=== PATIENT | female | born 1945 | race Caucasian/White ===

== ENCOUNTER → 2018-12-05 11:57 | Outpatient (CLI) | payer OTHER, SELFPAY ==
--- NOTE | 2018-12-05 | DI.MG.S_ITS ---
BILATERAL DIGITAL SCREENING MAMMOGRAM 3D/2D WITH CAD: 12/05/2018 CLINICAL: Routine screening. Family history of breast cancer. Comparison is made to exams dated: 10/14/2017 mammogram, 09/28/2016 mammogram, and 09/26/2015 mammogram - [facility]. The tissue of both breasts is heterogeneously dense. This may lower the sensitivity of mammography. Current study was also evaluated with a Computer Aided Detection (CAD) system. There are benign calcifications in both breasts. No significant masses, calcifications, or other findings are seen in either breast. There has been no significant interval change. IMPRESSION: There is no mammographic evidence of malignancy. A 1 year screening mammogram is recommended. This exam was interpreted at Station ID: [id number]. NOTE: For mammograms, a report in lay terms will be sent to the patient. Approximately 15% of breast malignancies will not be visualized mammographically. In the management of a palpable breast mass, a negative mammogram must not discourage biopsy of a clinically suspicious lesion. Electronically Signed By: Axel weiss/david:12/05/2018 13:22:40 letter sent: Normal Exam ACR BI-RADS Category 2: Benign Finding(s) 3342F
== END ==
PROVIDERS: Family Provider Family Medicine; PCP Family Medicine; Visit Provider Family Medicine
DX: Z12.31 Encounter for screening mammogram for malignant neoplasm of breast (principal); Z80.3 Family history of malignant neoplasm of breast
CPT/HCPCS: 77063; 77067

== ENCOUNTER → 2019-12-20 10:55 | Outpatient (CLI) | payer OTHER, SELFPAY ==
--- NOTE | 2019-12-20 | DI.MG.S_ITS ---
BILATERAL DIGITAL SCREENING MAMMOGRAM 3D/2D WITH CAD: 12/20/2019 CLINICAL: Routine screening. Family history of breast cancer. Comparison is made to exams dated: 12/05/2018 mammogram, 10/14/2017 mammogram, and 09/28/2016 mammogram - [facility]. The tissue of both breasts is heterogeneously dense. This may lower the sensitivity of mammography. Current study was also evaluated with a Computer Aided Detection (CAD) system. There are benign calcifications in both breasts. No significant masses, calcifications, or other findings are seen in either breast. There has been no significant interval change. IMPRESSION: There is no mammographic evidence of malignancy. A 1 year screening mammogram is recommended. This exam was interpreted at Station ID: [id number]. NOTE: For mammograms, a report in lay terms will be sent to the patient. Approximately 15% of breast malignancies will not be visualized mammographically. In the management of a palpable breast mass, a negative mammogram must not discourage biopsy of a clinically suspicious lesion. Electronically Signed By: Kareem carr/david:12/20/2019 11:33:45 letter sent: Normal Exam ACR BI-RADS Category 2: Benign Finding(s) 3342F
== END ==
PROVIDERS: Family Provider Family Medicine; PCP Family Medicine; Referring Provider Family Medicine; Visit Provider Family Medicine
DX: Z12.31 Encounter for screening mammogram for malignant neoplasm of breast (principal); Z80.3 Family history of malignant neoplasm of breast
CPT/HCPCS: 77063; 77067

== ENCOUNTER 2020-08-07 19:29 | Observation (INO) | payer OTHER, SELFPAY ==
[2020-08-07] VITALS (12 sets, daily range): BP systolic 160–186; BP diastolic 70–82; PULSE 52–77; RESP 16–24; TEMP 36.9; O2SAT 95–97; BMI 26.5
--- NOTE | 2020-08-07 20:33 | ED_ITS ---
HPI - Back Pain/Injury General Chief Complaint: Back Pain/Injury Stated Complaint: pain left shoulder blade and down left arm Time Seen by Provider: 08/07/20 20:03 Source: patient and family Limitations: no limitations History of Present Illness HPI Narrative: Patient here with son. Complaints then onset of left shoulder pain radiating to left hand at 2:00 p.m. today, 6 hours ago. Has improved. Patient denies any injury to the area. At times it does feel reproducible on point tenderness/palpation at the lateral scapula. No numbness tingling weakness. No syncope no nausea no dyspnea. No syncope. No recent long travel. No recent immobilization. No surgeries. Denies any history of pulmonary embolism or DVT. Patient has increased home activity with home repairs but denies any specific injury or repetitive motion. Patient does have rash area on the left shoulder but no fever malaise. It itches. She states that she thought may be insect bites because she has been outdoors working. Denies any history of shingles. Patient is on 2 blood pressure medications as well as cholesterol medications. No prior stress test in her life. Does not smoke. Blood pressure noted. Six years ago she states she was seen by her primary care Dr. Vinicius Valero, for arrhythmia. It sounds like SVT as patient had to go to the emergency department here. Was cardioverted with a medication that ?reset your heart ?, possible Adenocard? She was sent home from the emergency department. Had Holter monitor but no definitive diagnosis. Is on diltiazem since then. Patient never saw electrician third and none current. Denies any cough cold congestion fever chills or sore throat. Complaint: back pain Related Data Home Medications Medication Instructions Recorded Confirmed lisinopril 5 mg PO DAILY #0 11/24/12 08/07/20 alprazolam 0.25 mg tablet 0.25 mg PO ONCE PRN tab 01/27/19 08/07/20 diltiazem HCl 180 mg 180 mg PO DAILY 01/27/19 08/07/20 capsule,extended release 24 hr diltiazem HCl 30 mg tablet 30 mg PO ONCE PRN tab 01/27/19 08/07/20 levothyroxine 100 mcg capsule 100 mcg PO DAILY 01/27/19 08/07/20 pantoprazole 40 mg granules 40 mg PO BEDTIME 01/27/19 08/07/20 delayed-release for susp in packet atorvastatin 10 mg PO BEDTIME 08/07/20 08/07/20 cholecalciferol (vitamin D3) 25 mcg PO DAILY 08/07/20 08/07/20 [Vitamin D3] Allergies Allergy/AdvReac Type Severity Reaction Status Date / Time No Known Drug Allergies Allergy Verified 08/07/20 19:45 Review of Systems Review of Systems Narrative: GENERAL: Denies chills, fatigue, malaise, fever, sweats. HEENT: Denies sinus pain, ear pain, sore throat, difficulty swallowing, dizziness. RESPIRATORY: Denies dyspnea, cough, wheezing, hemoptysis, sputum. CARDIOVASCULAR: Denies chest pain, palpitations, orthopnea, edema, GASTROINTESTINAL: Denies nausea, vomiting, abdominal pain, diarrhea, constipation, melena. : Denies dysuria, frequency, incontinence, hematuria, urinary retention. MUSCULOSKELETAL: denies weakness, joint pain, or bony pain SKIN: Complains rash, skin lesions NEUROLOGIC: Denies weakness, headache, numbness, change in speech, confusion, seizures, incoordination. PSYCHIATRIC: No concerning psychosocial issues. ROS Unobtainable: All systems reviewed & are unremarkable except as noted in HPI and below Patient History Social History household members: none Smoking Status: Never smoker alcohol intake: former Smoking Status: Never smoker Substance Use Type: does not use Exam Narrative Exam Narrative: GENERAL: patient appears stated age. Well-nourished, well- developed patient, in no distress, not toxic, patient in gown HEAD: Atraumatic. Normocephalic. EYES: Pupils equal round and reactive. Extraocular motions intact. No scleral icterus. No injection or drainage. ENT: Nose without bleeding, purulent drainage. Throat without erythema, tonsillar hypertrophy or exudate. Airway patent. NECK: Trachea midline. Non tender CARDIOVASCULAR: Regular rate and rhythm without murmurs, gallops, or rubs. RESPIRATORY: Clear to auscultation. Breath sounds equal bilaterally. No wheezes, rales, or rhonchi. GASTROINTESTINAL: Abdomen soft, non-tender, nondistended. EXTREMITIES: No edema or joint tenderness. BACK: Mild reproducible tenderness/point tenderness at the lateral scapula. NEURO: AOx4. SKIN: Multiple small papules about 3 mm each not vesicular, at the trapezius and extends anteriorly to the clavicle. None extending to the arms. There is another papule crossing midline at the cervical level approximately C5. Rash is dry PSYCH: Not anxious, is cooperative Initial Vital Signs Initial Vital Signs: Vital Signs Temperature 98.5 F 08/07/20 19:45 Pulse Rate 77 08/07/20 19:45 Respiratory Rate 16 08/07/20 19:45 Blood Pressure 182/81 H 08/07/20 19:45 Pulse Oximetry 97 08/07/20 19:45 Course Course Course Narrative: Atypical chest pain likely. Not all the symptoms tied into 1 diagnosis. Never had stress test before. Patient and son agree for admission Decision to Admit Date: 08/07/20 Decision to Admit time: 21:45 Orders Ordered: ED Orders 08/07/20 19:46 EKG-12 Lead Stat 08/07/20 20:32 XR chest 1V Stat 08/07/20 20:40 Complete Blood Count AUTO DIFF Stat Comprehensive Metabolic Panel Stat Troponin & CK Cardiac Panel Stat Acetaminophen (Tylenol) 650 mg PO Q6HR PRN PRN Reason: Fever/Mild Pain (1-3) Morphine Sulfate (Morphine) 1 mg IV Q2HR PRN PRN Reason: Pain, Moderate (4-6) Morphine Sulfate (Morphine) 2 mg IV Q2HR PRN PRN Reason: Pain, Severe (7-10) Last Admin: 08/08/20 03:17 Dose: 2 mg Documented by: KEY Ondansetron HCl (Zofran) 4 mg IV Q4HR PRN PRN Reason: Nausea And Vomiting Sodium Chloride (Normal Saline 0.9% Flush) 10 ml IV PRN PRN PRN Reason: Flush Last Admin: 08/08/20 03:17 Dose: 10 ml Documented by: KEY Sodium Chloride (Normal Saline 0.9% Flush) 10 ml IV BID KEI Discontinued Medications Aspirin (Aspirin Chew) 324 mg PO NOW ONE Stop: 08/07/20 20:33 Last Admin: 08/07/20 20:37 Dose: 324 mg Documented by: DIEUDONNE Nitroglycerin (Nitro-Bid) 0.5 inch TOP NOW ONE Stop: 08/07/20 20:33 Last Admin: 08/07/20 20:37 Dose: 0.5 inch Documented by: MMCFARL Reevaluation(s) Reevaluation #1: Blood pressure 174/72. Patient states nitropaste seems to be helping and is discomfort improving in the left shoulder Time: 22:12 Consultations Consultation #1: Spoke with primary care numerical control nesting operator, Dr. Pettit, she will admit patient. She will place orders from home Time: 21:45 Vital Signs Vital signs: Vital Signs - 8 hr 08/07/20 19:45 08/07/20 19:49 08/07/20 20:00 Temperature 98.5 F Pulse Rate 77 66 62 Respiratory Rate 16 23 20 Blood Pressure 182/81 H Pulse Oximetry 97 97 97 08/07/20 20:01 08/07/20 20:30 08/07/20 21:00 Temperature Pulse Rate 60 68 56 L Respiratory Rate 18 24 16 Blood Pressure 160/70 H 186/81 H 185/79 H Pulse Oximetry 97 96 08/07/20 21:30 08/07/20 21:31 Temperature Pulse Rate 55 L 52 L Respiratory Rate 22 18 Blood Pressure 181/79 H Pulse Oximetry 95 95 MDM - Back Pain/Injury Differential Diagnosis Differential diagnosis: Likely other (Shingles versus muscular strain versus atypical chest pain) Lab Data Attestation: I reviewed the patient's lab results. Result diagrams: 08/07/20 20:40 08/07/20 20:40 Labs: Lab Results 08/07/20 08/07/20 Range/Units 20:40 20:40 WBC 6.9 (4.5-11.0) X10^3/uL RBC 4.50 (4.0-5.2) X10^6/uL Hgb 13.6 (12.0-16.0) g/dL Hct 39.3 (36-46) % MCV 87.4 (80-100) fL MCH 30.3 (26-34) PG MCHC 34.7 (30-36) % RDW 12.6 (11.6-14.8) % Plt Count 270 (150-400) X10^3/uL Neut % (Auto) 58.9 (50-75) % Lymph % (Auto) 26.4 (25-40) % [place] % (Auto) 9.4 (3-14) % Eos % (Auto) 4.4 H (2-4) % Baso % (Auto) 0.9 (0-2) % Neut # (Auto) 4000 (8441-1842) /uL Lymph # (Auto) 1800 (7328-2104) /uL [place] # (Auto) 600 (0-900) /uL Eos # (Auto) 300 (0-450) /uL Baso # (Auto) 100 (0-100) /uL Sodium 136 L (137-145) mmol/L Potassium 4.2 (3.4-5.1) mmol/L Chloride 103 (98-107) mmol/L Carbon Dioxide 26 (22-32) mmol/L BUN 23 H (7-17) mg/dL Creatinine 0.91 (0.52-1.04) mg/dL Estimated GFR 59.9 L (>60) mL/min BUN/Creatinine Ratio 25.3 H (6-22) Glucose 110 (80-110) mg/dL Calcium 9.0 (8.4-10.2) mg/dL Total Bilirubin 0.5 (0.2-1.3) mg/dL AST 26 (14-36) IU/L ALT 17 (<35) IU/L Alkaline Phosphatase 82 (38-126) U/L Total Creatine Kinase 67 (30-135) U/L CK-MB (CK-2) TNP CK-MB (CK-2) Rel Index TNP Troponin I < 0.012 (0.01-0.034) ng/mL Total Protein 7.3 (6.3-8.2) g/dL Albumin 4.0 (3.5-5.0) g/dL Globulin 3.3 (1.7-4.1) g/dL Albumin/Globulin Ratio 1.2 (1.0-2.8) Imaging Data Chest x-ray: Radiologist's Impression: [address] [address] XRay Report Signed Patient: Janet Hernández LMR#: [id number] : 3Acct:[id number] Age/Sex: 75 / FDate of Service: 08/07/20 Loc: ED Accession Number: [id number] Procedure: XR chest 1V Ordering Provider: Bryan Solo MD PROCEDURE: XR CHEST 1V INDICATIONS: Chest pain TECHNIQUE: One view of the chest was acquired. COMPARISON: [facility], , CHEST 1 VIEW, 11/24/2012, 10:00. FINDINGS: Surgical changes and devices: None. Lungs and pleura: Lungs are clear. No pleural effusions or pneumothorax. Mediastinum: There is a moderate-sized hiatal hernia. Heart size is normal. Bones and chest wall: No suspicious bony lesions. Overlying soft tissues appear unremarkable. IMPRESSION: 1. No acute cardiopulmonary disease. 2. Moderate size hiatal hernia. Dictated by: Kareem Ross M.D. on 08/07/2020 at 21:37 Approved by: Kareem Ross M.D. on 08/07/2020 at 21:38 ECG Data Attestation: I personally reviewed and interpreted this ECG as follows: Interpretation: Normal sinus rhythm, normal EKG, ventricular rate 70, no ST elevation or depression MDM Narrative Medical decision making narrative: At this time differential diagnosis includes atypical chest pain/unstable angina as patient has sudden onset of left upper extremity discomfort that is partially reproducible. Shingles is in the differential but extension down to the arm does not go with shingles as well as point tenderness. Could be musculoskeletal as patient has been exerting and doing a lot of home repairs and improvements. But does not recall any specific injury. Patient is right handed. However rash does not go with muscular strain. Patient denies any recent exertional chest pain but has been very tired and fatigued. Spoke with patient and son and they agree with admission overnight for stress test in the morning. Rash has not changed in the last 3 days, not a burning sensation to the skin Discharge Plan Departure Patient Disposition: Admitted as Observation Clinical Impression: Atypical chest pain Discharge Date/Time: 08/08/20 00:10 Referrals: Vinicius Valero MD [Primary Care Provider] - Admit Date/Time: 08/07/20 21:44 Admit Provider: Erin Pettit
[2020-08-07] MEDS: ASPIRIN 81 MG CHEW TAB 324 MG PO (20:37)
[2020-08-07] MEDS: NITROGLYCERIN OINT 1 INCH/GM OINT...G. 0.5 INCH TOP (20:37)
[2020-08-07 20:55] LABS: Add Manual Diff / Slide Review NO; Basophils Absolute Auto 100 /uL (0-100); Basophils Percent Auto 0.9 % (0-2); Eosinophils Absolute Auto 300 /uL (0-450); Eosinophils Percent Auto 4.4 % (2-4); Hematocrit 39.3 % (36-46); Hemoglobin 13.6 g/dL (12.0-16.0); Lymphocytes Absolute Auto 1800 /uL (1100-4500); Lymphocytes Percent Auto 26.4 % (25-40); Mean Corpuscular HGB Conc 34.7 % (30-36); Mean Corpuscular Hemoglobin 30.3 PG (26-34); Mean Corpuscular Volume 87.4 fL (80-100); Monocytes Absolute Auto 600 /uL (0-900); Monocytes Percent Auto 9.4 % (3-14); Neutrophils Absolute Auto 4000 /uL (1500-7000); Neutrophils Percent Auto 58.9 % (50-75); Platelet Count 270 X10^3/uL (150-400); Red Cell Distribution Width 12.6 % (11.6-14.8); White Blood Cell Count 6.9 X10^3/uL (4.5-11.0)
[2020-08-07 21:09] LABS: Alanine Aminotransferase 17 IU/L (<35); Albumin Globulin Ratio 1.2 (1.0-2.8); Alkaline Phosphatase 82 U/L (38-126); Aspartate Aminotransferase 26 IU/L (14-36); BUN Creatinine Ratio 25.3 (6-22); Bilirubin Total 0.5 mg/dL (0.2-1.3); Blood Urea Nitrogen 23 mg/dL (7-17); Carbon Dioxide 26 mmol/L (22-32); Chloride 103 mmol/L (98-107); Creatine Kinase 67 U/L (30-135); Estimated Glomerular Filt Rate 59.9 mL/min (>60); Globulin 3.3 g/dL (1.7-4.1); Glucose 110 mg/dL (80-110); HEMOLYSIS < 15 (0-50); Potassium 4.2 mmol/L (3.4-5.1); Sodium 136 mmol/L (137-145); Total Protein 7.3 g/dL (6.3-8.2)
[2020-08-07 21:21] LABS: Troponin I < 0.012 ng/mL (0.01-0.034)
[2020-08-07 22:14] LABS: COVID19 -Nasal RAPID Negative (Negative)
[2020-08-08] VITALS (10 sets, daily range): BP systolic 132–186; BP diastolic 65–80; PULSE 49–65; RESP 14–18; TEMP 36.9–37.4; O2SAT 88–97; BMI 25.8
--- NOTE | 2020-08-08 02:50 | PC.ADMIT ---
Addendum entered by Bushra Guzmán R.N. 08/08/20 05:05: Patient found to have O2 sat of 88% so placed on oxygen at 1L/min per NC Addendum entered by Bushra Guzmán R.N. 08/08/20 03:13: Complains of increasing pain in left arm and rates severity as 8/10. BP 186/76. MACHINE ATTENDANT reports only that HR has dropped down as low as 50. See new order for Morphine. Original Note: Patient admitted to room 216 at 0020 per stretcher from ER. Reports she began having left scapular pain radiating into left arm around 2pm yesterday. Pain on admission was 3/10 in left scapula and 5/10 in left arm but states some improvement and able to tolerate. Is alert and oriented. Breath sounds CTA with RA sat of 97%. HRR; telemetry reading was SR w/1st degree AVB and PAC's. Denied nausea. BT present and abdomen soft. Reports prolapse that causes her to have urinary hesitancy but denies dysuria, frequency or urgency. Is able to move self in bed and up independently in the room; steady on feet. Did instruct to sit on edge of bed prior to getting up and call for assistance if any increased pain, dizziness or lightheadedness. Has petichiael appearing rash on cheeks and chin; denies itching, pain or burning. Fall risk score is low. Oriented to call light and bed controls. [email or web address] [facility] Admission Note: The patient,Janet Hernández,75 y/o, was given written information regarding hospital policies, unit procedures and contact persons. Patient's smoking status: Never smoker. Vital Signs - 8 hr 08/07/20 19:45 08/07/20 19:49 08/07/20 20:00 Temperature 98.5 F Pulse Rate 77 66 62 Respiratory Rate 16 23 20 Blood Pressure 182/81 H Pulse Oximetry 97 97 97 08/07/20 20:01 08/07/20 20:30 08/07/20 21:00 Temperature Pulse Rate 60 68 56 L Respiratory Rate 18 24 16 Blood Pressure 160/70 H 186/81 H 185/79 H Pulse Oximetry 97 96 08/07/20 21:30 08/07/20 21:31 08/07/20 22:00 Temperature Pulse Rate 55 L 52 L Respiratory Rate 22 18 Blood Pressure 181/79 H Pulse Oximetry 95 95 97 08/07/20 22:03 08/07/20 22:30 08/07/20 23:00 Temperature Pulse Rate 63 65 61 Respiratory Rate 20 20 Blood Pressure 174/82 H 179/77 H 177/75 H Pulse Oximetry 96 96 96 08/08/20 00:20 Temperature 98.5 F Pulse Rate 63 Respiratory Rate 15 Blood Pressure 159/80 H Pulse Oximetry 97
[2020-08-08] MEDS: SODIUM CHLORIDE 0.9% FLUSH 10 ML IV ×2 (03:17→08:48)
[2020-08-08] MEDS: MORPHINE 2 MG/ML INJ IV (03:17)
[2020-08-08] MEDS: ONDANSETRON 4 MG/2 ML INJ IV (04:26)
--- NOTE | 2020-08-08 04:37 | PC.NURSE ---
ICU called reported patients heart rate dipped down to 42. Patient in bed with head elevated c/o of abd. pain and nausea. Vitals 141/76, HR 57, R 16 and O2 sats 96% on room air. Denies any Chest pain, MCGARRY or dizziness. Medicated with Zofran for the nausea. Patient states I think the morphine I was given has made me sick, Im not taking that anymore. No redness or rash noted. Patient currently resting quietly in bed. Denies nausea at this time.
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
[2020-08-08] MEDS: lisinopriL 5 MG TABLET PO (08:46)
[2020-08-08] MEDS: LEVOTHYROXINE 100 MCG TABLET PO (08:47)
[2020-08-08] MEDS: ASPIRIN EC 81 MG TABLET PO (08:47)
[2020-08-08] MEDS: IBUPROFEN 600 MG TABLET PO ×2 (08:47→14:34)
[2020-08-08] MEDS: CHOLECALCIFEROL (VITAMIN D3) 1,000 UNIT TABLET 100 UNIT PO (08:48)
[2020-08-08] MEDS: dilTIAZem CD 180 MG CAP PO (08:59)
--- NOTE | 2020-08-08 09:32 | PC.NURSE ---
Addendum entered by Sis Daniel R.N. 08/08/20 09:33: at approx 0930 Original Note: Day shift: Pt off unit for stress test at approx.
--- NOTE | 2020-08-08 10:09 | PC.NURSE ---
Day shift: Pt back on AC unit from stress test at approx 1000. She is NPO again
--- NOTE | 2020-08-08 10:17 | PC.NURSE ---
Day shift: After Lisinipril and Diltiazem BP 146/79 and HR 62. Denies any chest pain. Left shoulder and left arm feel better after the Ibuprofen.
--- NOTE | 2020-08-08 10:27 | PT.IIE ---
Physical Therapy Inpatient Evaluation/Re-Eval M1 PT/OT-IP Prior Functional Status Start: 08/08/20 12:28 Freq: NEEDED Status: Active Protocol: Document 08/08/20 10:27 AB (Rec: 08/08/20 13:05 AB [id number]) Medical Review Prior Functional Status Medical History Reviewed Yes Communication able to make needs known Mobility and Gait pt stated that she is independent with all mobilities and ambulation without AD Social History Household Members none Living Arrangements House Number of Floors (Floors) One Floor Number of Stairs To Enter/Railing? 2 steps without rails to enter Home Environment High Toilet,Walk in Shower Home Equipment Hand Held Shower,Grab Bars In Shower Employment Status Retired M2 PT-IP Current Condition Start: 08/08/20 12:28 Freq: NEEDED Status: Active Protocol: Document 08/08/20 10:27 AB (Rec: 08/08/20 13:05 AB [id number]) Physical Therapy Current Condition Current Condition Evaluation Date 08/08/20 Treatment Diagnosis atypical chest pain; difficulty in walking Onset Date 08/07/20 M3 PT-IP Subjective Start: 08/08/20 12:28 Freq: NEEDED Status: Active Protocol: Document 08/08/20 10:27 AB (Rec: 08/08/20 13:05 AB [id number]) Subjective Physical Therapy Visit Type Type Initial Evaluation Visit Start Time 10:27 Visit Stop Time 11:00 Total Visit Minutes 33 Number of GRAIN ELEVATOR MOTOR 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 Visits 0 Physical Therapy Visit Comments Patient Comments pt is agreeable to do PT Therapy Pain Assessment Pain When Pain Assessed At Rest Pain Present Pain Present Pain Reported Location Left Arm Scale Used pain scale not stated M4 PT-IP Mobility and Gait Start: 08/08/20 12:28 Freq: NEEDED Status: Active Protocol: Document 08/08/20 10:27 AB (Rec: 08/08/20 13:05 AB [id number]) PT-Bed Mobility Assessment Supine to Sit Supine to Sit Independent Sit to Supine Sit to Supine Independent PT-Transfer Assessment Sit to and From Stand Sit to and from Stand Independent Equipment Transfer Assistive Device None Transfer Ability Level of Assist Standby Assistance Comments Mobility Comments completed bed mobility independent. ambulated in room without AD SBA with unsteady gait but without LOB. increase lateral trunk lurch to the R during ambulation and with difficulty ambulating a straigth path but did not have any LOB. completed balance assessement and pt is a low fall risk. pt ambulated back to her bed. completed sit to supine independent. Gait Assessment Gait Gait Assistance Required: Standby Assistance Distance (Feet) 50 Able to Maintain Weight Bearing Status Yes During Gait Assistive Devices Orthotic/Prosthetic Devices or Brace: No Gait Deviations General Gait Pattern Antalgic,Lateral Trunk Lean Stair Climbing Assessment Evaluation Level of Assist On Stairs Standby Assistance Devices Stair Climbing Assistive Devices None Technique/Endurance Stair Climbing Direction Ascend and Descend Stair Climbing Technique Step to Step Number of Steps Climbed 1 Query Text: Stair Climbing Set # Repetitions (reps) 2 Comments Stair Climbing Comments completed up/down step stool without AD SBA PT-Balance Assessment Sitting Balance and Reactions Static Sitting Balance Ability Normal Dynamic Sitting Balance Ability Normal Standing Balance and Reactions Static Standing Balance Ability Good Dynamic Standing Balance Ability Good Functional Assessments Functional Tests 5 Times Sit to Stand completed in 14 sec: low fall risk Tinetti Balance and Gait Assessment Other Functional Tests Performed tinetti balance assessment: balance score: 16/16 gait score: 11/12 total score of which relates to low fall risk M5 PT-IP Objective Assessments Start: 08/08/20 12:28 Freq: NEEDED Status: Active Protocol: Document 08/08/20 10:27 AB (Rec: 08/08/20 13:05 [id number]) Orientation Orientation/Cognition Level of Alertness Alert Orientation Name,Age,Birthday,Month,Date, Year,Day of Week,Place, Situation Language Function Ability No Deficits Noted Safety Awareness Understands Safety Issues Memory Description No Deficits Noted Gross Range of Motion Lower Extremity ROM Assessment Within Functional Limits Strength Lower Extremity Strength Assessment Within Functional Limits Coordination Assessment Gross Coordination Gross Coordination WNL Sensation Assessment Sensation Gross Sensation WNL Muscle Tone Muscle Tone WNL Yes M6 PT-IP Treatment Start: 08/08/20 12:28 Freq: NEEDED Status: Active Protocol: Document 08/08/20 10:27 AB (Rec: 08/08/20 13:05 [id number]) Physical Therapy Treatment Education Education Provided Safety M7 PT-IP Assessment and Plan Start: 08/08/20 12:28 Freq: NEEDED Status: Active Protocol: Document 08/08/20 10:27 AB (Rec: 08/08/20 13:05 AB [id number]) PT Summary Assessment and Plan Potential Rehabilitation Potential Good Summary Impairments Gait Assessment Summary PT eval completed and pt is SBA with ambulation without AD for safety but without LOB. Balance assessment completed and pt is low fall risk. pt is able to complete up/down step stool without AD/support SBA. Pt is at PLOF and no further PT intervention indicated at this time. pt aware and stated that she will go home after her stress test . Frequency of Treatment Frequency Of Treatment Discharge Recommendations To Nursing Amount of Assist Needed Standby Assistance Discharge Recommendations PT Discharge Recommendations Home Transportation Needs at Discharge Private Vehicle
[2020-08-08 11:42] LABS: Add Manual Diff / Slide Review NO; Basophils Absolute Auto 0 /uL (0-100); Basophils Percent Auto 0.6 % (0-2); Eosinophils Absolute Auto 100 /uL (0-450); Eosinophils Percent Auto 1.6 % (2-4); Hematocrit 40.6 % (36-46); Hemoglobin 13.8 g/dL (12.0-16.0); Lymphocytes Absolute Auto 1300 /uL (1100-4500); Lymphocytes Percent Auto 19.4 % (25-40); Mean Corpuscular Hemoglobin 29.7 PG (26-34); Mean Corpuscular Volume 87.3 fL (80-100); Monocytes Absolute Auto 500 /uL (0-900); Neutrophils Absolute Auto 4600 /uL (1500-7000); Neutrophils Percent Auto 71.4 % (50-75); Platelet Count 245 X10^3/uL (150-400); Red Blood Cell Count 4.65 X10^6/uL (4.0-5.2); Red Cell Distribution Width 12.8 % (11.6-14.8); White Blood Cell Count 6.5 X10^3/uL (4.5-11.0)
--- NOTE | 2020-08-08 12:02 | PC.NURSE ---
Day shift: Pt off unit for 2nd part of stress test at approx 1200.
[2020-08-08 12:05] LABS: BUN Creatinine Ratio 20.7 (6-22); Blood Urea Nitrogen 18 mg/dL (7-17); Calcium 9.2 mg/dL (8.4-10.2); Carbon Dioxide 26 mmol/L (22-32); Chloride 105 mmol/L (98-107); Estimated Glomerular Filt Rate > 60.0 mL/min (>60); Glucose 102 mg/dL (80-110); HEMOLYSIS < 15 (0-50); Magnesium 1.8 mg/dL (1.6-2.3); Phosphorous 3.8 mg/dL (2.8-4.1); Potassium 4.2 mmol/L (3.4-5.1); Sodium 139 mmol/L (137-145)
[2020-08-08 12:09] LABS: NT-proBNP (BNP-Adult 18+) 514 pg/mL (<450)
[2020-08-08 13:56] LABS: Troponin I < 0.012 ng/mL (0.01-0.034)
--- NOTE | 2020-08-08 15:21 | CM.IDA ---
Initial DCP Assessment Note Patient is a 75 yo female, resident of [place]. Patient presents after experiencing pain radiating down her left arm, admitted by Dr Pettit for chest pain r/o PCP: Dr Anjum Castillo: Brett PALACIOS reviewed chart and met w/patient this afternoon. Patient is awaiting to speak w/the doctor and hopeful she will be able to DC home this evening. Patient has flat affect w/this SENIOR UX DESIGNER, does admit her in March and my son has been taking good care of me Son Florian lives in [place] and able to assist patient as needed. No SENIOR UX DESIGNER needs identified today. Following closely. DC likely home w/family when medically stable, w/close outpt f/u EDWARD Akhtar
[2020-08-08 17:07] LABS: Troponin I < 0.012 ng/mL (0.01-0.034)
--- NOTE | 2020-08-08 17:38 | P.DS_ITS ---
History of Present Illness History of Present Illness Date Patient Seen: 08/08/20 Time Patient Seen: 17:38 Chief complaint: pain left shoulder blade and down left arm Narrative: 75 year female admitted for observation from the ED secondary to atypical chest pain/unstable angina. Had new onset left shoulder pain radiating to left hand that started yesterday at 2:00 p.m.; she called [facility] line and was advised to go to the ED secondary to risk for an atypical presentation of acute coronary syndrome. During the time she was in the ED, the pain improved after nitroglycerin. ED doctor did find that the pain was reproducible upon examination in the lateral scapula. Patient denies any tingling. No syncope, nausea or edema. No recent travel, edema surgery. No history of DVT or PE. Patient's recently and so she has had increased work around the house with home repairs but denies any inciting event or injury. Patient also has a rash that has been ongoing for few days but unchanged the last 3 days. It is dry, papular, and pruritic. No intense pain or tingling. Does not have a history of shingles. Chronically, she has paroxysmal SVT and hypertension, controlled with diltiazem and lisinopril. She did require cardioversion 6 years ago. Nonsmoker and nondrinker. History of well-controlled hypothyroidism with no abnormal TSH values in the last 5 years. Vital signs upon admission to the ED included a temperature of 98.5? pulse 77, respirations 16, blood pressure 182/81, O2 saturation 97% on room air. Repeat blood pressure 160/70. Workup including CBC, CMP, troponins, EKG, and chest x- ray remarkable for a moderate hiatal hernia on chest x-ray. Notably, her troponins were negative and her EKG was normal sinus rhythm with a ventricular rate of [address] changes. Discharge Providers Provider Date of admission: 08/07/20 21:44 Discharge Date: 08/08/20 Primary care physician: Vniicius Valero MD Consults: 08/08/20 00:40 Consult to Dietitian, Adult Routine Comment: Reason For Exam: MNA score = 11 08/08/20 08:18 Consult to Discharge Planning Routine Comment: Consult to Physical Therapy Evaluate & Treat Comment: Physician Instructions: Evaluate and Treat Discharge provider: Erin Pettit MD Summary Hospital Course Discharge Diagnosis: 1. Left arm pain, acute. Rule out CO. 2. Hypertension, acute on chronic 3. Paroxysmal supraventricular tachycardia, chronic 4. Rash, as this crosses midline, shingles unlikely. 5. Chronic kidney disease stage 3 6. Graves disease with post-treatment hypothyroidism Hospital Course: Unremarkable. Dr. Monsivais called with a verbal report of patient's stress test which was low risk. She did have some poor exercise tole ana and he recommended continued workup for pulmonary etiology if clinically indicated. Echo was not able to be completed secondary to scheduling conflict. Dr. Monsivais felt comfortable for her to complete this as an outpatient secondary to her low risk stress test. Serial troponins were negative. On day of discharge, she is afebrile, with stable vital signs throughout. Notably, blood pressure has normalized now that pain is under control, 12/25. Suspect that her arm pain was musculoskeletal in origin due to her house projects. Plan will be for outpatient follow-up in approximately 1 week with echo for completion. Time spent on Discharge and Coordination of post-hospital care: 35 minutes Status at Discharge Cognitive/behavioral status at discharge: at baseline, oriented Functional status at discharge: independent ambulation Overall status at discharge: patient is progressing back to baseline Exam Vital Signs (past 8 hours): - 08/08/20 10:32 08/08/20 11:59 08/08/20 15:50 Temperature 98.4 F 98.6 F Pulse Rate 62 59 L 65 Respiratory Rate 15 14 18 Blood Pressure 146/79 H 132/79 139/65 Pulse Oximetry 97 94 96 Oxygen Delivery Method Room Air Oxygen Flow Rate 0 Narrative Exam Narrative: GENERAL: Alert and oriented, appearing stated age and in no acute distress. HEENT: Head normocephalic/atraumatic. Pupils equal, round, and reactive to light and accomodation. Extraocular muscles intact. Tympanic membranes clear. Nasal mucosa moist, septum midline. Oral mucosa moist, no lesions. Neck soft and supple, no lymphadenopathy. LUNGS: Clear to ausculation bilaterally, no wheezes, rhonchi or rales. CV: Normal S1 and S2 with regular rate and rhythm, no audible murmurs, rubs or gallops. ABDOMEN: Soft, non-tender, non-distended, no organomegaly. Positive bowel sounds. EXTREMITIES: No tenderness over left shoulder or arm. Range of motion full. Strength 5/5. NEURO: Cranial nerves II through XII grossly intact, no focal deficits. PSYCH: Alert and oriented x 3. SKIN: Dry, 3 mm papular rash from left trapezius to clavicle crossing the midline at C5. Objective Labs Result Diagrams: 08/08/20 11:25 08/08/20 11:25 Labs: Laboratory Results - last 24 hr 08/07/20 08/07/20 08/07/20 20:40 20:40 21:57 WBC 6.9 RBC 4.50 Hgb 13.6 Hct 39.3 MCV 87.4 MCH 30.3 MCHC 34.7 RDW 12.6 Plt Count 270 Neut % (Auto) 58.9 Lymph % (Auto) 26.4 Woodward % (Auto) 9.4 Eos % (Auto) 4.4 H Baso % (Auto) 0.9 Neut # (Auto) 4000 Lymph # (Auto) 1800 Woodward # (Auto) 600 Eos # (Auto) 300 Baso # (Auto) 100 Sodium 136 L Potassium 4.2 Chloride 103 Carbon Dioxide 26 BUN 23 H Creatinine 0.91 Estimated GFR 59.9 L BUN/Creatinine Ratio 25.3 H Glucose 110 Calcium 9.0 Phosphorus Magnesium Total Bilirubin 0.5 AST 26 ALT 17 Alkaline Phosphatase 82 Total Creatine Kinase 67 CK-MB (CK-2) TNP CK-MB (CK-2) Rel Index TNP Troponin I < 0.012 NT-Pro-B Natriuret Pep Total Protein 7.3 Albumin 4.0 Globulin 3.3 Albumin/Globulin Ratio 1.2 COVID-19 PCR Negative 08/08/20 08/08/20 08/08/20 11:25 11:25 11:25 WBC 6.5 RBC 4.65 Hgb 13.8 Hct 40.6 MCV 87.3 MCH 29.7 MCHC 34.0 RDW 12.8 Plt Count 245 Neut % (Auto) 71.4 Lymph % (Auto) 19.4 L Woodward % (Auto) 7.0 Eos % (Auto) 1.6 L Baso % (Auto) 0.6 Neut # (Auto) 4600 Lymph # (Auto) 1300 Woodward # (Auto) 500 Eos # (Auto) 100 Baso # (Auto) 0 Sodium 139 Potassium 4.2 Chloride 105 Carbon Dioxide 26 BUN 18 H Creatinine 0.87 Estimated GFR > 60.0 BUN/Creatinine Ratio 20.7 Glucose 102 Calcium 9.2 Phosphorus 3.8 Magnesium 1.8 Total Bilirubin AST ALT Alkaline Phosphatase Total Creatine Kinase CK-MB (CK-2) CK-MB (CK-2) Rel Index Troponin I < 0.012 NT-Pro-B Natriuret Pep 514 H Total Protein Albumin Globulin Albumin/Globulin Ratio COVID-19 PCR 08/08/20 08/08/20 11:25 16:35 WBC RBC Hgb Hct MCV MCH MCHC RDW Plt Count Neut % (Auto) Lymph % (Auto) Woodward % (Auto) Eos % (Auto) Baso % (Auto) Neut # (Auto) Lymph # (Auto) Woodward # (Auto) Eos # (Auto) Baso # (Auto) Sodium Potassium Chloride Carbon Dioxide BUN Creatinine Estimated GFR BUN/Creatinine Ratio Glucose Calcium Phosphorus Magnesium Total Bilirubin AST ALT Alkaline Phosphatase Total Creatine Kinase CK-MB (CK-2) CK-MB (CK-2) Rel Index Troponin I Cancelled < 0.012 NT-Pro-B Natriuret Pep Total Protein Albumin Globulin Albumin/Globulin Ratio COVID-19 PCR Discharge Plan Discharge Plan Patient Disposition: Home Discharge orders & Medications Prescriptions: Continued lisinopril 5 MG tablet 5 mg PO DAILY Qty: 0 RF: 0 diltiazem HCl [Cardizem CD] 180 mg capsule,extended release 24hr 180 mg PO DAILY RF: 0 diltiazem HCl [Cardizem] 30 mg tablet 30 mg PO ONCE PRN (Reason: Arrythmia) RF: 0 levothyroxine 100 mcg capsule 100 mcg PO DAILY RF: 0 pantoprazole [address] for susp in packet 40 mg PO BEDTIME RF: 0 alprazolam [Xanax] 0.25 mg tablet 0.25 mg PO ONCE PRN (Reason: Anxiety) RF: 0 atorvastatin 10 mg Tablet 10 mg PO BEDTIME RF: 0 cholecalciferol (vitamin D3) [Vitamin D3] 25 mcg (1,000 unit) Capsule 25 mcg PO DAILY RF: 0 Follow up/Referrals: Vinicius Valero MD [Primary Care Provider] - Diet/Activity/Treatments Diet: Diet as Tolerated Activity: As tolerated. Other treatments: Echo as outpatient. Skin/Wound/Dressing Care Report to your healthcare provider any signs of infection, such as:: chills, fever and increased pain Discharge Data Primary Care Provider: Vinicius Valero Attending Provider: Erin Pettit Admit Date/Time: 08/07/20 21:44
--- NOTE | 2020-08-08 18:47 | PC.NURSE ---
Pt discharged remotely by . Pt verbalized understanding of all discharge instructions and follow-up. Escorted off unit via w/c by INSIGHTS STRATEGIST. Pt left in stable condition with all personal belongings.
--- NOTE | 2020-08-09 06:37 | DI.NM.S_ITS ---
DATE OF SERVICE: 08/08/2020 PROCEDURE: Exercise perfusion study. INDICATION: Chest pain with underlying hypertension, hyperlipidemia, history of smoking. RADIOPHARMACEUTICAL: 24.0 millicurie technetium-99m Myoview IV was injected at stress and 9.0 millicurie of technetium-99m Myoview IV was injected at rest. CARDIAC STRESS: The patient underwent exercise perfusion study under the supervision of an attending staff. She walked on Scott protocol for 3 minutes 48 seconds, achieved 102 percent of target heart rate, normal blood pressure response, 4.6 METs of workload and functional aerobic impairment positive 23 percent. Prior to exercise, she had left arm pain ,which got improved during recovery. However, had significant shortness of breath during exercise. Baseline rhythm was sinus. During exercise, no ischemic changes. One PVC couplet at peak exercise. No sustained ventricular tachycardia. Intermittent PACs without any obvious AFib. RAW DATA: Breast shadow was seen. GATED STUDY: Resting LV ejection fraction 72 percent and stress LV ejection fraction 87 percent. Resting end-diastolic volume 64 mL. TID ratio 0.69, which is within normal limits. Lung/heart ratio 0.17, which is within normal limits. MYOCARDIAL PERFUSION: Stress supine and resting supine images reveal a small size, mildly decreased perfusion of distal anterior wall and inferoapex, which got resolved during prone images, suggestive of tissue attenuation artifact. Prone images revealed normal myocardial perfusion. CONCLUSION: I will call this study a normal myocardial perfusion study with evidence of breast and diaphragmatic tissue attenuation artifact, which got resolved during prone images. Decreased exercise tolerance. Normal hemodynamic response. Significant shortness of breath during exercise. Baseline left arm pain, which got improved during exercise. As far as perfusion scan is concerned, this is a low-risk myocardial perfusion scan. Consider pulmonary workup to rule out pulmonary etiology of shortness of breath and other causes of left arm pain. Janet Hernández - MONTSERRAT/hansa/brett doc#: [id number]/job#: [id number] dd: 08/08/2020 17:22:00 dt: 08/08/2020 20:22:00 DICTATING MD/COPIES TO: Bruno Monsivais MD COPIES MNE: ROSA;
== END 2020-08-08 18:00 | disposition home or self-care (01) ==
LOC: ED 20:03 → AC 21:45
PROVIDERS: Admitting Provider Student in an Organized Health Care Education/Training Program; Emergency Provider Emergency Medicine; Family Provider Family Medicine; PCP Family Medicine; Referring Provider Emergency Medicine; Visit Provider Student in an Organized Health Care Education/Training Program
DX: M25.512 Pain in left shoulder (principal); I47.1 Supraventricular tachycardia; I12.9 Hypertensive chronic kidney disease with stage 1 through stage 4 chronic kidney disease, or unspecified chronic kidney disease; N18.3 Chronic kidney disease, stage 3 (moderate); E05.00 Thyrotoxicosis with diffuse goiter without thyrotoxic crisis or storm; R21 Rash and other nonspecific skin eruption; Z11.59 Encounter for screening for other viral diseases
CPT/HCPCS: 36415; 71045; 78452; 80048; 80053; 82550; 83735; 83880; 84100; 84484; 85025; 87635; 93005; 93010; 93017; 96374; 96375; 97161; 99284; G0378; A9502; J2270; J2405

== ENCOUNTER 2020-08-12 11:03 | Emergency (ER) | payer OTHER, SELFPAY ==
[2020-08-08 00:29] VITALS: BMI 25.8
[2020-08-12 11:10] VITALS: BP 170/91; PULSE 86; RESP 16; TEMP 36.8; O2SAT 94
[2020-08-12 12:12] VITALS: BP 168/77; PULSE 76; RESP 12; O2SAT 95
--- NOTE | 2020-08-12 22:15 | ED_ITS ---
HPI - Skin/Abscess/Foreign Bdy <LEATHA Deluca - Last Filed: 08/12/20 22:47> General Chief complaint: Skin/Abscess/Foreign Body Stated complaint: thinks she has shingles Time Seen by Provider: 08/12/20 11:36 Source: patient Mode of arrival: Wheelchair Limitations: no limitations History of Present Illness HPI narrative: This is a 75-year-old female, nonsmoker, has history of hypert ension, arrhythmia, was admitted on 08/07/20 overnight for atypical chest pain and small papules on the back returned to ED with her son with severe left-sided back pain with increase in rash extending to her left arm after she was discharged to home. Patient reports the pain is so severe she was not able to go to sleep and feeling very tired. She had taken Advil and Xanax last night for pain without much help. Patient denies fever, chills, nausea or vomiting. Patient denies increase in stress in life. Patient reports no history of shingles in the past but had chickenpox. Related Data Home Medications Medication Instructions Recorded Confirmed lisinopril 5 mg PO DAILY #0 11/24/12 08/07/20 alprazolam 0.25 mg tablet 0.25 mg PO ONCE PRN tab 01/27/19 08/07/20 diltiazem HCl 180 mg 180 mg PO DAILY 01/27/19 08/07/20 capsule,extended release 24 hr diltiazem HCl 30 mg tablet 30 mg PO ONCE PRN tab 01/27/19 08/07/20 levothyroxine 100 mcg capsule 100 mcg PO DAILY 01/27/19 08/07/20 pantoprazole 40 mg granules 40 mg PO BEDTIME 01/27/19 08/07/20 delayed-release for susp in packet atorvastatin 10 mg PO BEDTIME 08/07/20 08/07/20 cholecalciferol (vitamin D3) 25 mcg PO DAILY 08/07/20 08/07/20 [Vitamin D3] Previous Rx's Medication Instructions Recorded gabapentin 300 mg PO BEDTIME PRN #14 cap 08/12/20 hydrocodone-acetaminophen [[place]] 1 tab PO BID PRN #7 tab 08/12/20 ondansetron 4 mg PO BID-TID PRN #10 tab 08/12/20 valacyclovir 1,000 mg PO Q8H 7 Days #21 tab 08/12/20 Allergies Allergy/AdvReac Type Severity Reaction Status Date / Time morphine AdvReac Intermediate nausea Verified 08/12/20 22:21 Review of Systems <LEATHA Deluca - Last Filed: 08/12/20 22:47> Review of Systems Narrative: General: Denies fever, chills, (+) fatigue, (+) malaise, sweats. HEENT: Denies sinus pain, ear pain, sore throat, difficulty swallowing, dizziness. Respiratory: Denies dyspnea, cough, wheezing, hemoptysis, sputum. Cardiovascular: Denies chest pain, palpitations, orthopnea, edema. Gastrointestinal: Denies nausea, vomiting, abdominal pain, diarrhea, constipation, melena. : Denies dysuria, frequency, incontinence, hematuria, urinary retention. Musculoskeletal: Denies weakness, joint pain or bony pain. Skin: Raised painful red rash on left side back extending to arm. Denies drainage. Neurologic: Denies weakness, headache, numbness, change in speech, confusion, seizures, incoordination. Psychiatric: No concerning psychosocial issues. 12-point review of systems is negative except for those stated above. Patient History <LEATHA Deluca - Last Filed: 08/12/20 22:47> Medical History Arrhythmia (Acute) Hyperlipidemia (Acute) Hypertension (Acute) Social History household members: none Smoking Status: Never smoker alcohol intake: former Smoking Status: Never smoker Substance Use Type: does not use Exam <LEATHA Deluca - Last Filed: 08/12/20 22:47> Narrative Exam Narrative: General appearance: well developed, well nourished, in no acute distress. Head: normocephalic, atraumatic, no scalp lesions, non-tender. ENT: Hearing grossly intact. Nose without bleeding, purulent discharge, septal hematoma or deviation. Mucous membrane moist, no mucosal lesion. Throat without erythema, tonsillar hypertrophy or exudate. Uvula in midline, airway patent. Neck/Thyroid: neck supple, full range of motion, no visible masses or meningeal signs. No JVD, non-tender without lymphadenopathy. Skin: Large, raised, red nodules/patches on left back, dermatome range in T5-6 extending to left deltoid. No obvious vesicles or drainage. No warmth to touc h. Intermittent pain. Heart: no clubbing, no cyanosis, no edema. S1 and S2 normal. RRR w/o murmurs, clicks, or bruits. Lungs: Breathing even and unlabored. No stridor. No accessory muscles used. Able to speak in full sentences. Chest: normal shape and expansion. Abdomen: non-obese, non-distended. Neurologic: alert and oriented. Cognitive exam, MICA SIZER and PNS grossly intact on informal exam. Psych: good eye contact, normal affect. Initial Vital Signs Initial Vital Signs: Vital Signs Temperature 98.2 F 08/12/20 11:10 Pulse Rate 86 08/12/20 11:10 Respiratory Rate 16 08/12/20 11:10 Blood Pressure 170/91 H 08/12/20 11:10 Pulse Oximetry 94 08/12/20 11:10 <Nuvia Dai DO - Last Filed: 08/17/20 07:28> Initial Vital Signs Initial Vital Signs: Vital Signs Temperature 98.2 F 08/12/20 11:10 Pulse Rate 86 08/12/20 11:10 Respiratory Rate 16 08/12/20 11:10 Blood Pressure 170/91 H 08/12/20 11:10 Pulse Oximetry 94 08/12/20 11:10 Scores <LEATHA Deluca - Last Filed: 08/12/20 22:47> GCS Loami coma scale eye opening: Spontaneous Jim coma scale verbal response: Orientated Loami coma scale motor response: Obey commands Jim coma scale total score: 15 [facility] - Skin/Abscess/Foreign Bdy <LEATHA Deluca - Last Filed: 08/12/20 22:47> Differential Diagnosis Differential diagnosis: Likely herpes zoster and cellulitis Medical Records Attestation: I reviewed the patient's medical records. [facility] Narrative Medical decision making narrative: This is a 75-year-old female who was in ED 5 days ago with chest pain and a few rash developed left-sided back and neck who was admitted to hospital overnight for cardiac workup and was discharged to home who return to ED today with large areas of elevated, erythematous, painful rash in left back in T5-6 dermatome extending to left upper arm. Physical exam is not consistent with cellulitis. Physical exam and HPI are consistent with shingles. She was discharged to home with famciclovir, Gabapentine for nerve pain, and [place] for severe pain and zofran as needed for nausea. Discussed narcotic and gabapentin medication precautions. Return precautions were discussed with patient and son and they both verbalized understanding in agreement with the treatment plan. Discharge Plan Departure Patient Disposition: Home Clinical Impression: Shingles Qualifiers: Herpes zoster complications: without complications Qualified Code(s): B02.9 - Zoster without complications Discharge Date/Time: 08/12/20 12:14 Instructions: DI for Shingles Activity Restrictions/Additional Instructions: You have been diagnosed with [shingles]. What to do: *Take your medications as directed. Please start taking antiviral valacyclovir 3 times a day for next 7 days. You can continue to use Advil as needed for pain with food to decrease stomach irritation. Please take gabapentin at night before go to sleep for nerve pain. If Tylenol is not sufficient to treat pain during days. You can take [place] which is narcotic pain medication for severe pain. It can cause drowsiness and constipation so please do not drive, drink alcohol, or operate heavy equipments. Please increase fluid hydration and high fiber in her diet. You can also pharmacy picking technician [id number] stool softener to prevent constipation. If you feel nauseated with [place] you can take Zofran as needed. Please do not mix Xanax with gabapentin or [place]. These medication have been transmitted to [facility]. *Follow up with your primary care provider in 2-3 days, call for an appointment. Let them know you were seen in the ED and that we asked you to be seen in follow up. *Return to ED if you have any new, worsening, or concerning symptoms, such as worsening pain, breathing difficulty, unable to tolerate fluids, fever, increasing redness/warmth on areas with rash, or any acute concerns. Prescriptions: New valacyclovir 1 gram tablet 1,000 mg PO Q8H 7 Days Qty: 21 RF: 0 gabapentin 300 mg capsule 300 mg PO BEDTIME PRN (Reason: pain) Qty: 14 RF: 0 hydrocodone-acetaminophen [[place]] 5-325 mg tablet 1 tab PO BID PRN (Reason: pain) Qty: 7 RF: 0 ondansetron 4 mg tablet,disintegrating 4 mg PO BID-TID PRN (Reason: nausea and vomiting) Qty: 10 RF: 0 No Action lisinopril 5 MG tablet 5 mg PO DAILY Qty: 0 RF: 0 diltiazem HCl [Cardizem CD] 180 mg capsule,extended release 24hr 180 mg PO DAILY RF: 0 diltiazem HCl [Cardizem] 30 mg tablet 30 mg PO ONCE PRN (Reason: Arrythmia) RF: 0 levothyroxine 100 mcg capsule 100 mcg PO DAILY RF: 0 pantoprazole [address] for susp in packet 40 mg PO BEDTIME RF: 0 alprazolam [Xanax] 0.25 mg tablet 0.25 mg PO ONCE PRN (Reason: Anxiety) RF: 0 atorvastatin 10 mg Tablet 10 mg PO BEDTIME RF: 0 cholecalciferol (vitamin D3) [Vitamin D3] 25 mcg (1,000 unit) Capsule 25 mcg PO DAILY RF: 0 Referrals: Vinicius Valero MD [Primary Care Provider] - <Nuvia Dai DO - Last Filed: 08/17/20 07:28> Cosign ED Attending Cosignature Attestation: I was immediately available in the department for consultation. Documentation has been reviewed. I agree with assessment and plan.
== END 2020-08-12 12:14 | disposition home or self-care (01) ==
PROVIDERS: Emergency Provider Nurse Practitioner Family; Family Provider Family Medicine; PCP Family Medicine
DX: B02.9 Zoster without complications (principal)
CPT/HCPCS: 99281

== ENCOUNTER 2020-09-05 16:33 | Emergency (ER) | payer OTHER, SELFPAY ==
[2020-08-08 00:29] VITALS: BMI 25.8
[2020-09-05 16:45] VITALS: BP 144/68; PULSE 59; RESP 24; TEMP 36.7; O2SAT 99; BMI 25.6
--- NOTE | 2020-09-05 17:20 | DI.RAD.S_ITS ---
PROCEDURE: XR CHEST 1V INDICATIONS: shortness of breath TECHNIQUE: One view of the chest was acquired. COMPARISON: [facility], , XR CHEST 1V, 08/07/2020, 20:36. FINDINGS: Surgical changes and devices: None. Lungs and pleura: Lungs are clear. No pleural effusions or pneumothorax. Mediastinum: Mediastinal contours appear normal. Heart size is normal. Bones and chest wall: No suspicious bony lesions. Overlying soft tissues appear unremarkable. IMPRESSION: No acute cardiopulmonary pathology. Dictated by: Ghanshyam Stanford M.D. on 09/05/2020 at 17:16 Approved by: Ghanshyam Stanford M.D. on 09/05/2020 at 17:17
--- NOTE | 2020-09-05 18:00 | ED_ITS ---
HPI - SOB/Dyspnea General Chief Complaint: Shortness of Breath/Dyspnea Stated Complaint: short of breath Time Seen by Provider: 09/05/20 17:25 Source: patient and family Mode of arrival: Wheelchair Limitations: no limitations History of Present Illness HPI Narrative: 75F nonsmoker with history of pain from shingles on her back, hyperlipidemia and HTN presents with her son and the chief complaint of generalized weakness, fatigue, and poor appetite. Her symptoms have been gradually worsening over the past few days. She states that she has become fatigued and short of breath with minimal exertion. She states she has been trying to eat and drink and take care of herself but it does not seem to be going. She has been taking opioids to control pain associated with her shingles and states that this seems to be giving her nausea, constipation and a poor appetite. He denies chest pain. She denies any fever chills. She denies vomiting or diarrhea. She denies dysuria, frequency or urgency. She states annabella t the painful rash associated with shingles is greatly improved over when it was initially diagnosed MD Complaint: shortness of breath Onset (ago): day(s) Context: recent illness Severity: mild Consistency/Duration: constant Relieving factors: rest Exacerbating factors: exertion Associated symptoms: nausea/vomiting Treatment prior to arrival: none Related Data Home Medications Medication Instructions Recorded Confirmed lisinopril 5 mg PO DAILY #0 11/24/12 08/07/20 alprazolam 0.25 mg tablet 0.25 mg PO ONCE PRN tab 01/27/19 08/07/20 diltiazem HCl 180 mg 180 mg PO DAILY 01/27/19 08/07/20 capsule,extended release 24 hr diltiazem HCl 30 mg tablet 30 mg PO ONCE PRN tab 01/27/19 08/07/20 levothyroxine 100 mcg capsule 100 mcg PO DAILY 01/27/19 08/07/20 pantoprazole 40 mg granules 40 mg PO BEDTIME 01/27/19 08/07/20 delayed-release for susp in packet atorvastatin 10 mg PO BEDTIME 08/07/20 08/07/20 cholecalciferol (vitamin D3) 25 mcg PO DAILY 08/07/20 08/07/20 [Vitamin D3] Previous Rx's Medication Instructions Recorded gabapentin 300 mg PO BEDTIME PRN #14 cap 08/12/20 hydrocodone-acetaminophen [[place]] 1 tab PO BID PRN #7 tab 08/12/20 ondansetron 4 mg PO BID-TID PRN #10 tab 08/12/20 valacyclovir 1 gram tablet 1,000 mg PO Q8H 7 Days #21 tab 08/21/20 Allergies Allergy/AdvReac Type Severity Reaction Status Date / Time morphine AdvReac Intermediate nausea Verified 09/05/20 17:03 Review of Systems Constitutional Constitutional: Denies chills, Denies fatigue, Denies fever(s), Denies frequent falls, Denies lethargy and Reports weakness Eyes Eyes: Denies change in vision, Denies eye discharge, Denies irritation and Denies loss of vision ENT Ears, Nose, Mouth, and Throat: Denies change in voice, Denies dizziness, Denies neck pain, Denies sore throat and Denies throat swelling Cardiovascular Cardiovascular: Denies chest pain, Denies irregular heart rhythm, Denies lightheadedness, Denies palpitations, Reports dyspnea, Denies dyspnea on exertion and Denies orthopnea Respiratory Respiratory: Denies cough, Reports dyspnea, Denies dyspnea on exertion and Denies wheezing Gastrointestinal Gastrointestinal: Denies abdominal pain, Denies change in bowel habits, Denies diarrhea, Reports nausea and Denies vomiting Musculoskeletal Musculoskeletal: Denies neck pain and Denies numbness Integumentary/Breasts Skin/Breast: Denies pruritus, Denies erythema, Denies rash and Denies wounds Neurologic Neurologic: Denies behavioral changes, Denies confusion, Denies dizziness, Denies frequent falls, Denies loss of vision, Denies numbness and Reports weakness Psychiatric Psychiatric: Denies anxiety, Denies behavioral changes, Denies confusion, Denies depression, Denies homicidal ideation and Denies suicidal ideation Endocrine Endocrine: Denies fatigue, Denies flushing and Denies palpitations Hematologic/Lymphatic Hematologic/Lymphatic: Denies easy bruising Allergic/Immunologic Allergic/Immunologic: Denies urticaria, Denies throat swelling and Denies wheezing Patient History Medical History Arrhythmia (Acute) Hyperlipidemia (Acute) Hypertension (Acute) Social History household members: none Smoking Status: Never smoker alcohol intake: former Smoking Status: Never smoker alcohol intake frequency: other Substance Use Type: does not use Exam Narrative Exam Narrative: GENERAL: [75] year old patient appears stated age. Well- nourished, well-developed patient, in mild distress., depressed, flat affect HEAD: Atraumatic. Normocephalic. EYES: Pupils equal round and reactive. Extraocular motions intact. No scleral icterus. No injection or drainage. ENT: Nose without bleeding, purulent drainage. Throat without erythema, tonsillar hypertrophy or exudate. Airway patent. NECK: Trachea midline. Non tender CARDIOVASCULAR: Regular rate and rhythm without murmurs, gallops, or rubs. RESPIRATORY: Clear to auscultation. Breath sounds equal bilaterally. No wheezes, rales, or rhonchi. GASTROINTESTINAL: Abdomen soft, non-tender, nondistended. EXTREMITIES: No edema or joint tenderness. BACK: Nontender without deformity or crepitance. No flank tenderness. NEURO: AOx3. SKIN: No rash or erythema of visible areas Initial Vital Signs Initial Vital Signs: Vital Signs Temperature 98.1 F 09/05/20 16:45 Pulse Rate 59 L 09/05/20 16:45 Respiratory Rate 24 09/05/20 16:45 Blood Pressure 144/68 H 09/05/20 16:45 Pulse Oximetry 99 09/05/20 16:45 Course Course Course Narrative: Physical exam, labs and imaging are all very reassuring. After lengthy discussion with the patient and her son it would seem that she has been on a gradual downward slide since her in March. She is not suicidal or homicidal but certainly seems like depression is contributing to her presentation today. Her son would agree. She states that our reassurance today helps her feel better and more hopeful. She's been given return precautions and has had questions answered to her apparent satisfaction. Orders Ordered: ED Orders 09/05/20 17:17 EKG-12 Lead Stat 09/05/20 17:18 Consult to Respiratory Therapy Evaluate & Treat 09/05/20 17:20 XR chest 1V Stat 09/05/20 17:40 Complete Blood Count AUTO DIFF Stat Comprehensive Metabolic Panel Stat Lactate (Lactic Acid) Stat Magnesium Stat Procalcitonin Stat Troponin & CK Cardiac Panel Stat 09/05/20 17:45 COVID19 -ED/INPAT/OR/L&D Stat 09/05/20 19:07 D Dimer Stat Discontinued Medications Albuterol/Ipratropium (Duoneb) 3 ml INH NOW ONE Stop: 09/05/20 17:19 Last Admin: 09/05/20 17:59 Dose: Not Given Documented by: OTILIO Sodium Chloride (Normal Saline 0.9%) 1,000 mls @ 1,000 mls/hr IV BOLUS ONE Stop: 09/05/20 20:20 Last Infusion: 09/05/20 20:59 Dose: 0 mls/hr Documented by: Admin: 09/05/20 19:26 Dose: 1,000 mls/hr Documented by: PAUL Methylprednisolone (Solu-Medrol 125 Mg Vial) 125 mg IV NOW ONE Stop: 09/05/20 17:19 Last Admin: 09/05/20 17:59 Dose: Not Given Documented by: OTILIO Vital Signs Vital signs: Vital Signs - 8 hr 09/05/20 16:45 09/05/20 18:19 09/05/20 18:30 Temperature 98.1 F Pulse Rate 59 L 58 L 57 L Respiratory Rate 24 Blood Pressure 144/68 H 139/63 Pulse Oximetry 99 98 97 09/05/20 19:00 09/05/20 21:08 Temperature Pulse Rate 60 62 Respiratory Rate Blood Pressure 157/69 H 159/73 H Pulse Oximetry 98 98 MDM - SOB/Dyspnea Lab Data Result diagrams: 09/05/20 17:40 09/05/20 17:40 Labs: Lab Results 09/05/20 09/05/20 09/05/20 Range/Units 17:40 17:40 17:40 WBC 10.5 (4.5-11.0) X10^3/uL RBC 4.69 (4.0-5.2) X10^6/uL Hgb 14.4 (12.0-16.0) g/dL Hct 42.2 (36-46) % MCV 89.9 (80-100) fL MCH 30.6 (26-34) PG MCHC 34.0 (30-36) % RDW 13.8 (11.6-14.8) % Plt Count 295 (150-400) X10^3/uL Neut % (Auto) 70.3 (50-75) % Lymph % (Auto) 19.0 L (25-40) % [place] % (Auto) 7.8 (3-14) % Eos % (Auto) 1.8 L (2-4) % Baso % (Auto) 1.1 (0-2) % Neut # (Auto) 7400 H (7849-0099) /uL Lymph # (Auto) 2000 (1520-2312) /uL [place] # (Auto) 800 (0-900) /uL Eos # (Auto) 200 (0-450) /uL Baso # (Auto) 100 (0-100) /uL D-Dimer (<230) ng/mL Sodium 133 L (137-145) mmol/L Potassium 4.2 (3.4-5.1) mmol/L Chloride 102 (98-107) mmol/L Carbon Dioxide 21 L (22-32) mmol/L BUN 23 H (7-17) mg/dL Creatinine 0.84 (0.52-1.04) mg/dL Estimated GFR > 60.0 (>60) mL/min BUN/Creatinine Ratio 27.4 H (6-22) Glucose 105 (80-110) mg/dL Lactate (0.7-2.1) mmol/L Calcium 10.0 (8.4-10.2) mg/dL Magnesium 1.8 (1.6-2.3) mg/dL Total Bilirubin 0.5 (0.2-1.3) mg/dL AST 28 (14-36) IU/L ALT 23 (<35) IU/L Alkaline Phosphatase 85 (38-126) U/L Total Creatine Kinase 38 (30-135) U/L CK-MB (CK-2) TNP CK-MB (CK-2) Rel Index TNP Troponin I < 0.012 (0.01-0.034) ng/mL Total Protein 7.7 (6.3-8.2) g/dL Albumin 4.6 (3.5-5.0) g/dL Globulin 3.1 (1.7-4.1) g/dL Albumin/Globulin Ratio 1.5 (1.0-2.8) Procalcitonin < 0.05 (<0.5) ng/mL COVID-19 PCR (Negative) 09/05/20 09/05/20 09/05/20 Range/Units 17:40 17:40 17:45 WBC (4.5-11.0) X10^3/uL RBC (4.0-5.2) X10^6/uL Hgb (12.0-16.0) g/dL Hct (36-46) % MCV (80-100) fL MCH (26-34) PG MCHC (30-36) % RDW (11.6-14.8) % Plt Count (150-400) X10^3/uL Neut % (Auto) (50-75) % Lymph % (Auto) (25-40) % [place] % (Auto) (3-14) % Eos % (Auto) (2-4) % Baso % (Auto) (0-2) % Neut # (Auto) (7851-2715) /uL Lymph # (Auto) (8445-7717) /uL [place] # (Auto) (0-900) /uL Eos # (Auto) (0-450) /uL Baso # (Auto) (0-100) /uL D-Dimer (<230) ng/mL Sodium Cancelled (137-145) mmol/L Potassium Cancelled (3.4-5.1) mmol/L Chloride Cancelled (98-107) mmol/L Carbon Dioxide Cancelled (22-32) mmol/L BUN Cancelled (7-17) mg/dL Creatinine Cancelled (0.52-1.04) mg/dL Estimated GFR Cancelled (>60) mL/min BUN/Creatinine Ratio Cancelled (6-22) Glucose Cancelled (80-110) mg/dL Lactate 2.3 H (0.7-2.1) mmol/L Calcium Cancelled (8.4-10.2) mg/dL Magnesium (1.6-2.3) mg/dL Total Bilirubin Cancelled (0.2-1.3) mg/dL AST Cancelled (14-36) IU/L ALT Cancelled (<35) IU/L Alkaline Phosphatase Cancelled (38-126) U/L Total Creatine Kinase (30-135) U/L CK-MB (CK-2) CK-MB (CK-2) Rel Index Troponin I (0.01-0.034) ng/mL Total Protein Cancelled (6.3-8.2) g/dL Albumin Cancelled (3.5-5.0) g/dL Globulin Cancelled (1.7-4.1) g/dL Albumin/Globulin Ratio Cancelled (1.0-2.8) Procalcitonin (<0.5) ng/mL COVID-19 PCR Negative (Negative) 09/05/20 09/05/20 Range/Units 19:07 19:45 WBC (4.5-11.0) X10^3/uL RBC (4.0-5.2) X10^6/uL Hgb (12.0-16.0) g/dL Hct (36-46) % MCV (80-100) fL MCH (26-34) PG MCHC (30-36) % RDW (11.6-14.8) % Plt Count (150-400) X10^3/uL Neut % (Auto) (50-75) % Lymph % (Auto) (25-40) % [place] % (Auto) (3-14) % Eos % (Auto) (2-4) % Baso % (Auto) (0-2) % Neut # (Auto) (7800-9210) /uL Lymph # (Auto) (7782-2187) /uL [place] # (Auto) (0-900) /uL Eos # (Auto) (0-450) /uL Baso # (Auto) (0-100) /uL D-Dimer 237 H (<230) ng/mL Sodium (137-145) mmol/L Potassium (3.4-5.1) mmol/L Chloride (98-107) mmol/L Carbon Dioxide (22-32) mmol/L BUN (7-17) mg/dL Creatinine (0.52-1.04) mg/dL Estimated GFR (>60) mL/min BUN/Creatinine Ratio (6-22) Glucose (80-110) mg/dL Lactate 1.4 (0.7-2.1) mmol/L Calcium (8.4-10.2) mg/dL Magnesium (1.6-2.3) mg/dL Total Bilirubin (0.2-1.3) mg/dL AST (14-36) IU/L ALT (<35) IU/L Alkaline Phosphatase (38-126) U/L Total Creatine Kinase (30-135) U/L CK-MB (CK-2) CK-MB (CK-2) Rel Index Troponin I (0.01-0.034) ng/mL Total Protein (6.3-8.2) g/dL Albumin (3.5-5.0) g/dL Globulin (1.7-4.1) g/dL Albumin/Globulin Ratio (1.0-2.8) Procalcitonin (<0.5) ng/mL COVID-19 PCR (Negative) Urine Dip Bedside Urine Glucose Negative Bedside Urine Bilirubin - Negative Bedside Urine Ketone - Negative Urine Specific [place] 1.010 Bedside Urine Occult Blood - Negative Bedside Urine pH 7.5 Bedside Urine Protein - Negative Bedside Urine Urobilinogen - Negative Bedside Urine Nitrite - Negative Bedside Urine Leukocytes - Negative Esterase Imaging Data Chest x-ray: Radiologist's Impression: Janet Hernández 75 F 1945 [place] [address] XRay Report Signed Patient: Janet Hernández LMR#: [id number] : [id number]:[id number] Age/Sex: 75 / FDate of Service: 09/05/20 Loc: ED Accession Number: [id number] Procedure: XR chest 1V Ordering Provider: Shira Aguayo D.O. PROCEDURE: XR CHEST 1V INDICATIONS: shortness of breath TECHNIQUE: One view of the chest was acquired. COMPARISON: [facility], , XR CHEST 1V, 08/07/2020, 20:36. FINDINGS: Surgical changes and devices: None. Lungs and pleura: Lungs are clear. No pleural effusions or pneumothorax. Mediastinum: Mediastinal contours appear normal. Heart size is normal. Bones and chest wall: No suspicious bony lesions. Overlying soft tissues appear unremarkable. IMPRESSION: No acute cardiopulmonary pathology. Dictated by: Ghanshyam Stanford M.D. on 09/05/2020 at 17:16 Approved by: Ghanshyam Stanford M.D. on 09/05/2020 at 17:17 Discharge Plan Departure Patient Disposition: Home Clinical Impression: Acute dehydration, Breath, shortness Discharge Date/Time: 09/05/20 21:10 Instructions: DI for Dehydration -- Adult Activity Restrictions/Additional Instructions: *You have been diagnosed with [shortness of breath and dehydration with very reassuring physical exam and lab findings] *What to do: * continue to take medications as directed *Follow up with your primary care provider in 2-3 days, call for an appointment. Let them know you were seen in the Emergency Department and that we ask that you be seen in follow up *Return to ER if you should have any new, worsening or concerning symptoms Prescriptions: No Action lisinopril 5 MG tablet 5 mg PO DAILY Qty: 0 RF: 0 valacyclovir 1 gram tablet 1,000 mg PO Q8H 7 Days Qty: 21 RF: 2 diltiazem HCl [Cardizem CD] 180 mg capsule,extended release 24hr 180 mg PO DAILY RF: 0 diltiazem HCl [Cardizem] 30 mg tablet 30 mg PO ONCE PRN (Reason: Arrythmia) RF: 0 levothyroxine 100 mcg capsule 100 mcg PO DAILY RF: 0 pantoprazole [address] for susp in packet 40 mg PO BEDTIME RF: 0 alprazolam [Xanax] 0.25 mg tablet 0.25 mg PO ONCE PRN (Reason: Anxiety) RF: 0 atorvastatin 10 mg Tablet 10 mg PO BEDTIME RF: 0 cholecalciferol (vitamin D3) [Vitamin D3] 25 mcg (1,000 unit) Capsule 25 mcg PO DAILY RF: 0 gabapentin 300 mg capsule 300 mg PO BEDTIME PRN (Reason: pain) Qty: 14 RF: 0 hydrocodone-acetaminophen [[place]] 5-325 mg tablet 1 tab PO BID PRN (Reason: pain) Qty: 7 RF: 0 ondansetron 4 mg tablet,disintegrating 4 mg PO BID-TID PRN (Reason: nausea and vomiting) Qty: 10 RF: 0 Referrals: Vinicius Valero MD [Primary Care Provider] -
[2020-09-05 18:03] LABS: Add Manual Diff / Slide Review NO; Basophils Absolute Auto 100 /uL (0-100); Basophils Percent Auto 1.1 % (0-2); Eosinophils Absolute Auto 200 /uL (0-450); Eosinophils Percent Auto 1.8 % (2-4); Hematocrit 42.2 % (36-46); Hemoglobin 14.4 g/dL (12.0-16.0); Lymphocytes Absolute Auto 2000 /uL (1100-4500); Mean Corpuscular Hemoglobin 30.6 PG (26-34); Mean Corpuscular Volume 89.9 fL (80-100); Monocytes Absolute Auto 800 /uL (0-900); Monocytes Percent Auto 7.8 % (3-14); Neutrophils Absolute Auto 7400 /uL (1500-7000); Neutrophils Percent Auto 70.3 % (50-75); Platelet Count 295 X10^3/uL (150-400); Red Blood Cell Count 4.69 X10^6/uL (4.0-5.2); Red Cell Distribution Width 13.8 % (11.6-14.8); White Blood Cell Count 10.5 X10^3/uL (4.5-11.0)
[2020-09-05 18:12] LABS: Lactate (Lactic Acid) 2.3 mmol/L (0.7-2.1)
[2020-09-05 18:13] LABS: Alanine Aminotransferase 23 IU/L (<35); Albumin 4.6 g/dL (3.5-5.0); Albumin Globulin Ratio 1.5 (1.0-2.8); Alkaline Phosphatase 85 U/L (38-126); Aspartate Aminotransferase 28 IU/L (14-36); BUN Creatinine Ratio 27.4 (6-22); Bilirubin Total 0.5 mg/dL (0.2-1.3); Blood Urea Nitrogen 23 mg/dL (7-17); Carbon Dioxide 21 mmol/L (22-32); Chloride 102 mmol/L (98-107); Creatine Kinase 38 U/L (30-135); Estimated Glomerular Filt Rate > 60.0 mL/min (>60); Globulin 3.1 g/dL (1.7-4.1); Glucose 105 mg/dL (80-110); HEMOLYSIS < 15 (0-50); Magnesium 1.8 mg/dL (1.6-2.3); Potassium 4.2 mmol/L (3.4-5.1); Sodium 133 mmol/L (137-145); Total Protein 7.7 g/dL (6.3-8.2)
[2020-09-05 18:19] VITALS: PULSE 58; O2SAT 98
[2020-09-05 18:24] LABS: Troponin I < 0.012 ng/mL (0.01-0.034)
[2020-09-05 18:26] LABS: Procalcitonin < 0.05 ng/mL (<0.5)
[2020-09-05 18:30] VITALS: BP 139/63; PULSE 57; O2SAT 97
[2020-09-05 18:30] LABS: COVID19 -Nasal RAPID Negative (Negative)
[2020-09-05 19:00] VITALS: BP 157/69; PULSE 60; O2SAT 98
[2020-09-05 19:14] LABS: D Dimer 237 ng/mL (<230)
[2020-09-05] MEDS: SODIUM CHLORIDE 0.9% 1,000 ML 1000 ML IV (19:26)
[2020-09-05 19:53] LABS: Reflexed Lactate in 2 Hours Y
[2020-09-05 20:06] LABS: Lactate 2HR (Lactic Acid Rflx) 1.4 mmol/L (0.7-2.1)
[2020-09-05 21:08] VITALS: BP 159/73; PULSE 62; O2SAT 98
== END 2020-09-05 21:10 | disposition home or self-care (01) ==
PROVIDERS: Emergency Medicine; Emergency Provider Emergency Medicine; Family Provider Family Medicine; PCP Family Medicine
DX: E86.0 Dehydration (principal); R06.02 Shortness of breath; R11.2 Nausea with vomiting, unspecified; R53.1 Weakness; R53.83 Other fatigue; R07.9 Chest pain, unspecified
CPT/HCPCS: 36415; 71045; 80053; 81003; 82550; 83605; 83735; 84145; 84484; 85025; 85379; 87635; 93005; 93010; 96360; 96361; 99284

== ENCOUNTER → 2020-11-22 12:05 | Outpatient (ROUT) | payer OTHER, SELFPAY ==
[2020-08-08 00:29] VITALS: BMI 25.8
[2020-11-22 12:14] LABS: D Dimer 224 ng/mL (<230)
== END ==
PROVIDERS: Visit Provider Student in an Organized Health Care Education/Training Program
DX: R78.9 Finding of unspecified substance, not normally found in blood (principal)
CPT/HCPCS: 85379

== ENCOUNTER → 2020-12-27 11:54 | Outpatient (CLI) | payer OTHER, SELFPAY ==
[2020-08-08 00:29] VITALS: BMI 25.8
--- NOTE | 2020-12-27 11:55 | DI.MG.S_ITS ---
BILATERAL DIGITAL SCREENING MAMMOGRAM 3D/2D WITH CAD: 12/27/2020 CLINICAL: Routine screening. Family history of breast cancer. Comparison is made to exams dated: 12/20/2019 mammogram, 12/05/2018 mammogram, 10/14/2017 mammogram, 09/28/2016 mammogram, 09/26/2015 mammogram, and 09/20/2014 mammogram - [facility]. The tissue of both breasts is heterogeneously dense. This may lower the sensitivity of mammography. Current study was also evaluated with a Computer Aided Detection (CAD) system. There are benign calcifications in both breasts. No significant masses, calcifications, or other findings are seen in either breast. There has been no significant interval change. IMPRESSION: BENIGN There is no mammographic evidence of malignancy. A 1 year screening mammogram is recommended. This exam was interpreted at Station ID: [id number]. NOTE: For mammograms, a report in lay terms will be sent to the patient. Approximately 15% of breast malignancies will not be visualized mammographically. In the management of a palpable breast mass, a negative mammogram must not discourage biopsy of a clinically suspicious lesion. Electronically Signed By: Chilo araya/david:12/27/2020 14:20:11 letter sent: Normal Exam ACR BI-RADS Category 2: Benign Finding(s) 3342F
== END ==
PROVIDERS: PCP Student in an Organized Health Care Education/Training Program; Referring Provider Student in an Organized Health Care Education/Training Program; Visit Provider Student in an Organized Health Care Education/Training Program
DX: Z12.31 Encounter for screening mammogram for malignant neoplasm of breast (principal); Z80.3 Family history of malignant neoplasm of breast
CPT/HCPCS: 77063; 77067

== ENCOUNTER → 2021-09-26 14:34 | Outpatient (CLI) | payer OTHER, SELFPAY ==
[2021-09-22 12:25] VITALS: BMI 25.8
== END ==
PROVIDERS: PCP Student in an Organized Health Care Education/Training Program; Referring Provider Student in an Organized Health Care Education/Training Program; Visit Provider Student in an Organized Health Care Education/Training Program
DX: M85.832 Other specified disorders of bone density and structure, left forearm (principal); Z78.0 Asymptomatic menopausal state; E07.9 Disorder of thyroid, unspecified; Z90.722 Acquired absence of ovaries, bilateral
CPT/HCPCS: 77080; 77081

== ENCOUNTER → 2022-01-20 14:21 | Outpatient (CLI) | payer OTHER, SELFPAY ==
[2021-09-22 12:25] VITALS: BMI 25.8
--- NOTE | 2022-01-20 | DI.MG.S_ITS ---
BILATERAL DIGITAL SCREENING MAMMOGRAM 3D/2D WITH CAD: 01/20/2022 CLINICAL: Routine screening. Family history of breast cancer. Comparison is made to exams dated: 12/27/2020 mammogram, 12/20/2019 mammogram, 12/05/2018 mammogram, and 10/14/2017 mammogram - [facility]. The tissue of both breasts is heterogeneously dense. This may lower the sensitivity of mammography. Current study was also evaluated with a Computer Aided Detection (CAD) system. There are benign calcifications in both breasts. No significant masses, calcifications, or other findings are seen in either breast. There has been no significant interval change. IMPRESSION: BENIGN There is no mammographic evidence of malignancy. A 1 year screening mammogram is recommended. This exam was interpreted at Station ID: [id number]. NOTE: For mammograms, a report in lay terms will be sent to the patient. Approximately 15% of breast malignancies will not be visualized mammographically. In the management of a palpable breast mass, a negative mammogram must not discourage biopsy of a clinically suspicious lesion. Electronically Signed By: Chlio araya/david:01/20/2022 16:34:43 letter sent: Normal Exam ACR BI-RADS Category 2: Benign Finding(s) 3342F
== END ==
PROVIDERS: PCP Student in an Organized Health Care Education/Training Program; Referring Provider Student in an Organized Health Care Education/Training Program; Visit Provider Student in an Organized Health Care Education/Training Program
DX: Z12.31 Encounter for screening mammogram for malignant neoplasm of breast (principal); Z80.3 Family history of malignant neoplasm of breast
CPT/HCPCS: 77063; 77067

== ENCOUNTER → 2022-02-04 08:07 | Outpatient (CLI) | payer OTHER, SELFPAY ==
[2021-09-22 12:25] VITALS: BMI 25.8
--- NOTE | 2022-02-04 08:08 | DI.ECHO.S_ITS ---
[facility]---------+ [facility] +---------+ : : [address] : : : : [id number] : : : : Phone: [phone]+ Echocardiogram Report + + :Name: YOLANDA MCBRIDE Study Date: 02/04/2022 Height: 61 in : :[facility] ReadingLocation: Weight: 150 lb : : Gender: Female BSA: 1.7 m2 : :: 1945 Age: 76 yrs BP: 133/80 mmHg: :Reason For Study: SVT : : Performed By: Vinod Cotton : :Referring: DIONY ARIZMENDI : + + Interpretation Summary The ejection fraction is estimated to be 55-60%. Mid to distal inferolateral hypoknesis. There is mild mitral regurgitation. There is trace tricuspid regurgitation. Procedure: A two-dimensional transthoracic echocardiogram with color flow and Doppler was performed. The study quality was technically good. There is no prior echocardiogram noted for this patient. The patient was in normal sinus rhythm during the exam. Left Ventricle: The left ventricle is normal in size. There is normal left ventricular wall thickness. The ejection fraction is estimated to be 55-60%. Mid to distal inferolateral hypoknesis. Right Ventricle: The right ventricle is normal in size and function. Atria: Both atria are normal in size. There is no Doppler evidence for an atrial septal defect. Mitral Valve: There is mild mitral annular calcification. There is mild mitral regurgitation. Aortic Valve: The aortic valve is trileaflet. The aortic valve opens well. No aortic regurgitation is present. Tricuspid Valve: The tricuspid valve is normal in structure and function. There is trace tricuspid regurgitation. The right ventricular systolic pressure is estimated to be at least 22 mmHg based on an estimated right atrial pressure of 3 mm Hg. Pulmonic Valve: The pulmonic valve is normal in structure and function. There is mild pulmonic regurgitation. Great Vessels: The aortic root is normal size. The dimensions of the ascending aorta are normal. The pulmonary artery is normal size. The IVC is of normal diameter and collapses greater than 50% with a sniff. This suggests a low right atrial pressure of 3 mm Hg. Pericardium/ Pleura There is no pericardial effusion. There is no pleural effusion. MMode/2D Measurements & Calculations LVIDd: 4.0 cm LVOT diam: 2.0 cm LVIDs: 2.5 cm Ao root diam: 2.6 cm FS: 36.7 % asc Aorta Diam: 3.3 cm EPSS: 0.44 cm Ao Arch Diam (Prox Trans): 2.3 cm IVSd: 0.70 cm LVPWd: 0.58 cm LV oliva. diameter/BSA (cm/m^2): 2.4 LV sys. diameter/BSA (cm/m^2): 1.5 LA A2 area: 21.2 cm2 RA long axis: 5.1 cm LA A4 area: 16.1 cm2 RA area: 15.5 cm2 LA length (vol): 5.4 cm RA vol: 39.8 ml LA vol: 53.5 ml RA : 23.8 ml/m2 LA vol index: 32.0 ml/m2 IVC diam: 2.0 cm RVD1 (basal): 3.8 cm RVD2 (mid): 3.3 cm TAPSE: 2.0 cm Doppler Measurements & Calculations Ao V2 max: 124.4 cm/sec LVOT Max Jay[place]: 108.3 cm/sec Ao V2 mean: 91.5 cm/sec LV V1 max P.7 mmHg Ao max P.2 mmHg LV V1 VTI: 25.5 cm Ao mean P.6 mmHg AC(I,D): 2.6 cm2 Ao V2 VTI: 30.3 cm AC(V,D): 2.7 cm2 sev ratio: 0.84 AC indexed to BSA (cm^2/m^2): 1.6 MV E max jaycob: 63.9 cm/sec TR max jaycob: 217.0 cm/sec MV A max jaycob: 76.9 cm/sec TR max P.8 mmHg MV E/A: 0.83 PA V2 max: 69.0 cm/sec Med Peak E' Jay[place]ob: 4.9 cm/sec PA V2 mean: 51.6 cm/sec E/E' med: 13.2 PA mean P.1 mmHg Lat Peak E' Jaycob: 6.0 cm/sec PA pr(Accel): 32.8 mmHg E/E' lat: 10.6 E/e' average: 11.9 MV dec time: 0.17 sec SV([facility]): 79.8 ml Reading Physician:12:06 PM
== END ==
PROVIDERS: PCP Student in an Organized Health Care Education/Training Program; Referring Provider Internal Medicine Cardiovascular Disease; Visit Provider Internal Medicine Cardiovascular Disease
DX: I34.0 Nonrheumatic mitral (valve) insufficiency (principal); I35.1 Nonrheumatic aortic (valve) insufficiency; I47.1 Supraventricular tachycardia
CPT/HCPCS: 93306

== ENCOUNTER → 2022-09-15 13:04 | Outpatient (CLI) | payer OTHER, SELFPAY ==
[2021-09-22 12:25] VITALS: BMI 25.8
--- NOTE | 2022-09-15 13:06 | DI.RAD.S_ITS ---
PROCEDURE: XR SHOULDER RT MIN 2V INDICATIONS: RIGHT SHOULDER PAIN TECHNIQUE: 3 views of the shoulder were acquired. COMPARISON: None. FINDINGS: Bones: No fractures or dislocations. Moderate acromioclavicular joint osteoarthritic changes are seen with joint space narrowing and marginal osteophyte formation. Mild glenohumeral joint osteoarthritic changes also seen. No suspicious bony lesions. Visualized ribs appear intact. Soft tissues: No suspicious soft tissue calcifications. 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 No fracture or dislocation. No gross soft tissue abnormalities. Dictated by: Ghanshyam Stanford M.D. on 09/15/2022 at 14:44 Approved by: Ghanshyam Stanford M.D. on 09/15/2022 at 14:48
== END ==
PROVIDERS: PCP Student in an Organized Health Care Education/Training Program; Referring Provider Internal Medicine; Visit Provider Internal Medicine
DX: M25.511 Pain in right shoulder (principal); M19.011 Primary osteoarthritis, right shoulder
CPT/HCPCS: 73030

== ENCOUNTER 2022-09-18 02:48 | Inpatient (IN) | payer OTHER, SELFPAY ==
[2021-09-22 12:25] VITALS: BMI 25.8
[2022-09-18] VITALS (18 sets, daily range): BP systolic 122–225; BP diastolic 55–93; PULSE 59–92; RESP 13–21; TEMP 36.4–37.3; O2SAT 90–99; BMI 26.5
--- NOTE | 2022-09-18 03:18 | DI.CT.S_ITS ---
PROCEDURE: CT ABDOMEN PELVIS W CON INDICATIONS: epigastric/pelvic pain, v/d TECHNIQUE: After the administration of IV contrast, axial sections were acquired from the lung bases to the pubic symphysis. Coronal and sagittal reformats were performed. For radiation dose reduction, the following was used: automated exposure control, adjustment of mA and/or kV according to patient size. COMPARISON: None. FINDINGS: Image quality: Excellent. Lung bases: Unremarkable. There is a moderate-sized hiatal hernia. Heart: No significant findings. ABDOMEN: Liver: Normal size. Mild hepatic steatosis. Gallbladder: Surgically removed. Biliary ducts: Unremarkable. Pancreas: Unremarkable. Spleen: Unremarkable. Adrenal Glands: Unremarkable. Kidneys and Ureters: Normal size and symmetrical enhancement. Question trace right renal pelviectasis. No obstructive stones. Stomach and Bowel: Proximal small bowel loops are mildly distended measuring up to 3.2 cm in diameter and filled with fluid. Distal small intestine and colon are decompressed. There is mild segmental small bowel wall thickening in mid abdomen left of the midline (series 3, image 55) with transitional zone in the area. The CT findings are consistent with small bowel obstruction. Diverticulosis without acute diverticulitis. Peritoneum: No abnormal intraperitoneal fluid. No free air. Ventral Wall: No hernia. Abdominal Nodes: No retroperitoneal or mesenteric adenopathy by size criteria. Vessels: Aorta and inferior vena cava are normal in size. Moderate atherosclerotic calcifications. PELVIS: Pelvic Organs: There is a pessary in vagina. Bladder: Unremarkable. Pelvic Nodes: No enlarged lymph nodes. Miscellaneous: No inguinal hernias are seen. Bones: Degenerative changes are noted in the lower thoracic spine lumbar spine. There is an intramedullary hany in right femur. IMPRESSION: 1. Small bowel obstruction. The transitional stone is in the mid abdomen where there is mild segmental small bowel wall thickening. 2. Diverticulosis without acute diverticulitis. 3. Moderate-sized hiatal hernia. 4. Mild hepatic steatosis. Dictated by: Natalia Jiang M.D. on 09/18/2022 at 8:15 Approved by: Natalia Jiang M.D. on 09/18/2022 at 8:22
--- NOTE | 2022-09-18 03:19 | ED.NAVMDI ---
HPI - Nausea/Vomiting/Diarrhea General Chief complaint: Nausea/Vomiting/Diarrhea Stated complaint: REACTION TO PAIN MED Time Seen by Provider: 09/18/22 03:06 Source: patient and family Mode of arrival: Ambulatory Limitations: no limitations History of Present Illness HPI Narrative: This is a 77 year old female with history of atrial fibrillation with ablation who is not anticoagulated, dyslipidemia, hypothyroidism, hypertension and chronic shoulder pain. Patient presents today with complaint of abdominal pain epigastric and lower abdominal, she states it started lower abdomen [place] up. Patient denies fevers or chills. She is had nausea and vomiting this morning she states it was liquidy with no blood. She has had multiple episodes of liquidy diarrhea that have not been melanotic or hematochezia. Denies dysuria, urgency frequency. No vaginal bleeding or discharge. Patient states she has been on Toradol for the past 3 days after having joint injection for her shoulder. Patient states that she was not having any issues before about 2pm this afternoon. She ate at about noon and then developed symptoms 2 hours later. No other individuals in the household have been ill. Patient states she has had prior hysterectomy 1988 and ablation for atrial fibrillation in February. No known drug allergies. No tobacco, alcohol or illicit. Dr. Pettit was her primary care physician. Related Data Home Medications Medication Instructions Recorded Confirmed lisinopril 5 mg tablet 5 mg PO DAILY ##0 11/24/12 09/18/22 pantoprazole 40 mg granules 40 mg PO BEDTIME 01/27/19 09/18/22 delayed-release for susp in packet atorvastatin 10 mg tablet 10 mg PO BEDTIME 08/07/20 09/18/22 cholecalciferol (vitamin D3) 25 25 mcg PO DAILY 08/07/20 09/18/22 mcg (1,000 unit) capsule (Vitamin D3) alendronate 70 mg tablet 70 mg PO QWEEK 08/12/22 09/18/22 levothyroxine 112 mcg tablet 112 mcg PO DAILY 09/18/22 09/18/22 Allergies Allergy/AdvReac Type Severity Reaction Status Date / Time morphine AdvReac Intermediate nausea Verified 08/12/22 14:27 Review of Systems Review of Systems ROS Unobtainable: All systems reviewed & are unremarkable except as noted in HPI and below Patient History Medical History Arrhythmia Atypical chest pain GERD (gastroesophageal reflux disease) Graves disease Hyperlipidemia Hypertension Surgical History H/O hysterectomy for benign disease History of cholecystectomy Social History household members: children and none Smoking Status: Never smoker alcohol intake: former Smoking Status: Never smoker alcohol intake frequency: other Substance Use Type: does not use Exam Narrative Exam Narrative: GENERAL: Alert and oriented x three, female in mild distress HEENT: Head normocephalic, atraumatic, EOMI, pupils reactive, face symmetric, moist mucous membranes NECK: Supple, full range of motion CARDIOVASCULAR: Regular rate and rhythm without murmurs, rubs or gallops. RESPIRATORY: Breath sounds equal bilaterally, no wheezes rales or rhonchi. ABDOMEN: Soft, generalized mild tenderness. Normoactive bowel sounds all 4 quadrants. No guarding or rebound, rigidity, no mass, nondistended. : No CVA tenderness EXTREMITIES: Normal range of motion, no clubbing or edema. Neurovascularly intact NEUROLOGICAL: Cranial nerves II through XII grossly intact. Moving all extremities SKIN: Warm, dry, no petechiae, no rashes or lesions. Initial Vital Signs Initial Vital Signs: Vital Signs Temperature 97.6 F 09/18/22 03:00 Pulse Rate 88 09/18/22 03:00 Respiratory Rate 20 09/18/22 03:00 Blood Pressure 189/61 H 09/18/22 03:00 Pulse Oximetry 97 09/18/22 03:00 Oxygen Delivery Method 09/18/22 03:00 Course Orders Ordered: Acetaminophen (Acetaminophen 325 Mg Tablet) 650 mg PO Q4H PRN PRN Reason: Fever/Mild Pain (1-3) Last Admin: 09/19/22 05:07 Dose: 650 mg Documented By: JENNA Atorvastatin Calcium (Atorvastatin 20 Mg Tablet) 10 mg PO BEDTIME [facility] Last Admin: 09/18/22 20:04 Dose: 10 mg Documented By: JENAN Sodium Chloride (Normal Saline 0.9%) 1,000 mls @ 125 mls/hr IV CONT KEI Last Admin: 09/18/22 07:18 Dose: 125 mls/hr Documented By: JOSEPHINE Levothyroxine Sodium (Levothyroxine 112 Mcg Tablet) 112 mcg PO DAILY [facility] Lisinopril (Lisinopril 5 Mg Tablet) 5 mg PO DAILY [facility] Last Admin: 09/18/22 15:36 Dose: 5 mg Documented By: QUINTIN Naloxone HCl (Naloxone 0.4 Mg/Ml Vial) 0.2 mg IV Q2MIN PRN PRN Reason: Opiate Reversal Ondansetron HCl (Ondansetron 4 Mg/2 Ml Inj) 4 mg IV Q8HR PRN PRN Reason: Nausea And Vomiting Pantoprazole Sodium (Pantoprazole 40 Mg Vial) 40 mg IV DAILY [facility] Last Admin: 09/18/22 15:37 Dose: 40 mg Documented By: QUINTIN Vitamin D (Cholecalciferol (Vitamin D3) 1,000 Unit Tablet) 1,000 unit PO DAILY [facility] Discontinued Medications Sodium Chloride (Normal Saline 0.9%) 1,000 mls @ 1,000 mls/hr IV BOLUS ONE Stop: 09/18/22 04:15 Last Infusion: 09/18/22 05:01 Dose: 0 mls/hr Documented By: Admin: 09/18/22 03:43 Dose: 1,000 mls/hr Documented By: JOSEPHINE Sodium Chloride (Normal Saline 0.9%) 1,000 mls @ 1,000 mls/hr IV BOLUS ONE Stop: 09/18/22 05:55 Last Infusion: 09/18/22 06:04 Dose: 0 mls/hr Documented By: Admin: 09/18/22 05:00 Dose: 1,000 mls/hr Documented By: JOSEPHINE Lisinopril (Lisinopril 5 Mg Tablet) 5 mg PO DAILY [facility] Ondansetron HCl (Ondansetron 4 Mg/2 Ml Inj) 4 mg IV NOW ONE Stop: 09/18/22 03:17 Last Admin: 09/18/22 03:43 Dose: 4 mg Documented By: JOSEPHINE Pantoprazole Sodium (Pantoprazole 40 Mg Vial) 40 mg IV NOW ONE Stop: 09/18/22 03:17 Last Admin: 09/18/22 03:43 Dose: 40 mg Documented By: JOSEPHINE Consultations Consultation #1: Dr. Barboza, accepts for admission. Time: 06:58 Vital Signs Vital signs: Vital Signs - 8 hr 09/18/22 03:00 Temperature 97.6 F Pulse Rate 88 Respiratory Rate 20 Blood Pressure 189/61 H Pulse Oximetry 97 Oxygen Delivery Method Room Air MDM - Nausea/Vomiting/Diarrhea Lab Data Result diagrams: 09/18/22 03:35 09/18/22 03:35 Labs: Lab Results 09/18/22 09/18/22 09/18/22 Range/Units 03:35 03:35 03:58 WBC 11.6 H (4.5-11.0) X10^3/uL RBC 5.33 H (4.0-5.2) X10^6/uL Hgb 15.1 (12.0-16.0) g/dL Hct 45.7 (36-46) % MCV 85.8 (80-100) fL MCH 28.4 (26-34) PG MCHC 33.2 (30-36) % RDW 13.4 (11.6-14.8) % Plt Count 279 (150-400) X10^3/uL Neut % (Auto) 89.4 H (50-75) % Lymph % (Auto) 5.9 L (25-40) % Gem % (Auto) 4.1 (3-14) % Eos % (Auto) 0.4 L (2-4) % Baso % (Auto) 0.2 (0-2) % Neut # (Auto) 88296 H (1360-6351) /uL Lymph # (Auto) 700 L (4734-6656) /uL Gem # (Auto) 500 (0-900) /uL Eos # (Auto) 0 (0-450) /uL Baso # (Auto) 0 (0-100) /uL Sodium 136 L (137-145) mmol/L Potassium 4.3 (3.4-5.1) mmol/L Chloride 102 (98-107) mmol/L Carbon Dioxide 19 L (22-32) mmol/L BUN 23 H (7-17) mg/dL Creatinine 0.95 (0.52-1.04) mg/dL Estimated GFR > 60 (>60) mL/min BUN/Creatinine Ratio 24.2 H (6-22) Glucose 153 H (80-110) mg/dL Calcium 9.6 (8.4-10.2) mg/dL Total Bilirubin 0.8 (0.2-1.3) mg/dL AST 27 (14-36) IU/L ALT 19 (<35) IU/L Alkaline Phosphatase 78 (38-126) U/L Total Protein 8.0 (6.3-8.2) g/dL Albumin 4.5 (3.5-5.0) g/dL Globulin 3.5 (1.7-4.1) g/dL Albumin/Globulin Ratio 1.3 (1.0-2.8) Lipase 110 (23-300) U/L Urine RBC (0-5/HPF) Urine WBC (0-5/HPF) Ur Squamous Epith Cells (0-5/HPF) Urine Bacteria (None) Ur Culture Indicated? SARS-CoV-2 (PCR) Negative (Negative) Influenza A (RT-PCR) Flu a negative (NEGATIVE) Influenza B (RT-PCR) Flu b negative (NEGATIVE) RSV (PCR) Negative (Negative) 09/18/22 Range/Units 07:03 WBC (4.5-11.0) X10^3/uL RBC (4.0-5.2) X10^6/uL Hgb (12.0-16.0) g/dL Hct (36-46) % MCV (80-100) fL MCH (26-34) PG MCHC (30-36) % RDW (11.6-14.8) % Plt Count (150-400) X10^3/uL Neut % (Auto) (50-75) % Lymph % (Auto) (25-40) % Gem % (Auto) (3-14) % Eos % (Auto) (2-4) % Baso % (Auto) (0-2) % Neut # (Auto) (7896-0224) /uL Lymph # (Auto) (0522-5109) /uL Gem # (Auto) (0-900) /uL Eos # (Auto) (0-450) /uL Baso # (Auto) (0-100) /uL Sodium (137-145) mmol/L Potassium (3.4-5.1) mmol/L Chloride (98-107) mmol/L Carbon Dioxide (22-32) mmol/L BUN (7-17) mg/dL Creatinine (0.52-1.04) mg/dL Estimated GFR (>60) mL/min BUN/Creatinine Ratio (6-22) Glucose (80-110) mg/dL Calcium (8.4-10.2) mg/dL Total Bilirubin (0.2-1.3) mg/dL AST (14-36) IU/L ALT (<35) IU/L Alkaline Phosphatase (38-126) U/L Total Protein (6.3-8.2) g/dL Albumin (3.5-5.0) g/dL Globulin (1.7-4.1) g/dL Albumin/Globulin Ratio (1.0-2.8) Lipase (23-300) U/L Urine RBC None seen (0-5/HPF) Urine WBC 5-10/hpf H (0-5/HPF) Ur Squamous Epith Cells 0-1 /hpf (0-5/HPF) Urine Bacteria Moderate (10-30) H (None) Ur Culture Indicated? Specimen cultured SARS-CoV-2 (PCR) (Negative) Influenza A (RT-PCR) (NEGATIVE) Influenza B (RT-PCR) (NEGATIVE) RSV (PCR) (Negative) Urine Dip Bedside Urine Glucose Negative Bedside Urine Bilirubin - Negative Bedside Urine Ketone +/- 5 Urine Specific [place] 1.015 Bedside Urine Occult Blood + Bedside Urine pH 5.0 Bedside Urine Protein - Negative Bedside Urine Urobilinogen - Negative Bedside Urine Nitrite + Positive Bedside Urine Leukocytes + [address] scan - abdomen/pelvis: Radiologist's Impression: evolving small bowel obstruction. no clear transition point is seen at present. ECG Data Attestation: I personally reviewed and interpreted this ECG as follows: Prior ECG tracings: not available for review Interpretation: Sinus rhythm rate of 68 TN 132 QRS is 72 and QTC 421. No acute ST changes appreciated. No priors for comparison. [facility] Narrative Medical decision making narrative: Patient presents with nausea vomiting and diarrhea, patient has not had any additional diarrhea since arrival. Does have abdominal pain in the lower pelvic region which is improved during stay. Patient received fluids, imaging shows possible small bowel obstruction but would suspect more of partial. Patient case was discussed with Dr. Barboza who accepts for observation. Discharge Plan Departure Patient Disposition: Admitted as Observation Clinical Impression: Partial small bowel obstruction Admit Date/Time: 09/18/22 07:24 Admit Provider: Huber Barboza
[2022-09-18] MEDS: SODIUM CHLORIDE 0.9% 1,000 ML 1000 ML IV ×2 (03:43→05:00)
[2022-09-18] MEDS: ONDANSETRON 4 MG/2 ML INJ IV (03:43)
[2022-09-18] MEDS: PANTOPRAZOLE 40 MG VIAL IV ×2 (03:43→15:37)
[2022-09-18 03:44] LABS: Add Manual Diff / Slide Review NO; Basophils Absolute Auto 0 /uL (0-100); Basophils Percent Auto 0.2 % (0-2); Eosinophils Absolute Auto 0 /uL (0-450); Eosinophils Percent Auto 0.4 % (2-4); Hematocrit 45.7 % (36-46); Hemoglobin 15.1 g/dL (12.0-16.0); Lymphocytes Absolute Auto 700 /uL (1100-4500); Lymphocytes Percent Auto 5.9 % (25-40); Mean Corpuscular HGB Conc 33.2 % (30-36); Mean Corpuscular Hemoglobin 28.4 PG (26-34); Mean Corpuscular Volume 85.8 fL (80-100); Monocytes Absolute Auto 500 /uL (0-900); Monocytes Percent Auto 4.1 % (3-14); Neutrophils Absolute Auto 10400 /uL (1500-7000); Neutrophils Percent Auto 89.4 % (50-75); Platelet Count 279 X10^3/uL (150-400); Red Blood Cell Count 5.33 X10^6/uL (4.0-5.2); Red Cell Distribution Width 13.4 % (11.6-14.8); White Blood Cell Count 11.6 X10^3/uL (4.5-11.0)
[2022-09-18 03:56] LABS: Alanine Aminotransferase 19 IU/L (<35); Albumin 4.5 g/dL (3.5-5.0); Albumin Globulin Ratio 1.3 (1.0-2.8); Alkaline Phosphatase 78 U/L (38-126); Aspartate Aminotransferase 27 IU/L (14-36); BUN Creatinine Ratio 24.2 (6-22); Bilirubin Total 0.8 mg/dL (0.2-1.3); Blood Urea Nitrogen 23 mg/dL (7-17); Calcium 9.6 mg/dL (8.4-10.2); Carbon Dioxide 19 mmol/L (22-32); Chloride 102 mmol/L (98-107); Estimated Glomerular Filt Rate > 60 mL/min (>60); Globulin 3.5 g/dL (1.7-4.1); Glucose 153 mg/dL (80-110); HEMOLYSIS < 15 (0-50); Lipase 110 U/L (23-300); Potassium 4.3 mmol/L (3.4-5.1); Sodium 136 mmol/L (137-145)
[2022-09-18 04:44] LABS: Influenza A - CEPHEID Flu A NEGATIVE (NEGATIVE); Influenza B - CEPHEID Flu B NEGATIVE (NEGATIVE); Respiratory Syncytial Virus Negative (Negative)
[2022-09-18 05:03] LABS: COVID-19 CEPHEID 4-PLEX PCR Negative (Negative)
[2022-09-18 07:10] LABS: Bacteria Urine Moderate (10-30); Culture Indicated Urine Specimen Cultured; RBC Urine None Seen (0-5/HPF); Squamous Epithelial Cell Urine 0-1 /HPF (0-5/HPF); WBC Urine 5-10/HPF (0-5/HPF)
[2022-09-18] MEDS: SODIUM CHLORIDE 0.9% 1,000 ML 125 ML IV (07:18)
--- NOTE | 2022-09-18 10:17 | DI.RAD.S_ITS ---
PROCEDURE: [place] SMALL BOWEL FOLLOW THROUGH INDICATIONS: small bowel obstruction. Perform with gastrografin. COMPARISON: [facility], CT, CT ABDOMEN PELVIS W CON, 09/18/2022, 4:13. 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 Gas is present in the cecum/ascending colon. Excreted Contrast from prior CT is present in the urinary bladder. IM hany partially imaged in the right femur. Small bowel: After ingestion of contrast, the previously demonstrated hiatal hernia is redemonstrated. Small duodenal diverticulum present. There is normal transit time of water-soluble contrast through the small bowel, 1 hour 45 minutes. On the 1 hour 45 minutes film, contrast is present to the level of the sigmoid colon. IMPRESSION: Small bowel transit time of 1 hour 45 minutes. Dictated by: Pedro Pablo Patino M.D. on 09/18/2022 at 14:07 Approved by: Pedro Pablo Patino M.D. on 09/18/2022 at 14:45
--- NOTE | 2022-09-18 10:17 | PM.CALLCOV.1 ---
Call Coverage Note Note Date of Patient Contact: 09/18/22 Time of Patient Contact: 10:17 Narrative of Care Provided: 77F with pSBO hx of abdominal surgery -NPO -Small bowel follow through -consult note to follow
--- NOTE | 2022-09-18 13:05 | PM.CN ---
History of Present Illness Consult details Date Patient Seen: 09/18/22 Time Patient Seen: 13:06 Chief complaint: REACTION TO PAIN MED Narrative: 77-year-old woman with history of abdominal surgery admitted for a partial small bowel obstruction. She presented with nausea vomiting diarrhea and abdominal bloating. Admission CT abdomen pelvis demonstrates a partial small bowel obstruction no free air or free fluid. she has had previous likely small-bowel obstructions that self resolved at home without medical intervention based on her symptoms. She has history of hysterectomy and cholecystectomy. since admission she feels slight improvement but not resolution of her symptoms. Meds Home Medications and Allergies Home Medications Medication Instructions Recorded Confirmed Type lisinopril 5 mg tablet 5 mg PO DAILY ##0 11/24/12 09/18/22 History pantoprazole 40 mg granules 40 mg PO BEDTIME 01/27/19 09/18/22 History delayed-release for susp in packet atorvastatin 10 mg tablet 10 mg PO BEDTIME 08/07/20 09/18/22 History cholecalciferol (vitamin D3) 25 25 mcg PO DAILY 08/07/20 09/18/22 History mcg (1,000 unit) capsule (Vitamin D3) alendronate 70 mg tablet 70 mg PO QWEEK 08/12/22 09/18/22 History levothyroxine 100 mcg capsule 112 mcg PO DAILY 08/12/22 09/18/22 History Allergies Allergy/AdvReac Type Severity Reaction Status Date / Time morphine AdvReac Intermediate nausea Verified 08/12/22 14:27 Exam Vital Signs (past 8 hours): - 09/18/22 06:00 09/18/22 07:00 09/18/22 07:30 Temperature Pulse Rate 69 71 72 Respiratory Rate 19 Blood Pressure Pulse Oximetry 95 94 90 L Oxygen Delivery Method Room Air Oxygen Flow Rate 09/18/22 07:52 09/18/22 07:53 09/18/22 07:59 Temperature 98.1 F Pulse Rate 70 64 Respiratory Rate 14 Blood Pressure 152/70 H 155/55 H Pulse Oximetry 95 95 Oxygen Delivery Method Oxygen Flow Rate 0 09/18/22 12:24 Temperature 98.2 F Pulse Rate 65 Respiratory Rate 16 Blood Pressure 163/77 H Pulse Oximetry 97 Oxygen Delivery Method Oxygen Flow Rate 0 Oxygen Delivery Method Room Air Oxygen Flow Rate 0 Narrative Exam Narrative: General elderly woman alert oriented no acute distress Chest nonlabored respiration Abdomen bloated but compressible no peritonitis Objective Labs Result Diagrams: 09/18/22 03:35 09/18/22 03:35 Labs: Laboratory Results - last 24 hr 09/18/22 09/18/22 09/18/22 03:35 03:35 03:58 WBC 11.6 H RBC 5.33 H Hgb 15.1 Hct 45.7 MCV 85.8 MCH 28.4 MCHC 33.2 RDW 13.4 Plt Count 279 Neut % (Auto) 89.4 H Lymph % (Auto) 5.9 L [place] % (Auto) 4.1 Eos % (Auto) 0.4 L Baso % (Auto) 0.2 Neut # (Auto) 77123 H Lymph # (Auto) 700 L [place] # (Auto) 500 Eos # (Auto) 0 Baso # (Auto) 0 Sodium 136 L Potassium 4.3 Chloride 102 Carbon Dioxide 19 L BUN 23 H Creatinine 0.95 Estimated GFR > 60 BUN/Creatinine Ratio 24.2 H Glucose 153 H Calcium 9.6 Total Bilirubin 0.8 AST 27 ALT 19 Alkaline Phosphatase 78 Total Protein 8.0 Albumin 4.5 Globulin 3.5 Albumin/Globulin Ratio 1.3 Lipase 110 Urine RBC Urine WBC Ur Squamous Epith Cells Urine Bacteria Ur Culture Indicated? SARS-CoV-2 (PCR) Negative Influenza A (RT-PCR) Flu a negative Influenza B (RT-PCR) Flu b negative RSV (PCR) Negative 09/18/22 07:03 WBC RBC Hgb Hct MCV MCH MCHC RDW Plt Count Neut % (Auto) Lymph % (Auto) [place] % (Auto) Eos % (Auto) Baso % (Auto) Neut # (Auto) Lymph # (Auto) [place] # (Auto) Eos # (Auto) Baso # (Auto) Sodium Potassium Chloride Carbon Dioxide BUN Creatinine Estimated GFR BUN/Creatinine Ratio Glucose Calcium Total Bilirubin AST ALT Alkaline Phosphatase Total Protein Albumin Globulin Albumin/Globulin Ratio Lipase Urine RBC None seen Urine WBC 5-10/hpf H Ur Squamous Epith Cells 0-1 /hpf Urine Bacteria Moderate (10-30) H Ur Culture Indicated? Specimen cultured SARS-CoV-2 (PCR) Influenza A (RT-PCR) Influenza B (RT-PCR) RSV (PCR) PFSH Medical History Arrhythmia Atypical chest pain GERD (gastroesophageal reflux disease) Graves disease Hyperlipidemia Hypertension Surgical History H/O hysterectomy for benign disease History of cholecystectomy Social History household members: children and none Tobacco & Substance Use Smoking Status: Never smoker alcohol intake: former Assessment & Plan Assessment and plan (1) Partial small bowel obstruction: Status: Acute Assessment & Plan narrative: 77-year-old woman history of abdominal surgery admitted with a partial small bowel obstruction. No indication for surgical intervention at this time. We will proceed with conservative management. - NPO IV fluids - small-bowel follow-through -NGT if further emesis Time Spent With Patient Critical Care time: I spent a total of [] minutes of critical care time on this patient's care today; this time is exclusive of procedural time.
--- NOTE | 2022-09-18 13:56 | PT.IIE ---
Current Diagnoses Partial intestinal obstruction, unspecified as to cause (09/18/22) Surgical History (Last Reviewed 09/18/22 @ 13:09 by Norman Magana MD) H/O hysterectomy for benign disease History of cholecystectomy Medical History (Last Reviewed 09/18/22 @ 13:09 by Norman Magana MD) Arrhythmia Atypical chest pain GERD (gastroesophageal reflux disease) Graves disease Hyperlipidemia Hypertension Physical Therapy Inpatient Evaluation/Re-Eval M1 PT/OT-IP Prior Functional Status Start: 09/18/22 14:32 Freq: NEEDED Status: Active Protocol: Document 09/18/22 13:56 AB (Rec: 09/18/22 14:48 AB [email or web address]) Medical Review Prior Functional Status Medical History Reviewed Yes Diet/Fluid Consistency NPO Communication able to make needs known Mobility and Gait pt stated that she is modified independent with all mobilities and ambulation without AD Social History Household Members none,children Living Arrangements House Number of Floors (Floors) One Floor Number of Stairs To Enter/Railing? 2 platform steps without rails to enter Home Environment High Toilet,Walk in Shower Home Equipment Hand Held Shower,Grab Bars In Shower Additional Social History Comment pt has her daughter, son and DIL at home to assist her M2 PT-IP Current Condition Start: 09/18/22 14:32 Freq: NEEDED Status: Active Protocol: Document 09/18/22 13:56 AB (Rec: 09/18/22 14:48 AB [email or web address]) Physical Therapy Current Condition Current Condition Evaluation Date 09/18/22 Treatment Diagnosis partial SBO; difficulty in walking Onset Date 09/18/22 M3 PT-IP Subjective Start: 09/18/22 14:32 Freq: NEEDED Status: Active Protocol: Document 09/18/22 13:56 AB (Rec: 09/18/22 14:48 AB [email or web address]) Subjective Physical Therapy Visit Type Type Initial Evaluation Visit Start Time 13:56 Visit Stop Time 14:11 Total Visit Minutes 15 Number of TRAIN CALLER Visits 0 Physical Therapy Visit Comments Patient Comments agreeable to do PT Therapy Pain Assessment Pain When Pain Assessed At Rest Pain Present Pain Present Pain Reported Location Abdomen Scale Used pain scale not stated M4 PT-IP Mobility and Gait Start: 09/18/22 14:32 Freq: NEEDED Status: Active Protocol: Document 09/18/22 13:56 AB (Rec: 09/18/22 14:48 AB [email or web address]) PT-Bed Mobility Assessment Sit to Supine Sit to Supine Standby Assistance PT-Transfer Assessment Sit to and From Stand Sit to and from Stand Contact Guard Assistance,1 Person Assistance,Use of Upper Extremities Equipment Transfer Assistive Device Gait Belt Orthotic/Prosthetic Devices or Brace: No Transfers Transfer Destination Bed Transfer Technique ambulated Transfer Ability Level of Assist Contact Guard Assistance,1 Person Assistance,Use of Upper Extremities Comments Mobility Comments checked on pt and pt using the toilet and NAC assisting. NAC providing assistance to pt without AD. positioned FWW for pt to use and instructed. PT took over. pt ambulated to EOB CGA using FWW. pt c/o abdominal pain and diarrhea but agreed to do PT. pt completed sit to stand from the CGA and ambulated in room ~ 25 ft using FWW CGA. pt sat back on EOB and requested to go back to bed. completed sit to supine SBA. positioned pt in bed. call light and table placed within reach. educated pt on safety and use of FWW at this time. Pt agreed . Gait Assessment Gait Gait Assistance Required: Contact Guard Assist,1 Person Assist Distance (Feet) 25 Able to Maintain Weight Bearing Status Yes During Gait Assistive Devices Assistive Device Gait Belt,Front Wheeled Walker Orthotic/Prosthetic Devices or Brace: No Gait Deviations General Gait Pattern Decreased Stride Length, Decreased Feet Clearance Factors Limiting Gait Function Factors Limiting Gait Function Decreased Activity Tolerance, Decreased Strength,Pain,Poor Balance,Poor Safety Awareness PT-Balance Assessment Sitting Balance and Reactions Static Sitting Balance Ability Normal Dynamic Sitting Balance Ability Good Standing Balance and Reactions Static Standing Balance Ability Fair Dynamic Standing Balance Ability Poor Device Used without AD M5 PT-IP Objective Assessments Start: 09/18/22 14:32 Freq: NEEDED Status: Active Protocol: Document 09/18/22 13:56 AB (Rec: 09/18/22 14:48 AB [email or web address]) Orientation Orientation/Cognition Level of Alertness Alert Orientation Name,Place,Situation Language Function Ability No Deficits Noted Safety Awareness Decreased Safety Awareness Memory Description No Deficits Noted Gross Range of Motion Lower Extremity ROM Assessment Within Functional Limits Strength Lower Extremity Strength Hip 4-/5 Knee 4-/5 Coordination Assessment Gross Coordination Gross Coordination WNL Sensation Assessment Sensation Gross Sensation WNL Muscle Tone Muscle Tone WNL Yes M6 PT-IP Treatment Start: 09/18/22 14:32 Freq: NEEDED Status: Active Protocol: Document 09/18/22 13:56 AB (Rec: 09/18/22 14:48 AB [id number]) Physical Therapy Treatment Education Education Provided Safety M7 PT-IP Assessment and Plan Start: 09/18/22 14:32 Freq: NEEDED Status: Active Protocol: Document 09/18/22 13:56 AB (Rec: 09/18/22 14:48 AB [email or web address]) PT Summary Assessment and Plan Potential Rehabilitation Potential Fair Status of Condition at Evaluation Evolving Summary Impairments Pain,ROM,Strength,Balance, Coordination,Sensation,Tone, Cognition,Bed Mobility, Transfers,Gait,Activity Tolerance Assessment Summary pt requiring SBA for mobility and needing use of FWW for steadiness at this time. Pt admitted for partial SBO and is currently NPO. Aside from pt complaining of abdominal pain and diarrhea, pt stated that she feels weak and is not allowed to eat at this time. will continue to assess progress for safe d/c plan. Goals Bed Mobility Goal Independent Transfer Goal Independent,Front Wheeled Walker Gait Goal Independent,Front Wheel Walker Gait Distance 200 Other Goals improve transfers and ambulation without AD 250 ft mod I up/down 2 platform step using fWW/without AD SBA Days to Meet Goals 10 Frequency of Treatment Frequency Of Treatment Once a Day Treatment Plan Physical Therapy Treatment Plan Bed Mobility Training,Transfer Training,Gait Training, Therapeutic Exercise,Balance Retraining,Discharge Planning, Hot or Cold Pack,Neuromuscular Re-ed,Coordination Retraining Recommendations To Nursing Amount of Assist Needed 1 Person Assist Discharge Recommendations PT Discharge Recommendations Home with Assistance,Home Health Equipment Needed for Home Before FWW if not safe without AD Discharge Transportation Needs at Discharge Private Vehicle,Wheelchair/ Cabulance
--- NOTE | 2022-09-18 14:56 | PC.NURSE ---
Addendum entered by Emma Ambrose R.N. 09/18/22 19:02: Pt blood pressure 136/65 and heart rate 74. Pt states, feeling better. Addendum entered by Emma Ambrose R.N. 09/18/22 15:09: Spoke to Dr. Flood and ordered lisinopril, protonix, levotyroxine, and IV protonix see MAR and continue to monitor blood pressure. Original Note: Left a message with Dr. Barboza office that pt has had about 6 incontinent episodes of loose stools mixed with urine that is yellow/brown colored and pt blood pressure was 225/93 heart rate 59, rechecked blood pressure and it was 203/84 heart rate 59. Office staff states Dr. Barboza is not available but will notify him.
--- NOTE | 2022-09-18 15:22 | PM.CALLCOV.1 ---
Call Coverage Note Note Date of Patient Contact: 09/18/22 Time of Patient Contact: 15:22 Narrative of Care Provided: Small bowel follow through study reviewed. Normal transit into the colon. Start clear liquids and advance diet as tolerated
[2022-09-18] MEDS: lisinopriL 5 MG TABLET PO (15:36)
--- NOTE | 2022-09-18 18:45 | PM.HP.1 ---
History of Present Illness History of Present Illness Date Patient Seen: 09/18/22 Time Patient Seen: 08:30 Chief complaint: REACTION TO PAIN MED Narrative: This is a very pleasant 77-year-old female who is formerly followed by Dr. Valero and then Dr. Pettit. She presents to the ER with severe nausea, vomiting and diarrhea. She was diagnosed with a small-bowel obstruction on CT scan and was admitted to the hospital for further treatment. Patient apparently injured her right shoulder on Wednesday and was seen in the clinic on Wednesday and given a Toradol injection and then placed on oral Toradol. She began having GI side effects with significant nausea and lower abdominal pain and then on night she developed severe vomiting every 2 hours and ask for her [id number] to bring her into the ER. She is doing better today. She thinks in retrospect that she previously has had partial bowel obstructions but these have resolved on their own. She is not sought medical care for them. She is not recently been on antibiotics. Past medical history: 1. Hyperlipidemia 2. Hypertension 3. Hypothyroidism 4. GERD 5. Osteoporosis Past surgical history: 1. Total abdominal hysterectomy with BSO secondary to endometriosis 2. Cholecystectomy Health related behavior Patient walks her dog but otherwise is not very active Patient does not smoke and never has on a regular basis. Patient does not use alcohol Family history: Brother has diabetes and glaucoma and macular degeneration No one else in the family with diabetes Social history: Patient lives with her son and [id number] and granddaughter. She is a . Her in March of 2020. She lives here in [facility]. Review of systems: Patient denies rashes Patient denies recent fever Patient denies recent antibiotic use. Patient denies any blood in her stool. Denies any bright red blood per rectum or black tarry stools. Patient denies any recent travel. Patient does have GERD and Toradol made her GERD symptoms a little bit worse Patient denies any chest pain or shortness of breath or lightheadedness or dizziness. Patient denies any PND or orthopnea Patient denies any urinary symptoms Otherwise 12 point review of systems negative Patient History Medical History Arrhythmia Atypical chest pain GERD (gastroesophageal reflux disease) Graves disease Hyperlipidemia Hypertension Surgical History H/O hysterectomy for benign disease History of cholecystectomy Family & Social History Social History: household members none,children Prior Living Arrangements House Safety & Behavioral: Feels Safe in Current Yes Environment Been Physically Hurt or No Threatened By a Person Tobacco & Substance use: Smoking Status Never smoker alcohol intake former alcohol intake frequency other Substance Use Type does not use Meds Home Medications and Allergies Home Medications Medication Instructions Recorded Confirmed Type lisinopril 5 mg tablet 5 mg PO DAILY ##0 11/24/12 09/18/22 History pantoprazole 40 mg granules 40 mg PO BEDTIME 01/27/19 09/18/22 History delayed-release for susp in packet atorvastatin 10 mg tablet 10 mg PO BEDTIME 08/07/20 09/18/22 History cholecalciferol (vitamin D3) 25 25 mcg PO DAILY 08/07/20 09/18/22 History mcg (1,000 unit) capsule (Vitamin D3) alendronate 70 mg tablet 70 mg PO QWEEK 08/12/22 09/18/22 History levothyroxine 112 mcg tablet 112 mcg PO DAILY 09/18/22 09/18/22 History Allergies Allergy/AdvReac Type Severity Reaction Status Date / Time morphine AdvReac Intermediate nausea Verified 08/12/22 14:27 Exam Vital Signs (past 8 hours): - 09/18/22 12:24 09/18/22 14:35 09/18/22 14:40 Temperature 98.2 F Pulse Rate 65 59 L 59 L Respiratory Rate 16 Blood Pressure 163/77 H 225/93 H 203/84 H Pulse Oximetry 97 Oxygen Flow Rate 0 09/18/22 14:54 09/18/22 15:05 09/18/22 15:36 Temperature 98.0 F Pulse Rate 60 59 L 59 L Respiratory Rate 16 Blood Pressure 203/84 H 168/72 H 168/72 H Pulse Oximetry 99 Oxygen Flow Rate 0 Oxygen Delivery Method Room Air Oxygen Flow Rate 0 Narrative Exam Narrative: Patient is alert and oriented x3 no apparent distress. Blood pressure is improved 160/72 was high this morning 203/84. Remainder of vital signs are stable including O2 sat on room air 99% HEENT shows mucous membranes are moist and pink Neck: Supple without adenopathy or thyromegaly Chest: Clear to auscultation without wheezes rhonchi or crackles Cor: Regular rate and rhythm without a murmur Abdomen: Positive bowel sounds, slightly tympanitic in the left upper quadrant right upper quadrant. No hepatosplenomegaly. No guarding. No rebound Extremities: No edema pulses intact Neurologic exam is nonfocal Skin no rashes Objective Labs Result Diagrams: 09/18/22 03:35 09/18/22 03:35 Labs: Laboratory Results - last 24 hr 09/18/22 09/18/22 09/18/22 03:35 03:35 03:58 WBC 11.6 H RBC 5.33 H Hgb 15.1 Hct 45.7 MCV 85.8 MCH 28.4 MCHC 33.2 RDW 13.4 Plt Count 279 Neut % (Auto) 89.4 H Lymph % (Auto) 5.9 L [place] % (Auto) 4.1 Eos % (Auto) 0.4 L Baso % (Auto) 0.2 Neut # (Auto) 25789 H Lymph # (Auto) 700 L [place] # (Auto) 500 Eos # (Auto) 0 Baso # (Auto) 0 Sodium 136 L Potassium 4.3 Chloride 102 Carbon Dioxide 19 L BUN 23 H Creatinine 0.95 Estimated GFR > 60 BUN/Creatinine Ratio 24.2 H Glucose 153 H Calcium 9.6 Total Bilirubin 0.8 AST 27 ALT 19 Alkaline Phosphatase 78 Total Protein 8.0 Albumin 4.5 Globulin 3.5 Albumin/Globulin Ratio 1.3 Lipase 110 Urine RBC Urine WBC Ur Squamous Epith Cells Urine Bacteria Ur Culture Indicated? SARS-CoV-2 (PCR) Negative Influenza A (RT-PCR) Flu a negative Influenza B (RT-PCR) Flu b negative RSV (PCR) Negative 09/18/22 07:03 WBC RBC Hgb Hct MCV MCH MCHC RDW Plt Count Neut % (Auto) Lymph % (Auto) [place] % (Auto) Eos % (Auto) Baso % (Auto) Neut # (Auto) Lymph # (Auto) [place] # (Auto) Eos # (Auto) Baso # (Auto) Sodium Potassium Chloride Carbon Dioxide BUN Creatinine Estimated GFR BUN/Creatinine Ratio Glucose Calcium Total Bilirubin AST ALT Alkaline Phosphatase Total Protein Albumin Globulin Albumin/Globulin Ratio Lipase Urine RBC None seen Urine WBC 5-10/hpf H Ur Squamous Epith Cells 0-1 /hpf Urine Bacteria Moderate (10-30) H Ur Culture Indicated? Specimen cultured SARS-CoV-2 (PCR) Influenza A (RT-PCR) Influenza B (RT-PCR) RSV (PCR) Assessment & Plan Assessment & Plan narrative: 77-year-old female with small-bowel obstruction based on history and CT finding Assessment 1. Small bowel obstruction Plan: Will consult surgery and appreciate their input. Will have patient NPO except for medications. Will give IV fluids. Assessment 2. Hypertension with elevated blood pressure Plan: Will treat her blood pressure with her outpatient regimen and we may need to increase this dosing. Will also treat pain and primary reason for admission being a small-bowel obstruction Assessment 3. GERD with worsening related to Toradol Plan: Will give Protonix IV. Will give IV fluids. Will make NPO. Assessment 4. Hyperlipidemia Plan: Continue atorvastatin Assessment 5. Hypothyroidism : Will continue thyroid medication. Will check TSH in the morning if this is not been done. Patient's code status is DNR per previously filled out pulsed form. 50 minutes was spent in discussing with physicians, nursing, meeting with patient, reviewing chart and formulating plan Time Spent With Patient Critical Care time: I spent a total of [] minutes of critical care time on this patient's care today; this time is exclusive of procedural time.
[2022-09-18] MEDS: ATORVASTATIN 20 MG TABLET 10 MG PO (20:04)
[2022-09-19] MEDS: ACETAMINOPHEN 325 MG TABLET 650 MG PO (05:07)
[2022-09-19 07:00] VITALS: BP 115/55; PULSE 62; RESP 18; TEMP 36.3; O2SAT 97
[2022-09-19 07:17] LABS: Add Manual Diff / Slide Review NO; Basophils Absolute Auto 100 /uL (0-100); Basophils Percent Auto 0.8 % (0-2); Eosinophils Absolute Auto 200 /uL (0-450); Eosinophils Percent Auto 3.3 % (2-4); Lymphocytes Absolute Auto 1500 /uL (1100-4500); Lymphocytes Percent Auto 21.9 % (25-40); Mean Corpuscular HGB Conc 33.3 % (30-36); Monocytes Absolute Auto 500 /uL (0-900); Monocytes Percent Auto 7.9 % (3-14); Neutrophils Absolute Auto 4400 /uL (1500-7000); Neutrophils Percent Auto 66.1 % (50-75); Platelet Count 222 X10^3/uL (150-400); Red Blood Cell Count 4.14 X10^6/uL (4.0-5.2); Red Cell Distribution Width 13.6 % (11.6-14.8); White Blood Cell Count 6.7 X10^3/uL (4.5-11.0)
[2022-09-19 07:29] LABS: Alanine Aminotransferase 21 IU/L (<35); Albumin 3.2 g/dL (3.5-5.0); Albumin Globulin Ratio 1.2 (1.0-2.8); Alkaline Phosphatase 46 U/L (38-126); Aspartate Aminotransferase 30 IU/L (14-36); BUN Creatinine Ratio 16.9 (6-22); Bilirubin Total 0.5 mg/dL (0.2-1.3); Blood Urea Nitrogen 13 mg/dL (7-17); Calcium 7.5 mg/dL (8.4-10.2); Carbon Dioxide 19 mmol/L (22-32); Chloride 109 mmol/L (98-107); Estimated Glomerular Filt Rate > 60 mL/min (>60); Globulin 2.7 g/dL (1.7-4.1); Glucose 100 mg/dL (80-110); HEMOLYSIS < 15 (0-50); Potassium 3.7 mmol/L (3.4-5.1); Sodium 137 mmol/L (137-145); Total Protein 5.9 g/dL (6.3-8.2)
[2022-09-19 09:21] VITALS: BP 115/61; PULSE 63
[2022-09-19] MEDS: lisinopriL 5 MG TABLET PO (09:21)
[2022-09-19] MEDS: CHOLECALCIFEROL (VITAMIN D3) 1,000 UNIT TABLET 1000 UNIT PO (09:23)
[2022-09-19] MEDS: PANTOPRAZOLE 40 MG VIAL IV (09:24)
[2022-09-19] MEDS: LEVOTHYROXINE 112 MCG TABLET PO (09:24)
[2022-09-19] MEDS: SODIUM CHLORIDE 0.9% 1,000 ML 125 ML IV (09:29)
--- NOTE | 2022-09-19 10:45 | PT.IPTN ---
Current Diagnoses Partial intestinal obstruction, unspecified as to cause (09/18/22) Physical Therapy Treatment Note M2 PT-IP Current Condition Start: 09/18/22 14:32 Freq: NEEDED Status: Active Protocol: Document 09/18/22 13:56 AB (Rec: 09/18/22 14:48 AB [email or web address]) Physical Therapy Current Condition Current Condition Evaluation Date 09/18/22 Treatment Diagnosis partial SBO; difficulty in walking Onset Date 09/18/22 M3 PT-IP Subjective Start: 09/18/22 14:32 Freq: NEEDED Status: Active Protocol: Document 09/19/22 10:45 AB (Rec: 09/19/22 11:50 AB [email or web address]) Subjective Physical Therapy Visit Type Type Treatment Note Visit Start Time 10:45 Visit Stop Time 10:56 Total Visit Minutes 11 Number of CAPTAIN ROOM SERVICE Visits 0 Physical Therapy Visit Comments Patient Comments agreeable to do PT; stated that she is feeling better but is hungry; pt is on clear liquid diet M4 PT-IP Mobility and Gait Start: 09/18/22 14:32 Freq: NEEDED Status: Active Protocol: Document 09/19/22 10:45 AB (Rec: 09/19/22 11:50 AB [id number]) PT-Transfer Assessment Sit to and From Stand Sit to and from Stand Independent,1 Person Assistance,Use of Upper Extremities Equipment Transfer Assistive Device None Orthotic/Prosthetic Devices or Brace: No Comments Mobility Comments pt sitting on chair. stated that she is feeling better today. Pt self transferred to the chair from the bed. pt ambulated in room without AD SBA and agreed to ambulate in the hallway and completed ~ 250 ft without AD SBA. completed up/down platform step CGA DEAN [employer]. pt stated she holds on to door frame at home for support. pt ambulated back to her room SBA. sat back on chair and positioned. call light within reach. informed pt regarding PT and agreed that no further PT needed and will ambulate by herself in room and will ask for nurse's assistance for ambulation in the hallway. informed nurse and agreed. pt is cleared to be independent in her room. Gait Assessment Gait Gait Assistance Required: Standby Assistance Distance (Feet) 250 Able to Maintain Weight Bearing Status Yes During Gait Assistive Devices Assistive Device None Orthotic/Prosthetic Devices or Brace: No Factors Limiting Gait Function Factors Limiting Gait Function Decreased Activity Tolerance Stair Climbing Assessment Evaluation Level of Assist On Stairs Contact Guard Assistance Devices Stair Climbing Assistive Devices None Technique/Endurance Stair Climbing Direction Ascend and Descend Stair Climbing Technique Step to Step Number of Steps Climbed 1 Stair Climbing Set # Repetitions (reps) 2 M5 PT-IP Objective Assessments Start: 09/18/22 14:32 Freq: NEEDED Status: Active Protocol: Document 09/18/22 13:56 AB (Rec: 09/18/22 14:48 AB [email or web address]) Orientation Orientation/Cognition Level of Alertness Alert Orientation Name,Place,Situation Language Function Ability No Deficits Noted Safety Awareness Decreased Safety Awareness Memory Description No Deficits Noted Gross Range of Motion Lower Extremity ROM Assessment Within Functional Limits Strength Lower Extremity Strength Hip 4-/5 Knee 4-/5 Coordination Assessment Gross Coordination Gross Coordination WNL Sensation Assessment Sensation Gross Sensation WNL Muscle Tone Muscle Tone WNL Yes M6 PT-IP Treatment Start: 09/18/22 14:32 Freq: NEEDED Status: Active Protocol: Document 09/19/22 10:45 AB (Rec: 09/19/22 11:50 AB [email or web address]) Physical Therapy Treatment Education Education Provided Safety M7 PT-IP Assessment and Plan Start: 09/18/22 14:32 Freq: NEEDED Status: Active Protocol: Document 09/19/22 10:45 AB (Rec: 09/19/22 11:50 AB [email or web address]) PT Summary Assessment and Plan Potential Rehabilitation Potential Good Summary Impairments Gait,Activity Tolerance Progress Towards Goals Slow Progress due to Medical Issues Assessment Summary pt steadier with ambulation today and able to complete without AD SBA. SBA provided for safety but can be independent with mobility in her room. No further PT needs indicated at this time. Frequency of Treatment Frequency Of Treatment Discharge Discharge Recommendations Transportation Needs at Discharge Private Vehicle
--- NOTE | 2022-09-19 12:04 | PM.DS.1 ---
History of Present Illness History of Present Illness Date Patient Seen: 09/19/22 Time Patient Seen: 12:04 Chief complaint: REACTION TO PAIN MED Narrative: Patient is feeling much better today. She would an unremarkable night. She had 1 loose stool today. There is no blood in it. She is having no abdominal pain. She is having no nausea or vomiting. Otherwise she is feeling much better. She is ambulating without difficulty. No lightheadedness or dizziness. No chest pain or shortness of breath. She is no urine symptoms. Otherwise 12 point review of systems is negative. Patient had small-bowel follow-through which was normal yesterday and her symptoms resolved. She is tolerating full liquid diet without difficulty Discharge Providers Provider Date of admission: 09/18/22 07:24 Discharge Date: 09/19/22 Primary care physician: Erin Pettit MD Consults: 09/18/22 09:12 Consult to Physical Therapy Evaluate & Treat Comment: Physician Instructions: Evaluate and Treat 09/18/22 09:15 Consult to Physician Routine Comment: Consulting Provider: [facility] Reason for consultation: SBO Has provider been notified: No Discharge provider: Harriett Flood MD Summary Hospital Course Discharge Diagnosis: Partial small-bowel obstruction Gastritis secondary to Toradol Positive urine culture without evidence of acute infection Leukocytosis, resolved Hypertension, well-controlled Hospital Course: Patient was admitted to the hospital and made NPO and given IV fluids. Surgery was consulted. Small-bowel follow-through was performed which was normal. Patient was started on clear liquids and diet was advanced and symptoms resolved. Patient was continued on proton pump inhibitor intravenously. Patient was given IV fluids. Patient's white blood cell count returned to normal which was thought to be stress reaction. Blood pressure was quite elevated but patient was started on her home medications and it returned to normal. She was discharged home on hospital day 2. And improved condition Status at Discharge Cognitive/behavioral status at discharge: oriented Functional status at discharge: independent ambulation Overall status at discharge: patient is progressing back to baseline Exam Vital Signs (past 8 hours): - 09/19/22 07:00 09/19/22 09:21 Temperature 97.4 F L Pulse Rate 62 63 Respiratory Rate 18 Blood Pressure 115/55 L 115/61 Pulse Oximetry 97 Oxygen Flow Rate 0 Oxygen Delivery Method Room Air Oxygen Flow Rate 0 Narrative Exam Narrative: Patient is alert and oriented x4. She appears to be feeling better today. HEENT is unremarkable Neck is supple Chest is clear to auscultation without wheezes rhonchi or crackles Cor: Regular rate and rhythm without murmur Abdomen: Positive bowel sounds x4, nontender, nondistended Extremities no edema Objective Labs Result Diagrams: 09/19/22 07:04 09/19/22 07:04 Labs: Laboratory Results - last 24 hr 09/19/22 09/19/22 07:04 07:04 WBC 6.7 RBC 4.14 Hgb 12.0 Hct 36.0 MCV 87.0 MCH 29.0 MCHC 33.3 RDW 13.6 Plt Count 222 Neut % (Auto) 66.1 D Lymph % (Auto) 21.9 L [place] % (Auto) 7.9 Eos % (Auto) 3.3 Baso % (Auto) 0.8 Neut # (Auto) 4400 Lymph # (Auto) 1500 [place] # (Auto) 500 Eos # (Auto) 200 Baso # (Auto) 100 Sodium 137 Potassium 3.7 Chloride 109 H Carbon Dioxide 19 L BUN 13 Creatinine 0.77 Estimated GFR > 60 BUN/Creatinine Ratio 16.9 Glucose 100 Calcium 7.5 L Total Bilirubin 0.5 AST 30 ALT 21 Alkaline Phosphatase 46 Total Protein 5.9 L Albumin 3.2 L Globulin 2.7 Albumin/Globulin Ratio 1.2 PFSH Medical History Arrhythmia Atypical chest pain GERD (gastroesophageal reflux disease) Graves disease Hyperlipidemia Hypertension Surgical History H/O hysterectomy for benign disease History of cholecystectomy Social History household members: children and none Smoking Status: Never smoker alcohol intake: former Discharge Assessment & Plan Assessment and Plan Assessment: Small-bowel obstruction, resolved Gastritis, improved Hypertension, well-controlled Leukocytosis, resolved Positive urine culture without acute symptoms Plan of Treatment: Will discharge home with routine precautions. She will see me in the clinic next week. She will continue her outpatient medications. We will repeat a urine culture she does not endorse any symptoms and pending results will treat for asymptomatic bacteriuria. Discharge Plan Discharge Plan Patient Disposition: Home Discharge orders & Medications Prescriptions: Continued lisinopril 5 MG tablet 5 mg PO DAILY Qty: 0 pantoprazole [address] for susp in packet 40 mg PO BEDTIME alendronate 70 mg tablet 70 mg PO QWEEK levothyroxine 112 mcg Tablet 112 mcg PO DAILY atorvastatin 10 mg Tablet 10 mg PO BEDTIME cholecalciferol (vitamin D3) [Vitamin D3] 25 mcg (1,000 unit) Capsule 25 mcg PO DAILY Follow up/Referrals: Erin Pettit MD [Primary Care Provider] - Harriett Flood MD [Physician] - 09/23/22 Diet/Activity/Treatments Diet: Diet as Tolerated Discharge Data Primary Care Provider: Erin Pettit
[2022-09-19 14:29] VITALS: PULSE 70; RESP 18; TEMP 36.3; O2SAT 98
--- NOTE | 2022-09-19 14:30 | CM.IDA ---
Initial DCP Assessment Note Pt is a 77 yo female, resident of [place], arrives with small-bowel obstruction had rapid improvement and was discharged home today PCP: [facility] Payer: Brett PALACIOS Reviewed chart, met w/patient this morning to introduce self and role. Patient eager to return home, explains she lives with her son Florian and RAJEEV Gallardo, available to assist as needed. Patient says she is typically very healthy and indp, active at baseline No barriers identified to patient's safe discharge home w/family to assist; close outpatient f/u recommended. EDWARD Dalton
== END 2022-09-19 14:55 | disposition home or self-care (01) | DRG 390 ==
LOC: ED 06:59 → AC 07:25
PROVIDERS: Family Medicine; Admitting Provider Family Medicine; Emergency Provider Emergency Medicine; PCP Student in an Organized Health Care Education/Training Program; Referring Provider Emergency Medicine; Visit Provider Family Medicine
DX: K56.600 Partial intestinal obstruction, unspecified as to cause (principal); I10 Essential (primary) hypertension; K21.9 Gastro-esophageal reflux disease without esophagitis; T39.8X5A Adverse effect of other nonopioid analgesics and antipyretics, not elsewhere classified, initial encounter; E78.5 Hyperlipidemia, unspecified; E03.9 Hypothyroidism, unspecified; K29.60 Other gastritis without bleeding; R82.71 Bacteriuria; Z20.822 Contact with and (suspected) exposure to COVID-19; M19.011 Primary osteoarthritis, right shoulder; M25.511 Pain in right shoulder
CPT/HCPCS: 0241U; 36415; 73030; 74177; 74250; 80053; 81003; 81015; 83690; 85025; 87077; 87086; 87186; 93005; 96374; 96375; 97116; 97162; 99232; 99284; C9113; J2405; Q9967

== ENCOUNTER 2022-11-09 19:53 | Emergency (ER) | payer OTHER, SELFPAY ==
[2022-09-18 08:22] VITALS: BMI 26.5
[2022-11-09 20:23] VITALS: BP 154/77; PULSE 81; RESP 18; TEMP 36.7; O2SAT 95; BMI 26.5
[2022-11-09 21:17] LABS: Influenza A - CEPHEID Flu A NEGATIVE (NEGATIVE); Influenza B - CEPHEID Flu B NEGATIVE (NEGATIVE); Respiratory Syncytial Virus Negative (Negative)
[2022-11-09 21:18] LABS: COVID-19 CEPHEID 4-PLEX PCR Negative (Negative)
--- NOTE | 2022-11-09 21:50 | DI.RAD.S_ITS ---
PROCEDURE: XR CHEST 2V INDICATIONS: cough TECHNIQUE: 2 views of the chest were acquired. COMPARISON: Located Within [facility], , XR CHEST 1V, 09/05/2020, 17:23. FINDINGS: Surgical changes and devices: None. Lungs and pleura: Lungs are clear. No pleural effusions or pneumothorax. Mediastinum: Mediastinal contours are normal. Heart size is normal. Bones and chest wall: No suspicious bony abnormalities. Soft tissues appear unremarkable. IMPRESSION: No acute pulmonary process. Dictated by: Radha Whalen M.D. on 11/09/2022 at 22:32 Approved by: Radha Whalen M.D. on 11/09/2022 at 22:32
--- NOTE | 2022-11-10 00:11 | ED_ITS ---
HPI - URI/Sore Throat General Chief Complaint: Upper Respiratory Symptoms Stated Complaint: Cough Time Seen by Provider: 11/10/22 00:08 Source: patient Mode of arrival: Ambulatory History of Present Illness HPI Narrative: 77-year-old female nonsmoker with history of GERD and chronic kidney disease presents with family in the chief complaint of about 1 week of nasal congestion, sneezing, dry and hacking cough and low-grade fever as high as 99. She denies any difficulty in breathing. She denies any sputum production during cough. She denies that deep breath illicits cough. She denies recent travel, history of blood clot, injury, hemoptysis or lower extremity pain, swelling or erythema. She denies GI symptoms such as nausea, vomiting or diarrhea. Related Data Home Medications Medication Instructions Recorded Confirmed lisinopril 5 mg tablet 5 mg PO DAILY ##0 11/24/12 09/18/22 pantoprazole 40 mg granules 40 mg PO BEDTIME 01/27/19 09/18/22 delayed-release for susp in packet atorvastatin 10 mg tablet 10 mg PO BEDTIME 08/07/20 09/18/22 cholecalciferol (vitamin D3) 25 25 mcg PO DAILY 08/07/20 09/18/22 mcg (1,000 unit) capsule (Vitamin D3) alendronate 70 mg tablet 70 mg PO QWEEK 08/12/22 09/18/22 levothyroxine 112 mcg tablet 112 mcg PO DAILY 09/18/22 09/18/22 Previous Rx's Medication Instructions Recorded azithromycin 250 mg tablet See Rx Instructions PO .COMPLEX #6 11/10/22 tabs benzonatate 200 mg capsule 200 mg PO BID PRN cough #20 caps 11/10/22 Allergies Allergy/AdvReac Type Severity Reaction Status Date / Time morphine AdvReac Intermediate nausea Verified 08/12/22 14:27 Review of Systems Review of Systems Narrative: GENERAL: See HPI HEENT: See HPI RESPIRATORY: See HPI CARDIOVASCULAR: Denies chest pain, palpitations, orthopnea, edema, GASTROINTESTINAL: See HPI : Denies dysuria, frequency, incontinence, hematuria, urinary retention. MUSCULOSKELETAL: denies weakness, joint pain, or bony pain SKIN: Denies rash, skin lesions, or other NEUROLOGIC: Denies weakness, headache, numbness, change in speech, confusion, seizures, incoordination. PSYCHIATRIC: No concerning psychosocial issues. 12 point review of systems is negative except for those stated above Patient History Medical History Arrhythmia Atypical chest pain GERD (gastroesophageal reflux disease) Graves disease Hyperlipidemia Hypertension Surgical History H/O hysterectomy for benign disease History of cholecystectomy Social History household members: children and none Smoking Status: Never smoker alcohol intake: former Smoking Status: Never smoker alcohol intake frequency: other Substance Use Type: does not use Exam Narrative Exam Narrative: GENERAL: [77] year old patient appears stated age. Well-developed patient, in mild distress. HEAD: Atraumatic. Normocephalic. EYES: Pupils equal round and reactive. Extraocular motions intact. No scleral icterus. No injection or drainage. ENT: Nose without bleeding, purulent drainage. Throat without erythema, tonsillar hypertrophy or exudate. Airway patent. Clear postnasal drip NECK: Trachea midline. Non tender CARDIOVASCULAR: Regular rate and rhythm without murmurs, gallops, or rubs. RESPIRATORY: Clear to auscultation. Breath sounds equal bilaterally. No wheezes, rales, or rhonchi. No evidence of increased work of breathing such as tachypnea, use of accessory muscles or hypoxemia GASTROINTESTINAL: Abdomen soft, non-tender, nondistended. EXTREMITIES: No edema or joint tenderness. BACK: Nontender without deformity or crepitance. No flank tenderness. NEURO: AOx3. SKIN: No rash or erythema of visible areas Initial Vital Signs Initial Vital Signs: Vital Signs Temperature 98.1 F 11/09/22 20:23 Pulse Rate 81 11/09/22 20:23 Respiratory Rate 18 11/09/22 20:23 Blood Pressure 154/77 H 11/09/22 20:23 Pulse Oximetry 95 11/09/22 20:23 Oxygen Delivery Method 11/09/22 20:23 Course Orders Ordered: Discontinued Medications Acetaminophen/Codeine Phosphate (Acetaminophen/Codeine Soln 5 Ml Solution) 10 ml PO NOW ONE Stop: 11/10/22 01:39 Last Admin: 11/10/22 02:05 Dose: 5 ml Documented By: YAMILE Vital Signs Vital signs: Vital Signs - 8 hr 11/09/22 20:23 Temperature 98.1 F Pulse Rate 81 Respiratory Rate 18 Blood Pressure 154/77 H Pulse Oximetry 95 Oxygen Delivery Method Room Air MDM - URI/Sore Throat Lab Data Labs: Lab Results 11/09/22 Range/Units 20:20 SARS-CoV-2 (PCR) Negative (Negative) Influenza A (RT-PCR) Flu a negative (NEGATIVE) Influenza B (RT-PCR) Flu b negative (NEGATIVE) RSV (PCR) Negative (Negative) Imaging Data Chest x-ray: Radiologist's Impression: [address] [address] XRay Report Signed Patient: Michele Hernández MR#: [id number] : 1945 Acct:[id number] Age/Sex: 77 / F Date of Service: 11/09/22 Loc: ED Accession Number: [id number] ?? Procedure: XR chest 2V Ordering Provider: Quincy Shelton D.O. PROCEDURE:? XR CHEST 2V ? INDICATIONS:? cough ? TECHNIQUE:? 2 views of the chest were acquired.? ? COMPARISON:? [facility], CR, XR CHEST 1V, 09/05/2020, 17:23. ? FINDINGS:? ? Surgical changes and devices:? None.? ? Lungs and pleura:? Lungs are clear.? No pleural effusions or pneumothorax.? ? Mediastinum:? Mediastinal contours are normal.? Heart size is normal.? ? Bones and chest wall:? No suspicious bony abnormalities.? Soft tissues appear unremarkable.? ? IMPRESSION:? No acute pulmonary process. ? ? Dictated by: Radha Whalen M.D. on 11/09/2022 at 22:32 ? ? Approved by: Radha Whalen M.D. on 11/09/2022 at 22:32 ? [facility] Narrative Medical decision making narrative: 77-year-old female nonsmoker with about 1 week of upper respiratory symptoms including nasal congestion, sneezing, mild sore throat, dry and hacking cough with reassuring vital signs, no significant work of breathing or complaint of shortness of breath. Chest x-ray without obvious focal infiltrate, respiratory swab negative for flu, RSV and COVID. These symptoms are most consistent with viral upper respiratory infection versus atypical pneumonia. Given the duration of her symptoms we discussed the utility of covering her for atypical pneumonia. We did discuss the possibility of alternate diagnoses including pulmonary embolism versus other but sure the opinion that is extremely unlikely given lack of shortness of breath, tachycardia, chest pain, hemoptysis. Return precautions discussed and questions answered to her apparent satisfaction Discharge Plan Departure Patient Disposition: Home Clinical Impression: Atypical pneumonia Instructions: DI for Atypical Pneumonia Activity Restrictions/Additional Instructions: *You have been diagnosed with [atypical pneumonia. As we discussed your history and physical exam are reassuring. The respiratory swab was negative for COVID, flu and RSV. Your chest x-ray showed no obvious signs of pneumonia] *What to do: *Please continue to take your regular medications as directed. [ x] New medication prescriptions sent to your pharmacy: [ [facility]] [ ] New medication written as a paper prescription [ ] No new medications given *Please follow up with your primary care provider in 2-3 days, call for an appointment. Let them know you were seen in the Emergency Department and that we ask that you be seen in follow up. We will electronically transmit a record of today's note if your PCP is in our system *If you do not have a primary care provider please contact the [facility] Resource line at [phone]. They will ask some questions about your medical history and help get you set up with a doctor in the community. *Return to Emergency Department if you should have any new, worsening or concerning symptoms, such as [fever greater than 101 F, shaking chills, worsening pain, persistent vomiting or other bothersome symptoms] Prescriptions: New benzonatate 200 mg capsule 200 mg PO BID PRN (Reason: cough) Qty: 20 0RF azithromycin 250 mg tablet See Rx Instructions .ROUTE .COMPLEX Qty: 6 0RF Rx Instructions: For 250 mg dose pack: take 500 mg today (day 1), then 250 mg for 4 days (days 2-5) No Action lisinopril 5 MG tablet 5 mg PO DAILY Qty: 0 pantoprazole [address] for susp in packet 40 mg PO BEDTIME alendronate 70 mg tablet 70 mg PO QWEEK levothyroxine 112 mcg Tablet 112 mcg PO DAILY atorvastatin 10 mg Tablet 10 mg PO BEDTIME cholecalciferol (vitamin D3) [Vitamin D3] 25 mcg (1,000 unit) Capsule 25 mcg PO DAILY Referrals: Michelle Islas ARNP [Primary Care Provider] - Visit Report Forms: Patient Portal/API
[2022-11-10] MEDS: ACETAMINOPHEN/CODEINE SOLN 5 ML SOLUTION 10 ML PO (02:05)
== END 2022-11-10 02:07 | disposition home or self-care (01) ==
PROVIDERS: Emergency Provider Emergency Medicine; Family Provider Internal Medicine; PCP Internal Medicine
DX: J18.9 Pneumonia, unspecified organism (principal); Z20.822 Contact with and (suspected) exposure to COVID-19
CPT/HCPCS: 0241U; 71046; 99283

== ENCOUNTER 2022-12-03 14:30 | Outpatient (RCR) | payer OTHER, SELFPAY ==
[2022-09-18 08:22] VITALS: BMI 26.5
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
== END 2022-12-09 12:21 | disposition home or self-care (01) ==
LOC: PHYS 14:30
PROVIDERS: Family Provider Internal Medicine; PCP Internal Medicine; Referring Provider Internal Medicine; Visit Provider Internal Medicine
DX: M25.511 Pain in right shoulder (principal); M62.81 Muscle weakness (generalized); M40.293 Other kyphosis, cervicothoracic region
CPT/HCPCS: 97110; 97140; 97162; 97535

== ENCOUNTER → 2022-12-11 09:27 | Outpatient (CLI) | payer OTHER, SELFPAY ==
[2022-09-18 08:22] VITALS: BMI 26.5
--- NOTE | 2022-12-11 | DI.MG.S_ITS ---
UNILATERAL RIGHT DIGITAL DIAGNOSTIC MAMMOGRAM 3D/2D: 12/11/2022 CLINICAL: Lump right breast. Comparison is made to exams dated: 12/27/2020 mammogram, 01/20/2022 mammogram, and 12/20/2019 mammogram - [facility]. The right breast is heterogeneously dense, which may obscure small masses (category c / 51-75% glandular tissue). No significant masses, calcifications, or other findings are seen in the breast. IMPRESSION: INCOMPLETE: NEEDS ADDITIONAL IMAGING EVALUATION There is no abnormality seen in the right breast to correspond with the area of clinical concern, however, ultrasound is recommended. Based on the Tyrer Cuzick model (a risk assessment model) the patient's lifetime risk is 5.0% and her 10 year risk is 0.0%. According to the ACR, ACS, and NCCN guidelines, an annual breast MRI exam along with mammogram is recommended if the patient's lifetime risk is 20% or greater. This exam was interpreted at the [facility] reading room, report created on Station ID: [id number]. NOTE: For mammograms, a report in lay terms will be sent to the patient. Approximately 15% of breast malignancies will not be visualized mammographically. In the management of a palpable breast mass, a negative mammogram must not discourage biopsy of a clinically suspicious lesion. Electronically Signed By: Khari Howard M.D. lc/:12/12/2022 07:41:37 ACR BI-RADS Category 0: Incomplete 3340F
--- NOTE | 2022-12-11 | DI.US.S_ITS ---
ULTRASOUND OF RIGHT BREAST: 12/11/2022 CLINICAL: Palpable right breast lump. Inverted Right Nipple. Comparison is made to exam dated: 12/11/2022 mammogram - [facility]. Real-time ultrasound of the right breast was performed. Victor scale images of the real-time examination were reviewed. IMPRESSION: NEGATIVE There is no sonographic evidence of malignancy. There are no abnormalities seen in the right breast to correspond with the areas of clinical concern at 9, 10, 11, and 12 o'clock, however, clinical correlation and clinical followup are recommended. Given concerning findings of skin hardness and nipple inversion, Dr. Howard discussed with the patient by telephone regarding importance of clinical evaluation and followup immediately following her imaging completion. Reimaging is recommended if symptoms change/worsen. No target amenable to biopsy is identified today. Return to annual mammogram screening schedule is also recommended. This exam was interpreted at the [facility] reading room, report created on Station ID: [id number]. Electronically Signed By: Khari Howard M.D. lc/:12/12/2022 07:46:18 letter sent: Clinical Evaluation Ultrasound BI-RADS: 1 Negative
== END ==
PROVIDERS: Family Provider Internal Medicine; PCP Family Medicine; Referring Provider Internal Medicine; Visit Provider Internal Medicine
DX: N64.4 Mastodynia (principal); N63.10 Unspecified lump in the right breast, unspecified quadrant; R92.8 Other abnormal and inconclusive findings on diagnostic imaging of breast
CPT/HCPCS: 76642; 77065; G0279

== ENCOUNTER → 2023-02-03 07:30 | Outpatient (CLI) | payer OTHER, SELFPAY ==
[2023-01-08 15:01] VITALS: BMI 26.5
--- NOTE | 2023-02-03 07:31 | DI.NM.S_ITS ---
PROCEDURE: NM SENTINEL NODE INJECT ONLY RADIOPHARMACEUTICAL: 0.5-1.0 mCi Millipore filtered Tc-99m sulfur colloid. INDICATIONS: Right breast mass COMPARISON: None. PROCEDURE: The area around the nipple was prepped and draped in a sterile fashion. Tc-99m sulfur colloid was injected intra-dermally around the outer edge of the areola in the right breast. No image was obtained. IMPRESSION: Administration of radiotracer into the right breast periareolar region for intra-operative sentinel lymph node localization. Dictated by: Radha Whalen M.D. on 02/03/2023 at 17:21 Approved by: Radha Whalen M.D. on 02/03/2023 at 17:22
== END ==
PROVIDERS: Family Provider Internal Medicine; PCP Family Medicine; Referring Provider Surgery; Visit Provider Surgery
DX: C50.919 Malignant neoplasm of unspecified site of unspecified female breast (principal)
CPT/HCPCS: 38792; A9541

== ENCOUNTER 2023-02-03 07:32 | Day surgery (SDC) | payer OTHER, SELFPAY ==
[2023-01-08 15:01] VITALS: BMI 26.5
[2023-01-26 10:19] VITALS: BMI 27.2
[2023-02-03] VITALS (12 sets, daily range): BP systolic 136–159; BP diastolic 70–93; PULSE 59–94; RESP 9–25; TEMP 36.1–36.8; O2SAT 89–95; BMI 27.2
--- NOTE | 2023-02-03 | PATH_ITS ---
[facility] Accession Number: [id number] No. of containers..02 Tissue . 01 Material submitted: . PART A: breast - RIGHT BREAST PART B: lymph node - RIGHT AXILLARY SENTINEL LYMPH NODE . 01 Clinical history: . A: SHORT STITCH SUPERIOR, LONG STITCH LATERAL . 01 Diagnosis: A. Breast, Right, Mastectomy: Invasive lobular carcinoma. One intraparenchymal lymph node negative for metastatic carcinoma (0/1). . B. Axillary [place] Lymph Node, Right, Biopsy: Four of four lymph nodes positive for metastatic carcinoma (4/4). Extranodal extension present. . Please see case summary. . . CASE SUMMARY . Specimen . Procedure: Total mastectomy and sentinel lymph node dissection. Specimen laterality: Right. . Tumor Histologic type: Invasive lobular carcinoma. Histologic grade: Glandular/tubular differentiation: Score 3 of 3. Nuclear pleomorphism: Score 1 of 3. Mitotic rate: Score 1 of 3. Overall grade: Grade 1 (score 5 of 9). . Tumor size Greatest dimension of largest invasive focus: Tumor widely dispersed as scattered foci through the fibrous breast tissue over a region that measures 14.5 cm / 145 mm in greatest dimension overall in slices 4 through 15 (of 17, lateral to medial). . Ductal carcinoma in situ: Not identified. . Tumor extent: Tumor involves nipple; no tumor identified within superficial dermis / epidermis. . Lymphatic and/or vascular invasion: Present. . Treatment effect in breast: No known presurgical therapy. . Treatment effect in lymph nodes: Not applicable. . Margins Margin status for invasive carcinoma: Margins negative for tumor. Distance from invasive carcinoma to closest margin: 16 mm to closest margin (anterior/superior, slice 13 of 17, lateral to medial). Anterior / Inferior: Greater than 2 cm. Medial: Greater than 2 cm. Lateral: Greater than 2 cm. Posterior: 19 mm (slice 13 of 17, lateral to medial). . Margin status for DCIS: Not applicable (no DCIS identified in specimen). . Regional lymph nodes . Regional lymph node status: Tumor present in regional lymph nodes. Number of lymph nodes with macrometastasis: Exact number: 4. Number of lymph nodes with micrometastasis: Exact number: 0. Number of lymph nodes with isolated tumor cells: Exact number: 0. Size of largest brielle metastatic deposit: Exact size: 6 mm. Extranodal extension: Present, greater than 2 mm. Total number of lymph nodes examined: Exact number: 5 (1 intraparenchymal node and 4 axillary nodes). Number of sentinel nodes examined: Exact number: 4. . Distant metastasis Distant sites involved: Not applicable. . Other findings: Microcalcifications present in benign breast parenchyma as well as associated with invasive tumor, rare foci of LCIS, biopsy site changes. . pTNM classification (AJCC 8th Edition): pT3 pN2a pM not applicable (cannot be determined from submitted specimen. . Special studies CAP BREAST BIOMARKER REPORTING TEMPLATE: . Estrogen Receptor (ER) Status: Positive, greater than 90% of cells demonstrate nuclear positivity. Average intensity of staining: Strong, 3+ Primary antibody: SP1 . Progesterone Receptor (PgR) Status: Positive, greater than 90% of cells demonstrate nuclear positivity. Average intensity of staining: Strong, 3+ Primary antibody: 1E2 . HER2 (by immunohistochemistry): Negative, score 0. Primary antibody: 4B5 . . Cold Ischemia and Fixation Times: Cold fixation time cannot be calculated. Total fixation time is approximately 51 hours. . Testing performed on Block Number: A1. . TECHNICAL NOTE: The scoring criteria for breast biomarkers by immunohistochemistry is based on the current ASCO/CAP guidelines (Gera et al, Arch Pathol Lab Med 2010: 134(6): 907-922 / Connor CANTU et al, Arch Pathol Lab Med 2014: 138(2):241-256). Deparaffinized sections of formalin fixed tissue (along with appropriate positive controls) are incubated with the above antibody(s). Using the automated [place] stainer, tissue is incubated with the designated antibody* which is then localized by a non-biotin, dual polymer detection system. The external controls are reviewed for appropriate reactivity and found to be adequate. Results on the target cell population are indicated above. These tests have not been validated on decalcified tissue. * This test was developed and its performance characteristics determined by [facility]. It has not been cleared or approved by the U.S. Food and Drug Administration. The FDA has determined that such clearance or approval is not necessary. This test is used for clinical purposes. It should not be regarded as investigational or for research. [facility] 02/11/2023 1729 [facility] . 01 Electronically signed: . Mavis Rangel MD, Pathologist NPI- [id number] . 01 Gross description: . Received: In formalin labeled with the patient's name, , and right breast tissue, short stitch superior, long stitch lateral. Specimen: A right simple mastectomy. Weight: 1176 grams. Measurement: 22.5 cm from medial to lateral, 18.0 cm from superior to inferior, and 6.8 cm from anterior to posterior. Skin ellipse: Present, pugh, wrinkled, unremarkable cutaneous surface measuring 19.4 x 17.2 cm. Nipple/areola: A 1.0 x 0.8 cm diameter inverted nipple within a 5.0 x 4.2 cm diameter areola with no crusting or scars identified. Axillary tail: Not present. Margins: The skin ellipse is oriented by the surgeon with a short stitch designating superior and a long stitch designating lateral per the requisition. The posterior surface is covered by fascia. The anterior superior margin is inked blue, the anterior inferior margin is inked green, and the posterior margin is inked black. The soft tissue margins are grossly unremarkable. Slices: Serially sectioned from lateral to medial into 17 slices. Description: Two pink-pugh, grossly distinct areas are identified, one superior, one inferior; however, firm yellow adipose is identified between the lesions possibly consistent with one continuous lesion. The superior firm area on slice 12 measures 4.8 x 2.2 cm while the inferior firm area on slice 12 measures 1.8 x 1.5 cm. Assuming the lesion is continuous, the area on slice 12 spans 9.7 cm from superior to inferior and 6.5 cm from anterior to posterior (measurements from slice 12). Slices involved: Slices 4-15 spanning an area that measures 14.5 cm from medial to lateral. Distance to margins: The firm area measures 2.1 cm from the anterior inferior margin and greater than 2 cm from all remaining margins. Biopsy site: Possible biopsy site changes are seen within slices 13 and 14, but no biopsy clip is grossly identified. Other: The remaining parenchyma is yellow to white fibroadipose tissue with dense white fibrous tissue occupying approximately 20% of the cut surface. No additional lesions are identified. A lymph node candidate is identified within slice 3 measuring 0.7 cm in greatest dimension. . Starch Crab sections are submitted as follows: A1-A2: Entire nipple. A3-A14: Composite slice 12 in sets of three from posterior to anterior and superior to inferior. A15: Nearest skin and anterior inferior margin slice 12. A16: Starch Crab anterior superior and posterior margin slice 12. A17-A19: Starch Crab slice 13 from superior to inferior. A20: Slice 13 fundraising sale representative anterior superior and posterior margins. A21-A23: Starch Crab slice 14 superior to inferior with possible biopsy site in A23. A24: Slice 14 fundraising sale representative anterior inferior margin. A25-A26: Starch Crab slice 15 from superior to inferior. A27: Slice 16, no lesion. A28: Starch Crab slice 17, perpendicular. A29-A33: Composite fundraising sale representative slice 11 from superior to inferior. A34-A36: Starch Crab slice 10 from superior to inferior. A37: Starch Crab anterior superior margin slice 10. A38-A39: Starch Crab slice 9 from superior to inferior. A40: Starch Crab anterior superior margin slice 9. A41-A42: Starch Crab slice 8 from superior to inferior. A43: Starch Crab slice 8 posterior margin. A44: Starch Crab slice 7. A45: Starch Crab slice 5. A46: Starch Crab slice 4. A47-A48: Starch Crab slice 3, no lesion. A49: Bisected lymph node candidate slice 3. A50: Starch Crab slice 1, perpendicular. . The specimen was removed on 02/03/2023, time not provided, cold ischemic time cannot be calculated, total fixation time is approximately 51 hours. . See diagram, case reviewed with Dr. Zaman. . B. Received in formalin labeled with the patient's name, , and right axillary sentinel lymph node, and consists of multiple fragments of yellow lobulated adipose tissue aggregating to 4.2 x 3.0 x 1.5 cm. Palpation reveals five pugh lymph node candidates ranging from 0.2 to 1.2 cm in greatest dimension. The lymph node candidates are submitted as follows: B1: Single serially sectioned lymph node candidate. B2: Two intact lymph node candidates. B3: One intact lymph node candidate. . The specimen was removed on 02/03/2023, time in formalin not provided, cold ischemic time cannot be calculated, total fixation time is approximately 51 hours. ([id number]) /[facility] 02/11/2023 1729 Local . 01 Microscopic: . An immunohistochemical stain for e-cadherin is performed to further evaluate the cells of interest. The control stain shows appropriate reactivity. . RESULT: Blocks A1 and A9: E-cadherin: Attenuated staining in invasive and in-situ tumor cells; consistent with lobular differentiation. . . * This test was developed and its performance characteristics determined by [facility]. It has not been cleared or approved by the U.S. Food and Drug Administration. The FDA has determined that such clearance or approval is not necessary. This test is used for clinical purposes. It should not be regarded as investigational or for research. . 01 Pathologist provided ICD-10: C50.911 . 01 CPT . 586870, 521489, O19906, 734570, 585688, 954191 Specimen Comment: A courtesy copy of this report has been sent to [phone] Performed at: 01 [facility] [address] [place] [address], [place], [place] [id number] MD Kareem Mathis MD Phone: [phone]
[2023-02-03] MEDS: LACTATED RINGERS 1,000 ML 100 ML IV (08:19)
--- NOTE | 2023-02-03 10:58 | PM.PREOP ---
Pre-operative Note Interval Note History & Physical reviewed/Exam performed by Physician: Yes Changes to H&P: No
[2023-02-03] MEDS: CEFAZOLIN 2 GM/100 ML PREMIX 100 ML IV (11:16)
--- NOTE | 2023-02-03 11:44 | SUR.OPER ---
Supine on padded OR bed, head on pillow, left arm secured on padded arm board at <90 degrees abduction, right arm sterile draped on padded arm board and in control of surgeon. Legs uncrossed, safety belt at thigh, tape over blanket over lower legs. Pillow under knees and gel pad under heels.
[2023-02-03] MEDS: BUPIVACAINE 0.25% (PF) VIAL 30 ML INJ (12:23)
[2023-02-03] MEDS: METHYLENE BLUE 50 MG/10 ML VIAL IV (12:32)
--- NOTE | 2023-02-03 13:34 | PM.OP.1 ---
Operative Date/Time/Diagnoses Date of procedure: 02/03/23 Time of procedure: 13:34 Pre-op diagnosis: Right breast cancer Post-op diagnosis: same Procedure & Clinicians Procedure: Right mastectomy with sentinel lymph node biopsy Same procedure as scheduled: Yes Indications: 77-year-old woman with a large right breast mass biopsy-proven invasive carcinoma ER positive, FL positive, HER2 negative Surgeon: Norman Magana Anesthesia Type: General Operative Notes Findings: Large firm right breast mass. Three sentinel lymph nodes 10 sec counts 85, 86, 31 Specimen(s): other (Right mastectomy, right sentinel lymph nodes) Estimated Blood Loss (mL): 50 Procedure in detail: Patient was brought to the operating room placed supine on the table. Bilateral lower extremity compression devices were applied. She received 2 g of Ancef prior to skin incision. She was intubated with an endotracheal tube. She was then prepped and draped in sterile fashion. Time-out was performed. I injected 1 mL of methylene blue diluted with 4 ml saline into the periareolar tissue and massaged it into the breast for 5 minutes. An elliptical incision around the nipple areola complex was made with the knife. The subcutaneous tissue was divided with electrocautery. Skin flaps were raised to separate the breast tissue from the skin along the subdermal plexus. The dissection was extended superior to the clavicle, medial to the sternum, inferior the the inframamary fold and lateral to the anterior border of the latisimus dorsi. Next the breast tissue was from the underlying pectoralis fascia. The breast was passed off the field marked short stitch superior long stitch lateral. The axillary tissue was carefully dissected towards the area of maximal radioactivity. Three sentinel lymph node were identified however they were not stained blue. The ten second counts were 85, 86 and 31. The lymphatics were clipped with heomolips and transected sharply. I returned the gamma probe to the field there were no pathologically enlarged nodes or significant background activity. Two 19 Polish Eulalio drain was placed into the cavity and secured. The wound was copiously irrigated and homeostasis was ensured. The mastectomy was closed with 0 Vicryl for the subcutaneous tissue and the skin was closed with 3-0 Vicryl followed by the application of Dermabond. Patient tolerated procedure well she emerged from anesthesia was extubated and transferred to recovery room in stable condition. Post-operative Condition: stable Disposition: same day surgery
[2023-02-03] MEDS: ONDANSETRON 4 MG/2 ML INJ IV (14:37)
--- NOTE | 2023-02-03 15:10 | SUR.PHASEII ---
Pt demonstrated ability to open, close and empty OLVIN drains. Son Florian and daughter in law coming in for instructions as well per patient request. Using IS well. Dr Magana at bedside just now- reassured pt surgery went well.
--- NOTE | 2023-02-03 15:29 | SUR.PHASEII ---
Son and daughter in law verbalized understanding of drain management.
== END 2023-02-03 15:27 | disposition home or self-care (01) ==
PROVIDERS: Family Provider Internal Medicine; PCP Family Medicine; Referring Provider Surgery; Visit Provider Surgery
PROC: 0HTT0ZZ Resection of Right Breast, Open Approach (ICD-10-PCS; CPT 19303; principal; 2023-02-03 11:15)
DX: C50.911 Malignant neoplasm of unspecified site of right female breast (principal); Z17.0 Estrogen receptor positive status [ER+]; C77.3 Secondary and unspecified malignant neoplasm of axilla and upper limb lymph nodes
CPT/HCPCS: 19303; 38500; 38792; 82962; A9541; J0690; J1100; J1170; J2405; J2704; Q9968

== ENCOUNTER → 2023-03-11 10:02 | Outpatient (CLI) | payer OTHER, SELFPAY ==
[2023-01-08 15:01] VITALS: BMI 26.5
--- NOTE | 2023-03-11 10:04 | DI.CT.S_ITS ---
PROCEDURE: CT CHEST ABD PEL W CON INDICATIONS: breast cancer TECHNIQUE: After the administration of oral and intravenous contrast, axial sections acquired from the supraclavicular neck to the pubic symphysis. Coronal and sagittal reformats were performed. For radiation dose reduction, the following was used: automated exposure control, adjustment of mA and/or kV according to patient size. COMPARISON: None. FINDINGS: Image quality: Excellent. CHEST: Lower Neck: No enlarged lymph nodes. Thyroid: The left thyroid lobe is absent. The right thyroid lobe contains an 8 mm nodule. Axillae: No enlarged lymph nodes. Right axillary lymph node dissection. Chest Wall: Right mastectomy. Lungs and Airways: 6 x 3 mm juxtapleural nodule in the right lower lobe (series 3, image 162). No suspicious pulmonary nodules. Pleura: No pneumothorax or pleural effusions. Heart: Heart size is normal. No pericardial effusion. Thoracic Vessels: The aorta and pulmonary arteries demonstrate normal size. Mediastinum and Bre: No enlarged lymph nodes. Esophagus: No wall thickening. Moderate hiatal hernia. ABDOMEN: Liver: Unremarkable. Gallbladder: Absent. Biliary ducts: Unremarkable. Pancreas: Unremarkable. Spleen: Unremarkable. Adrenal Glands: Unremarkable. Kidneys and Ureters: Unremarkable. Stomach and Bowel: Stomach, small bowel loops, and colon are unremarkable. Peritoneum: No abnormal intraperitoneal fluid. No free air. Ventral Wall: No hernia. Abdominal Nodes: No retroperitoneal or mesenteric adenopathy by size criteria. Vessels: Aorta and inferior vena cava are normal in size. PELVIS: Pelvic Organs: Unremarkable. Bladder: Unremarkable. Pelvic Nodes: No enlarged lymph nodes. Miscellaneous: No inguinal hernias are seen. Bones: Unremarkable. IMPRESSION: 1. Right mastectomy and right axillary lymph node dissection, without evidence of local recurrence or metastatic disease. 2. 6 x 3 mm juxtapleural nodule within the right lower lobe, appearance favors an intrapulmonary lymph node. Attention on follow-up. Dictated by: Javi Becker M.D. on 03/11/2023 at 12:47 Approved by: Javi Becker M.D. on 03/11/2023 at 12:57
== END ==
PROVIDERS: Family Provider Internal Medicine; PCP Family Medicine; Referring Provider Internal Medicine Hematology & Oncology; Visit Provider Internal Medicine Hematology & Oncology
DX: R91.1 Solitary pulmonary nodule; C77.3 Secondary and unspecified malignant neoplasm of axilla and upper limb lymph nodes; C50.811 Malignant neoplasm of overlapping sites of right female breast; K44.9 Diaphragmatic hernia without obstruction or gangrene; Z17.0 Estrogen receptor positive status [ER+]; Z90.11 Acquired absence of right breast and nipple
CPT/HCPCS: 71260; 74177; Q9967

== ENCOUNTER → 2023-03-22 10:12 | Outpatient (CLI) | payer OTHER, SELFPAY ==
[2023-01-08 15:01] VITALS: BMI 26.5
--- NOTE | 2023-03-22 10:13 | DI.NM.S_ITS ---
PROCEDURE: NM BONE SCAN WHOLE BODY RADIOPHARMACEUTICAL: 21.8 mCi Tc-99m MDP IV. INDICATIONS: breast cancer TECHNIQUE: Delayed whole-body scintigrams were obtained approximately 3-4 hours after intravenous injection of radiotracer. Anterior and posterior views were acquired from vertex to feet. COMPARISON: None. FINDINGS: Degenerative uptake of radiotracer at the acromioclavicular and glenohumeral joints as well as the bilateral wrists, knees, ankles is present. There is increased radiotracer uptake within the mid shaft of the right femur, which is indeterminate. IMPRESSION: 1. Right mid femoral uptake which is indeterminate. Initial further assessment with MRI with and without intravenous contrast is recommended. 2. Multifocal degenerative uptake of radiotracer. Dictated by: Yamel Galeano M.D. on 03/22/2023 at 15:41 Transcribed by: INO on 03/22/2023 at 15:44 Approved by: Yamel Galeano M.D. on 03/22/2023 at 16:25
== END ==
PROVIDERS: Family Provider Internal Medicine; PCP Family Medicine; Referring Provider Internal Medicine Hematology & Oncology; Visit Provider Internal Medicine Hematology & Oncology
DX: C50.811 Malignant neoplasm of overlapping sites of right female breast (principal); C77.3 Secondary and unspecified malignant neoplasm of axilla and upper limb lymph nodes; Z17.0 Estrogen receptor positive status [ER+]
CPT/HCPCS: 78306; A9503

== ENCOUNTER 2023-04-21 07:44 | Day surgery (SDC) | payer OTHER, SELFPAY ==
[2023-01-08 15:01] VITALS: BMI 26.5
[2023-04-16 13:05] VITALS: BMI 26.5
[2023-04-21] VITALS (11 sets, daily range): BP systolic 120–166; BP diastolic 67–88; PULSE 62–85; RESP 10–94; TEMP 35.6–37.1; O2SAT 94–97; BMI 26.5
--- NOTE | 2023-04-21 | PATH_ITS ---
[facility] Accession Number: [id number] No. of containers..01 Tissue . 01 Material submitted: . lymph node - RIGHT AXILLARY LYMPH NODES . 01 Diagnosis: Right Axillary Lymph Nodes, Dissection: Five of nine lymph nodes positive for metastatic carcinoma (5/9). Extranodal extension is present as multiple, microscopic foci (less than 1 mm) associated with two lymph nodes; capsule is absent in some lymph node sections, precluding evaluation for extranodal extension. [facility] 04/27/2023 1409 Local . 01 Electronically signed: . Mavis Rangel MD, Pathologist NPI- [id number] . 01 Gross description: . The specimen is received in formalin labeled with the patient's name, , and right axillary lymph nodes consists of multiple fragments of yellow, lobulated adipose tissue aggregating to 9.0 x 7.8 x 2.9 cm. A dissection through the fat reveals nine lymph node candidates ranging from 0.7 x 0.4 x 0.4 cm to 3.4 x 2.4 x 1.3 cm. The lymph node candidates are entirely submitted as follows: A1: Three possible lymph nodes, inked blue/black/green, each bisected. A2: Two possible lymph nodes, inked blue/black, each bisected. A3: One possible lymph node, trisected. A4-A5: One possible lymph node, trisected. A6-A8: One possible lymph node, quadrisected. A9-A13: One possible lymph node, sectioned into five slices. ([id number]) /[facility] 04/23/2023 1326 Local . 01 Microscopic: . An immunostain for ZACHERY is performed on blocks A1, A2, A6, A7, and A8 to evaluate the tissue of interest. The control stain showed appropriate reactivity. . A1, A2, A6, A7, and A8: Negative in regions of interest. . Negative for metastatic carcinoma in the regions of interest. . * This test was developed and its performance characteristics [facility]. It has not been cleared or approved by the U.S. Food and Drug Administration. The FDA has determined that such clearance or approval is not necessary. This test is used for clinical purposes. It should not be regarded as investigational or for research. . 01 Pathologist provided ICD-10: C50.911 . 01 CPT . 740231, [id number] Specimen Comment: A courtesy copy of this report has been sent to [phone] Performed at: 01 [facility] [address] [place] [address], [place], [place] [id number] MD Kareem Mathis MD Phone: [phone]
--- NOTE | 2023-04-21 | DI.RAD.S_ITS ---
PROCEDURE: XR CHEST 1V INDICATIONS: Post op port placement TECHNIQUE: One view of the chest was acquired. COMPARISON: [facility], [facility]A, XR CHEST 1V, 04/21/2023, 9:15. [facility], CR, XR CHEST 2V, 11/09/2022, 22:06. FINDINGS: Surgical changes and devices: Left chest wall port tip projects over the innominate confluence. Lungs and pleura: Lungs are clear. No pleural effusions or pneumothorax. Low lung volumes. Mediastinum: Mediastinal contours appear normal. Heart size is normal. Bones and chest wall: No suspicious bony lesions. Overlying soft tissues appear unremarkable. IMPRESSION: Left chest wall port tip projects over the innominate confluence. Dictated by: Javi Becker M.D. on 04/21/2023 at 12:58 Approved by: Javi Becker M.D. on 04/21/2023 at 12:58
--- NOTE | 2023-04-21 | DI.RAD.S_ITS ---
PROCEDURE: XR CHEST 1V INDICATIONS: port placement TECHNIQUE: One view of the chest was acquired. COMPARISON: [facility], MAYA, XR CHEST 2V, 11/09/2022, 22:06. [facility], [facility]A, XR CHEST 1V, 09/05/2020, 17:23. FINDINGS: Fluoroscopic guidance utilized for a left chest wall port. The tip projects over the innominate confluence. IMPRESSION: Fluoroscopic guidance. Dictated by: Javi Becker M.D. on 04/21/2023 at 12:58 Approved by: Javi Becker M.D. on 04/21/2023 at 12:59
[2023-04-21] MEDS: ACETAMINOPHEN 325 MG TABLET 975 MG PO (08:05)
[2023-04-21] MEDS: LACTATED RINGERS 1,000 ML 100 ML IV (08:06)
--- NOTE | 2023-04-21 08:41 | PM.PREOP ---
Pre-operative Note Interval Note History & Physical reviewed/Exam performed by Physician: Yes Changes to H&P: No
[2023-04-21] MEDS: CEFAZOLIN 2 GM/100 ML PREMIX 100 ML IV (08:53)
--- NOTE | 2023-04-21 09:15 | SUR.OPER ---
Supine on padded OR bed, head on pillow, right arm extended on arm board, left arm tucked at side with draw sheet and gel pad, legs uncrossed, safety belt at thigh, tape over blanket over lower legs.
[2023-04-21] MEDS: BUPIVACAINE 0.25% (PF) VIAL 30 ML INJ (09:25)
[2023-04-21] MEDS: HEPARIN 5,000 UNIT, SODIUM CHLORIDE 0.9% 50 ML IV (09:26)
--- NOTE | 2023-04-21 10:42 | PM.OP.1 ---
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 She underwent a mastectomy with sentinel lymph node biopsy January 2023 pathology [id number] 4/4 positive sentinel lymph nodes. Following discussion she elects to proceed with a formal axillary dissection for the presumption she has further axillary disease. Surgeon: Norman Magana [employer] Layout Designer: Omid Bhandari Anesthesia Type: General Operative Notes Findings: Tip of the catheter projects into the SVC Several slightly firm lymph nodes in level 1 Specimen(s): other (Right axillary tissue) Estimated Blood Loss (mL): 20 Procedure in detail: Patient was brought to the operating room placed supine on table. Bilateral lower extremity compressive devices were applied. General anesthesia was induced and she was intubated with an endotracheal tube. She was then prepped and draped in usual sterile fashion. Time-out performed. She received 2 g of Ancef prior to incision. Under ultrasound guidance the left internal jugular vein was accessed under direct visualization. The guidewire was then threaded through the needle. Its placement was then confirmed using fluoroscopy. The dilator was then placed over the guidewire. The catheter was then inserted through the sheath. Placement was again confirmed with fluoroscopy. A subcutaneous pocket was made in the left chest wall. The tunneler device was used to move the catheter from the neck to the chest pocket. The port was attached after it was primed with heparined saline. The port was tested to ensure that it flushed easily and had good blood return. The port was then secured to the underlying fascia using interupted suture. Hemostasis was achieved. The wound was irrigated with sterile saline. The subcutaneous tissues were reapproximated with the 3 0 Vicryl and then skin closed with 4-0 Monocryl. The skin was sealed with Dermabond. Next attention was turned towards the right axilla. Just beneath the hair bearing region of the axilla an incision of approximally 10 cm was made. The subcutaneous tissue was divided with electrocautery and using blunt dissection the boundaries of the axilla were defined. The latissimus dorsi defined our lateral margin, the axillary vein was clearly observed forming the superior boundary and the pectoralis major and beneath it the pectoralis minor were identified forming the medial border of our dissection. The axillary tissue between the axillary vein the pectoralis minor and the latissimus dorsi were dissected out using the LigaSure. Several slightly prominent lymph nodes were observed. The pectoralis minor was reflected and there was no significant lymphatic tissue posterior to it within level II. Hemostasis was checked. 19F drain placed into the axilla. The Subcutaneous tissue was reapproximated. The skin was closed with monocryl followed by dermabond. Complications: none Post-operative Condition: stable Disposition: same day surgery
[2023-04-21] MEDS: ONDANSETRON 4 MG/2 ML INJ IV (11:15)
[2023-04-21] MEDS: HYDROMORPHONE 2 MG INJ IV (11:19)
[2023-04-21] MEDS: OXYCODONE IR 5 MG TABLET PO (12:02)
== END 2023-04-21 14:00 | disposition home or self-care (01) ==
PROVIDERS: Family Provider Internal Medicine; PCP Family Medicine; Referring Provider Surgery; Visit Provider Surgery
PROC: (CPT 38500; principal; 2023-04-21 08:45)
PROC: (CPT 38500; 2023-04-21 08:45)
DX: C50.111 Malignant neoplasm of central portion of right female breast (principal); Z17.0 Estrogen receptor positive status [ER+]; C77.3 Secondary and unspecified malignant neoplasm of axilla and upper limb lymph nodes
CPT/HCPCS: 38500; 36561; 71045; 76000; 82962; C1788; J0690; J1170; J1644; J2405; J2704; J3010

== ENCOUNTER → 2023-05-19 06:54 | Outpatient (CLI) | payer OTHER, SELFPAY ==
[2023-01-08 15:01] VITALS: BMI 26.5
--- NOTE | 2023-05-19 06:55 | DI.ECHO.S_ITS ---
[facility]---------+ [facility] +---------+ : : [address] : [address] : : : : [id number] : : : : Phone: [phone]+ Echocardiogram Report + + :Name: YOLANDA MCBRIDE Study Date: 05/19/2023 Height: 61.5 in: :[facility] ReadingLocation: Weight: 148 lb : : Gender: Female BSA: 1.7 m2 : :: 1945 Age: 78 yrs BP: 135/78 mmHg: :Reason For Study: PRE-CHEMOTHERAPY EVALUATION : :Ordering Physician: BEREKET, : :KOFFI Performed By: Mandy Dodd : :Referring: KOFFI CUBA : + + Interpretation Summary Limited Echo: 1) Normal left ventricular thickness, size, wall motion, and systolic function (EF 55-60%). Left ventricular global longitudinal strain average is -17.2%. 2) Normal right ventricular size and function. 3) There is no pericardial effusion. 4) Compared to the Echo done 02/04/2022, no significant change in LV function. Procedure: Images were not obtained from all of the standard acoustic windows due to the limited scope of the study. The study quality was technically adequate. Comparison is made with the echocardiogram of 02/04/2022. The patient was in sinus rhythm with heart rates between 62-74 bpm during the exam. Left Ventricle: The left ventricle is normal in size and wall thickness. Left ventricular global longitudinal strain average is -17.2%. The ejection fraction is estimated to be 55-60%. Tricuspid Valve: The tricuspid valve leaflets are thin and pliable. There is mild tricuspid regurgitation. The right ventricular systolic pressure is estimated to be at least 27 mmHg based on an estimated right atrial pressure of 3 mm Hg. Great Vessels: The IVC is of normal diameter and collapses greater than 50% with a sniff. This suggests a low right atrial pressure of 3 mm Hg. Pericardium/ Pleura There is no pericardial effusion. There is no pleural effusion. MMode/2D Measurements & Calculations LVIDd: 4.4 cm IVC diam: 1.8 cm LVIDs: 2.9 cm FS: 34.6 % IVSd: 0.79 cm LVPWd: 0.74 cm LV oliva. diameter/BSA (cm/m^2): 2.6 LV sys. diameter/BSA (cm/m^2): 1.7 Doppler Measurements & Calculations TR max roxanne: 242.7 cm/sec TR max P.6 mmHg Reading Physician:09:48 AM
== END ==
PROVIDERS: Family Provider Internal Medicine; PCP Family Medicine; Referring Provider Internal Medicine Hematology & Oncology; Visit Provider Internal Medicine Hematology & Oncology
DX: Z01.818 Encounter for other preprocedural examination (principal); C50.911 Malignant neoplasm of unspecified site of right female breast; I07.1 Rheumatic tricuspid insufficiency; I42.7 Cardiomyopathy due to drug and external agent
CPT/HCPCS: 93307; 93356

== ENCOUNTER → 2023-06-16 09:39 | Outpatient (CLI) | payer OTHER, SELFPAY ==
[2023-01-08 15:01] VITALS: BMI 26.5
--- NOTE | 2023-06-16 09:40 | DI.RAD.S_ITS ---
PROCEDURE: FL CATHETER PATENCY COMPARISON: [facility], CR, XR CHEST 1V, 04/21/2023, 11:03. INDICATIONS: PAC not patent, no blood return. TECHNIQUE: Port-A-Cath was accessed by snf staff. Subsequently, iodinated contrast material was hand injected under fluoroscopic surveillance, with image documentation. FINDINGS: Left chest Port-A-Cath is seen with catheter tip in the left innominate vein. Injected contrast material opacifies the left innominate vein, superior vena cava, and right atrium. IMPRESSION: Patent left chest Port-A-Cath. Approved by: Pedro Pablo Alberto M.D. on 06/16/2023 at 10:50
== END ==
PROVIDERS: Family Provider Internal Medicine; PCP Family Medicine; Referring Provider Internal Medicine Hematology & Oncology; Visit Provider Internal Medicine Hematology & Oncology
DX: C50.911 Malignant neoplasm of unspecified site of right female breast (principal); Z45.2 Encounter for adjustment and management of vascular access device
CPT/HCPCS: 76000

== ENCOUNTER 2023-08-07 17:30 | Inpatient (IN) | payer OTHER, SELFPAY ==
[2023-01-08 15:01] VITALS: BMI 26.5
[2023-08-07] VITALS (17 sets, daily range): BP systolic 105–133; BP diastolic 52–70; PULSE 80–101; RESP 21–29; TEMP 37–37.1; O2SAT 89–97; BMI 27.4; BMI 28.1
--- NOTE | 2023-08-07 17:42 | DI.RAD.S_ITS ---
PROCEDURE: XR CHEST 1V INDICATIONS: suspected sepsis TECHNIQUE: One view of the chest was acquired. COMPARISON: [facility], CT, CT CHEST ABD PEL W CON, 03/11/2023, 12:02. [facility], CR, XR CHEST 1V, 04/21/2023, 9:15. [facility], CR, XR CHEST 1V, 04/21/2023, 11:03. FINDINGS: Surgical changes and devices: Right axillary clips are seen. Right mastectomy change. There is a stable left-sided chest port. Lungs and pleura: Lungs are clear. No pleural effusions or pneumothorax. Mediastinum: The cardiac contours are within normal limits. The aorta demonstrates calcification and tortuosity. There is a moderate hiatal hernia. Bones and chest wall: No suspicious bony lesions. Age-appropriate bony degenerative changes are seen. Overlying soft tissues appear unremarkable. IMPRESSION: No focal infiltrates are seen. Postoperative and degenerative changes are seen. Moderate hiatal hernia noted. Dictated by: Usama Barnett M.D. on 08/07/2023 at 17:22 Approved by: Usama Barnett M.D. on 08/07/2023 at 17:24
[2023-08-07] MEDS: SODIUM CHLORIDE 0.9% 1,000 ML 1000 ML IV (18:40)
[2023-08-07 18:53] LABS: INR 1.4 (0.9-1.3); Prothrombin Time 15.9 SECONDS (10.1-12.7)
[2023-08-07 18:55] LABS: PTT Partial Thromboplastin Tim 28 SECONDS (26-36)
[2023-08-07 18:56] LABS: Add Manual Diff / Slide Review NO; Basophils Absolute Auto 100 /uL (0-100); Basophils Percent Auto 1.5 % (0-2); Eosinophils Absolute Auto 0 /uL (0-450); Eosinophils Percent Auto 0.3 % (2-4); Hematocrit 33.5 % (36-46); Hemoglobin 11.5 g/dL (12.0-16.0); Lymphocytes Absolute Auto 100 /uL (1100-4500); Lymphocytes Percent Auto 1.7 % (25-40); Mean Corpuscular HGB Conc 34.2 % (30-36); Mean Corpuscular Hemoglobin 31.3 PG (26-34); Mean Corpuscular Volume 91.5 fL (80-100); Monocytes Absolute Auto 300 /uL (0-900); Monocytes Percent Auto 8.2 % (3-14); Neutrophils Absolute Auto 3400 /uL (1500-7000); Neutrophils Percent Auto 88.3 % (50-75); Platelet Count 198 X10^3/uL (150-400); Red Blood Cell Count 3.66 X10^6/uL (4.0-5.2); Red Cell Distribution Width 19.6 % (11.6-14.8); White Blood Cell Count 3.9 X10^3/uL (4.5-11.0)
[2023-08-07 18:57] LABS: Lactate (Lactic Acid) 2.6 mmol/L (0.7-2.1)
[2023-08-07 18:58] LABS: Alanine Aminotransferase 24 IU/L (<35); Albumin 3.2 g/dL (3.5-5.0); Albumin Globulin Ratio 1.1 (1.0-2.8); Alkaline Phosphatase 56 U/L (38-126); Aspartate Aminotransferase 40 IU/L (14-36); BUN Creatinine Ratio 18.1 (6-22); Bilirubin Total 0.4 mg/dL (0.2-1.3); Blood Urea Nitrogen 15 mg/dL (7-17); Calcium 9.5 mg/dL (8.4-10.2); Carbon Dioxide 24 mmol/L (22-32); Chloride 85 mmol/L (98-107); Creatine Kinase 62 U/L (30-135); Estimated Glomerular Filt Rate > 60 mL/min (>60); Globulin 2.8 g/dL (1.7-4.1); Glucose 226 mg/dL (80-110); HEMOLYSIS < 15 (0-50); Lipase 60 U/L (23-300); Potassium 4.5 mmol/L (3.4-5.1)
[2023-08-07 19:02] LABS: Sodium 118 mmol/L (137-145)
[2023-08-07 19:03] LABS: Appearance Urine UA CLEAR; Bilirubin Urine UA NEGATIVE (NEGATIVE); Color Urine UA YELLOW; Glucose Urine UA TRACE g/dL (Negative); Ketones Urine UA NEGATIVE (NEGATIVE); Leukocyte Esterase Urine UA NEGATIVE (NEGATIVE); Nitrite Urine UA NEGATIVE (Negative); Occult Blood Urine UA TRACE-INTACT (Negative); Protein Urine UA NEGATIVE (Negative); Specific Gravity Urine UA <=1.005 (1.000-1.035); Urobilinogen Urine UA 0.2 E.U./dL (0.2)
--- NOTE | 2023-08-07 19:08 | ED.WEAKNESS ---
HPI - Weakness General Chief complaint: Weakness Stated complaint: Chemo fatigue? Time Seen by Provider: 08/07/23 18:04 Source: patient and family Mode of arrival: Wheelchair Limitations: no limitations History of Present Illness HPI Narrative: 78-year-old female with history of GERD, hypertension, hypothyroidism, dyslipidemia and known breast cancer currently on her 8th round of chemotherapy. Patient presents with increasing weakness, insomnia, decreased appetite for the past 2 weeks. Patient states her last chemotherapy was a week and a half ago. She denies fevers but has felt chilled and on and off hot and cold. She denies chest pain no shortness of breath, she is had persistent nausea since starting chemotherapy. She denies any vomiting. She has not had much intake in terms of food she does try to drink fluids but states it is difficult. She states she is having regular bowel movements no diarrhea or constipation, she notes polyuria, frequency and states it is a lot of urine. She is currently on day 8 of Levaquin for possible UTI. Patient states maybe some mild swelling in her feet. She denies any headache no vision changes. No numbness tingling or falls. Patient states no new confusion. Patient states her home meds include vitamin-D, she was told to stop her lisinopril , levothyroxine, pantoprazole b.i.d., atorvastatin, Colace, benzoate. States prior surgery included mastectomy with lymph nodes removed, cholecystectomy, hysterectomy. Allergic to morphine states it makes her anxious and paranoid. No tobacco, alcohol or illicit. Dr. Flood is her PCP. Related Data Home Medications Medication Instructions Recorded Confirmed atorvastatin 10 mg tablet 10 mg PO BEDTIME 08/07/20 08/07/23 cholecalciferol (vitamin D3) 25 50 mcg PO DAILY 08/07/20 08/07/23 mcg (1,000 unit) capsule (Vitamin D3) alendronate 70 mg tablet 70 mg PO QWEEK 08/12/22 08/07/23 levothyroxine 112 mcg tablet 112 mcg PO DAILY 09/18/22 08/07/23 metronidazole 1 % topical gel 1 applic topical DAILY 01/08/23 08/07/23 (Metrogel) docusate sodium 100 mg capsule 100 mg PO PRN PRN Constipation 03/04/23 08/07/23 (Colace) pantoprazole 40 mg tablet,delayed 40 mg PO BID 04/16/23 08/07/23 release benzonatate 100 mg PO TID PRN Cough 08/08/23 08/08/23 Previous Rx's Medication Instructions Recorded CMP Estriol Vaginal 0.1% cream See Rx Instructions .Route 01/28/23 .COMPLEX #30 grams acetaminophen 325 mg capsule 650 mg PO QID PRN pain #60 caps 02/03/23 (Tylenol) ondansetron 4 mg disintegrating 4 mg PO Q6H nause, chemotherapy 06/08/23 tablet #30 tabs prochlorperazine maleate 5 mg 5 mg PO QID PRN Nausea #30 tabs 06/08/23 tablet (Compazine) lidocaine-prilocaine 2.5 %-2.5 % 1 applic topical PRN PRN port pain 06/10/23 topical cream #30 grams Allergies Allergy/AdvReac Type Severity Reaction Status Date / Time ketorolac AdvReac Severe Vomiting Verified 06/18/23 10:48 morphine AdvReac Severe Anxious Verified 06/18/23 10:48 Review of Systems Review of Systems ROS Unobtainable: All systems reviewed & are unremarkable except as noted in HPI and below Patient History Medical History Anxiety Arrhythmia Atypical chest pain Cancer of right breast GERD (gastroesophageal reflux disease) Graves disease History of COVID-19 (12/16/22) Hx of intestinal obstruction Hyperlipidemia Hypertension Hyperthyroidism Neuropathy Surgical History H/O cardiac radiofrequency ablation (02/2022) H/O hysterectomy for benign disease History of ankle surgery (~1995) History of cholecystectomy (~1994) History of hysterectomy (1988) History of surgery (~1978) Hx of right mastectomy (02/03/23) Social History household members: family and children Smoking Status: Never smoker alcohol intake: never Smoking Status: Never smoker alcohol intake frequency: other Substance Use Type: does not use Exam Narrative Exam Narrative: GENERAL: Alert and oriented x three, elderly female in mild distress. HEENT: Head normocephalic, atraumatic, EOMI, pupils reactive, face symmetric, moist mucous membranes NECK: Supple, full range of motion CARDIOVASCULAR: Regular rate and rhythm without murmurs, rubs or gallops. RESPIRATORY: Breath sounds equal bilaterally, no wheezes rales or rhonchi. ABDOMEN: Soft, nontender. Normoactive bowel sounds all 4 quadrants. No guarding or rebound, rigidity, no mass : No CVA tenderness EXTREMITIES: Normal range of motion, no clubbing or edema. Neurovascularly intact NEUROLOGICAL: Cranial nerves II through XII grossly intact. Moving all extremities SKIN: Warm, dry, no petechiae, no rashes or lesions. Initial Vital Signs Initial Vital Signs: Vital Signs Temperature 98.6 F 08/07/23 17:35 Pulse Rate 95 H 08/07/23 17:35 Respiratory Rate 24 08/07/23 17:35 Blood Pressure 121/58 L 08/07/23 17:35 Pulse Oximetry 93 08/07/23 17:35 Oxygen Delivery Method Room Air 08/07/23 17:35 Course Orders Ordered: Acetaminophen (Acetaminophen 325 Mg Tablet) 650 mg PO Q6H PRN PRN Reason: Fever/Mild Pain (1-3) Last Admin: 08/08/23 03:23 Dose: 650 mg Documented By: XOCHITL Al Hydrox/Mg Hydrox/Simethicone (Mag Hydrox/Alum/Simeth 30 Ml Udc) 30 ml PO Q6HR PRN PRN Reason: Dyspepsia Alprazolam (Alprazolam 0.25 Mg Tablet) 0.25 mg PO DAILY PRN PRN Reason: Anxiety Enoxaparin Sodium (Enoxaparin 40 Mg/0.4 Ml Syringe) 40 mg SUBCUT DAILY [facility] Gabapentin (Gabapentin 100 Mg Capsule) 100 mg PO BID [facility] Sodium Chloride (Normal Saline 0.9%) 1,000 mls @ 100 mls/hr IV CONT [facility] Last Admin: 08/08/23 00:52 Dose: 100 mls/hr Documented By: XOCHITL Levothyroxine Sodium (Levothyroxine 112 Mcg Tablet) 112 mcg PO 0600 [facility] Magnesium Hydroxide (Magnesium Hydroxide 30 Ml Udc) 30 ml PO DAILY PRN PRN Reason: Constipation Naloxone HCl (Naloxone 0.4 Mg/Ml Vial) 0.2 mg IV Q2MIN PRN PRN Reason: Opiate Reversal Non-Formulary Medication (Cyclophosphamide) 100 mg PO DAILY [facility] Ondansetron HCl (Ondansetron 4 Mg Odt) 4 mg PO Q6H [facility] Last Admin: 08/08/23 00:52 Dose: 4 mg Documented By: XOCHITL Pantoprazole Sodium (Pantoprazole Dr 40 Mg Tablet) 40 mg PO BID KEI Discontinued Medications Acetaminophen (Acetaminophen 325 Mg Tablet) 650 mg PO NOW ONE Stop: 08/07/23 21:36 Last Admin: 08/07/23 21:46 Dose: 650 mg Documented By: RUBINA Sodium Chloride (Normal Saline 0.9%) 1,000 mls @ 1,000 mls/hr IV BOLUS ONE Stop: 08/07/23 18:41 Last Infusion: 08/07/23 19:25 Dose: 0 mls/hr Documented By: Admin: 08/07/23 18:40 Dose: 1,000 mls/hr Documented By: BULL Non-Formulary Medication (Acetaminophen [Tylenol]) 650 mg PO QID PRN PRN Reason: pain Ondansetron HCl (Ondansetron 4 Mg/2 Ml Inj) 4 mg IV NOW PRN PRN Reason: Nausea And Vomiting Ondansetron HCl (Ondansetron 4 Mg Odt) 4 mg SL NOW PRN PRN Reason: Nausea And Vomiting Vital Signs Vital signs: Vital Signs - 8 hr 08/07/23 21:00 08/07/23 21:30 Pulse Rate 80 80 Respiratory Rate 25 H 27 H Pulse Oximetry 92 95 MDM - Weakness Lab Data 08/07/23 18:30 08/07/23 18:30 Labs: Lab Results 08/07/23 08/07/23 08/07/23 Range/Units 18:30 18:30 18:30 WBC 3.9 L (4.5-11.0) X10^3/uL RBC 3.66 L (4.0-5.2) X10^6/uL Hgb 11.5 L (12.0-16.0) g/dL Hct 33.5 L (36-46) % MCV 91.5 (80-100) fL MCH 31.3 (26-34) PG MCHC 34.2 (30-36) % RDW 19.6 H (11.6-14.8) % Plt Count 198 (150-400) X10^3/uL Neut % (Auto) 88.3 H (50-75) % Lymph % (Auto) 1.7 L (25-40) % Harding % (Auto) 8.2 (3-14) % Eos % (Auto) 0.3 L (2-4) % Baso % (Auto) 1.5 (0-2) % Neut # (Auto) 3400 (2001-1436) /uL Lymph # (Auto) 100 L (3035-8252) /uL Harding # (Auto) 300 (0-900) /uL Eos # (Auto) 0 (0-450) /uL Baso # (Auto) 100 (0-100) /uL PT 15.9 H (10.1-12.7) SECONDS INR 1.4 H (0.9-1.3) APTT 28 (26-36) SECONDS Sodium 118 L* (137-145) mmol/L Potassium 4.5 (3.4-5.1) mmol/L Chloride 85 L (98-107) mmol/L Carbon Dioxide 24 (22-32) mmol/L BUN 15 (7-17) mg/dL Creatinine 0.83 (0.52-1.04) mg/dL Estimated GFR > 60 (>60) mL/min BUN/Creatinine Ratio 18.1 (6-22) Glucose 226 H (80-110) mg/dL Lactate (0.7-2.1) mmol/L Calcium 9.5 (8.4-10.2) mg/dL Total Bilirubin 0.4 (0.2-1.3) mg/dL AST 40 H (14-36) IU/L ALT 24 (<35) IU/L Alkaline Phosphatase 56 (38-126) U/L Total Creatine Kinase (30-135) U/L Troponin I (0.01-0.034) ng/mL NT-Pro-B Natriuret Pep (<450) pg/mL Total Protein 6.0 L (6.3-8.2) g/dL Albumin 3.2 L (3.5-5.0) g/dL Globulin 2.8 (1.7-4.1) g/dL Albumin/Globulin Ratio 1.1 (1.0-2.8) Lipase 60 (23-300) U/L Procalcitonin 0.45 (<0.5) ng/mL Urine Color Urine Appearance Urine pH (4.5-8.0) Ur Specific [place] (1.000-1.035) Urine Protein (Negative) Urine Glucose (UA) (Negative) g/dL Urine Ketones (NEGATIVE) Urine Occult Blood (Negative) Urine Nitrate (Negative) Urine Bilirubin (NEGATIVE) Urine Urobilinogen (0.2) E.U./dL Ur Leukocyte Esterase (NEGATIVE) Urine RBC (0-5/HPF) Urine WBC (0-5/HPF) Ur Squamous Epith Cells (0-5/HPF) Urine Bacteria (None) Ur Culture Indicated? Ur Random Sodium (30-90) mmol/L Urine Creatinine mg/dL Chlamy pneumoniae PCR (Not Detect) Adenovirus (PCR) (Not Detect) B. pertussis DNA (PCR) (Not Detecte) B.parapertussis DNA PCR (Not Detecte) Coronavirus OC43 (PCR) (Not Detect) Coronavirus HKU1 (PCR) (Not Detect) Coronavirus 229E (PCR) (Not Detect) SARS-CoV-2 (PCR) (Not Detecte) Coronavirus NL63 (PCR) (Not Detect) Human Metapneumovir PCR (Not Detect) Influenza Type A (PCR) (Not Detect) Influenza Type B (PCR) (Not Detect) M. pneumoniae (PCR) (Not Detect) Parainfluenza 1 (PCR) (Not Detect) Parainfluenza 2 (PCR) (Not Detect) Parainfluenza 3 (PCR) (Not Detect) Parainfluenza 4 (PCR) (Not Detect) RSV (PCR) (Not Detect) Entero/Rhino (PCR) (Not Detect) 08/07/23 08/07/23 08/07/23 Range/Units 18:30 18:30 18:35 WBC (4.5-11.0) X10^3/uL RBC (4.0-5.2) X10^6/uL Hgb (12.0-16.0) g/dL Hct (36-46) % MCV (80-100) fL MCH (26-34) PG MCHC (30-36) % RDW (11.6-14.8) % Plt Count (150-400) X10^3/uL Neut % (Auto) (50-75) % Lymph % (Auto) (25-40) % Harding % (Auto) (3-14) % Eos % (Auto) (2-4) % Baso % (Auto) (0-2) % Neut # (Auto) (7025-6127) /uL Lymph # (Auto) (6645-7425) /uL Harding # (Auto) (0-900) /uL Eos # (Auto) (0-450) /uL Baso # (Auto) (0-100) /uL PT (10.1-12.7) SECONDS INR (0.9-1.3) APTT (26-36) SECONDS Sodium (137-145) mmol/L Potassium (3.4-5.1) mmol/L Chloride (98-107) mmol/L Carbon Dioxide (22-32) mmol/L BUN (7-17) mg/dL Creatinine (0.52-1.04) mg/dL Estimated GFR (>60) mL/min BUN/Creatinine Ratio (6-22) Glucose (80-110) mg/dL Lactate 2.6 H (0.7-2.1) mmol/L Calcium (8.4-10.2) mg/dL Total Bilirubin (0.2-1.3) mg/dL AST (14-36) IU/L ALT (<35) IU/L Alkaline Phosphatase (38-126) U/L Total Creatine Kinase 62 (30-135) U/L Troponin I < 0.012 (0.01-0.034) ng/mL NT-Pro-B Natriuret Pep 428 (<450) pg/mL Total Protein (6.3-8.2) g/dL Albumin (3.5-5.0) g/dL Globulin (1.7-4.1) g/dL Albumin/Globulin Ratio (1.0-2.8) Lipase (23-300) U/L Procalcitonin (<0.5) ng/mL Urine Color Urine Appearance Urine pH (4.5-8.0) Ur Specific [place] (1.000-1.035) Urine Protein (Negative) Urine Glucose (UA) (Negative) g/dL Urine Ketones (NEGATIVE) Urine Occult Blood (Negative) Urine Nitrate (Negative) Urine Bilirubin (NEGATIVE) Urine Urobilinogen (0.2) E.U./dL Ur Leukocyte Esterase (NEGATIVE) Urine RBC (0-5/HPF) Urine WBC (0-5/HPF) Ur Squamous Epith Cells (0-5/HPF) Urine Bacteria (None) Ur Culture Indicated? Ur Random Sodium (30-90) mmol/L Urine Creatinine mg/dL Chlamy pneumoniae PCR Not detected (Not Detect) Adenovirus (PCR) Not detected (Not Detect) B. pertussis DNA (PCR) Not detected (Not Detecte) B.parapertussis DNA PCR Not detected (Not Detecte) Coronavirus OC43 (PCR) Not detected (Not Detect) Coronavirus HKU1 (PCR) Not detected (Not Detect) Coronavirus 229E (PCR) Not detected (Not Detect) SARS-CoV-2 (PCR) Not detected (Not Detecte) Coronavirus NL63 (PCR) Not detected (Not Detect) Human Metapneumovir PCR Not detected (Not Detect) Influenza Type A (PCR) Not detected (Not Detect) Influenza Type B (PCR) Not detected (Not Detect) M. pneumoniae (PCR) Not detected (Not Detect) Parainfluenza 1 (PCR) Not detected (Not Detect) Parainfluenza 2 (PCR) Not detected (Not Detect) Parainfluenza 3 (PCR) Not detected (Not Detect) Parainfluenza 4 (PCR) Not detected (Not Detect) RSV (PCR) Not detected (Not Detect) Entero/Rhino (PCR) Not detected (Not Detect) 08/07/23 08/07/23 08/07/23 Range/Units 18:54 18:54 20:20 WBC (4.5-11.0) X10^3/uL RBC (4.0-5.2) X10^6/uL Hgb (12.0-16.0) g/dL Hct (36-46) % MCV (80-100) fL MCH (26-34) PG MCHC (30-36) % RDW (11.6-14.8) % Plt Count (150-400) X10^3/uL Neut % (Auto) (50-75) % Lymph % (Auto) (25-40) % Harding % (Auto) (3-14) % Eos % (Auto) (2-4) % Baso % (Auto) (0-2) % Neut # (Auto) (3296-6080) /uL Lymph # (Auto) (4979-5282) /uL Harding # (Auto) (0-900) /uL Eos # (Auto) (0-450) /uL Baso # (Auto) (0-100) /uL PT (10.1-12.7) SECONDS INR (0.9-1.3) APTT (26-36) SECONDS Sodium (137-145) mmol/L Potassium (3.4-5.1) mmol/L Chloride (98-107) mmol/L Carbon Dioxide (22-32) mmol/L BUN (7-17) mg/dL Creatinine (0.52-1.04) mg/dL Estimated GFR (>60) mL/min BUN/Creatinine Ratio (6-22) Glucose (80-110) mg/dL Lactate 2.0 (0.7-2.1) mmol/L Calcium (8.4-10.2) mg/dL Total Bilirubin (0.2-1.3) mg/dL AST (14-36) IU/L ALT (<35) IU/L Alkaline Phosphatase (38-126) U/L Total Creatine Kinase (30-135) U/L Troponin I (0.01-0.034) ng/mL NT-Pro-B Natriuret Pep (<450) pg/mL Total Protein (6.3-8.2) g/dL Albumin (3.5-5.0) g/dL Globulin (1.7-4.1) g/dL Albumin/Globulin Ratio (1.0-2.8) Lipase (23-300) U/L Procalcitonin (<0.5) ng/mL Urine Color Yellow Urine Appearance Clear Urine pH 6.5 (4.5-8.0) Ur Specific [place] <=1.005 (1.000-1.035) Urine Protein Negative (Negative) Urine Glucose (UA) Trace H (Negative) g/dL Urine Ketones Negative (NEGATIVE) Urine Occult Blood Trace-intact (Negative) Urine Nitrate Negative (Negative) Urine Bilirubin Negative (NEGATIVE) Urine Urobilinogen 0.2 (0.2) E.U./dL Ur Leukocyte Esterase Negative (NEGATIVE) Urine RBC 0-1/hpf (0-5/HPF) Urine WBC None seen (0-5/HPF) Ur Squamous Epith Cells 0-1 /hpf (0-5/HPF) Urine Bacteria None seen (None) Ur Culture Indicated? Cult not indicated Ur Random Sodium 29 L (30-90) mmol/L Urine Creatinine 22.8 mg/dL Chlamy pneumoniae PCR (Not Detect) Adenovirus (PCR) (Not Detect) B. pertussis DNA (PCR) (Not Detecte) B.parapertussis DNA PCR (Not Detecte) Coronavirus OC43 (PCR) (Not Detect) Coronavirus HKU1 (PCR) (Not Detect) Coronavirus 229E (PCR) (Not Detect) SARS-CoV-2 (PCR) (Not Detecte) Coronavirus NL63 (PCR) (Not Detect) Human Metapneumovir PCR (Not Detect) Influenza Type A (PCR) (Not Detect) Influenza Type B (PCR) (Not Detect) M. pneumoniae (PCR) (Not Detect) Parainfluenza 1 (PCR) (Not Detect) Parainfluenza 2 (PCR) (Not Detect) Parainfluenza 3 (PCR) (Not Detect) Parainfluenza 4 (PCR) (Not Detect) RSV (PCR) (Not Detect) Entero/Rhino (PCR) (Not Detect) Imaging Data Chest x-ray: Radiologist Impression: Michele Hernández??78??F??1945 ? Allergy/Adv: ketorolac, morphine Close Chest X-Ray (Signed) Usama Barnett - 08/07/23 Catheter Patency X-Ray (Signed) Pedro Pablo Alberto - 06/16/23 Chest X-Ray (Signed) Javi Becker - 04/21/23 Chest X-Ray (Signed) Javi Becker - 04/21/23 Bone Scan Nuclear Medicine (Signed) Yamel Galeano - 03/22/23 Chest/Abdomen/Pelvis CT (Signed) Javi Becker - 03/11/23 Parker Node (Signed) Radha Whalen - 02/03/23 Mammogram Diagnostic (Signed) Khari Howard - 12/11/22 Breast Ultrasound (Signed) Khari Howard - 12/11/22 Chest X-Ray (Signed) Radha Whalen - 11/09/22 Upper GI and Small Bowel X-Ray (Signed) Pedro Pablo Patino - 09/18/22 Abdomen/Pelvis CT (Signed) Natalia Jiang - 09/18/22 Shoulder X-Ray (Signed) Ghanshyam Stanford - 09/15/22 Echocardiogram Ultrasound (Signed) Noel Franzev - 02/04/22 Mammogram Screening (Signed) Call,Chilo - 01/20/22 Bone Densitometry 09/26/21 Mammogram Screening (Signed) Call,Chilo - 12/27/20 Chest X-Ray (Signed) Ghanshyam Stanford - 09/05/20 Radiology Report (Cancelled) Bruno Monsivais - 08/09/20 Myocardial Perfusion Scan Nuc Med (Signed) Paliwal,Vidhu - 08/09/20 Myocardial Perfusion Scan Nuc Med (Cancelled) 08/08/20 Telemetry Strips 08/07/20 Chest X-Ray (Signed) Ross,Kareem - 08/07/20 Mammogram Screening (Signed) Kareem Ross - 12/20/19 Mammogram Screening (Signed) SortoAxel - 12/05/18 Launch?[place] [address] XRay Report Signed Patient: Michele Hernández MR#: [id number] : 1945 Acct:[id number] Age/Sex: 78 / F Date of Service: 08/07/23 Loc: ED Accession Number: [id number] ?? Procedure: XR chest 1V Ordering Provider: Quincy Shelton D.O. PROCEDURE:? XR CHEST 1V ? INDICATIONS:? suspected sepsis ? TECHNIQUE:? One view of the chest was acquired.? ? COMPARISON:? [facility], CT, CT CHEST ABD PEL W CON, 03/11/2023, 12:02.? [facility], CR, XR CHEST 1V, 04/21/2023, 9:15.? [facility], CR, XR CHEST 1V, 04/21/2023, 11:03. ? FINDINGS:? ? Surgical changes and devices:? Right axillary clips are seen.? Right mastectomy change.? There is a stable left-sided chest port. ? Lungs and pleura:? Lungs are clear.? No pleural effusions or pneumothorax.? ? Mediastinum:? The cardiac contours are within normal limits. The aorta demonstrates calcification and tortuosity.? There is a moderate hiatal hernia. ? Bones and chest wall:? No suspicious bony lesions.? Age-appropriate bony degenerative changes are seen. ? Overlying soft tissues appear unremarkable.? ? ? IMPRESSION:? No focal infiltrates are seen. ? Postoperative and degenerative changes are seen.? ? Moderate hiatal hernia noted.? ? ? Dictated by: Usama Barnett M.D. on 08/07/2023 at 17:22 ? ? Approved by: Usama Barnett M.D. on 08/07/2023 at 17:24?? CT scan - head: Radiologist Impression: Close Head CT (Signed) Usama Barnett - 08/07/23 Chest X-Ray (Signed) Usama Barnett - 08/07/23 Launch?[facility] [address] [address] [address] Scan Report Signed Patient: Michele Hernández MR#: [id number] : 1945 Acct:[id number] Age/Sex: 78 / F Date of Service: 08/07/23 Loc: ED Accession Number: [id number] ?? Procedure: CT head/brain wo con Ordering Provider: Shira Aguayo D.O. PROCEDURE:? CT HEAD/BRAIN WO CON ? INDICATIONS:? Known breast CA, hyponatremia, polyuria, weakness, fatigue, nausea. ? TECHNIQUE:? Noncontrast 4.5 mm thick angled axial sections acquired from the foramen magnum to the vertex, with coronal and sagittal reformats.? For radiation dose reduction, the following was used:? automated exposure control, adjustment of mA and/or kV according to patient size.? ? COMPARISON:? [facility], CR, XR CHEST 1V, 08/07/2023, 17:46.? [facility], CT, HEAD WITHOUT CONTRAST, 12/28/2006, 8:03. ? FINDINGS:? Image quality:? Mild streak artifact can be seen through the skull base. ? CSF spaces:? Basal cisterns are patent.? No extra-axial fluid collections.? The ventricles are symmetric in size and shape.? ? Brain:? No intracranial bleeds or masses.? There is cerebral volume loss for age, with resultant ventricular and sulcal prominence.? There are periventricular and deep white matter chronic small vessel ischemic changes.? There is intracranial internal carotid artery atherosclerosis.? ? Skull and face:? Calvarium and visualized facial bones appear intact, without suspicious lesions.? ? Sinuses:? Visualized sinuses and mastoids are clear.? ? ? IMPRESSION:? No significant noncontrast head CT abnormality is seen. ? If it would be helpful for clinical management decision making, please consider a dedicated, scheduled brain MRI for further evaluation (assuming that there is no contraindication).? ? ? Dictated by: Usama Barnett M.D. on 08/07/2023 at 18:58 ? ? Approved by: Usama Barnett M.D. on 08/07/2023 at 18:59?? ECG Data Attestation: I personally reviewed and interpreted this ECG as follows: Prior ECG tracings: available for review Interpretation: Sinus rhythm premature atrial complex rate 80 MT 144 QRS is 68 QTC 399, patient has prior from 09/18/2022 shows no acute changes. MDM Narrative Medical decision making narrative: This is an 78-year-old female who presents with complaint of increasing weakness in the setting of chemotherapy with breast cancer. Patient's labs show decrease in white count at 3.9 was 6.3 and hemoglobin 11 was 13 on 06/17/2023 platelets are 198. INR is 1.4, sodium today is 118 likely source or weakness was 129 on June 17 and 138 on June 10. Potassium is appropriate 4.5, chloride is 85, CO2 is 24, BUN 15 with a appropriate creatinine, glucose is 226 lactate 2.6. AST is 40 but otherwise normal LFTs negative troponin and BNP. Protocol is -0.45. UA shows trace glucose, trace occult blood, 1-5 RBCs with no other signs of infection. Urine sodium and creatinine were obtained and FENA is 0.9% reflecting more prerenal source likely. Patient does note she is had less intake. Because of patient's history of breast cancer she is not had any recent imaging of her head she is describing some polyuria head CT was obtained 2nd to concern for SIADH or brain mass/metastasis. Head CT shows no acute change. Patient initially had fluids ordered these were stopped more workup was pending, patient received Zofran with plan of 3% saline 100 mL aliquots if any acute neurologic changes, patient's FENA and past history indicat maybe a prerenal component as well. Patient is alert, appropriate but very weak felt appropriate for admission. Dr. Janel thorpe, there are rolling cell phone blackouts currently so there was some delay but Dr. Islas was contacted and accepts for admission. Reviewed all patient's findings. Discharge Plan Departure Patient Disposition: Admitted As Inpatient Clinical Impression: Hyponatremia, Anemia, Breast cancer Admit Date/Time: 08/07/23 21:33 Admit Provider: Garry Islas
[2023-08-07 19:09] LABS: pH Urine UA 6.5 (4.5-8.0)
[2023-08-07 19:10] LABS: NT-proBNP (BNP-Adult 18+) 428 pg/mL (<450); Troponin I < 0.012 ng/mL (0.01-0.034)
[2023-08-07 19:14] LABS: Procalcitonin 0.45 ng/mL (<0.5)
[2023-08-07 19:20] LABS: Bacteria Urine None Seen; Culture Indicated Urine Cult Not Indicated; RBC Urine 0-1/HPF (0-5/HPF); Squamous Epithelial Cell Urine 0-1 /HPF (0-5/HPF); WBC Urine None Seen (0-5/HPF)
--- NOTE | 2023-08-07 19:26 | DI.CT.S_ITS ---
PROCEDURE: CT HEAD/BRAIN WO CON INDICATIONS: Known breast CA, hyponatremia, polyuria, weakness, fatigue, nausea. TECHNIQUE: Noncontrast 4.5 mm thick angled axial sections acquired from the foramen magnum to the vertex, with coronal and sagittal reformats. For radiation dose reduction, the following was used: automated exposure control, adjustment of mA and/or kV according to patient size. COMPARISON: [facility], CR, XR CHEST 1V, 08/07/2023, 17:46. [facility], CT, HEAD WITHOUT CONTRAST, 12/28/2006, 8:03. FINDINGS: Image quality: Mild streak artifact can be seen through the skull base. CSF spaces: Basal cisterns are patent. No extra-axial fluid collections. The ventricles are symmetric in size and shape. Brain: No intracranial bleeds or masses. There is cerebral volume loss for age, with resultant ventricular and sulcal prominence. There are periventricular and deep white matter chronic small vessel ischemic changes. There is intracranial internal carotid artery atherosclerosis. Skull and face: Calvarium and visualized facial bones appear intact, without suspicious lesions. Sinuses: Visualized sinuses and mastoids are clear. IMPRESSION: No significant noncontrast head CT abnormality is seen. If it would be helpful for clinical management decision making, please consider a dedicated, scheduled brain MRI for further evaluation (assuming that there is no contraindication). Dictated by: Usama Barentt M.D. on 08/07/2023 at 18:58 Approved by: Usama Barnett M.D. on 08/07/2023 at 18:59
[2023-08-07 19:46] LABS: Creatinine Urine Random 22.8 mg/dL; Sodium Urine Random 29 mmol/L (30-90)
[2023-08-07 19:50] LABS: Adenovirus Not Detected (Not Detect); Coronavirus 229E Not Detected (Not Detect); Coronavirus HKU1 Not Detected (Not Detect); SARS- CoV-2 Not Detected (Not Detecte)
[2023-08-07 19:51] LABS: B. parapertussis Not Detected (Not Detecte); Bordetella pertussis Not Detected (Not Detecte); Chlamydophila pneumoniae Not Detected (Not Detect); Coronavirus NL 63 Not Detected (Not Detect); Coronavirus OC43 Not Detected (Not Detect); Human Metapneumovirus Not Detected (Not Detect); Human Rhinovirus/Enterovirus Not Detected (Not Detect); Influenza A Not Detected (Not Detect); Influenza B Not Detected (Not Detect); Mycoplasma pneumoniae Not Detected (Not Detect); Parainfluenza Virus 1 Not Detected (Not Detect); Parainfluenza Virus 2 Not Detected (Not Detect); Parainfluenza Virus 3 Not Detected (Not Detect); Parainfluenza Virus 4 Not Detected (Not Detect); Respiratory Syncytial Virus Not Detected (Not Detect)
[2023-08-07 20:41] LABS: Reflexed Lactate in 2 Hours Y
[2023-08-07] MEDS: ACETAMINOPHEN 325 MG TABLET 650 MG PO (21:46)
--- NOTE | 2023-08-07 22:25 | PC.NURSE ---
PT SATS TO 87%, PT UPRIGHT AND AWAKE, GOOD PLETH. PT DENIES NEW COMPLAINTS. PLACED ON O2 AT 2LPM NC. NOTIFIED DR JUNIOR.
[2023-08-08] VITALS (13 sets, daily range): BP systolic 101–133; BP diastolic 43–66; PULSE 79–98; RESP 17–20; TEMP 36.5–39.3; O2SAT 94–99; BMI 28.1
[2023-08-08] MEDS: ONDANSETRON 4 MG ODT PO ×2 (00:52→06:40)
[2023-08-08] MEDS: SODIUM CHLORIDE 0.9% 1,000 ML 100 ML IV ×3 (00:52→22:01)
[2023-08-08] MEDS: ACETAMINOPHEN 325 MG TABLET 650 MG PO ×3 (03:23→23:41)
[2023-08-08 05:08] LABS: Hematocrit 32.3 % (36-46); Hemoglobin 10.9 g/dL (12.0-16.0); Mean Corpuscular HGB Conc 33.8 % (30-36); Mean Corpuscular Hemoglobin 31.2 PG (26-34); Mean Corpuscular Volume 92.3 fL (80-100); Platelet Count 185 X10^3/uL (150-400); Red Cell Distribution Width 20.8 % (11.6-14.8); White Blood Cell Count 3.6 X10^3/uL (4.5-11.0)
[2023-08-08 05:09] LABS: Add Manual Diff / Slide Review YES
[2023-08-08 05:15] LABS: Alanine Aminotransferase 22 IU/L (<35); Albumin 2.9 g/dL (3.5-5.0); Albumin Globulin Ratio 1.1 (1.0-2.8); Alkaline Phosphatase 54 U/L (38-126); Aspartate Aminotransferase 39 IU/L (14-36); BUN Creatinine Ratio 16.7 (6-22); Bilirubin Total 0.5 mg/dL (0.2-1.3); Blood Urea Nitrogen 14 mg/dL (7-17); Calcium 8.7 mg/dL (8.4-10.2); Carbon Dioxide 25 mmol/L (22-32); Chloride 90 mmol/L (98-107); Estimated Glomerular Filt Rate > 60 mL/min (>60); Globulin 2.7 g/dL (1.7-4.1); Glucose 113 mg/dL (80-110); HEMOLYSIS < 15 (0-50); Potassium 4.4 mmol/L (3.4-5.1); Sodium 121 mmol/L (137-145); Total Protein 5.6 g/dL (6.3-8.2)
[2023-08-08 06:16] LABS: Total Cells Counted 100
[2023-08-08 06:17] LABS: Anisocytosis 3+; Neutrophils Absolute Manual 3348 /uL (3000-5900)
[2023-08-08] MEDS: LEVOTHYROXINE 112 MCG TABLET PO (06:40)
[2023-08-08] MEDS: PANTOPRAZOLE DR 40 MG TABLET PO (09:15)
[2023-08-08] MEDS: ENOXAPARIN 40 MG/0.4 ML SYRINGE SUBCUT (09:16)
--- NOTE | 2023-08-08 09:40 | CM.DANOTE ---
Initial DCP Assessment Note Pt is an 78 yo female, resident of [place], known breast cancer currently on her 8th round of chemotherapy, arrives with weakness, insomnia, decreased appetite for the past 2 weeks. PCP: Gloria Flood and Michelle Islas Payer: [facility] Reviewed chart, attempted bedside assessment this morning and patient was shivering. RN reports patient currently has a temp of 104. Held off on assessment of need for now. Per chart review, anticipate patient will likely return home w/her family to support and assist. Patient may benefit from HH services. CM team will plan to follow closely EDWARD Dalton Discharge Planning/Care Management CM Discharge Assessment Start: 08/08/23 09:37 Freq: Status: Active Protocol: Document 08/08/23 09:37 CASEY (Rec: 08/08/23 09:39 CASEY [id number]) Discharge Planning Assessment Assigned Automobile Tester EDWARD Finn DPOA/Assigned Designee Name meliton Rodriguez Contact Information [phone] Advance Directives? Yes: Polst Advance Directives on File Yes History Provided By Patient,Medical Record Prior Living Arrangements House Comment Son, [id number], and grand daughter live at home with patient Household Members family,children Type of transporation used prior to Relies on Others admit Independent with ADL's Yes: Weak in the last few weeks, needs assist w/higher ADLs Is patient alert and oriented? Yes Needs Assistance With Meal Prep,Home Chores / Shopping Barriers to Discharge Yes Comment Weakness, likely home w/family to support. r/o need for HH Discharge Plan Home with Home Health Transportation Arrangement Family Additional Comment Following as medical plan of care unfolds. Need to discuss HH services w/patient and family
--- NOTE | 2023-08-08 10:41 | PM.HP.1 ---
History of Present Illness History of Present Illness Date Patient Seen: 08/08/23 Time Patient Seen: 10:41 Date of Onset of Symptoms: 07/27/23 Chief complaint: Chemo fatigue? Narrative: Patient is an 78-year-old female patient of Dr. Flood is whom cross covering for who presents for severe weakness. Apparently patient was diagnosed with breast cancer approximately weeks ago. Started on chemo. Ever since she is been on chemo she is not felt well. Progressively worse over the last week. She discuss with her oncologist that she did not want to do chemo anymore and apparently he is looking at radiation and the question of possibly restarting her chemo. She is overall been feeling a progressive weakness. No headaches no visual symptoms no fevers no chills no cough no shortness a breath abdominal pain. No urinary changes. No skin changes. She just has not felt well. Got to the point where she could not really get out of bed and at that point she was brought to the hospital. She otherwise has no major new changes in health. Today she got a temperature of a 100? 0.4 is getting chills. She still has no cough or other changes. [facility] Medical History Anxiety Arrhythmia Atypical chest pain Cancer of right breast GERD (gastroesophageal reflux disease) Graves disease History of COVID-19 (12/16/22) Hx of intestinal obstruction Hyperlipidemia Hypertension Hyperthyroidism Neuropathy Surgical History H/O cardiac radiofrequency ablation (02/2022) H/O hysterectomy for benign disease History of ankle surgery (~1995) History of cholecystectomy (~1994) History of hysterectomy (1988) History of surgery (~1978) Hx of right mastectomy (02/03/23) Social History household members: family and children Smoking Status: Never smoker alcohol intake: never Meds Home Medications and Allergies Home Medications Medication Instructions Recorded Confirmed Type atorvastatin 10 mg tablet 10 mg PO BEDTIME 08/07/20 08/07/23 History cholecalciferol (vitamin D3) 25 50 mcg PO DAILY 08/07/20 08/07/23 History mcg (1,000 unit) capsule (Vitamin D3) alendronate 70 mg tablet 70 mg PO QWEEK 08/12/22 08/07/23 History metronidazole 1 % topical gel 1 applic topical DAILY 01/08/23 08/07/23 History (Metrogel) CMP Estriol Vaginal 0.1% cream See Rx Instructions .Route 01/28/23 08/07/23 Rx .COMPLEX #30 grams acetaminophen 325 mg capsule 650 mg PO QID PRN pain #60 caps 02/03/23 08/07/23 Rx (Tylenol) docusate sodium 100 mg capsule 100 mg PO PRN PRN Constipation 03/04/23 08/07/23 History (Colace) pantoprazole 40 mg tablet,delayed 40 mg PO BID 04/16/23 08/07/23 History release ondansetron 4 mg disintegrating 4 mg PO Q6H nause, chemotherapy 06/08/23 08/07/23 Rx tablet #30 tabs prochlorperazine maleate 5 mg 5 mg PO QID PRN Nausea #30 tabs 06/08/23 08/07/23 Rx tablet (Compazine) lidocaine-prilocaine 2.5 %-2.5 % 1 applic topical PRN PRN port pain 06/10/23 08/07/23 Rx topical cream #30 grams benzonatate 100 mg PO TID PRN Cough 08/08/23 08/08/23 History levothyroxine 125 mcg tablet 125 mcg PO QAM 08/08/23 08/08/23 History (Synthroid) Allergies Allergy/AdvReac Type Severity Reaction Status Date / Time ketorolac AdvReac Severe Vomiting Verified 06/18/23 10:48 morphine AdvReac Severe Anxious Verified 06/18/23 10:48 Review of Systems Review of Systems Narrative: All negative except above Exam Vital Signs (past 8 hours): - 08/08/23 03:23 08/08/23 03:56 08/08/23 03:56 Temperature 101.5 F H 102.7 F H 102.7 F H Pulse Rate 98 H Respiratory Rate 20 Blood Pressure 124/62 Pulse Oximetry 95 Oxygen Delivery Method Oxygen Flow Rate 2 08/08/23 05:10 08/08/23 08:48 08/08/23 09:15 Temperature 98.8 F 100.4 F H Pulse Rate Respiratory Rate Blood Pressure Pulse Oximetry 95 Oxygen Delivery Method Nasal Cannula Oxygen Flow Rate 2 08/08/23 09:00 Temperature 100.4 F H Pulse Rate 84 Respiratory Rate 17 Blood Pressure 133/66 Pulse Oximetry 99 Oxygen Delivery Method Oxygen Flow Rate 2 Oxygen Delivery Method Nasal Cannula Oxygen Flow Rate 2 Narrative Exam Narrative: Alert fatigued female in no acute distress cold and chilling HEENT exam is unremarkable. Mucous membranes moist. Neck supple without adenopathy. Lungs are clear. Heart is regular rate and rhythm without murmurs clicks rubs or gallops. Abdomen is soft positive bowel sounds nontender. Extremities without cyanosis clubbing edema neurologic exam is nonfocal. Objective Labs 08/08/23 04:55 08/08/23 04:55 Labs: Laboratory Results - last 24 hr 08/07/23 08/07/23 08/07/23 18:30 18:30 18:30 WBC 3.9 L RBC 3.66 L Hgb 11.5 L Hct 33.5 L MCV 91.5 MCH 31.3 MCHC 34.2 RDW 19.6 H Plt Count 198 Neut % (Auto) 88.3 H Lymph % (Auto) 1.7 L [place] % (Auto) 8.2 Eos % (Auto) 0.3 L Baso % (Auto) 1.5 Neut # (Auto) 3400 Lymph # (Auto) 100 L [place] # (Auto) 300 Eos # (Auto) 0 Baso # (Auto) 100 Total Counted Seg Neutrophils % Band Neutrophils % Lymphocytes % (Manual) Monocytes % (Manual) Basophils % (Manual) Neutrophils # (Manual) RBC Morphology Anisocytosis PT 15.9 H INR 1.4 H APTT 28 Sodium 118 L* Potassium 4.5 Chloride 85 L Carbon Dioxide 24 BUN 15 Creatinine 0.83 Estimated GFR > 60 BUN/Creatinine Ratio 18.1 Glucose 226 H Lactate Calcium 9.5 Total Bilirubin 0.4 AST 40 H ALT 24 Alkaline Phosphatase 56 Total Creatine Kinase Troponin I NT-Pro-B Natriuret Pep Total Protein 6.0 L Albumin 3.2 L Globulin 2.8 Albumin/Globulin Ratio 1.1 Lipase 60 Procalcitonin 0.45 Urine Color Urine Appearance Urine pH Ur Specific [place] Urine Protein Urine Glucose (UA) Urine Ketones Urine Occult Blood Urine Nitrate Urine Bilirubin Urine Urobilinogen Ur Leukocyte Esterase Urine RBC Urine WBC Ur Squamous Epith Cells Urine Bacteria Ur Culture Indicated? Ur Random Sodium Urine Creatinine Chlamy pneumoniae PCR Adenovirus (PCR) B. pertussis DNA (PCR) B.parapertussis DNA PCR Coronavirus OC43 (PCR) Coronavirus HKU1 (PCR) Coronavirus 229E (PCR) SARS-CoV-2 (PCR) Coronavirus NL63 (PCR) Human Metapneumovir PCR Influenza Type A (PCR) Influenza Type B (PCR) M. pneumoniae (PCR) Parainfluenza 1 (PCR) Parainfluenza 2 (PCR) Parainfluenza 3 (PCR) Parainfluenza 4 (PCR) RSV (PCR) Entero/Rhino (PCR) 08/07/23 08/07/23 08/07/23 18:30 18:30 18:35 WBC RBC Hgb Hct MCV MCH MCHC RDW Plt Count Neut % (Auto) Lymph % (Auto) [place] % (Auto) Eos % (Auto) Baso % (Auto) Neut # (Auto) Lymph # (Auto) [place] # (Auto) Eos # (Auto) Baso # (Auto) Total Counted Seg Neutrophils % Band Neutrophils % Lymphocytes % (Manual) Monocytes % (Manual) Basophils % (Manual) Neutrophils # (Manual) RBC Morphology Anisocytosis PT INR APTT Sodium Potassium Chloride Carbon Dioxide BUN Creatinine Estimated GFR BUN/Creatinine Ratio Glucose Lactate 2.6 H Calcium Total Bilirubin AST ALT Alkaline Phosphatase Total Creatine Kinase 62 Troponin I < 0.012 NT-Pro-B Natriuret Pep 428 Total Protein Albumin Globulin Albumin/Globulin Ratio Lipase Procalcitonin Urine Color Urine Appearance Urine pH Ur Specific [place] Urine Protein Urine Glucose (UA) Urine Ketones Urine Occult Blood Urine Nitrate Urine Bilirubin Urine Urobilinogen Ur Leukocyte Esterase Urine RBC Urine WBC Ur Squamous Epith Cells Urine Bacteria Ur Culture Indicated? Ur Random Sodium Urine Creatinine Chlamy pneumoniae PCR Not detected Adenovirus (PCR) Not detected B. pertussis DNA (PCR) Not detected B.parapertussis DNA PCR Not detected Coronavirus OC43 (PCR) Not detected Coronavirus HKU1 (PCR) Not detected Coronavirus 229E (PCR) Not detected SARS-CoV-2 (PCR) Not detected Coronavirus NL63 (PCR) Not detected Human Metapneumovir PCR Not detected Influenza Type A (PCR) Not detected Influenza Type B (PCR) Not detected M. pneumoniae (PCR) Not detected Parainfluenza 1 (PCR) Not detected Parainfluenza 2 (PCR) Not detected Parainfluenza 3 (PCR) Not detected Parainfluenza 4 (PCR) Not detected RSV (PCR) Not detected Entero/Rhino (PCR) Not detected 08/07/23 08/07/23 08/07/23 18:54 18:54 20:20 WBC RBC Hgb Hct MCV MCH MCHC RDW Plt Count Neut % (Auto) Lymph % (Auto) [place] % (Auto) Eos % (Auto) Baso % (Auto) Neut # (Auto) Lymph # (Auto) [place] # (Auto) Eos # (Auto) Baso # (Auto) Total Counted Seg Neutrophils % Band Neutrophils % Lymphocytes % (Manual) Monocytes % (Manual) Basophils % (Manual) Neutrophils # (Manual) RBC Morphology Anisocytosis PT INR APTT Sodium Potassium Chloride Carbon Dioxide BUN Creatinine Estimated GFR BUN/Creatinine Ratio Glucose Lactate 2.0 Calcium Total Bilirubin AST ALT Alkaline Phosphatase Total Creatine Kinase Troponin I NT-Pro-B Natriuret Pep Total Protein Albumin Globulin Albumin/Globulin Ratio Lipase Procalcitonin Urine Color Yellow Urine Appearance Clear Urine pH 6.5 Ur Specific [place] <=1.005 Urine Protein Negative Urine Glucose (UA) Trace H Urine Ketones Negative Urine Occult Blood Trace-intact Urine Nitrate Negative Urine Bilirubin Negative Urine Urobilinogen 0.2 Ur Leukocyte Esterase Negative Urine RBC 0-1/hpf Urine WBC None seen Ur Squamous Epith Cells 0-1 /hpf Urine Bacteria None seen Ur Culture Indicated? Cult not indicated Ur Random Sodium 29 L Urine Creatinine 22.8 Chlamy pneumoniae PCR Adenovirus (PCR) B. pertussis DNA (PCR) B.parapertussis DNA PCR Coronavirus OC43 (PCR) Coronavirus HKU1 (PCR) Coronavirus 229E (PCR) SARS-CoV-2 (PCR) Coronavirus NL63 (PCR) Human Metapneumovir PCR Influenza Type A (PCR) Influenza Type B (PCR) M. pneumoniae (PCR) Parainfluenza 1 (PCR) Parainfluenza 2 (PCR) Parainfluenza 3 (PCR) Parainfluenza 4 (PCR) RSV (PCR) Entero/Rhino (PCR) 08/08/23 08/08/23 04:55 04:55 WBC 3.6 L RBC 3.50 L Hgb 10.9 L Hct 32.3 L MCV 92.3 MCH 31.2 MCHC 33.8 RDW 20.8 H Plt Count 185 Neut % (Auto) Not Reportable Lymph % (Auto) Not Reportable [place] % (Auto) Not Reportable Eos % (Auto) Not Reportable Baso % (Auto) Not Reportable Neut # (Auto) Lymph # (Auto) Not Reportable [place] # (Auto) Not Reportable Eos # (Auto) Baso # (Auto) Not Reportable Total Counted 100 Seg Neutrophils % 80.0 H Band Neutrophils % 13.0 H Lymphocytes % (Manual) 2.0 L Monocytes % (Manual) 3.0 Basophils % (Manual) 2.0 H Neutrophils # (Manual) 3348 RBC Morphology See below Anisocytosis 3+ H PT INR APTT Sodium 121 L Potassium 4.4 Chloride 90 L Carbon Dioxide 25 BUN 14 Creatinine 0.84 Estimated GFR > 60 BUN/Creatinine Ratio 16.7 Glucose 113 H D Lactate Calcium 8.7 Total Bilirubin 0.5 AST 39 H ALT 22 Alkaline Phosphatase 54 Total Creatine Kinase Troponin I NT-Pro-B Natriuret Pep Total Protein 5.6 L Albumin 2.9 L Globulin 2.7 Albumin/Globulin Ratio 1.1 Lipase Procalcitonin Urine Color Urine Appearance Urine pH Ur Specific [place] Urine Protein Urine Glucose (UA) Urine Ketones Urine Occult Blood Urine Nitrate Urine Bilirubin Urine Urobilinogen Ur Leukocyte Esterase Urine RBC Urine WBC Ur Squamous Epith Cells Urine Bacteria Ur Culture Indicated? Ur Random Sodium Urine Creatinine Chlamy pneumoniae PCR Adenovirus (PCR) B. pertussis DNA (PCR) B.parapertussis DNA PCR Coronavirus OC43 (PCR) Coronavirus HKU1 (PCR) Coronavirus 229E (PCR) SARS-CoV-2 (PCR) Coronavirus NL63 (PCR) Human Metapneumovir PCR Influenza Type A (PCR) Influenza Type B (PCR) M. pneumoniae (PCR) Parainfluenza 1 (PCR) Parainfluenza 2 (PCR) Parainfluenza 3 (PCR) Parainfluenza 4 (PCR) RSV (PCR) Entero/Rhino (PCR) Assessment & Plan Assessment & Plan narrative: Hyponatremia. Will continue gentle saline replacement. Has improved significantly over the last 12 hours. Do not want it to go to quickly. Water restrictions although she is not taking a lot p.o. right now anyway and will see how things go. Recheck a.m.. Fever of unknown origin. Urine is normal chest x-ray was normal clinically she does not have a significant either history or physical exam finding which appears to give issues but given the fact that she is suppressed and her ability to fight infection will start Rocephin. Blood cultures were drawn yesterday. Will at least continue until cultures are negative. Then decision will be made on further treatment. History of breast cancer. Recently started on chemo recent diagnosis. We discussed this extensively. She does not want to go to hospice. Still thinking that she would like to try some treatment. Will continue to follow with her oncologist not actively affecting us now otherwise. Anemia. Possibly secondary to chemotherapy. No evidence of bleeding. Will recheck tomorrow see where we are at. We are giving her fluids I expect it will be slightly decreased no other changes. Dehydration. Mild. Patient overall stable. IV hydration will continue and will stay on clear liquids patient is not interested in taking further food at this time History anxiety. Stable. DVT prophylaxis will place on Lovenox. GI prophylaxis I do not think needed at this time. Code status DNR. Disposition. Patient pretty sick. Will see how things go. Whether or not her fever is from a significant infection we will define. Her hyponatremia was pretty low and probably the cause of most of her weakness but will see how things go. Suspect 48-72 hours she will be here without question no other changes. 90 minutes spent with the patient nursing orders emergency room dictation Quality VTE Deep Vein Thrombosis/Pulmonary Embolism Present on Admission: No
[2023-08-08] MEDS: cefTRIAXone 2,000 MG in SODIUM CHLORIDE 0.9% 100 ML 200 MG IV (11:17)
--- NOTE | 2023-08-08 12:29 | PC.NURSE ---
Addendum entered by Serina Diaz R.N. 08/08/23 14:02: Patient temp up to 102 around 1230. Called who is aware.. He gave orders for ibuprofen and tylenol frequency changed. Patient was given ibuprofen and is resting comfortably after lunch. Original Note: Patient had a temp of 100.4, given tylenol and down. She was shivering and this has stoppe now. She denies pain. Started on iv antibitiotics and this has been given, patient tolerated this well. She is eating lunch now and denies any issues.
[2023-08-08] MEDS: IBUPROFEN 400 MG TABLET PO (13:40)
[2023-08-08] MEDS: ATORVASTATIN 20 MG TABLET 10 MG PO (21:59)
[2023-08-08] MEDS: DOCUSATE 100 MG CAPSULE PO (21:59)
[2023-08-09] VITALS (21 sets, daily range): BP systolic 92–135; BP diastolic 42–56; PULSE 66–98; RESP 16–18; TEMP 36.1–38.6; O2SAT 93–98
[2023-08-09] MEDS: ONDANSETRON 4 MG ODT PO ×4 (00:59→23:01)
[2023-08-09 04:22] LABS: Add Manual Diff / Slide Review NO; Basophils Absolute Auto 0 /uL (0-100); Basophils Percent Auto 1.1 % (0-2); Eosinophils Absolute Auto 0 /uL (0-450); Eosinophils Percent Auto 0.6 % (2-4); Hematocrit 32.5 % (36-46); Lymphocytes Absolute Auto 100 /uL (1100-4500); Lymphocytes Percent Auto 2.8 % (25-40); Mean Corpuscular HGB Conc 33.8 % (30-36); Mean Corpuscular Hemoglobin 31.4 PG (26-34); Mean Corpuscular Volume 92.8 fL (80-100); Monocytes Absolute Auto 500 /uL (0-900); Monocytes Percent Auto 11.2 % (3-14); Neutrophils Absolute Auto 3700 /uL (1500-7000); Neutrophils Percent Auto 84.3 % (50-75); Platelet Count 170 X10^3/uL (150-400); Red Blood Cell Count 3.51 X10^6/uL (4.0-5.2); Red Cell Distribution Width 20.6 % (11.6-14.8); White Blood Cell Count 4.4 X10^3/uL (4.5-11.0)
[2023-08-09 04:32] LABS: Alanine Aminotransferase 23 IU/L (<35); Albumin 2.6 g/dL (3.5-5.0); Alkaline Phosphatase 53 U/L (38-126); Aspartate Aminotransferase 44 IU/L (14-36); BUN Creatinine Ratio 16.4 (6-22); Bilirubin Total 0.5 mg/dL (0.2-1.3); Blood Urea Nitrogen 12 mg/dL (7-17); Calcium 7.5 mg/dL (8.4-10.2); Carbon Dioxide 22 mmol/L (22-32); Chloride 95 mmol/L (98-107); Estimated Glomerular Filt Rate > 60 mL/min (>60); Globulin 2.7 g/dL (1.7-4.1); Glucose 89 mg/dL (80-110); HEMOLYSIS < 15 (0-50); Potassium 3.8 mmol/L (3.4-5.1); Sodium 124 mmol/L (137-145); Total Protein 5.3 g/dL (6.3-8.2)
[2023-08-09 05:42] LABS: Anisocytosis 3+
[2023-08-09] MEDS: ACETAMINOPHEN 325 MG TABLET 650 MG PO ×4 (06:07→19:12)
[2023-08-09] MEDS: LEVOTHYROXINE 125 MCG TABLET PO (06:13)
[2023-08-09] MEDS: IBUPROFEN 400 MG TABLET PO ×3 (07:39→20:17)
[2023-08-09] MEDS: PANTOPRAZOLE DR 40 MG TABLET PO ×2 (07:39→17:43)
[2023-08-09] MEDS: SODIUM CHLORIDE 0.9% 1,000 ML 100 ML IV (07:49)
--- NOTE | 2023-08-09 08:46 | DI.RAD.S_ITS ---
PROCEDURE: XR CHEST 2V INDICATIONS: hypoxia; fever TECHNIQUE: 2 views of the chest were acquired. COMPARISON: [facility], CR, XR CHEST 1V, 08/07/2023, 17:46. FINDINGS: Surgical changes and devices: Left chest Port-A-Cath, the tip which projects to the brachiocephalic vein on the left. Right axillary clips. Lungs and pleura: Short interval development of bilateral perihilar/apical infiltrates, left greater than right. Mediastinum: Mediastinal contours are normal. Heart size is normal. Bones and chest wall: No suspicious bony abnormalities. Soft tissues appear unremarkable. IMPRESSION: Short interval development of bilateral fluffy perihilar/apical infiltrates. Comment: Progress films are recommended until clear. Dictated by: Liu Cooper M.D. on 08/09/2023 at 9:46 Approved by: Liu Cooper M.D. on 08/09/2023 at 9:47
--- NOTE | 2023-08-09 09:01 | P.PN_ITS ---
Subjective Subjective Date Patient Seen: 08/09/23 Time Patient Seen: 09:01 Interval history: Met with patient. Reviewed chart and workup. Patient states that she feels horrible. She feels worse than she did yesterday. She is achy all over just from lying in the bed. She feels weak and unable to get out of bed. She is hungry and would like something to eat. She denies any chest pain. Denies any difficulty breathing. Denies any history of aspiration. Denies any nausea vomiting or diarrhea. Denies any rash. Denies any fever at home but did have chills. Exam Vital Signs (past 8 hours): - 08/09/23 03:23 08/09/23 03:43 08/09/23 06:07 Temperature 98.2 F 100.9 F H Pulse Rate 75 Respiratory Rate 16 Blood Pressure 101/42 L 102/46 L Pulse Oximetry 98 Oxygen Delivery Method Oxygen Flow Rate 2 Fraction of Inspired Oxygen 08/09/23 06:10 08/09/23 07:28 08/09/23 07:39 Temperature 100.9 F H 101.5 F H 101.5 F H Pulse Rate 80 Respiratory Rate 17 Blood Pressure 135/56 L Pulse Oximetry 95 Oxygen Delivery Method Oxygen Flow Rate 2 Fraction of Inspired Oxygen 08/09/23 07:42 08/09/23 07:00 08/09/23 07:00 Temperature Pulse Rate 89 Respiratory Rate 18 Blood Pressure Pulse Oximetry 97 94 Oxygen Delivery Method Nasal Cannula Nasal Cannula Nasal Cannula Oxygen Flow Rate 2 2 Fraction of Inspired Oxygen 28 08/09/23 07:30 08/09/23 08:58 Temperature 101.5 F H 98.9 F Pulse Rate 98 H Respiratory Rate 18 Blood Pressure 130/46 L Pulse Oximetry 96 Oxygen Delivery Method Oxygen Flow Rate 3 Fraction of Inspired Oxygen Fraction of Inspired Oxygen 28 SaO2/FiO2 Ratio 346 Oxygen Delivery Method Nasal Cannula Oxygen Flow Rate 2 Narrative Exam Narrative: Patient is alert and oriented x3, lying in hospital bed with a cool rag over her. She appears ill but in no apparent distress. No tachypnea. HEENT is unremarkable Neck is supple without masses Chest: Decreased breath sounds bibasilar Cor: Regular rate and rhythm with mild tachycardia likely related to fever Abdomen: Positive bowel sounds x4. Nontender, no hepatosplenomegaly Extremities: No edema, pulses intact Neurologic exam is nonfocal Objective Labs 08/09/23 03:53 08/09/23 03:53 Labs: Laboratory Results - last 24 hr 08/09/23 08/09/23 03:53 03:53 WBC 4.4 L RBC 3.51 L Hgb 11.0 L Hct 32.5 L MCV 92.8 MCH 31.4 MCHC 33.8 RDW 20.6 H Plt Count 170 Neut % (Auto) 84.3 H Lymph % (Auto) 2.8 L [place] % (Auto) 11.2 Eos % (Auto) 0.6 L Baso % (Auto) 1.1 Neut # (Auto) 3700 Lymph # (Auto) 100 L [place] # (Auto) 500 Eos # (Auto) 0 Baso # (Auto) 0 RBC Morphology See below Anisocytosis 3+ H Sodium 124 L Potassium 3.8 Chloride 95 L Carbon Dioxide 22 BUN 12 Creatinine 0.73 Estimated GFR > 60 BUN/Creatinine Ratio 16.4 Glucose 89 Calcium 7.5 L Total Bilirubin 0.5 AST 44 H ALT 23 Alkaline Phosphatase 53 Total Protein 5.3 L Albumin 2.6 L Globulin 2.7 Albumin/Globulin Ratio 1.0 PFSH Medical History Anxiety Arrhythmia Atypical chest pain Cancer of right breast GERD (gastroesophageal reflux disease) Graves disease History of COVID-19 (12/16/22) Hx of intestinal obstruction Hyperlipidemia Hypertension Hyperthyroidism Neuropathy Surgical History H/O cardiac radiofrequency ablation (02/2022) H/O hysterectomy for benign disease History of ankle surgery (~1995) History of cholecystectomy (~1994) History of hysterectomy (1988) History of surgery (~1978) Hx of right mastectomy (02/03/23) Social History household members: family and children Smoking Status: Never smoker alcohol intake: never Assessment & Plan Assessment & Plan narrative: 78-year-old female with breast cancer and currently undergoing chemotherapy admitted for severe hyponatremia and overall weakness with febrile illness of unclear etiology. Reviewed chart and met with patient. Patient has now had a ongoing fever for approximately 36 hours. Left message [address] Dr[address] Olsen to discuss antimicrobial therapy etc.. Awaiting return phone call Possible cyclophosphamide contributing to hyponatremia Assessment 1. Febrile illness in patient undergoing chemotherapy for breast cancer with mild neutropenia Plan: Will repeat urine culture, blood cultures, chest x-ray. Will stop Rocephin and will broaden coverage with cefepime. At this point there is no con cern for atypical agent or aspiration pneumonia. Will also do a MRSA swab to rule this out. If there is evidence of infection on the x-ray then will add azithromycin for atypical coverage. Assessment 2. Hyponatremia improving. Unclear etiology possibly related to cyclophosphamide Plan: Will hold cyclophosphamide. Will continue with gentle replacement Assessment 3. Breast cancer. Patient had met with Dr. Olsen last and does not want to continue with chemotherapy. She is felt horrible since she started and had no idea that she would feel this bad. Assessment 4. Continue with same DVT prophylaxis Assessment 5. Hypothyroidism Plan: Continue with same thyroid Assessment 6. Anemia without evidence of loss Plan: Will continue to monitor Assessment 7. Dehydration. Patient is fluid positive. We will watch closely. Code status is DNR. Quality VTE Deep Vein Thrombosis/Pulmonary Embolism Present on Admission: No
[2023-08-09] MEDS: GABAPENTIN 100 MG CAPSULE PO ×2 (09:29→20:20)
[2023-08-09] MEDS: ENOXAPARIN 40 MG/0.4 ML SYRINGE SUBCUT (09:29)
[2023-08-09] MEDS: CEFEPIME 2 GM in SODIUM CHLORIDE 0.9% 100 ML IV ×2 (09:29→20:45)
[2023-08-09 11:40] LABS: MRSA (Nasal) PCR Not Detected (Not Detect)
--- NOTE | 2023-08-09 14:28 | PC.NURSE ---
Around 1300 MD ordered blood cultures to be collected from the pt's port. I let pt know what MD ordered & that I will be collecting from the port and pt informed me that her port does not have blood return and that it has not had blood return for a while. Pt also stated port was tested by DI and they tried Heparin to draw blood from port and that still didn't work. This RN still attempted to see if it was true. Gathered supplies and attempted to draw blood, but there was no blood return. Called to notify and stated a possible sx consult to remove port and to d/c maintenance fluids and cancel collection from port. D/c'd fluids, checked pt's temp: 97.7 F oral temp, and administered Tylenol and Ibuprofen to stay on top of fever. Pt has no c/o pain, N/V, or SOB. Pt looks comfortable in bed and requests that door be closed so she can rest.
[2023-08-09] MEDS: VANCOMYCIN 750 MG/150 ML PIGGYBACK 150 MG IV (14:52)
--- NOTE | 2023-08-09 17:03 | PM.CALLCOV.1 ---
Call Coverage Note Note Date of Patient Contact: 08/09/23 Time of Patient Contact: 17:03 Narrative of Care Provided: Anticipate removal of port a cath tomorrow 08/10 in afternoon for presumed bacteremia. -npo after midnight ok for clears up to noon tomorrow.
[2023-08-09] MEDS: ATORVASTATIN 20 MG TABLET 10 MG PO (20:19)
[2023-08-09] MEDS: DOCUSATE 100 MG CAPSULE PO (20:19)
[2023-08-09] MEDS: SODIUM CHLORIDE 0.9% FLUSH 10 ML IV (20:40)
[2023-08-10] VITALS (10 sets, daily range): BP systolic 99–119; BP diastolic 50–65; PULSE 77–107; RESP 16–20; TEMP 36.2–36.9; O2SAT 92–99; BMI 28.5
[2023-08-10] MEDS: VANCOMYCIN 750 MG/150 ML PIGGYBACK 150 MG IV ×2 (01:49→13:39)
[2023-08-10 04:50] LABS: Basophils Absolute Auto 0 /uL (0-100); Basophils Percent Auto 0.7 % (0-2); Eosinophils Absolute Auto 100 /uL (0-450); Eosinophils Percent Auto 2.2 % (2-4); Hematocrit 32.1 % (36-46); Hemoglobin 10.9 g/dL (12.0-16.0); Lymphocytes Absolute Auto 100 /uL (1100-4500); Lymphocytes Percent Auto 2.2 % (25-40); Mean Corpuscular Hemoglobin 31.3 PG (26-34); Mean Corpuscular Volume 92.1 fL (80-100); Monocytes Absolute Auto 200 /uL (0-900); Monocytes Percent Auto 4.3 % (3-14); Neutrophils Absolute Auto 4200 /uL (1500-7000); Neutrophils Percent Auto 90.6 % (50-75); Platelet Count 169 X10^3/uL (150-400); Red Blood Cell Count 3.49 X10^6/uL (4.0-5.2); Red Cell Distribution Width 20.4 % (11.6-14.8); White Blood Cell Count 4.6 X10^3/uL (4.5-11.0)
[2023-08-10 05:04] LABS: BUN Creatinine Ratio 21.9 (6-22); Blood Urea Nitrogen 16 mg/dL (7-17); Calcium 8.3 mg/dL (8.4-10.2); Carbon Dioxide 24 mmol/L (22-32); Chloride 96 mmol/L (98-107); Estimated Glomerular Filt Rate > 60 mL/min (>60); Glucose 110 mg/dL (80-110); HEMOLYSIS 19 (0-50); Potassium 4.3 mmol/L (3.4-5.1); Sodium 124 mmol/L (137-145)
[2023-08-10] MEDS: ONDANSETRON 4 MG ODT PO ×4 (05:21→22:43)
[2023-08-10 05:31] LABS: Add Manual Diff / Slide Review SLIDE REVIEW
[2023-08-10] MEDS: LEVOTHYROXINE 125 MCG TABLET PO (05:58)
[2023-08-10] MEDS: IBUPROFEN 400 MG TABLET PO ×2 (05:58→19:39)
[2023-08-10] MEDS: ACETAMINOPHEN 325 MG TABLET 650 MG PO ×2 (05:59→19:39)
[2023-08-10] MEDS: PANTOPRAZOLE DR 40 MG TABLET PO ×2 (06:51→17:26)
[2023-08-10 06:57] LABS: Anisocytosis 2+
--- NOTE | 2023-08-10 08:33 | P.PN_ITS ---
Subjective Subjective Date Patient Seen: 08/10/23 Time Patient Seen: 08:33 Interval history: Patient continues to feel poorly. She was very nauseous last night and thought she would vomit but she did not. She is not feeling nausea right now. She denies any abdominal pain. She is passing flatus. She is urinating. She started coughing about an hour ago and has been coughing. She just feels weak. She is not been out of bed. Exam Vital Signs (past 8 hours): - 08/10/23 04:44 08/10/23 08:00 Temperature 98.5 F Pulse Rate 83 Respiratory Rate 19 Blood Pressure 107/54 L Pulse Oximetry 93 94 Oxygen Delivery Method Nasal Cannula Oxygen Flow Rate 2 1 Fraction of Inspired Oxygen 28 SaO2/FiO2 Ratio 346 Oxygen Delivery Method Nasal Cannula Oxygen Flow Rate 1 Narrative Exam Narrative: Patient has been afebrile for the last 24 hours. Blood pressures are stable. She continues on 2 L nasal cannula oxygen. She is alert and oriented x3 appears ill but no apparent distress. HEENT is remarkable for patient appearing pale but mucous membranes moist and pink Neck: Supple without adenopathy Chest: Patient with crackles bibasilar and scattered rhonchi left lung field. Cor: Regular rate and rhythm Abdomen: Positive bowel sounds, soft, nontender Extremities: No edema pulses intact Objective Labs 08/10/23 04:04 08/10/23 04:04 Labs: Laboratory Results - last 24 hr 08/09/23 08/10/23 08/10/23 09:57 04:04 04:04 WBC 4.6 RBC 3.49 L Hgb 10.9 L Hct 32.1 L MCV 92.1 MCH 31.3 MCHC 34.0 RDW 20.4 H Plt Count 169 Neut % (Auto) 90.6 H Lymph % (Auto) 2.2 L [place] % (Auto) 4.3 Eos % (Auto) 2.2 Baso % (Auto) 0.7 Neut # (Auto) 4200 Lymph # (Auto) 100 L [place] # (Auto) 200 Eos # (Auto) 100 Baso # (Auto) 0 RBC Morphology See below Anisocytosis 2+ H Sodium 124 L Potassium 4.3 Chloride 96 L Carbon Dioxide 24 BUN 16 Creatinine 0.73 Estimated GFR > 60 BUN/Creatinine Ratio 21.9 Glucose 110 Calcium 8.3 L Nasal Screen MRSA (PCR) Not detected PFSH Medical History Anxiety Arrhythmia Atypical chest pain Cancer of right breast GERD (gastroesophageal reflux disease) Graves disease History of COVID-19 (12/16/22) Hx of intestinal obstruction Hyperlipidemia Hypertension Hyperthyroidism Neuropathy Surgical History H/O cardiac radiofrequency ablation (02/2022) H/O hysterectomy for benign disease History of ankle surgery (~1995) History of cholecystectomy (~1994) History of hysterectomy (1988) History of surgery (~1978) Hx of right mastectomy (02/03/23) Social History household members: family and children Smoking Status: Never smoker alcohol intake: never Assessment & Plan Assessment & Plan narrative: Assessment & Plan narrative: 78-year-old female with breast cancer and currently undergoing chemotherapy admitted for severe hyponatremia and overall weakness with febrile illness of unclear etiology. Reviewed chart and met with patient.? Patient has now had a ongoing fever for approximately 36 hours. Left message with Dr. Olsen to discuss antimicrobial therapy etc..? Awaiting return phone call Possible cyclophosphamide contributing to hyponatremia Assessment 1.? Febrile illness in patient undergoing chemotherapy for breast cancer with mild neutropenia Plan: Fever has improved with cefepime and vancomycin. Patient previously mildly neutropenic but now normal. Discussed with Dr. Olsen yesterday. He recommended removing the port is soon as possible. Dr. Magana was consulted and patient is NPO and the plan is to do this later today. Patient is no longer wanted chemotherapy also we are not able to draw on the port. Repeat urine and blood cultures are negative. We were unable to do a blood culture from the port because we were unable to draw. Repeat chest x-ray showed bilateral left greater than right apical and perihilar infiltrates. Presumed sepsis etiology is pneumonia. Will consult PT and RT. Assessment 2. Hyponatremia improving.? Unclear etiology possibly related to cyclophosphamide Plan: Will hold cyclophosphamide.? Will continue with gentle replacement. Stable. IV fluids stopped last night. Will continue to monitor. Assessment 3. Breast cancer.? Patient had met with Dr. Olsen last and does not want to continue with chemotherapy.? She is felt horrible since she started and had no idea that she would feel this bad. Assessment 4. Continue with same DVT prophylaxis Assessment 5.? Hypothyroidism Plan: Continue with same thyroid Assessment 6. Anemia without evidence of loss. Suspect some possibility of dilutional Plan: Will continue to monitor Assessment 7. Dehydration.? Patient is fluid positive.? We will watch closely. IV fluids were discontinued last night. Will continue to monitor Assessment 8. Sepsis due to community-acquired pneumonia inpatient undergoing chemotherapy. Unclear organism. Repeat blood cultures pending. We will continue with IV cefepime and vancomycin. 52 minutes spent with patient and discussing with physicians and reviewing chart and formulating a plan Code status is DNR. Quality VTE Deep Vein Thrombosis/Pulmonary Embolism Present on Admission: No
[2023-08-10] MEDS: CEFEPIME 2 GM in SODIUM CHLORIDE 0.9% 100 ML IV ×2 (09:25→21:09)
[2023-08-10] MEDS: ENOXAPARIN 40 MG/0.4 ML SYRINGE SUBCUT (09:25)
[2023-08-10 09:26] LABS: NT-proBNP (BNP-Adult 18+) 2330 pg/mL (<450)
[2023-08-10] MEDS: SODIUM CHLORIDE 0.9% FLUSH 10 ML IV (09:26)
--- NOTE | 2023-08-10 10:50 | PT.IIE ---
Current Diagnoses Hypo-osmolality and hyponatremia (08/07/23) Surgery Performed Operation Date: 08/10/23 15:30 <No data on this case meets the specified criteria> Surgical History (Last Reviewed 08/08/23 @ 10:45 by Garry Islas MD) H/O cardiac radiofrequency ablation (02/2022) H/O hysterectomy for benign disease History of ankle surgery (~1995) History of cholecystectomy (~1994) History of hysterectomy (1988) History of surgery (~1978) Hx of right mastectomy (02/03/23) Medical History (Last Reviewed 08/08/23 @ 10:44 by Garry Islas MD) Anxiety Arrhythmia Atypical chest pain Cancer of right breast GERD (gastroesophageal reflux disease) Graves disease History of COVID-19 (12/16/22) Hx of intestinal obstruction Hyperlipidemia Hypertension Hyperthyroidism Neuropathy Physical Therapy Inpatient Evaluation/Re-Eval M1 PT/OT-IP Prior Functional Status Start: 08/10/23 13:37 Freq: NEEDED Status: Active Protocol: Document 08/10/23 13:38 AB (Rec: 08/10/23 13:59 AB [id number]) Medical Review Prior Functional Status Medical History Reviewed Yes Communication Pt is able to communicate all needs. Mobility and Gait Pt reports she uses a 4WW over the last couple of weeks due to weakness for household and community distances, but had not used an AD prior to that. Activities of Daily Living and IADL's Pt is IND with ADLs and reports her family assists her with IADLs. Social History Household Members family,children Living Arrangements House Number of Floors (Floors) One Floor Number of Stairs To Enter/Railing? 2 small [place] Home Environment High Toilet,Walk in Shower Home Equipment Four Wheel Walker,Shower Seat with Backrest,Hand Held Shower ,Time Study Technician,Grab Bars In Shower Additional Social History Comment Pt reports she has an adjustable bed at home. She also states her family can assist her 07/06 if needed. M2 PT-IP Current Condition Start: 08/10/23 13:37 Freq: NEEDED Status: Active Protocol: Document 08/10/23 13:38 AB (Rec: 08/10/23 13:59 AB [id number]) Physical Therapy Current Condition Current Condition Evaluation Date 08/10/23 Treatment Diagnosis generalized weakness Onset Date 08/07/23 M3 PT-IP Subjective Start: 08/10/23 13:37 Freq: NEEDED Status: Active Protocol: Document 08/10/23 13:38 AB (Rec: 08/10/23 13:59 AB [id number]) Subjective Physical Therapy Visit Type Type Initial Evaluation Visit Start Time 10:50 Visit Stop Time 11:45 Total Visit Minutes 55 Physical Therapy Visit Comments Patient Comments Pt presents semi supine in bed with son at bedside. After introduction, the pt is agreeable to PT eval. Therapy Pain Assessment Pain When Pain Assessed During Mobility Pain Present Pain Present Denied Pain M4 PT-IP Mobility and Gait Start: 08/10/23 13:37 Freq: NEEDED Status: Active Protocol: Document 08/10/23 13:38 AB (Rec: 08/10/23 13:59 AB [id number]) PT-Bed Mobility Assessment Rolling Type of Rolling Roll to Right,Roll to Left Level of Assist Standby Assistance Supine to Sit Supine to Sit Standby Assistance Sit to Supine Sit to Supine Standby Assistance Scooting Scooting to Edge of Bed Standby Assistance Scooting Up and Down in Bed Standby Assistance PT-Transfer Assessment Sit to and From Stand Sit to and from Stand Standby Assistance Equipment Transfer Assistive Device Gait Belt,Front Wheeled Walker Transfers Transfer Destination Bed Transfer Technique Stand Step Pivot Transfer Ability Level of Assist Standby Assistance Gait Assessment Comments Gait Comments Pt reports feeling too weak to attempt ambulation this AM. However, she is able to take lateral steps to her left return to bed with FWW and SBA . Stair Climbing Assessment Comments Stair Climbing Comments Not assessed due to weakness and fatigue. PT-Balance Assessment Sitting Balance and Reactions Static Sitting Balance Ability Normal Dynamic Sitting Balance Ability Normal Standing Balance and Reactions Static Standing Balance Ability Good Dynamic Standing Balance Ability Fair Device Used FWW M5 PT-IP Objective Assessments Start: 08/10/23 13:37 Freq: NEEDED Status: Active Protocol: Document 08/10/23 13:38 AB (Rec: 08/10/23 13:59 AB [id number]) Orientation Orientation/Cognition Level of Alertness Alert Orientation Name,Age,Birthday,Month,Date, Year,Day of Week,Place, Situation Language Function Ability No Deficits Noted Safety Awareness Understands Safety Issues Memory Description No Deficits Noted Gross Range of Motion Upper Extremity ROM Assessment Within Functional Limits Lower Extremity ROM Assessment Within Functional Limits Strength Upper Extremity Strength Assessment Within Functional Limits Lower Extremity Strength Assessment Within Functional Limits M6 PT-IP Treatment Start: 08/10/23 13:37 Freq: NEEDED Status: Active Protocol: Document 08/10/23 13:38 AB (Rec: 08/10/23 13:59 AB [id number]) Physical Therapy Treatment Education Education Provided Safety Brace Education Patient Other Treatments Other Treatment Performed Due to soiled brief, PT assisted pt to doff brief, perform pericare and don lean brief. The pt was able to perform rolling independently with use of bed rails. She is also able to perform smnall hip lift/bridge to adjust brief and to adjust herself in bed when she is supine position. At end of session, the pt returned to semi supine position in bed, with all needs met and call light within reach. M7 PT-IP Assessment and Plan Start: 08/10/23 13:37 Freq: NEEDED Status: Active Protocol: Document 08/10/23 13:38 AB (Rec: 08/10/23 13:59 AB [id number]) PT Summary Assessment and Plan Potential Rehabilitation Potential Fair Status of Condition at Evaluation Stable Summary Impairments Strength,Bed Mobility, Transfers,Gait,Activity Tolerance Assessment Summary Michele Hernández is an 78 year old male patient presenting with generalized weakness which has worsened over the last few weeks, and a number of medical comorbidities. The pt demonstrates decreased activity tolerance/endurance and muscular weakness during today's PT evaluation. The pt is able to perform bed mobility, STS and transfer with SBA, using FWW for STS and transfer. However, the pt reports feeling to weak and fatigued to attempt ambulation , though she is able to take lateral steps before sitting back to bed. Based on the pt's level of function, she would benefit from additional skilled PT during her hospitalization in order to improve to her highest level of function. PT currently recommends discharge to home with 24/7 assistance and home health PT, however this is subject to change based on the pt's progress. Goals Bed Mobility Goal Independent Transfer Goal Independent Gait Goal Standby Assistance,Front Wheel Walker Gait Distance 50 Other Goals Pt to be able to ascend/ descend 2 steps with SBA to IND using 1 hand rail to show improving strength. Days to Meet Goals 10 Frequency of Treatment Frequency Of Treatment Once a Day Treatment Plan Physical Therapy Treatment Plan Bed Mobility Training,Transfer Training,Gait Training, Therapeutic Exercise,Balance Retraining,Discharge Planning, Hot or Cold Pack,Neuromuscular Re-ed,Coordination Retraining ,Manual Therapy Other Recommendations and Next Treatment Attempt gait as able. Perform Focus additional assessments as indicated. Precautions Other Precautions Fall risk Recommendations To Nursing Amount of Assist Needed 1 Person Assist Discharge Recommendations PT Discharge Recommendations Home with 24/ Assist Available,Home Health Other Discharge Recommendations Home health PT may be indicated to improve strength and endurance. Equipment Needed for Home Before FWW (unless pt progresses to Discharge using 4WW) Transportation Needs at Discharge Private Vehicle,Wheelchair/ Cabulance
--- NOTE | 2023-08-10 15:45 | P.CONS_ITS ---
History of Present Illness Consult details Date Patient Seen: 08/10/23 Time Patient Seen: 15:52 Chief complaint: Chemo fatigue? Narrative: 78 y.o woman history of Right breast cancer sp mastectomy and axillary node dissection pT3, pN2a. She is undergoing adjuvant chemotherapy and presented to [facility] two days ago with hyponatremia and pneumonia. Her port a cath has the ability to infuse but not draw and as a result no blood cultures could be obtained via the port. Oncology has recommended removal of the port for possible infection. Meds Home Medications and Allergies Home Medications Medication Instructions Recorded Confirmed Type atorvastatin 10 mg tablet 10 mg PO BEDTIME 08/07/20 08/07/23 History cholecalciferol (vitamin D3) 25 50 mcg PO DAILY 08/07/20 08/07/23 History mcg (1,000 unit) capsule (Vitamin D3) alendronate 70 mg tablet 70 mg PO QWEEK 08/12/22 08/07/23 History metronidazole 1 % topical gel 1 applic topical DAILY 01/08/23 08/07/23 History (Metrogel) CMP Estriol Vaginal 0.1% cream See Rx Instructions .Route 01/28/23 08/07/23 Rx .COMPLEX #30 grams acetaminophen 325 mg capsule 650 mg PO QID PRN pain #60 caps 02/03/23 08/07/23 Rx (Tylenol) docusate sodium 100 mg capsule 100 mg PO PRN PRN Constipation 03/04/23 08/07/23 History (Colace) pantoprazole 40 mg tablet,delayed 40 mg PO BID 04/16/23 08/07/23 History release ondansetron 4 mg disintegrating 4 mg PO Q6H nause, chemotherapy 06/08/23 08/07/23 Rx tablet #30 tabs prochlorperazine maleate 5 mg 5 mg PO QID PRN Nausea #30 tabs 06/08/23 08/07/23 Rx tablet (Compazine) lidocaine-prilocaine 2.5 %-2.5 % 1 applic topical PRN PRN port pain 06/10/23 08/07/23 Rx topical cream #30 grams benzonatate 100 mg PO TID PRN Cough 08/08/23 08/08/23 History levothyroxine 125 mcg tablet 125 mcg PO QAM 08/08/23 08/08/23 History (Synthroid) Allergies Allergy/AdvReac Type Severity Reaction Status Date / Time ketorolac AdvReac Severe Vomiting Verified 06/18/23 10:48 morphine AdvReac Severe Anxious Verified 06/18/23 10:48 Exam Vital Signs (past 8 hours): - 08/10/23 08:00 08/10/23 08:00 08/10/23 12:00 Temperature 97.7 F 97.9 F Pulse Rate 81 85 Respiratory Rate 17 17 Blood Pressure 103/50 L 99/65 Pulse Oximetry 94 92 94 Oxygen Delivery Method Nasal Cannula Oxygen Flow Rate 1 0 2 Fraction of Inspired Oxygen 08/10/23 08:31 Temperature Pulse Rate 78 Respiratory Rate Blood Pressure Pulse Oximetry 92 Oxygen Delivery Method Nasal Cannula Oxygen Flow Rate 2 Fraction of Inspired Oxygen 28 Fraction of Inspired Oxygen 28 SaO2/FiO2 Ratio 328 Oxygen Delivery Method Nasal Cannula Oxygen Flow Rate 2 Narrative Exam Narrative: Gen-Adult woman alert and oriented Chest-Non labored Ext-WWP Objective Labs 08/11/23 04:25 08/11/23 04:25 Labs: Laboratory Results - last 24 hr 08/10/23 08/10/23 08/10/23 04:04 04:04 04:04 WBC 4.6 RBC 3.49 L Hgb 10.9 L Hct 32.1 L MCV 92.1 MCH 31.3 MCHC 34.0 RDW 20.4 H Plt Count 169 Neut % (Auto) 90.6 H Lymph % (Auto) 2.2 L [place] % (Auto) 4.3 Eos % (Auto) 2.2 Baso % (Auto) 0.7 Neut # (Auto) 4200 Lymph # (Auto) 100 L [place] # (Auto) 200 Eos # (Auto) 100 Baso # (Auto) 0 RBC Morphology See below Anisocytosis 2+ H Sodium 124 L Potassium 4.3 Chloride 96 L Carbon Dioxide 24 BUN 16 Creatinine 0.73 Estimated GFR > 60 BUN/Creatinine Ratio 21.9 Glucose 110 Calcium 8.3 L NT-Pro-B Natriuret Pep 2330 H PFSH Medical History Anxiety Arrhythmia Atypical chest pain Cancer of right breast GERD (gastroesophageal reflux disease) Graves disease History of COVID-19 (12/16/22) Hx of intestinal obstruction Hyperlipidemia Hypertension Hyperthyroidism Neuropathy Surgical History H/O cardiac radiofrequency ablation (02/2022) H/O hysterectomy for benign disease History of ankle surgery (~1995) History of cholecystectomy (~1994) History of hysterectomy (1988) History of surgery (~1978) Hx of right mastectomy (02/03/23) Social History household members: family and children Tobacco & Substance Use Smoking Status: Never smoker alcohol intake: never Assessment & Plan Assessment and plan (1) Port-A-Cath in place: Problem details: 78-year-old woman with a history of right breast cancer with a dysfunctional Port-A-Cath. She is on adjuvant chemotherapy currently admitted to the hospital for pneumonia. There is possibility that the Port-A-Cath may be infected although no cultures can be obtained from it and its removal has been requested by Oncology. Overview of the procedure was discussed with the patient. Procedural risks including hemorrhage, embolism were discussed. Questions have been answered she is in agreement with this plan she provides her consent to proceed. Status: Acute
--- NOTE | 2023-08-10 16:41 | SUR.OPER ---
Supine on padded OR bed, head on pillow, arms secured on padded arm boards at <90 degrees abduction, legs uncrossed, safety belt at thigh, tape over blanket over lower legs.
--- NOTE | 2023-08-10 16:43 | SUR.HOLD ---
1605 verbal consent for procedure given by pt, states too weak to sign consent form after attempt, witnessed by TODD RN
[2023-08-10] MEDS: BUPIVACAINE 0.25% (PF) VIAL 30 ML INJ (16:46)
--- NOTE | 2023-08-10 17:20 | PM.OP.1 ---
Operative Date/Time/Diagnoses Date of procedure: 08/10/23 Time of procedure: 17:20 Pre-op diagnosis: port a cath dysfunction Post-op diagnosis: same Procedure & Clinicians Procedure: removal of port cath Same procedure as scheduled: Yes Indications: 78 y.o woman hx of right breast cancer T3N2a who is undergoing adjuvant chemotherapy. She has a dysfunctional port a cath and is admitted to the hospital with pneumonia there is a possibility that her port may be infected and oncology requests removal. Surgeon: Norman Magana Click Yes if Unassisted: Yes Anesthesia Type: Local Operative Notes Findings: Port intact, port a cath cavity unremarkable Specimen(s): other (left chest wall fluid from port a cath pocket) Estimated Blood Loss (mL): 5 Procedure in detail: Patient was brought to the operating room placed supine on the table. Bilateral lower extremity compression devices were applied. Sedation was administered by anesthesia. The patient was prepped and draped in standard fashion. Time-out was performed. She received antibiotics prior to skin incision. 1% lidocaine was infiltrated in the skin overlying the Port-A-Cath. Incision with the knife was made through the skin and subcutaneous tissues. The Port-A-Cath was grasped and the anchoring sutures were removed. A Vicryl suture was then placed around the insertion site of the catheter and this was tied down at that same time that the catheter was withdrawn. The specimen was passed off the field. Cultures of the Port-A-Cath pocket were taken. Hemostasis was achieved. The subcutaneous tissue was reapproximated using Vicryl suture and skin closed with interrupted nylon suture. Patient tolerated procedure well. Post-operative Condition: stable Disposition: Acute Care
[2023-08-10] MEDS: LACTATED RINGERS 1,000 ML 42 ML IV (17:24)
[2023-08-10] MEDS: FUROSEMIDE 20 MG TABLET PO (18:48)
[2023-08-10] MEDS: DOCUSATE 100 MG CAPSULE PO (21:09)
[2023-08-10] MEDS: ATORVASTATIN 20 MG TABLET 10 MG PO (21:09)
[2023-08-10] MEDS: GABAPENTIN 100 MG CAPSULE PO (21:09)
[2023-08-10] MEDS: BENZONATATE 100 MG CAPSULE PO (21:10)
[2023-08-11] VITALS (10 sets, daily range): BP systolic 106–124; BP diastolic 53–59; PULSE 68–86; RESP 14–20; TEMP 36.1–36.8; O2SAT 93–98
[2023-08-11] MEDS: VANCOMYCIN 750 MG/150 ML PIGGYBACK 150 MG IV ×2 (02:59→14:37)
[2023-08-11 04:54] LABS: Add Manual Diff / Slide Review NO; Basophils Absolute Auto 100 /uL (0-100); Basophils Percent Auto 1.2 % (0-2); Eosinophils Absolute Auto 200 /uL (0-450); Eosinophils Percent Auto 3.4 % (2-4); Hematocrit 29.7 % (36-46); Hemoglobin 10.1 g/dL (12.0-16.0); Lymphocytes Absolute Auto 300 /uL (1100-4500); Lymphocytes Percent Auto 5.3 % (25-40); Mean Corpuscular HGB Conc 34.1 % (30-36); Mean Corpuscular Volume 91.1 fL (80-100); Monocytes Absolute Auto 400 /uL (0-900); Monocytes Percent Auto 8.2 % (3-14); Neutrophils Absolute Auto 4100 /uL (1500-7000); Neutrophils Percent Auto 81.9 % (50-75); Platelet Count 180 X10^3/uL (150-400); Red Blood Cell Count 3.26 X10^6/uL (4.0-5.2); Red Cell Distribution Width 20.4 % (11.6-14.8)
[2023-08-11 05:04] LABS: BUN Creatinine Ratio 18.8 (6-22); Blood Urea Nitrogen 18 mg/dL (7-17); Calcium 8.5 mg/dL (8.4-10.2); Carbon Dioxide 21 mmol/L (22-32); Chloride 100 mmol/L (98-107); Estimated Glomerular Filt Rate 60 mL/min (>60); Glucose 88 mg/dL (80-110); HEMOLYSIS < 15 (0-50); Potassium 3.8 mmol/L (3.4-5.1); Sodium 127 mmol/L (137-145)
--- NOTE | 2023-08-11 06:00 | DI.ECHO.S_ITS ---
[facility]---------+ [facility] +---------+ : : [address] [place] : : : : [id number] : : : : Phone: [phone]+ Echocardiogram Report + + :Name: YOLANDA MCBRIDE Study Date: 08/11/2023 Height: 62 in : :[facility] ReadingLocation: Weight: 156 lb : : Gender: Female BSA: 1.7 m2 : :: 1945 Age: 78 yrs BP: 112/54 mmHg: :Reason For Study: CONGESTIVE HEART FAILURE : :Ordering Physician: ELLIOT, : :MONIQUE Performed By: Mandy Dodd : :Referring: MONIQUE DEL ROSARIO : + + Interpretation Summary The ejection fraction is estimated to be 55-60%. Left ventricular global longitudinal strain average is normal at -21.5% (normal is more negative than -20%). Diastolic parameters suggest probable normal left ventricular diastolic function and normal filling pressures. The left atrium is borderline dilated. The right ventricle is at the upper limits of normal in size. The right ventricular systolic function is normal. There is mild to moderate tricuspid regurgitation. The right ventricular systolic pressure is estimated to be at least 33 mmHg based on an estimated right atrial pressure of 3 mm Hg. Compared to the prior study dated 05/19/2023, the global longitudinal strain has normalized. Procedure: A two-dimensional transthoracic echocardiogram with color flow and Doppler was performed. The study quality was technically adequate. Comparison is made with the echocardiogram of 05/19/2023. The patient was in sinus rhythm with heart rates between 63-75 bpm during the exam. Left Ventricle: The left ventricle is normal in size and wall thickness. The ejection fraction is estimated to be 55-60%. Left ventricular global longitudinal strain average is normal at -21.5% (normal is more negative than -20%). Diastolic parameters suggest probable normal left ventricular diastolic function and normal filling pressures. Right Ventricle: The right ventricle is at the upper limits of normal in size. The right ventricular systolic function is normal. Atria: The left atrium is borderline dilated. Right atrial size is normal. There is no Doppler evidence for an interatrial shunt. Mitral Valve: The mitral valve is normal in structure and function. There is mild mitral annular calcification. There is trace mitral regurgitation. Aortic Valve: The aortic valve is trileaflet. The aortic valve opens well. There is no aortic valve stenosis. No aortic regurgitation is present. Tricuspid Valve: The tricuspid valve leaflets are thin and pliable. There is mild to moderate tricuspid regurgitation. The right ventricular systolic pressure is estimated to be at least 33 mmHg based on an estimated right atrial pressure of 3 mm Hg. Pulmonic Valve: The pulmonic valve leaflets are thin and pliable; valve motion is normal. There is mild pulmonic regurgitation. Great Vessels: The aortic root is normal size. The dimensions of the ascending aorta are normal. The IVC is of normal diameter and collapses greater than 50% with a sniff. This suggests a low right atrial pressure of 3 mm Hg. Pericardium/ Pleura There is no pericardial effusion. There is no pleural effusion. MMode/2D Measurements & Calculations LVIDd: 4.3 cm LVOT diam: 1.9 cm LVIDs: 2.7 cm Ao root diam: 2.7 cm FS: 36.9 % asc Aorta Diam: 3.2 cm EPSS: 0.58 cm Ao Arch Diam (Prox Trans): 2.6 cm IVSd: 0.79 cm LVPWd: 0.89 cm LV oliva. diameter/BSA (cm/m^2): 2.5 LV sys. diameter/BSA (cm/m^2): 1.6 LA A2 area: 20.3 cm2 RA long axis: 3.9 cm LA A4 area: 18.1 cm2 RA area: 11.7 cm2 LA length (vol): 5.2 cm RA vol: 29.7 ml LA vol: 59.9 ml RA : 17.3 ml/m2 LA vol index: 34.8 ml/m2 IVC diam: 1.7 cm RVD1 (basal): 4.0 cm TAPSE: 1.7 cm Doppler Measurements & Calculations Ao V2 max: 121.3 cm/sec LVOT Max [place]: 92.2 cm/sec Ao V2 mean: 86.4 cm/sec LV V1 max P.4 mmHg Ao max P.9 mmHg LV V1 VTI: 21.6 cm Ao mean P.3 mmHg AC(I,D): 2.2 cm2 Ao V2 VTI: 28.9 cm AC(V,D): 2.3 cm2 sev ratio: 0.75 AC indexed to BSA (cm^2/m^2): 1.3 MV E max jaycob: 96.5 cm/sec TR max jaycob: 273.9 cm/sec MV A max jaycob: 60.0 cm/sec TR max P.0 mmHg MV E/A: 1.6 PA V2 max: 80.3 cm/sec Med Peak E' [place]: 7.4 cm/sec PA V2 mean: 56.0 cm/sec E/E' med: 13.1 PA mean P.4 mmHg Lat Peak E' [place]: 11.7 cm/sec PA pr(Accel): 31.0 mmHg E/E' lat: 8.3 E/e' average: 10.7 MV dec time: 0.21 sec SV(LVOT): 64.5 ml Reading Physician:08:48 AM
[2023-08-11] MEDS: LEVOTHYROXINE 125 MCG TABLET PO (06:45)
[2023-08-11] MEDS: ONDANSETRON 4 MG ODT PO ×4 (06:45→23:51)
[2023-08-11] MEDS: BENZONATATE 100 MG CAPSULE PO ×3 (06:45→18:25)
[2023-08-11] MEDS: PANTOPRAZOLE DR 40 MG TABLET PO ×2 (06:45→16:51)
[2023-08-11 06:52] LABS: Anisocytosis 2+
[2023-08-11] MEDS: GABAPENTIN 100 MG CAPSULE PO ×2 (08:40→21:58)
[2023-08-11] MEDS: CEFEPIME 2 GM in SODIUM CHLORIDE 0.9% 100 ML IV ×2 (08:40→21:58)
[2023-08-11] MEDS: ENOXAPARIN 40 MG/0.4 ML SYRINGE SUBCUT (08:40)
[2023-08-11] MEDS: SODIUM CHLORIDE 0.9% FLUSH 10 ML IV (08:41)
--- NOTE | 2023-08-11 09:00 | DI.RAD.S_ITS ---
PROCEDURE: XR CHEST 1V INDICATIONS: pneumonia TECHNIQUE: One view of the chest was acquired. COMPARISON: [facility], CR, XR CHEST 1V, 08/07/2023, 17:46. [facility], CR, XR CHEST 2 VIEWS, 07/22/2023, 17:11. [facility], CR, XR CHEST 2V, 08/09/2023, 8:57. FINDINGS: Surgical changes and devices: Right breast clips. Cholecystectomy clips. Left-sided port has been removed. Lungs and pleura: Bilateral patchy airspace opacity is not significantly changed. No silhouetting. No significant pleural effusion. No pneumothorax. Mediastinum: Mediastinal contours appear unchanged. Heart size is normal. Bones and chest wall: No suspicious bony lesions. Overlying soft tissues appear unremarkable. IMPRESSION: Bilateral patchy airspace opacity is not significantly changed. Findings could be due to infectious/inflammatory etiology such as pneumonitis. Left-sided port has been removed. Dictated by: Chilo Sandhu M.D. on 08/11/2023 at 9:17 Approved by: Chilo Sandhu M.D. on 08/11/2023 at 9:19
--- NOTE | 2023-08-11 09:23 | PM.PN.1 ---
Subjective Subjective Date Patient Seen: 08/11/23 Time Patient Seen: : Interval history: Patient still feeling very weak but feeling little better today. No nausea or vomiting. No pain. She had her Port-A-Cath taken out yesterday afternoon and did well. Culture is pending. Patient had large BM last night. Patient is going to get up in the chair with PT today. They worked with her yesterday for assessment. Patient denies shortness of breath but is now on 4 L nasal cannula but O2 sat is 95% so I anticipate we can wean her down on this. Exam Vital Signs (past 8 hours): - 08/11/23 04:00 08/11/23 07:30 08/11/23 07:00 Temperature 98.1 F Pulse Rate 71 Respiratory Rate 20 Blood Pressure 112/54 L Pulse Oximetry 94 95 Oxygen Delivery Method Nasal Cannula Nasal Cannula Oxygen Flow Rate 4 4 08/11/23 08:00 Temperature 97.1 F L Pulse Rate 68 Respiratory Rate 18 Blood Pressure 112/55 L Pulse Oximetry 98 Oxygen Delivery Method Oxygen Flow Rate 4 Fraction of Inspired Oxygen 28 SaO2/FiO2 Ratio 328 Oxygen Delivery Method Nasal Cannula Oxygen Flow Rate 4 Narrative Exam Narrative: Afebrile vital signs are stable. On 4 L nasal cannula O2 with O2 sat 95-96% HEENT: Patient appears pale but more engaged today more energetic. Mucous membranes moist and pink Neck supple Chest: Scattered expiratory wheezes left base Cor: Regular rate and rhythm without murmur. Occasional PVC or PAC Abdomen: Positive bowel sounds, soft, nontender, nondistended Extremities: No edema pulses intact Objective Labs 08/11/23 04:25 08/11/23 04:25 Labs: Laboratory Results - last 24 hr 08/10/23 08/11/23 08/11/23 04:04 04:25 04:25 WBC 5.0 RBC 3.26 L Hgb 10.1 L Hct 29.7 L MCV 91.1 MCH 31.0 MCHC 34.1 RDW 20.4 H Plt Count 180 Neut % (Auto) 81.9 H Lymph % (Auto) 5.3 L [place] % (Auto) 8.2 Eos % (Auto) 3.4 Baso % (Auto) 1.2 Neut # (Auto) 4100 Lymph # (Auto) 300 L [place] # (Auto) 400 Eos # (Auto) 200 Baso # (Auto) 100 RBC Morphology See below Anisocytosis 2+ H Sodium 127 L Potassium 3.8 Chloride 100 Carbon Dioxide 21 L BUN 18 H Creatinine 0.96 Estimated GFR 60 BUN/Creatinine Ratio 18.8 Glucose 88 Calcium 8.5 NT-Pro-B Natriuret Pep 2330 H PFSH Medical History Anxiety Arrhythmia Atypical chest pain Cancer of right breast GERD (gastroesophageal reflux disease) Graves disease History of COVID-19 (12/16/22) Hx of intestinal obstruction Hyperlipidemia Hypertension Hyperthyroidism Neuropathy Surgical History H/O cardiac radiofrequency ablation (02/2022) H/O hysterectomy for benign disease History of ankle surgery (~1995) History of cholecystectomy (~1994) History of hysterectomy (1988) History of surgery (~1978) Hx of right mastectomy (02/03/23) Social History household members: family and children Smoking Status: Never smoker alcohol intake: never Assessment & Plan Assessment & Plan narrative: 78-year-old female with breast cancer and currently undergoing chemotherapy admitted for severe hyponatremia and overall weakness with febrile illness of unclear etiology. Reviewed chart and met with patient.? Patient has now had a ongoing fever for approximately 36 hours. Left message with Dr. Olsen to discuss antimicrobial therapy etc..? Awaiting return phone call Possible cyclophosphamide contributing to hyponatremia Assessment 1.? Febrile illness in patient undergoing chemotherapy for breast cancer with mild neutropenia Plan:? Fever has improved with cefepime and vancomycin.? Patient previously mildly neutropenic but now normal.? Patient is no longer wanted chemotherapy also we are not able to draw on the port.? Repeat urine and blood cultures are negative.? We were unable to do a blood culture from the port because we were unable to draw.? Port was removed last night and culture pending. Repeat chest x-ray this am pending.? Presumed sepsis etiology is pneumonia.? Continue with PT and RT. Assessment 2. Hyponatremia improving.? Unclear etiology possibly related to cyclophosphamide Plan: Will hold cyclophosphamide.? continues to improve. ? Will continue to monitor. Continue to treat pneumonia Assessment 3. Breast cancer.? Patient had met with Dr. Olsen last and does not want to continue with chemotherapy.? She is felt horrible since she started and had no idea that she would feel this bad. Assessment 4. Continue with same DVT prophylaxis Assessment 5.? Hypothyroidism Plan: Continue with same thyroid Assessment 6. Anemia without evidence of loss.? Suspect some possibility of dilutional. slight worsening Plan: Will continue to monitor Assessment 7. Dehydration.? Patient is fluid positive. Good diuresis with oral lasix yesterday. will give again today Assessment 8. Sepsis due to community-acquired pneumonia inpatient undergoing chemotherapy.? Unclear organism.? Repeat blood cultures pending.? We will continue with IV cefepime and vancomycin. portacath removed and culture pending. Assessment 9. Episodes of SVT very brief last night and shortly prior to removal of port. Patient was given esmolol in the OR. Patient has been stable overnight. Blood pressures are coming up. Reviewed echo that showed improvement from May. Moderate mitral regurg with normal EF and pump function. Suspect fluid overload. Will give more Lasix today. Will reassess in the morning. Assessment 10. Hypoxemia secondary to pneumonia possible fluid overload. Reviewed chest x-ray which shows no changes from 48 hours ago. Reviewed BNP from yesterday. Reviewed echo. Plan: Will continue to treat with antibiotics and pneumonia. Continue with incentive spirometry. Continue with RT. will give 20 mg IV Lasix today. If patient is not improving by tomorrow and decreasing oxygenation will do CT scan chest abdomen and pelvis. 54 minutes spent with patient and discussing with physicians and reviewing chart and formulating a plan Code status is DNR. Quality VTE Deep Vein Thrombosis/Pulmonary Embolism Present on Admission: No
[2023-08-11] MEDS: IBUPROFEN 400 MG TABLET PO ×3 (10:49→23:51)
[2023-08-11] MEDS: ACETAMINOPHEN 325 MG TABLET 650 MG PO ×3 (10:50→23:51)
--- NOTE | 2023-08-11 13:55 | PT.IPTN ---
Current Diagnoses Hypo-osmolality and hyponatremia (08/07/23) Surgery Performed Operation Date: 08/10/23 15:30 Actual Procedures p Port-A-Cath Removal(Left) - Norman Magana MD Physical Therapy Treatment Note M2 PT-IP Current Condition Start: 08/10/23 13:37 Freq: NEEDED Status: Active Protocol: Document 08/10/23 13:38 AB (Rec: 08/10/23 13:59 AB [id number]) Physical Therapy Current Condition Current Condition Evaluation Date 08/10/23 Treatment Diagnosis generalized weakness Onset Date 08/07/23 M3 PT-IP Subjective Start: 08/10/23 13:37 Freq: NEEDED Status: Active Protocol: Document 08/11/23 14:57 TS (Rec: 08/11/23 15:19 TS [id number]) Subjective Physical Therapy Visit Type Type Treatment Note Visit Start Time 13:55 Visit Stop Time 14:34 Total Visit Minutes 39 Number of TECHNICIAN [employer]AR[employer] CABLE EQUIPMENT Visits 1 Physical Therapy Visit Comments Patient Comments Pt found resting in bed, son leaving room, pt reports feeling better today, has not been out of bed today, agreeable to PT. M4 PT-IP Mobility and Gait Start: 08/10/23 13:37 Freq: NEEDED Status: Active Protocol: Document 08/11/23 14:57 TS (Rec: 08/11/23 15:19 TS [id number]) PT-Bed Mobility Assessment Supine to Sit Supine to Sit Standby Assistance Scooting Scooting to Edge of Bed Standby Assistance PT-Transfer Assessment Sit to and From Stand Sit to and from Stand Standby Assistance Equipment Transfer Assistive Device Gait Belt,Front Wheeled Walker Comments Mobility Comments Pt found resting in bed on 3L of 02, SPo2 95% at rest. Supine to sit SBA with HOB elevated and use of BUE support. She performed sit to stand SBA with FWW, has no retroleaning coming into standing. She ambulated ~60' in room SBA/CGA with management of o2 lines. She performed steps x2 with R counter support CGA, pt side steps up and down, cues were provided for sequencing. Pt sat back EOB, Spo2 86% on 3L, recovered to 93% after ~1min with cues for breathing. Sit to stand from bed SBA, pt ambulated to chair another ~12 '. She was left in chair with all needs met, nursing staff in room. Gait Assessment Gait Gait Assistance Required: Standby Assistance,Contact Guard Assist Distance (Feet) 72 Assistive Devices Assistive Device Gait Belt,Front Wheeled Walker Gait Deviations General Gait Pattern Decreased Stride Length, Decreased Feet Clearance, Flexed Trunk Factors Limiting Gait Function Factors Limiting Gait Function Decreased Activity Tolerance, Decreased Strength,Poor Balance,Respiratory Distress Comments Gait Comments See mobility comments. Stair Climbing Assessment Evaluation Level of Assist On Stairs Contact Guard Assistance Devices Stair Climbing Assistive Devices Right Railing Technique/Endurance Stair Climbing Direction Ascend and Descend Stair Climbing Technique Step to Step Number of Steps Climbed 2 Comments Stair Climbing Comments See mobility comments. PT-Balance Assessment Sitting Balance and Reactions Static Sitting Balance Ability Normal Dynamic Sitting Balance Ability Normal Standing Balance and Reactions Static Standing Balance Ability Good Dynamic Standing Balance Ability Fair Device Used FWW M5 PT-IP Objective Assessments Start: 08/10/23 13:37 Freq: NEEDED Status: Active Protocol: Document 08/10/23 13:38 AB (Rec: 08/10/23 13:59 AB [id number]) Orientation Orientation/Cognition Level of Alertness Alert Orientation Name,Age,Birthday,Month,Date, Year,Day of Week,Place, Situation Language Function Ability No Deficits Noted Safety Awareness Understands Safety Issues Memory Description No Deficits Noted Gross Range of Motion Upper Extremity ROM Assessment Within Functional Limits Lower Extremity ROM Assessment Within Functional Limits Strength Upper Extremity Strength Assessment Within Functional Limits Lower Extremity Strength Assessment Within Functional Limits M6 PT-IP Treatment Start: 08/10/23 13:37 Freq: NEEDED Status: Active Protocol: Document 08/11/23 14:57 TS (Rec: 08/11/23 15:19 TS [id number]) Physical Therapy Treatment Education Education Provided Safety Brace Education Patient M7 PT-IP Assessment and Plan Start: 08/10/23 13:37 Freq: NEEDED Status: Active Protocol: Document 08/11/23 14:57 TS (Rec: 08/11/23 15:19 TS [id number]) PT Summary Assessment and Plan Potential Rehabilitation Potential Fair Summary Impairments Strength,Bed Mobility, Transfers,Gait,Activity Tolerance Progress Towards Goals Progressing Toward Goals Assessment Summary Michele is making good progress with her mobility. She continues to be SBA for bed mobility and sit to stands with FWW. She progressed her gait to ~72'SBA/CGA w/FWW. Her o2 desats to mid 80's on 3L oxymask with mobility, recovers to low 90's with ~ 1min. She progressed to stairs x2 CGA with UEs on counter top to assist ascending/ descending stairs. PT continues to recommend home with 24/7 assist and HHPT. Goals Bed Mobility Goal Independent Transfer Goal Independent Gait Goal Standby Assistance,Front Wheel Walker Gait Distance 50 Other Goals Pt to be able to ascend/ descend 2 steps with SBA to IND using 1 hand rail to show improving strength. Days to Meet Goals 10 Frequency of Treatment Frequency Of Treatment Once a Day Treatment Plan Physical Therapy Treatment Plan Bed Mobility Training,Transfer Training,Gait Training, Therapeutic Exercise,Balance Retraining,Discharge Planning, Hot or Cold Pack,Neuromuscular Re-ed,Coordination Retraining ,Manual Therapy Other Recommendations and Next Treatment Progress gait, continue stair Focus training. Precautions Other Precautions Fall risk Recommendations To Nursing Amount of Assist Needed 1 Person Assist Discharge Recommendations PT Discharge Recommendations Home with 24/7 Assist Available,Home Health Other Discharge Recommendations Home health PT may be indicated to improve strength and endurance. Equipment Needed for Home Before FWW (unless pt progresses to Discharge using 4WW) Transportation Needs at Discharge Private Vehicle,Wheelchair/ Cabulance
[2023-08-11] MEDS: VANCOMYCIN TROUGH 1 REQUEST MISC (14:36)
--- NOTE | 2023-08-11 15:28 | CM.DPC ---
Addendum entered by EDWARD Arriaga 08/11/23 16:24: From Benny at [facility], can accept patient. Original Note: DCP Continued: EMPLOYMENT EVALUATOR/CASE MANAGER reviewed EMR. Per chart, PT rec HH at this time. Per BIOCHEMISTRY SPECIALIST Ari, moving better today but continues to rec HH. EMPLOYMENT EVALUATOR/CASE MANAGER entered room and introduced self and role. Patient resting in chair and accompanied by friend at bedside. Confirms lives with son Florian ([phone]) and RAJEEV Gallardo. Son will be in tomorrow between [id number] for caregiver training with PT. Patient was told likely d/c tomorrow. Patient interested in HH service, requested [facility]. Patient confirms her family can drive her home. Patient confident she can walk up the two stairs needed into the home when time to d/c. EMPLOYMENT EVALUATOR/CASE MANAGER spoke with Benny at [facility]. He agreed to review and would let CM team know if can accept or not. Plan: home when medically stable, likely tomorrow. [facility] reviewing for nursing/PT. Likely transport with family in POV. CM team will continue to follow closely. EDWARD Arriaga
[2023-08-11] MEDS: VANCOMYCIN PEAK 1 REQUEST MISC (16:51)
[2023-08-11] MEDS: FUROSEMIDE 20 MG TABLET PO (17:44)
[2023-08-11 17:53] LABS: Vancomycin Peak 22.2 ug/mL (20-40)
[2023-08-11] MEDS: ATORVASTATIN 20 MG TABLET 10 MG PO (21:58)
[2023-08-11] MEDS: DOCUSATE 100 MG CAPSULE PO (21:58)
[2023-08-12] VITALS (11 sets, daily range): BP systolic 99–137; BP diastolic 47–74; PULSE 63–87; RESP 17–20; TEMP 35.9–36.6; O2SAT 90–95
[2023-08-12] MEDS: VANCOMYCIN 1,000 MG/200 ML PIGGYBACK 200 MG IV ×2 (02:11→14:29)
[2023-08-12 04:48] LABS: Add Manual Diff / Slide Review NO; Basophils Absolute Auto 100 /uL (0-100); Basophils Percent Auto 1.5 % (0-2); Eosinophils Absolute Auto 200 /uL (0-450); Eosinophils Percent Auto 4.4 % (2-4); Hematocrit 28.8 % (36-46); Hemoglobin 9.9 g/dL (12.0-16.0); Lymphocytes Absolute Auto 300 /uL (1100-4500); Lymphocytes Percent Auto 5.9 % (25-40); Mean Corpuscular HGB Conc 34.5 % (30-36); Mean Corpuscular Hemoglobin 31.4 PG (26-34); Mean Corpuscular Volume 91.2 fL (80-100); Monocytes Absolute Auto 500 /uL (0-900); Monocytes Percent Auto 9.4 % (3-14); Neutrophils Absolute Auto 4100 /uL (1500-7000); Neutrophils Percent Auto 78.8 % (50-75); Platelet Count 193 X10^3/uL (150-400); Red Blood Cell Count 3.16 X10^6/uL (4.0-5.2); Red Cell Distribution Width 20.9 % (11.6-14.8); White Blood Cell Count 5.2 X10^3/uL (4.5-11.0)
[2023-08-12 05:03] LABS: BUN Creatinine Ratio 25.6 (6-22); Blood Urea Nitrogen 23 mg/dL (7-17); Calcium 8.3 mg/dL (8.4-10.2); Carbon Dioxide 22 mmol/L (22-32); Chloride 99 mmol/L (98-107); Estimated Glomerular Filt Rate > 60 mL/min (>60); Glucose 85 mg/dL (80-110); HEMOLYSIS < 15 (0-50); Potassium 3.5 mmol/L (3.4-5.1); Sodium 126 mmol/L (137-145)
[2023-08-12 05:08] LABS: NT-proBNP (BNP-Adult 18+) 2050 pg/mL (<450)
[2023-08-12 06:01] LABS: Anisocytosis 2+
[2023-08-12] MEDS: BENZONATATE 100 MG CAPSULE PO ×3 (06:48→21:05)
[2023-08-12] MEDS: LEVOTHYROXINE 125 MCG TABLET PO (06:48)
[2023-08-12] MEDS: PANTOPRAZOLE DR 40 MG TABLET PO ×2 (06:48→17:07)
[2023-08-12] MEDS: ONDANSETRON 4 MG ODT PO ×2 (06:48→12:00)
[2023-08-12] MEDS: GABAPENTIN 100 MG CAPSULE PO ×2 (08:12→21:06)
[2023-08-12] MEDS: ENOXAPARIN 40 MG/0.4 ML SYRINGE SUBCUT (08:12)
[2023-08-12] MEDS: ACETAMINOPHEN 325 MG TABLET 650 MG PO ×3 (08:13→21:06)
[2023-08-12] MEDS: IBUPROFEN 400 MG TABLET PO ×3 (08:13→21:05)
--- NOTE | 2023-08-12 08:38 | DI.CT.S_ITS ---
PROCEDURE: CT ANGIO CHEST PE PROTOCOL INDICATIONS: respiratory failure TECHNIQUE: After the administration of intravenous contrast, 2 mm thick sections acquired from the pulmonary apices to the posterior costophrenic angles. 3-dimensional maximum intensity projection (MIP) coronal and sagittal reformats were then acquired through the thorax. For radiation dose reduction, the following was used: automated exposure control, adjustment of mA and/or kV according to patient size. COMPARISON: None. FINDINGS: Image quality: Excellent. Lungs and pleura: Diffuse bilateral ground-glass opacities are seen throughout both lung gomez. Small bilateral pleural effusions. Central and peripheral airways are patent and normal in caliber. Mediastinum: Heart size is normal. No pericardial effusion. No mediastinal adenopathy by size criteria. The aorta has atherosclerosis with no aneurysmal dilatation. Moderate-sized hiatal hernia which contains food matter. Otherwise the esophagus appears normal. Bones and chest wall: No suspicious bony lesions. No vertebral body compression fractures. No axillary or supraclavicular adenopathy by size criteria. Thyroid gland is normal. Abdomen: Limited visualization of the upper abdomen shows no acute abnormality. IMPRESSION: 1. No pulmonary embolism. 2. Diffuse bilateral ground-glass opacities. Differential diagnosis includes pulmonary edema and atypical pneumonia is. Other less common causes include hypersensitivity pneumonitis, radiation pneumonitis, among others. A chemotherapy induced drug reaction is also a possibility if no other cause is identified. 4. Moderate sized hiatal hernia. 5. Small bilateral pleural effusions. Dictated by: Russell Rowe M.D. on 08/12/2023 at 9:06 Approved by: Russell Rowe M.D. on 08/12/2023 at 9:17
--- NOTE | 2023-08-12 08:39 | PM.HP.1 ---
History of Present Illness History of Present Illness Date Patient Seen: 08/12/23 Time Patient Seen: 08:39 Chief complaint: Chemo fatigue? Narrative: Patient is an 78-year-old female patient of Dr. Flood is whom cross covering for who presents for severe weakness. Apparently patient was diagnosed with breast cancer approximately weeks ago. Started on chemo. Ever since she is been on chemo she is not felt well. Progressively worse over the last week. She discuss with her oncologist that she did not want to do chemo anymore and apparently he is looking at radiation and the question of possibly restarting her chemo. She is overall been feeling a progressive weakness. No headaches no visual symptoms no fevers no chills no cough no shortness a breath abdominal pain. No urinary changes. No skin changes. She just has not felt well. Got to the point where she could not really get out of bed and at that point she was brought to the hospital. She otherwise has no major new changes in health. Today she got a temperature of a 100? 0.4 is getting chills. She still has no cough or other changes. [facility] Medical History Anxiety Arrhythmia Atypical chest pain Cancer of right breast GERD (gastroesophageal reflux disease) Graves disease History of COVID-19 (12/16/22) Hx of intestinal obstruction Hyperlipidemia Hypertension Hyperthyroidism Neuropathy Surgical History H/O cardiac radiofrequency ablation (02/2022) H/O hysterectomy for benign disease History of ankle surgery (~1995) History of cholecystectomy (~1994) History of hysterectomy (1988) History of surgery (~1978) Hx of right mastectomy (02/03/23) Social History household members: family and children Smoking Status: Never smoker alcohol intake: never Meds Home Medications and Allergies Home Medications Medication Instructions Recorded Confirmed Type atorvastatin 10 mg tablet 10 mg PO BEDTIME 08/07/20 08/07/23 History cholecalciferol (vitamin D3) 25 50 mcg PO DAILY 08/07/20 08/07/23 History mcg (1,000 unit) capsule (Vitamin D3) alendronate 70 mg tablet 70 mg PO QWEEK 08/12/22 08/07/23 History metronidazole 1 % topical gel 1 applic topical DAILY 01/08/23 08/07/23 History (Metrogel) CMP Estriol Vaginal 0.1% cream See Rx Instructions .Route 01/28/23 08/07/23 Rx .COMPLEX #30 grams acetaminophen 325 mg capsule 650 mg PO QID PRN pain #60 caps 02/03/23 08/07/23 Rx (Tylenol) docusate sodium 100 mg capsule 100 mg PO PRN PRN Constipation 03/04/23 08/07/23 History (Colace) pantoprazole 40 mg tablet,delayed 40 mg PO BID 04/16/23 08/07/23 History release ondansetron 4 mg disintegrating 4 mg PO Q6H nause, chemotherapy 06/08/23 08/07/23 Rx tablet #30 tabs prochlorperazine maleate 5 mg 5 mg PO QID PRN Nausea #30 tabs 06/08/23 08/07/23 Rx tablet (Compazine) lidocaine-prilocaine 2.5 %-2.5 % 1 applic topical PRN PRN port pain 06/10/23 08/07/23 Rx topical cream #30 grams benzonatate 100 mg PO TID PRN Cough 08/08/23 08/08/23 History levothyroxine 125 mcg tablet 125 mcg PO QAM 08/08/23 08/08/23 History (Synthroid) Allergies Allergy/AdvReac Type Severity Reaction Status Date / Time ketorolac AdvReac Severe Vomiting Verified 06/18/23 10:48 morphine AdvReac Severe Anxious Verified 06/18/23 10:48 Exam Vital Signs (past 8 hours): - 08/12/23 03:45 08/12/23 08:00 Temperature 97.0 F L 97.5 F L Pulse Rate 69 63 Respiratory Rate 17 18 Blood Pressure 107/56 L 108/51 L Pulse Oximetry 94 95 Oxygen Flow Rate 3 3 Fraction of Inspired Oxygen 28 SaO2/FiO2 Ratio 328 Oxygen Delivery Method Nasal Cannula Oxygen Flow Rate 3 Objective Labs 08/12/23 04:10 08/12/23 04:10 Labs: Laboratory Results - last 24 hr 08/11/23 08/11/23 08/12/23 13:45 16:50 04:10 WBC 5.2 RBC 3.16 L Hgb 9.9 L Hct 28.8 L MCV 91.2 MCH 31.4 MCHC 34.5 RDW 20.9 H Plt Count 193 Neut % (Auto) 78.8 H Lymph % (Auto) 5.9 L [place] % (Auto) 9.4 Eos % (Auto) 4.4 H Baso % (Auto) 1.5 Neut # (Auto) 4100 Lymph # (Auto) 300 L [place] # (Auto) 500 Eos # (Auto) 200 Baso # (Auto) 100 RBC Morphology See below Anisocytosis 2+ H Sodium Potassium Chloride Carbon Dioxide BUN Creatinine Estimated GFR BUN/Creatinine Ratio Glucose Calcium NT-Pro-B Natriuret Pep Vancomycin Peak 22.2 Vancomycin Trough 12.0 08/12/23 04:10 WBC RBC Hgb Hct MCV MCH MCHC RDW Plt Count Neut % (Auto) Lymph % (Auto) [place] % (Auto) Eos % (Auto) Baso % (Auto) Neut # (Auto) Lymph # (Auto) [place] # (Auto) Eos # (Auto) Baso # (Auto) RBC Morphology Anisocytosis Sodium 126 L Potassium 3.5 Chloride 99 Carbon Dioxide 22 BUN 23 H Creatinine 0.90 Estimated GFR > 60 BUN/Creatinine Ratio 25.6 H Glucose 85 Calcium 8.3 L NT-Pro-B Natriuret Pep 2050 H Vancomycin Peak Vancomycin Trough Quality VTE Deep Vein Thrombosis/Pulmonary Embolism Present on Admission: No
--- NOTE | 2023-08-12 08:40 | P.PN_ITS ---
Subjective Subjective Date Patient Seen: 08/12/23 Time Patient Seen: 08:40 Interval history: Patient seen in follow-up of multiple issues including respiratory failure, febrile illness, hyponatremia. Patient overall feeling a little bit better. A little bit stronger. No other significant change. Patient has had no chest pain. Still feeling a little tired and fatigued but a little bit better. Otherwise no change. Tired of the cough. Exam Vital Signs (past 8 hours): - 08/12/23 03:45 08/12/23 08:00 Temperature 97.0 F L 97.5 F L Pulse Rate 69 63 Respiratory Rate 17 18 Blood Pressure 107/56 L 108/51 L Pulse Oximetry 94 95 Oxygen Flow Rate 3 3 Fraction of Inspired Oxygen 28 SaO2/FiO2 Ratio 328 Oxygen Delivery Method Nasal Cannula Oxygen Flow Rate 3 Narrative Exam Narrative: Alert elderly female lying in bed much less fatigued when I saw her last. Mucous membranes moist neck supple without adenopathy JVD or bruits. Lungs with diffuse expiratory crackles no rhonchi or wheeze. Heart is regular rate and rhythm abdomen is soft positive bowel sounds nontender extremities without cyanosis clubbing edema Objective Labs 08/12/23 04:10 08/12/23 04:10 Labs: Laboratory Results - last 24 hr 08/11/23 08/11/23 08/12/23 13:45 16:50 04:10 WBC 5.2 RBC 3.16 L Hgb 9.9 L Hct 28.8 L MCV 91.2 MCH 31.4 MCHC 34.5 RDW 20.9 H Plt Count 193 Neut % (Auto) 78.8 H Lymph % (Auto) 5.9 L [place] % (Auto) 9.4 Eos % (Auto) 4.4 H Baso % (Auto) 1.5 Neut # (Auto) 4100 Lymph # (Auto) 300 L [place] # (Auto) 500 Eos # (Auto) 200 Baso # (Auto) 100 RBC Morphology See below Anisocytosis 2+ H Sodium Potassium Chloride Carbon Dioxide BUN Creatinine Estimated GFR BUN/Creatinine Ratio Glucose Calcium NT-Pro-B Natriuret Pep Vancomycin Peak 22.2 Vancomycin Trough 12.0 08/12/23 04:10 WBC RBC Hgb Hct MCV MCH MCHC RDW Plt Count Neut % (Auto) Lymph % (Auto) [place] % (Auto) Eos % (Auto) Baso % (Auto) Neut # (Auto) Lymph # (Auto) [place] # (Auto) Eos # (Auto) Baso # (Auto) RBC Morphology Anisocytosis Sodium 126 L Potassium 3.5 Chloride 99 Carbon Dioxide 22 BUN 23 H Creatinine 0.90 Estimated GFR > 60 BUN/Creatinine Ratio 25.6 H Glucose 85 Calcium 8.3 L NT-Pro-B Natriuret Pep 0 H Vancomycin Peak Vancomycin Trough PFSH Medical History Anxiety Arrhythmia Atypical chest pain Cancer of right breast GERD (gastroesophageal reflux disease) Graves disease History of COVID-19 (12/16/22) Hx of intestinal obstruction Hyperlipidemia Hypertension Hyperthyroidism Neuropathy Surgical History H/O cardiac radiofrequency ablation (02/2022) H/O hysterectomy for benign disease History of ankle surgery (~1995) History of cholecystectomy (~1994) History of hysterectomy (1988) History of surgery (~1978) Hx of right mastectomy (02/03/23) Social History household members: family and children Smoking Status: Never smoker alcohol intake: never Assessment & Plan Assessment & Plan narrative: Respiratory failure. Probably secondary to moan pneumonia and fluid overload. But chest x-ray shows patchy infiltrates. Will obtain CT scan to make sure there is no definitive other abnormality. Will continue IV Lasix for today. Reassess tomorrow. Continue antibiotics for possible pneumonia and re-evaluate. Hopefully we can get her off oxygen for discharge. Infectious Disease. On aggressive antibiotics. He she is culture negative had her port removed question of possible pneumonia would be most likely. Clinically improving white count is normal at this point will continue 1 more day of antibiotics and consider switch tomorrow depending on CT scan. Hyponatremia. Seems to be improving. Continue current treatment fluid restrictions and a suspected secondary t her previous chemotherapy but we will continue to follow as outpatient. Dehydration. Resolved fluid positive Breast cancer. Not at this point with active treatment will have to discuss did not like chemotherapy and will have to discuss this with oncologist. Hypothyroidism stable. Anemia. Mildly down. I think this is delusional she has no evidence of loss but if continues will need to re-evaluate with iron studies and usual workup. W ill guaiac stool today. Sepsis due to community-acquired pneumonia unclear organism will continue to follow continue cefepime and vancomycin History of SVT. Nothing seeming to go on now. Echo really showed no significant change and some improvement probably overload. Will continue IV Lasix Disposition. Certainly going to be in the hospital a few more days will have to decide on antibiotics for outpatient or just discontinuing going home. Will follow up studies from today. No change continue PT follow from there. 45 minutes spent with the patient family dictation orders Quality VTE Deep Vein Thrombosis/Pulmonary Embolism Present on Admission: No
--- NOTE | 2023-08-12 09:03 | PC.NURSE ---
Assess- Patient not feeling well and is upset this morning. She states that she is upset with everything that she is going through. Her port was taken out and she now has a pheripheral iv. She has stopped her chemotherapy. Given tylenol and ibuprofen for discomfort and just back from ct scan. She is compliant and pleasant, just having an unhappy day.
[2023-08-12] MEDS: FUROSEMIDE 20 MG/2 ML VIAL IV (09:44)
[2023-08-12] MEDS: CEFEPIME 2 GM in SODIUM CHLORIDE 0.9% 100 ML IV ×2 (09:45→21:05)
--- NOTE | 2023-08-12 10:10 | PT.IPTN ---
Current Diagnoses Hypo-osmolality and hyponatremia (08/07/23) Presence of other vascular implants and grafts (08/07/23) Surgery Performed Operation Date: 08/10/23 15:30 Actual Procedures p Port-A-Cath Removal(Left) - Norman Magana MD Physical Therapy Treatment Note M2 PT-IP Current Condition Start: 08/10/23 13:37 Freq: NEEDED Status: Active Protocol: Document 08/10/23 13:38 AB (Rec: 08/10/23 13:59 AB [id number]) Physical Therapy Current Condition Current Condition Evaluation Date 08/10/23 Treatment Diagnosis generalized weakness Onset Date 08/07/23 M3 PT-IP Subjective Start: 08/10/23 13:37 Freq: NEEDED Status: Active Protocol: Document 08/12/23 11:29 TS (Rec: 08/12/23 11:42 TS [id number]) Subjective Physical Therapy Visit Type Type Treatment Note Visit Start Time 10:10 Visit Stop Time 10:40 Total Visit Minutes 30 Number of SOCK AND STOCKING IRONER Visits 2 Physical Therapy Visit Comments Patient Comments Pt found resting in bed, son in room, pt reports being tired today, agreeable to PT. M4 PT-IP Mobility and Gait Start: 08/10/23 13:37 Freq: NEEDED Status: Active Protocol: Document 08/12/23 11:29 TS (Rec: 08/12/23 11:42 TS [id number]) PT-Bed Mobility Assessment Supine to Sit Supine to Sit Minimal Assistance Sit to Supine Sit to Supine Contact Guard Assistance Scooting Scooting to Edge of Bed Contact Guard Assistance PT-Transfer Assessment Sit to and From Stand Sit to and from Stand Contact Guard Assistance Equipment Transfer Assistive Device Gait Belt,Front Wheeled Walker Comments Mobility Comments Pt found resting on 3L of o2 at 93%, agreeable to PT. Supine to sit HOB elevated 30D Anahy for uprighting trunk. Sit to stand from bed with FWW CGA, pt stood EOB for ~10secs , had x1 posterior LOB requiring Anahy to stay upright . Pt ambulated in room CGA ~20 ' with slow step thru gait, pt reports feeling dizzy, requesting to sit EOB. CUPROUS CHLORIDE OPERATOR called in room for pericare and brief change in standing. Pt ambulated ~5' from bed and step backwards to bed, dizziness decreased. Sit to supine into bed CGA with HOB flat, Spo2 90%. Pt was left in bed with nursing tending to needs. Gait Assessment Gait Gait Assistance Required: Contact Guard Assist Distance (Feet) 30 Assistive Devices Assistive Device Gait Belt,Front Wheeled Walker Gait Deviations General Gait Pattern Decreased Stride Length, Decreased Feet Clearance, Flexed Trunk Factors Limiting Gait Function Factors Limiting Gait Function Decreased Activity Tolerance, Decreased Strength,Poor Balance,Poor Safety Awareness, Respiratory Distress Comments Gait Comments See mobility comments. Stair Climbing Assessment Comments Stair Climbing Comments Did not attempt this session due to weakness and fatigue. PT-Balance Assessment Sitting Balance and Reactions Static Sitting Balance Ability Good Dynamic Sitting Balance Ability Good Standing Balance and Reactions Static Standing Balance Ability Good Dynamic Standing Balance Ability Fair Device Used FWW Comments Other Balance Tests/Deviations/Treatment Pt had x1 posterior LOB in : standing requiring Anahy to stay upright. M5 PT-IP Objective Assessments Start: 08/10/23 13:37 Freq: NEEDED Status: Active Protocol: Document 08/10/23 13:38 AB (Rec: 08/10/23 13:59 AB [id number]) Orientation Orientation/Cognition Level of Alertness Alert Orientation Name,Age,Birthday,Month,Date, Year,Day of Week,Place, Situation Language Function Ability No Deficits Noted Safety Awareness Understands Safety Issues Memory Description No Deficits Noted Gross Range of Motion Upper Extremity ROM Assessment Within Functional Limits Lower Extremity ROM Assessment Within Functional Limits Strength Upper Extremity Strength Assessment Within Functional Limits Lower Extremity Strength Assessment Within Functional Limits M6 PT-IP Treatment Start: 08/10/23 13:37 Freq: NEEDED Status: Active Protocol: Document 08/12/23 11:29 TS (Rec: 08/12/23 11:42 TS [id number]) Physical Therapy Treatment Education Education Provided Safety Brace Education Patient M7 PT-IP Assessment and Plan Start: 08/10/23 13:37 Freq: NEEDED Status: Active Protocol: Document 08/12/23 11:29 TS (Rec: 08/12/23 11:42 TS [id number]) PT Summary Assessment and Plan Potential Rehabilitation Potential Fair Summary Impairments Strength,Bed Mobility, Transfers,Gait,Activity Tolerance Progress Towards Goals Slow Progress due to Medical Issues,Slow Progress due to Activity Tolerance Assessment Summary Michele is making slow progress with her mobility this morning. She required increased assist for bed mobility to CGA/Anahy. In standing next to bed she had x1 posterior LOB requiring Anahy to stay upright. She continues to walk short distances in room, had some dizziness and fatigue with gait. Spo2 remained in low 90' s throughout session. PT is recommending home with 24/7 assist and HHPT at this time. Recommended FWW for home use, pt has 4WW at home. Goals Bed Mobility Goal Independent Transfer Goal Independent Gait Goal Standby Assistance,Front Wheel Walker Gait Distance 50 Other Goals Pt to be able to ascend/ descend 2 steps with SBA to IND using 1 hand rail to show improving strength. Days to Meet Goals 10 Frequency of Treatment Frequency Of Treatment Once a Day Treatment Plan Physical Therapy Treatment Plan Bed Mobility Training,Transfer Training,Gait Training, Therapeutic Exercise,Balance Retraining,Discharge Planning, Hot or Cold Pack,Neuromuscular Re-ed,Coordination Retraining ,Manual Therapy Other Recommendations and Next Treatment Progress gait, continue stair Focus training. Precautions Other Precautions Fall risk Recommendations To Nursing Amount of Assist Needed 1 Person Assist Discharge Recommendations PT Discharge Recommendations Home with 24/7 Assist Available,Home Health Other Discharge Recommendations Home health PT may be indicated to improve strength and endurance. Equipment Needed for Home Before FWW (unless pt progresses to Discharge using 4WW) Transportation Needs at Discharge Private Vehicle
[2023-08-12] MEDS: POTASSIUM CHLORIDE 20 MEQ TAB PO (12:00)
[2023-08-12] MEDS: ATORVASTATIN 20 MG TABLET 10 MG PO (21:05)
[2023-08-12] MEDS: SODIUM CHLORIDE 0.9% FLUSH 10 ML IV (22:00)
[2023-08-13] VITALS (8 sets, daily range): BP systolic 102–129; BP diastolic 48–81; PULSE 75–80; RESP 18–20; TEMP 35.9–36.2; O2SAT 91–97
[2023-08-13] MEDS: VANCOMYCIN 1,000 MG/200 ML PIGGYBACK 200 MG IV ×2 (02:40→14:25)
[2023-08-13 05:58] LABS: Add Manual Diff / Slide Review NO; Basophils Absolute Auto 200 /uL (0-100); Basophils Percent Auto 4.7 % (0-2); Eosinophils Absolute Auto 300 /uL (0-450); Hematocrit 31.6 % (36-46); Hemoglobin 10.6 g/dL (12.0-16.0); Lymphocytes Absolute Auto 400 /uL (1100-4500); Lymphocytes Percent Auto 8.1 % (25-40); Mean Corpuscular HGB Conc 33.5 % (30-36); Mean Corpuscular Hemoglobin 30.7 PG (26-34); Mean Corpuscular Volume 91.7 fL (80-100); Monocytes Absolute Auto 700 /uL (0-900); Monocytes Percent Auto 13.9 % (3-14); Neutrophils Absolute Auto 3500 /uL (1500-7000); Neutrophils Percent Auto 68.3 % (50-75); Platelet Count 195 X10^3/uL (150-400); Red Blood Cell Count 3.44 X10^6/uL (4.0-5.2); Red Cell Distribution Width 21.2 % (11.6-14.8); White Blood Cell Count 5.1 X10^3/uL (4.5-11.0)
[2023-08-13 06:03] LABS: Alanine Aminotransferase 24 IU/L (<35); Albumin 2.5 g/dL (3.5-5.0); Albumin Globulin Ratio 0.9 (1.0-2.8); Alkaline Phosphatase 69 U/L (38-126); Aspartate Aminotransferase 85 IU/L (14-36); BUN Creatinine Ratio 23.2 (6-22); Bilirubin Total 0.4 mg/dL (0.2-1.3); Blood Urea Nitrogen 22 mg/dL (7-17); Calcium 8.4 mg/dL (8.4-10.2); Carbon Dioxide 25 mmol/L (22-32); Chloride 100 mmol/L (98-107); Estimated Glomerular Filt Rate > 60 mL/min (>60); Globulin 2.8 g/dL (1.7-4.1); Glucose 84 mg/dL (80-110); HEMOLYSIS < 15 (0-50); Potassium 3.9 mmol/L (3.4-5.1); Sodium 129 mmol/L (137-145); Total Protein 5.3 g/dL (6.3-8.2)
[2023-08-13] MEDS: BENZONATATE 100 MG CAPSULE PO ×2 (06:10→18:57)
[2023-08-13] MEDS: IBUPROFEN 400 MG TABLET PO ×3 (06:10→18:57)
[2023-08-13] MEDS: ONDANSETRON 4 MG ODT PO ×3 (06:11→23:03)
[2023-08-13] MEDS: LEVOTHYROXINE 125 MCG TABLET PO (06:11)
[2023-08-13] MEDS: ACETAMINOPHEN 325 MG TABLET 650 MG PO ×3 (06:11→18:57)
[2023-08-13 06:25] LABS: Anisocytosis 2+
--- NOTE | 2023-08-13 08:05 | PC.NURSE ---
Addendum entered by Serina Diaz R.N. 08/13/23 18:26: Patients trough level was 23.1. Vanco not given and pharmacist adjusted vanco dosing. Original Note: Assess- Patient is alert and oriented x3, she is in better spirits this morning. Patient does not want to use the pure wick for urinating as she wants to try and ambulate and go on the commode or to the bathroom when working with physical therapy or staff. She denies pain at this time or coughing. Bowel movements have slowed down. Resting comfortably.
--- NOTE | 2023-08-13 08:52 | P.PN_ITS ---
Subjective Subjective Date Patient Seen: 08/13/23 Time Patient Seen: 08:52 Interval history: Patient states she had a bad day yesterday. She did not get out of bed. She feels she is doing better today. She is having incontinence of stool. She does not realize she is defecating. She is no longer having a fever. No longer having chills. She denies headaches. She denies chest pain or dyspnea on exertion Reviewed CT scan angio of the chest yesterday Received 20 mg IV Lasix yesterday with decent diuresis. On 3 L nasal cannula today down from 4 L Exam Vital Signs (past 8 hours): - 08/13/23 04:00 08/13/23 08:00 Temperature 96.7 F L 97 F L Pulse Rate 79 78 Respiratory Rate 20 18 Blood Pressure 129/81 121/64 Pulse Oximetry 93 97 Oxygen Flow Rate 3 3 Fraction of Inspired Oxygen 32 SaO2/FiO2 Ratio 290 Oxygen Delivery Method Nasal Cannula Oxygen Flow Rate 3 Narrative Exam Narrative: Patient sitting upright in bed eating breakfast. Color is improved. More alert and engaged. HEENT unremarkable Neck: Supple without adenopathy Cor: Regular rate and rhythm with distant S1-S2 Chest: No wheezes or rhonchi by crackles bibasilar and decreased breath sounds in the bases as well as crackles up the left lung Patient with dry cough Abdomen: Positive bowel sounds, soft Extremities: No edema, pulses intact Objective Labs 08/13/23 05:35 08/13/23 05:35 Labs: Laboratory Results - last 24 hr 08/13/23 08/13/23 05:35 05:35 WBC 5.1 RBC 3.44 L Hgb 10.6 L Hct 31.6 L MCV 91.7 MCH 30.7 MCHC 33.5 RDW 21.2 H Plt Count 195 Neut % (Auto) 68.3 Lymph % (Auto) 8.1 L [place] % (Auto) 13.9 Eos % (Auto) 5.0 H Baso % (Auto) 4.7 H Neut # (Auto) 3500 Lymph # (Auto) 400 L [place] # (Auto) 700 Eos # (Auto) 300 Baso # (Auto) 200 H RBC Morphology See below Anisocytosis 2+ H Sodium 129 L Potassium 3.9 Chloride 100 Carbon Dioxide 25 BUN 22 H Creatinine 0.95 Estimated GFR > 60 BUN/Creatinine Ratio 23.2 H Glucose 84 Calcium 8.4 Total Bilirubin 0.4 AST 85 H ALT 24 Alkaline Phosphatase 69 Total Protein 5.3 L Albumin 2.5 L Globulin 2.8 Albumin/Globulin Ratio 0.9 L PFSH Medical History Anxiety Arrhythmia Atypical chest pain Cancer of right breast GERD (gastroesophageal reflux disease) Graves disease History of COVID-19 (12/16/22) Hx of intestinal obstruction Hyperlipidemia Hypertension Hyperthyroidism Neuropathy Surgical History H/O cardiac radiofrequency ablation (02/2022) H/O hysterectomy for benign disease History of ankle surgery (~1995) History of cholecystectomy (~1994) History of hysterectomy (1988) History of surgery (~1978) Hx of right mastectomy (02/03/23) Social History household members: family and children Smoking Status: Never smoker alcohol intake: never Assessment & Plan Assessment & Plan narrative: 78-year-old female, hospital day 6. Admitted for hyponatremia and subsequently developed fever. Patient with breast cancer and currently undergoing chemotherapy admitted for severe hyponatremia and overall weakness with febrile illness of unclear etiology. Assessment 1.? Febrile illness in patient undergoing chemotherapy for breast cancer with mild neutropenia. Suspect pneumonia as etiology of fever Plan:? Fever has improved with cefepime and vancomycin.? Patient previously mildly neutropenic but now normal.? Will continue with 7 days of cefepime and vancomycin to completely treat pneumonia. Patient developed fever shortly after coming to the hospital in so unclear if this is truly a hospital-acquired pneu monia versus community-acquired pneumonia. Will continue with PT and RT. Blood cultures x2 are negative preliminary. Urine culture is negative. Culture of poor is negative thus far. Chest x-ray and CT scan show possible atypical pneumonia versus pneumonitis versus pulmonary edema Assessment 2. Hyponatremia improving.? Unclear etiology possibly related to cyclophosphamide Plan: Will hold cyclophosphamide.? continues to improve. ? Will continue to monitor. Continue to treat pneumonia. Lasix will be given again. Assessment 3. Breast cancer.? Patient had met with Dr. Olsen last and does not want to continue with chemotherapy.? She is felt horrible since she started and had no idea that she would feel this bad. Assessment 4. Continue with same DVT prophylaxis Assessment 5.? Hypothyroidism Plan: Continue with same thyroid Assessment 6. Anemia improved today which would support suspicion of dilutional potential etiology. No evidence of blood loss. Stool guaiac negative Plan: Will continue to monitor Assessment 7. Dehydration.? Patient is fluid positive.? Good diuresis withl lasix yesterday.? will give again today, Lasix IV Assessment 8. Sepsis due to community-acquired pneumonia inpatient undergoing chemotherapy.? Unclear organism.? Repeat blood cultures pending.? We will continue with IV cefepime and vancomycin. portacath removed and culture pending. Assessment 9. No further SVT Assessment 10. Hypoxemia secondary to pneumonia possible fluid overload.? ? Rev iewed BNP from yesterday.? Reviewed echo. Plan: Will continue to treat with antibiotics and pneumonia.? Continue with incentive spirometry.? Continue with RT. will give 40 mg IV Lasix today. Suspect multifactorial. Reviewed CT scan that showed possible radiation pneumonitis versus pulmonary edema versus atypical pneumonia. Will continue to treat. 57 minutes was spent with patient. Reviewing chart discussing with nursing and physicians, formulating a plan and documentation Code status is DNR Quality VTE Deep Vein Thrombosis/Pulmonary Embolism Present on Admission: No
[2023-08-13] MEDS: FUROSEMIDE 40 MG/4 ML VIAL IV (09:27)
[2023-08-13] MEDS: GABAPENTIN 100 MG CAPSULE PO ×2 (09:27→20:16)
[2023-08-13] MEDS: PANTOPRAZOLE DR 40 MG TABLET PO (09:28)
[2023-08-13] MEDS: SODIUM CHLORIDE 0.9% FLUSH 10 ML IV ×2 (09:28→20:23)
[2023-08-13] MEDS: CEFEPIME 2 GM in SODIUM CHLORIDE 0.9% 100 ML IV ×2 (09:28→20:16)
[2023-08-13] MEDS: ENOXAPARIN 40 MG/0.4 ML SYRINGE SUBCUT (09:28)
[2023-08-13] MEDS: LOPERAMIDE 2 MG CAPSULE 4 MG PO (12:06)
--- NOTE | 2023-08-13 12:07 | PT.IPTN ---
Current Diagnoses Hypo-osmolality and hyponatremia (08/07/23) Presence of other vascular implants and grafts (08/07/23) Surgery Performed Operation Date: 08/10/23 15:30 Actual Procedures p Port-A-Cath Removal(Left) - Norman Magana MD Physical Therapy Treatment Note M2 PT-IP Current Condition Start: 08/10/23 13:37 Freq: NEEDED Status: Active Protocol: Document 08/10/23 13:38 AB (Rec: 08/10/23 13:59 AB [id number]) Physical Therapy Current Condition Current Condition Evaluation Date 08/10/23 Treatment Diagnosis generalized weakness Onset Date 08/07/23 M3 PT-IP Subjective Start: 08/10/23 13:37 Freq: NEEDED Status: Active Protocol: Document 08/13/23 12:07 AB(2) (Rec: 08/13/23 13:39 AB(2) [id number]) Subjective Physical Therapy Visit Type Type Treatment Note Visit Start Time 12:07 Visit Stop Time 12:48 Total Visit Minutes 41 Number of SENIOR ACCOUNTING ANALYST Visits 0 Physical Therapy Visit Comments Patient Comments agreeable to do PT M4 PT-IP Mobility and Gait Start: 08/10/23 13:37 Freq: NEEDED Status: Active Protocol: Document 08/13/23 12:07 AB(2) (Rec: 08/13/23 13:39 AB(2) [id number]) PT-Bed Mobility Assessment Supine to Sit Supine to Sit Standby Assistance PT-Transfer Assessment Sit to and From Stand Sit to and from Stand Contact Guard Assistance,1 Person Assistance,Use of Upper Extremities Equipment Transfer Assistive Device Gait Belt,Front Wheeled Walker Orthotic/Prosthetic Devices or Brace: No Transfers Transfer Destination Chair Transfer Technique ambulated Transfer Ability Level of Assist Standby Assistance,Contact Guard Assistance,1 Person Assistance,Use of Upper Extremities Comments Mobility Comments pt supine in bed and agreeable to do PT. O2 sat with 2L/min at rest: 94%. completed supine to sit SBA with HOB elevated. pt requiring increase time to complete task . O2 sat decreases to 83%. nurse stated that O2 can go up to 4L/min. O2 sat at 3L/min: 87% and stayed at 87% for at least 30sec. O2 increased to 4L/min and O2 sat increased to 92% after ~ 1 min. pt agreed to get up and sit on the chair. Pt with very low energy level. completed sit to stand CGA and ambulated to the chair using FWW ~ 12 ft SBA to CGA. Sat on the chair. pt c/o lightheadedness. BP: 111/56. O2 sat with 4L /min O2 decreases to 74%. cued for deep breathing and O2 sat increased to 88% in ~ 15 sec. pt rested and O2 sat increased to 98% after a few more seconds. O2 decreased back to 2L/min with pt sitting on the chair. positioned pt on the chair and set up for lunch. call light within reach. pt unable to do further activities and stated that she still feels lightheaded. informed pt regarding O2 sat and mobility level and assistance and d/c recommendation of SNF rehab. Pt agreeable. informed case assembler and also informed regarding needing OT order. Gait Assessment Gait Gait Assistance Required: Standby Assistance,Contact Guard Assist Distance (Feet) 12 Able to Maintain Weight Bearing Status Yes During Gait Assistive Devices Assistive Device Gait Belt,Front Wheeled Walker Orthotic/Prosthetic Devices or Brace: No Gait Deviations General Gait Pattern Decreased Stride Length, Decreased Feet Clearance,Step- to Gait Factors Limiting Gait Function Factors Limiting Gait Function Decreased Activity Tolerance, Decreased Strength,Poor Balance,Poor Safety Awareness, Respiratory Distress M5 PT-IP Objective Assessments Start: 08/10/23 13:37 Freq: NEEDED Status: Active Protocol: Document 08/10/23 13:38 AB (Rec: 08/10/23 13:59 AB [id number]) Orientation Orientation/Cognition Level of Alertness Alert Orientation Name,Age,Birthday,Month,Date, Year,Day of Week,Place, Situation Language Function Ability No Deficits Noted Safety Awareness Understands Safety Issues Memory Description No Deficits Noted Gross Range of Motion Upper Extremity ROM Assessment Within Functional Limits Lower Extremity ROM Assessment Within Functional Limits Strength Upper Extremity Strength Assessment Within Functional Limits Lower Extremity Strength Assessment Within Functional Limits M6 PT-IP Treatment Start: 08/10/23 13:37 Freq: NEEDED Status: Active Protocol: Document 08/13/23 12:07 AB(2) (Rec: 08/13/23 13:39 AB(2) [id number]) Physical Therapy Treatment Education Education Provided Safety M7 PT-IP Assessment and Plan Start: 08/10/23 13:37 Freq: NEEDED Status: Active Protocol: Document 08/13/23 12:07 AB(2) (Rec: 08/13/23 13:39 AB(2) [id number]) PT Summary Assessment and Plan Potential Rehabilitation Potential Fair Summary Impairments Strength,Balance,Coordination, Cognition,Bed Mobility, Transfers,Gait,Activity Tolerance Progress Towards Goals Slow Progress due to Medical Issues,Slow Progress due to Activity Tolerance Assessment Summary Pt unable to ambulate much today and with decrease in O2 sat to 74% after ambulation with 4L/min O2. Pt only able to ambulate 12 ft using FWW with SBA to CGA, presents with very slow paced gait with decrease LE elevation and stride. pt has very low activity tolerance affecting mobility independence. pt will benefit from SNF rehab to improve overall strength and functional independence. Goals Bed Mobility Goal Independent Transfer Goal Independent,Front Wheeled Walker,Four Wheeled Walker Gait Goal Standby Assistance,Front Wheel Walker,Four Wheel Walker Gait Distance 50 Other Goals up/down 2 steps without rails/ DIRECTOR OF CONTRACTS CGA Days to Meet Goals 10 Frequency of Treatment Frequency Of Treatment Once a Day Treatment Plan Physical Therapy Treatment Plan Bed Mobility Training,Transfer Training,Gait Training, Therapeutic Exercise,Balance Retraining,Discharge Planning, Hot or Cold Pack,Neuromuscular Re-ed,Coordination Retraining Precautions Other Precautions O2 sat; falls Recommendations To Nursing Amount of Assist Needed 1 Person Assist Discharge Recommendations PT Discharge Recommendations SNF Rehab Transportation Needs at Discharge Wheelchair/Cabulance
[2023-08-13 13:39] LABS: Clostridium Difficile Tox PCR Negative for C. diff (Negative)
[2023-08-13 14:18] LABS: Vancomycin Trough 23.1 ug/mL (10-20)
--- NOTE | 2023-08-13 15:48 | CM.DPNOTE ---
DCP Note Spoke w/RAJEEV Gallardo at length today re short term planning and moth exterminator planning. Left [employer] and [employer] application for middle or intermediate school principal Care services. Discussed plan for patient's return home w/[facility] initially, w/potential for transition to Hospice care at home eventually. Updated by PT Serena this afternoon that patient would benefit from SNF stay. Unable to review this new information and recommendation w/patient and family due to caseload demands. Plan: Family had anticipated patient's return home w/[facility] services, PT recommendation is now SNF, need to review w.patient and family. JW
--- NOTE | 2023-08-13 16:54 | OT.IP.EVAL ---
Current Diagnoses Hypo-osmolality and hyponatremia (08/07/23) Presence of other vascular implants and grafts (08/07/23) Surgery Performed Operation Date: 08/10/23 15:30 Actual Procedures p Port-A-Cath Removal(Left) - Norman Magana MD Past Medical History (Last Reviewed 08/10/23 @ 16:00 by Norman Magana MD) Anxiety Arrhythmia Atypical chest pain Cancer of right breast GERD (gastroesophageal reflux disease) Graves disease History of COVID-19 (12/16/22) Hx of intestinal obstruction Hyperlipidemia Hypertension Hyperthyroidism Neuropathy Surgical History (Last Reviewed 08/10/23 @ 16:00 by Norman Magana MD) H/O cardiac radiofrequency ablation (02/2022) H/O hysterectomy for benign disease History of ankle surgery (~1995) History of cholecystectomy (~1994) History of hysterectomy (1988) History of surgery (~1978) Hx of right mastectomy (02/03/23) Occupational Therapy Inpatient Evaluation/Re-Eval M1 PT/OT-IP Prior Functional Status Start: 08/13/23 18:30 Freq: NEEDED Status: Active Protocol: Document 08/13/23 16:30 [facility] (Rec: 08/13/23 18:56 [facility] [id number]) Medical Review Prior Functional Status Medical History Reviewed Yes Communication Pt is able to communicate all needs. Mobility and Gait Pt reports she uses a 4WW over the last couple of weeks due to weakness for household and community distances, but had not used an AD prior to that. Activities of Daily Living and IADL's Pt is IND with ADLs and reports her family assists her with IADLs cleaning and meal prep. Social History Household Members family,children Living Arrangements House Number of Floors (Floors) One Floor Number of Stairs To Enter/Railing? 2 small [place] Home Equipment Four Wheel Walker,Shower Seat with Backrest,Hand Held Shower ,Die Maker Apprentice,Grab Bars In Shower Additional Social History Comment Pt has an adjustable bed at home. M2 OT-IP Current Condition Start: 08/13/23 18:30 Freq: Status: Active Protocol: Document 08/13/23 16:30 [facility] (Rec: 08/13/23 18:56 [facility] [id number]) Occupational Therapy Current Condition Current Condition Evaluation Date 08/13/23 Treatment Diagnosis Hypoatremia, generalized weakness, decreased activity tolerance Diagnosis Onset Date 08/07/23 M3 OT- IP Subjective and Pain Start: 08/13/23 18:30 Freq: Status: Active Protocol: Document 08/13/23 16:30 [facility] (Rec: 08/13/23 18:56 [facility] [id number]) OT- Subjective Occupational Therapy Visit Type Type Initial Evaluation Visit Start Time 16:30 Visit Stop Time 16:54 Total Visit Minutes 24 Occupational Therapy Visit Comments Patient Comments Pt very fatigued but agreeable to get up. Pt feels that she is too weak to be able to care for herself at this time. Patient/Caregiver Goals TO get stronger so able to go home. OT Pain Assessment Pain When Pain Assessed At Rest Pain Present Pain Present Denied Pain M4 OT- IP ADL's Start: 08/13/23 18:30 Freq: Status: Active Protocol: Document 08/13/23 16:30 [facility] (Rec: 08/13/23 18:56 [facility] [id number]) OT [id number] Comments OT Self-Feeding Comments Not at meal time, no issues anticipated. OT ADL-Grooming General Evaluation Grooming Ability Standby Assistance Areas Needing Assistance Retrieving/Set-up of Grooming Items Comments OT Grooming Comments Pt able to sit at the edge of the bed however on 2L dropped from 94% to 82% and O2 had to be increased to 4L. Pt very tired and just able to sit up for 4 minutes before having to lie back down. OT ADL-Oral Care General Eval Oral Care Ability Independent Comments Oral Care Comments Able to do while sitting on the edge of the bed with 4L of O2. Far from her baseline of standing at the sink with without any O2. OT ADL-Dressing General Eval Lower Body Dressing Ability Standby Assistance,Moderate Assistance Comments OT Dressing Comments Pt able to doff/melquiades for socks while seated but her O2 drops to the 80's when O2 on 2L and have to be increased to 4L to get to 90% after several minutes. At this time pt would need assist if having to stand to complete LB dressing as getting too fatigued and decreased activity tolerance. OT ADL-Toileting General Evaluation Toileting Ability Total Assistance Comments OT Toileting Comments Pt has Pure Wick in place. OT ADL-Bathing Comments OT Bathing Comments Sponge bath more appropriate at this time due to her fatigue and drop in o2 even with the O2 on 2L. At home her daughter in law just provides SBA. M5 OT- IP IADL's Start: 08/13/23 18:30 Freq: Status: Active Protocol: Document 08/13/23 16:30 [facility] (Rec: 08/13/23 18:56 [facility] [id number]) OT-Instrumental Activities of Daily Living Deficits IADL Deficits Identified Deficits Home Safety Awareness Awareness of Need for Assistance at Home Good Awareness Ability to Problem Solve Emergency Able to Problem Solve Situations Meal Preparation Meal Preparation Caregiver Provides Assist Meal Preparation Comments FAmily does meal prep for the pt. Car Record Clerk Car Record Clerk Caregiver Provides Assist M6 OT- IP Functional Cognition Start: 08/13/23 18:30 Freq: Status: Active Protocol: Document 08/13/23 16:30 [facility] (Rec: 08/13/23 18:56 [facility] [id number]) Cognitive Factors Limiting Selfcare Function Cognitive Ability Level of Alertness Alert Patient Orientation Name,Age,Birthday,Month,Date, Year,Day of Week,Place, Situation Attention Span Ability Capable of Focused Attention, Capable of Sustained Attention Ability to Follow Commands Able to Follow Multi-Step Commands Cognitive Comments Cognitive Assessment Comments Pt very pleasant and able to follow commands for ADl and mobility needs. OT- Vision and Hearing OT- Hearing Assessment OT- Hearing Assessment WFL OT- Vision Assessment Visual Acuity Glasses All The Time Visual Attentiveness WFL Occular Pursuits WFL M7 OT- IP Mobility and Balance Start: 08/13/23 18:30 Freq: Status: Active Protocol: Document 08/13/23 16:30 [facility] (Rec: 08/13/23 18:56 [facility] [id number]) OT- Bed Mobility Assessment Supine to Sit Supine to Sit Assist Contact Guard Assistance Sit to Supine Sit to Supine Assist Contact Guard Assistance OT-Transfer Assessment Sit to and From Stand Sit to and from Stand Standby Assistance,Contact Guard Assistance Comments Mobility Comments Pt needing increased time to get to the edge of the bed and O2 at 2L initially and 95% and drops to 89%. After pt getting back to bed O2 on 2L and dropped to 82% and able to recover after several minutes when O2 placed on 4L initially and gradually back down to 2L. OT- Gait Assessment Comments Gait Ability Comments Pt just able to take a few side steps to the head of the bed with CGA with FWW. OT- Balance Assessment Sitting Balance and Reactions Static Sitting Balance Ability Good Dynamic Sitting Balance Ability Good Standing Balance and Reactions Static Standing Balance Ability Fair M8 OT- IP Objective Assessments Start: 08/13/23 18:30 Freq: Status: Active Protocol: Document 08/13/23 16:30 [facility] (Rec: 08/13/23 18:56 [facility] [id number]) OT Gross Range of Motion Upper Extremity Range of Motion Assessment Within Functional Limits OT Strength Upper Extremity Strength Assessment Within Functional Limits OT- Coordination Assessment Upper Extremity Finger to Nose Test Within Functional Limits M9 OT- IP Assessment and Plan Start: 08/13/23 18:30 Freq: Status: Active Protocol: Document 08/13/23 16:30 [facility] (Rec: 08/13/23 18:56 [facility] [id number]) OT Summary Assessment and Plan Potential Rehabilitation Potential Good Analytic Complexity at Evaluation Moderate Summary OT Impairments Balance,Functional Mobility, Grooming,Dressing,Toileting, Bathing,Toilet Transfers, Shower Transfers,Activity Tolerance Progress Towards Goals Slow Progress due to Medical Issues,Slow Progress due to Activity Tolerance Assessment Summary Pt MOD complexity and main barriers are decreased activity tolerance which limits her ability to complete ADL and mobility needs. Pt just putting on socks at the edge of the bed on 2L or O2 drops to 82% and having to increase O2 needs to 4L. Pt prior not on any O2 and independent with ADL needs. Pt not able to tolerate standing before fatiguing and only able to take a few side step to the head of the bed which is not functional now to be able to do her ADl's and mobility needs. At this time pt would greatly benefit from skilled rehab. Goals Grooming Goal Independent Dressing Goal Independent Toileting Goal Independent Bathing Goal Standby Assistance Toilet Transfer Goal Independent Shower Transfer Goal Independent OT-Other Goals All the above goals for for pt without use of O2. Days to Meet Goals 20 Frequency of Treatment Frequency Of Treatment Once a Day Treatment Plan OT Treatment Plan ADL Training,Functional Mobility,Patient/Family Education,Discharge Planning Other Treatment Recommendations and Next Stand at the sink with FWW for Treatment Focus grooming needs for 5 minutes and O2 on 2L and above 90%. Discharge Recommendations OT Discharge Recommendations SNF Rehab Transportation Needs at Discharge Wheelchair/Cabulance
[2023-08-13] MEDS: ATORVASTATIN 20 MG TABLET 10 MG PO (20:16)
[2023-08-14] VITALS (9 sets, daily range): BP systolic 98–137; BP diastolic 51–77; PULSE 68–84; RESP 17–20; TEMP 35.8–36.4; O2SAT 92–98
[2023-08-14] MEDS: IBUPROFEN 400 MG TABLET PO ×4 (01:23→23:54)
[2023-08-14] MEDS: BENZONATATE 100 MG CAPSULE PO ×4 (01:23→23:54)
[2023-08-14] MEDS: ACETAMINOPHEN 325 MG TABLET 650 MG PO ×4 (01:23→23:54)
[2023-08-14] MEDS: ONDANSETRON 4 MG ODT PO ×2 (05:26→23:02)
[2023-08-14] MEDS: LEVOTHYROXINE 125 MCG TABLET PO (05:26)
[2023-08-14 06:05] LABS: Add Manual Diff / Slide Review NO; Basophils Absolute Auto 0 /uL (0-100); Basophils Percent Auto 0.4 % (0-2); Eosinophils Absolute Auto 300 /uL (0-450); Eosinophils Percent Auto 6.4 % (2-4); Hematocrit 29.7 % (36-46); Hemoglobin 9.7 g/dL (12.0-16.0); Lymphocytes Absolute Auto 600 /uL (1100-4500); Lymphocytes Percent Auto 11.3 % (25-40); Mean Corpuscular HGB Conc 32.7 % (30-36); Mean Corpuscular Hemoglobin 29.7 PG (26-34); Monocytes Absolute Auto 700 /uL (0-900); Neutrophils Absolute Auto 3300 /uL (1500-7000); Neutrophils Percent Auto 66.9 % (50-75); Platelet Count 189 X10^3/uL (150-400); Red Blood Cell Count 3.26 X10^6/uL (4.0-5.2); Red Cell Distribution Width 21.2 % (11.6-14.8); White Blood Cell Count 4.9 X10^3/uL (4.5-11.0)
[2023-08-14 06:15] LABS: Alanine Aminotransferase 23 IU/L (<35); Albumin 2.5 g/dL (3.5-5.0); Albumin Globulin Ratio 0.9 (1.0-2.8); Alkaline Phosphatase 75 U/L (38-126); Aspartate Aminotransferase 90 IU/L (14-36); BUN Creatinine Ratio 25.6 (6-22); Bilirubin Total 0.4 mg/dL (0.2-1.3); Blood Urea Nitrogen 23 mg/dL (7-17); Calcium 8.7 mg/dL (8.4-10.2); Carbon Dioxide 28 mmol/L (22-32); Chloride 100 mmol/L (98-107); Estimated Glomerular Filt Rate > 60 mL/min (>60); Globulin 2.7 g/dL (1.7-4.1); Glucose 80 mg/dL (80-110); HEMOLYSIS < 15 (0-50); Potassium 3.7 mmol/L (3.4-5.1); Sodium 131 mmol/L (137-145); Total Protein 5.2 g/dL (6.3-8.2)
[2023-08-14 06:21] LABS: NT-proBNP (BNP-Adult 18+) 1140 pg/mL (<450)
[2023-08-14 06:33] LABS: Anisocytosis 2+
[2023-08-14] MEDS: ENOXAPARIN 40 MG/0.4 ML SYRINGE SUBCUT (09:12)
[2023-08-14] MEDS: PANTOPRAZOLE DR 40 MG TABLET PO ×2 (09:13→16:29)
[2023-08-14] MEDS: VANCOMYCIN 1,500 MG/300 ML PIGGYBACK 200 MG IV (09:14)
[2023-08-14] MEDS: SODIUM CHLORIDE 0.9% FLUSH 10 ML IV ×2 (09:15→20:34)
[2023-08-14] MEDS: GABAPENTIN 100 MG CAPSULE PO ×2 (09:16→20:34)
--- NOTE | 2023-08-14 09:29 | CM.DPC ---
Addendum entered by Mayra More R.N. 08/14/23 14:40: Faxed today's progress note and P.T. note to [facility] at both of their fax numbers, included yesterday's O.T and P.T. note Addendum entered by Mayra More R.N. 08/14/23 12:42: April from [facility] has confirmed acceptance, pending [facility] auth. Also, indicated patient will need to provide own Estrogen cream. Will need to confirm ABO as well. Addendum entered by Mayra More R.N. 08/14/23 12:01: Called [facility], spoke to Merari Starry Her number is [phone]. She is on for [facility] this weekend. Let her know that P.T, and O.T. from yesterday were faxed, but most likely will not be medically ready until Wednesday. Merari indicated that referral is good for 48 hours, and she can re-review tomorrow. She also indicated that fax number that can be faxed to is: [phone], which is their universal fax, and can use on the weekend as well, this is the number that has been used before. Will plan on faxing over Dr. Celestin's note, and current P.t, and O.T. notes, she can re-review tomorrow. Addendum entered by Mayra More R.N. 08/14/23 09:40: Faxed P.T. and O.T. notes to [facility]. Original Note: DCP Cont: Met with patient, son, Florian, and dtr, Paulina, and introduced self and role. Patient was sitting up in bed, oxygen in place. Mentioned residential, was weak with P.T. Patient and family are in agreement, that she most likely will need rehab, want her to stay local, so would like [facility]. Called Cinthya and asked her to review, will send over P.T, and O.T. notes to [facility], as well. Patient is not currently on chemo. Plan would be to go to rehab, and then, home with family and [facility]. P: DCP to continue to follow. [facility] is reviewing patient, will send over therapy notes to [facility]. Mayra More RN/[employer]
--- NOTE | 2023-08-14 09:52 | PM.PN.1 ---
Subjective Subjective Date Patient Seen: 08/14/23 Time Patient Seen: 09:52 Interval history: Patient's clinical course so far reviewed with Dr. Flood yesterday Patient reports today so far as not as good as yesterday she is having increasing coughing. However that is about it. Still feels really too weak to get up out of bed. Is able to sit on the edge of the bed and maybe get to commode with assistance No new complaints or issues Exam Vital Signs (past 8 hours): - 08/14/23 04:00 08/14/23 05:38 08/14/23 08:00 Temperature 96.5 F L 97.1 F L Pulse Rate 68 76 Respiratory Rate 20 17 Blood Pressure 106/56 L 125/61 Pulse Oximetry 95 97 92 Oxygen Delivery Method Oxygen Flow Rate 3 1 1 08/14/23 09:18 Temperature Pulse Rate Respiratory Rate Blood Pressure Pulse Oximetry 93 Oxygen Delivery Method Nasal Cannula Oxygen Flow Rate 3 Fraction of Inspired Oxygen 32 SaO2/FiO2 Ratio 290 Oxygen Delivery Method Nasal Cannula Oxygen Flow Rate 3 Objective Labs 08/14/23 05:25 08/15/23 05:25 Labs: Laboratory Results - last 24 hr 08/13/23 08/13/23 08/14/23 12:34 13:22 05:25 WBC 4.9 RBC 3.26 L Hgb 9.7 L Hct 29.7 L MCV 91.0 MCH 29.7 MCHC 32.7 RDW 21.2 H Plt Count 189 Neut % (Auto) 66.9 Lymph % (Auto) 11.3 L Izard % (Auto) 15.0 H Eos % (Auto) 6.4 H Baso % (Auto) 0.4 Neut # (Auto) 3300 Lymph # (Auto) 600 L Izard # (Auto) 700 Eos # (Auto) 300 Baso # (Auto) 0 RBC Morphology See below Anisocytosis 2+ H Sodium Potassium Chloride Carbon Dioxide BUN Creatinine Estimated GFR BUN/Creatinine Ratio Glucose Calcium Total Bilirubin AST ALT Alkaline Phosphatase NT-Pro-B Natriuret Pep Total Protein Albumin Globulin Albumin/Globulin Ratio Vancomycin Trough 23.1 H* C. difficile Tox (PCR) Negative for c. diff 08/14/23 08/14/23 05:25 05:25 WBC RBC Hgb Hct MCV MCH MCHC RDW Plt Count Neut % (Auto) Lymph % (Auto) Izard % (Auto) Eos % (Auto) Baso % (Auto) Neut # (Auto) Lymph # (Auto) Izard # (Auto) Eos # (Auto) Baso # (Auto) RBC Morphology Anisocytosis Sodium 131 L Potassium 3.7 Chloride 100 Carbon Dioxide 28 BUN 23 H Creatinine 0.90 Estimated GFR > 60 BUN/Creatinine Ratio 25.6 H Glucose 80 Calcium 8.7 Total Bilirubin 0.4 AST 90 H ALT 23 Alkaline Phosphatase 75 NT-Pro-B Natriuret Pep 1140 H Total Protein 5.2 L Albumin 2.5 L Globulin 2.7 Albumin/Globulin Ratio 0.9 L Vancomycin Trough C. difficile Tox (PCR) [facility] Medical History Anxiety Arrhythmia Atypical chest pain Cancer of right breast GERD (gastroesophageal reflux disease) Graves disease History of COVID-19 (12/16/22) Hx of intestinal obstruction Hyperlipidemia Hypertension Hyperthyroidism Neuropathy Surgical History H/O cardiac radiofrequency ablation (02/2022) H/O hysterectomy for benign disease History of ankle surgery (~1995) History of cholecystectomy (~1994) History of hysterectomy (1988) History of surgery (~1978) Hx of right mastectomy (02/03/23) Social History household members: family and children Smoking Status: Never smoker alcohol intake: never Assessment & Plan Assessment & Plan narrative: 1. Atypical pneumonia-patient continues on vancomycin plus cefepime. This is good broad-spectrum coverage. Could consider adding fluoroquinolone or macrolide for atypical organisms but since patient seems to be very slowly clinically improving will hold off. There is also some evidence maybe this is more of an inflammatory process or inflammatory plus infectious process something like bronchiolitis obliterans etcetera. I think 24-48 hours parental corticosteroids might be worth trying to see if that will improve things more quickly. If there is no dramatic benefit than would likely discontinue this after that short trial. Also possible be something like Pneumocystis pneumonia. She did receive methotrexate and cyclophosphamide part of her treatment for her breast cancer (well as corticosteroids). This would put her at higher than average risk. Also the ground-glass opacities on her chest CT would be consistent with Pneumocystis. However this seems much less likely to me than an inflammatory process and so I will start her on the methylprednisolone instead but if not providing benefit or there is a significant decline than I certainly would go back and treat her for possible Pneumocystis with trimethoprim sulfamethoxazole 2 tabs of the double strength t.i.d. 2. Hyponatremia-much improved on today's numbers. No reason to recheck tomorrow in my opinion. 3. Diarrhea, likely secondary to antibiotic therapy. Negative C diff x1. If persists with increasing frequency and or volume and or symptoms related to this may need to repeat evaluation 4. Congestive heart failure/volume overload-I think patient could benefit from daily furosemide at this point. Plan to give her 20 mg IV daily least for the next couple of days and re-evaluate. 5. Sepsis-resolved. 6. Hypoxia-seemingly somewhat improved over where was at its worst. Probably a combination of her atypical pneumonia and maybe some volume overload. Continue with diuretic therapy and antibiotic therapy as above 7. Breast cancer-stable at this time. Patient's previous expressed wishes to discontinue further treatment. This is more of an outpatient decision and not affecting her inpatient care at this time 8. Weakness-should be improve given her sodium is much better. Need to treat underlying conditions as above. Perhaps the steroids will make a difference with her overall sense of well-being and her strength and energy as well 9. Disposition-clearly will need to go to half-way when ready for discharge from the hospital which is still probably several days away. Quality VTE Deep Vein Thrombosis/Pulmonary Embolism Present on Admission: No
[2023-08-14] MEDS: CEFEPIME 2 GM in SODIUM CHLORIDE 0.9% 100 ML IV ×2 (11:43→23:03)
[2023-08-14] MEDS: methylPREDNISolone 125 MG/2 ML VIAL 30 MG IV ×2 (11:44→23:02)
[2023-08-14] MEDS: FUROSEMIDE 20 MG/2 ML VIAL IV (11:44)
--- NOTE | 2023-08-14 12:04 | PT.IPTN ---
Current Diagnoses Hypo-osmolality and hyponatremia (08/07/23) Presence of other vascular implants and grafts (08/07/23) Surgery Performed Operation Date: 08/10/23 15:30 Actual Procedures p Port-A-Cath Removal(Left) - Norman Magana MD Physical Therapy Treatment Note M2 PT-IP Current Condition Start: 08/10/23 13:37 Freq: NEEDED Status: Active Protocol: Document 08/10/23 13:38 AB (Rec: 08/10/23 13:59 AB [id number]) Physical Therapy Current Condition Current Condition Evaluation Date 08/10/23 Treatment Diagnosis generalized weakness Onset Date 08/07/23 M3 PT-IP Subjective Start: 08/10/23 13:37 Freq: NEEDED Status: Active Protocol: Document 08/14/23 12:42 TS (Rec: 08/14/23 12:57 TS [id number]) Subjective Physical Therapy Visit Type Type Treatment Note Visit Start Time 12:04 Visit Stop Time 12:40 Total Visit Minutes 36 Number of SHEET TAKER Visits 1 Physical Therapy Visit Comments Patient Comments Pt found resting in bed, reports feeling very tired today and weak. Her plan is to go to SNF when medically stable, pt agreeable to PT. M4 PT-IP Mobility and Gait Start: 08/10/23 13:37 Freq: NEEDED Status: Active Protocol: Document 08/14/23 12:42 TS (Rec: 08/14/23 12:57 TS [id number]) PT-Bed Mobility Assessment Supine to Sit Supine to Sit Standby Assistance Sit to Supine Sit to Supine Standby Assistance Scooting Scooting to Edge of Bed Contact Guard Assistance PT-Transfer Assessment Sit to and From Stand Sit to and from Stand Contact Guard Assistance,1 Person Assistance,Use of Upper Extremities Equipment Transfer Assistive Device Gait Belt,Front Wheeled Walker Orthotic/Prosthetic Devices or Brace: No Comments Mobility Comments Pt found resting in bed, Spo2 95% on 3L, BP 113/54. Supine to sit SBA with HOB elevated and BUE support pushing from bed. Pt sat EOB reported some lightheadedness, agreeable to stand. Sit to stand CGA w/FWW, pt had good standing balance with no posterior leaning. She ambulated ~10' and back to bed to rest break, Spo2 desat low 80's, BP unremarkable. Pt agreed to stand again. Sit to stand CGA w/FWW, she ambulated another ~10' CGA w/FWW, reports fatigue and sat back EOB. Spo2 mid 80's, recovered to 97% after ~30secs with cues for PLB. Sit to supine back into bed SBA. Pt requesting nurse staffing for brief change, nursing notified. Gait Assessment Gait Gait Assistance Required: Contact Guard Assist,1 Person Assist Distance (Feet) 20 Able to Maintain Weight Bearing Status Yes During Gait Assistive Devices Assistive Device Gait Belt,Front Wheeled Walker Orthotic/Prosthetic Devices or Brace: No Gait Deviations General Gait Pattern Decreased Stride Length, Decreased Feet Clearance,Step- to Gait Factors Limiting Gait Function Factors Limiting Gait Function Decreased Activity Tolerance, Decreased Strength,Poor Balance,Poor Safety Awareness, Respiratory Distress Comments Gait Comments See mobility comments. Stair Climbing Assessment Comments Stair Climbing Comments Did not attempt this session due to weakness and fatigue. PT-Balance Assessment Sitting Balance and Reactions Static Sitting Balance Ability Good Dynamic Sitting Balance Ability Good Standing Balance and Reactions Static Standing Balance Ability Fair Dynamic Standing Balance Ability Fair Device Used FWW M5 PT-IP Objective Assessments Start: 08/10/23 13:37 Freq: NEEDED Status: Active Protocol: Document 08/10/23 13:38 AB (Rec: 08/10/23 13:59 AB [id number]) Orientation Orientation/Cognition Level of Alertness Alert Orientation Name,Age,Birthday,Month,Date, Year,Day of Week,Place, Situation Language Function Ability No Deficits Noted Safety Awareness Understands Safety Issues Memory Description No Deficits Noted Gross Range of Motion Upper Extremity ROM Assessment Within Functional Limits Lower Extremity ROM Assessment Within Functional Limits Strength Upper Extremity Strength Assessment Within Functional Limits Lower Extremity Strength Assessment Within Functional Limits M6 PT-IP Treatment Start: 08/10/23 13:37 Freq: NEEDED Status: Active Protocol: Document 08/14/23 12:42 TS (Rec: 08/14/23 12:57 TS [id number]) Physical Therapy Treatment Education Education Provided Safety M7 PT-IP Assessment and Plan Start: 08/10/23 13:37 Freq: NEEDED Status: Active Protocol: Document 08/14/23 12:42 TS (Rec: 08/14/23 12:57 TS [id number]) PT Summary Assessment and Plan Potential Rehabilitation Potential Fair Summary Impairments Strength,Balance,Coordination, Cognition,Bed Mobility, Transfers,Gait,Activity Tolerance Progress Towards Goals Slow Progress due to Medical Issues,Slow Progress due to Activity Tolerance Assessment Summary Michele continues to make slow progress with her mobility. She requires SBA for all bed mobility this session. She is CGA for sit to stands and ambulation. She ambulated 2x10 ' w/FWW and rest break in between. Spo2 desats from mid 90's to low/mid 80's, she recovers quickly when provided cues for PLB. PT continues to recommend SNF rehab to progress activity tolerance and functional mobility. Goals Bed Mobility Goal Independent Transfer Goal Independent,Front Wheeled Walker,Four Wheeled Walker Gait Goal Standby Assistance,Front Wheel Walker,Four Wheel Walker Gait Distance 50 Other Goals up/down 2 steps without rails/ MAIL COURIER CGA Days to Meet Goals 10 Frequency of Treatment Frequency Of Treatment Once a Day Treatment Plan Physical Therapy Treatment Plan Bed Mobility Training,Transfer Training,Gait Training, Therapeutic Exercise,Balance Retraining,Discharge Planning, Hot or Cold Pack,Neuromuscular Re-ed,Coordination Retraining Other Recommendations and Next Treatment Progress gait, continue stair Focus training. Precautions Other Precautions O2 sat; falls Recommendations To Nursing Amount of Assist Needed 1 Person Assist Discharge Recommendations PT Discharge Recommendations SNF Rehab Transportation Needs at Discharge Wheelchair/Cabulance
[2023-08-14] MEDS: ATORVASTATIN 20 MG TABLET 10 MG PO (20:34)
--- NOTE | 2023-08-14 22:24 | PC.NURSE ---
Patient is alert and oriented except to day of week and situation. Response was delayed when asked about reason for hospitalization and eventually replied that she was unable to remember. Became weepy when discussing need to go to SNF when discharged. Breath sounds CTA but is on oxygen per NC; was on 3L/min at shift change with sat of 98% so decreased to 2L/min and now at 95%. Denies SOB but does have an intermittent cough which is non-productive. HRR and telemetry reading was SR. Denied nausea. BT present and was incontinent of small amount dark stool which was guaiac +. States she is incontinent of urine so external catheter is in place; denied dysuria. Is able to assist in repositioning but preferring to lie on back and has not redness of pressure areas; will assist q2h as she will agree to; will not disturb once sleeping, however, as she has had difficulty with insomnia. Is reddened around rectum and labia so zinc protective cream was applied. IV but patient became teary when approached regarding restarting and then declined IV restart. Scattered bruises noted on bilateral UE. Has weakness in bilateral LE and has been working with PT. Reports she was up today with 1 assist and walker and walked from bed to nurse fine dining server x2. Plan is to given her meds and IV antibiotics at 2300 and will give Alprazolam at that time also to try to maximize amount of time she can sleep without being disturbed. Denied pain at time of assessment. Bilateral calf SCD's were applied. Fall risk score is high and bed alarm is activated.
[2023-08-14] MEDS: ALPRAZolam 0.25 MG TABLET PO (23:02)
[2023-08-15] VITALS (9 sets, daily range): BP systolic 105–135; BP diastolic 51–86; PULSE 54–71; RESP 16–18; TEMP 35.6–36.3; O2SAT 90–99
[2023-08-15] MEDS: LEVOTHYROXINE 125 MCG TABLET PO (05:33)
[2023-08-15] MEDS: ONDANSETRON 4 MG ODT PO ×3 (05:33→22:45)
[2023-08-15 06:13] LABS: BUN Creatinine Ratio 32.6 (6-22); Blood Urea Nitrogen 30 mg/dL (7-17); Carbon Dioxide 27 mmol/L (22-32); Chloride 99 mmol/L (98-107); Estimated Glomerular Filt Rate > 60 mL/min (>60); Glucose 151 mg/dL (80-110); HEMOLYSIS < 15 (0-50); Potassium 4.5 mmol/L (3.4-5.1); Sodium 131 mmol/L (137-145)
--- NOTE | 2023-08-15 07:58 | PM.PN.1 ---
Subjective Subjective Date Patient Seen: 08/15/23 Time Patient Seen: 07:58 Interval history: Patient is still coughing quite vigorously. She reports it feels looser and she maybe producing more sputum. Oxygen requirement is diminished slightly No new issues or problems identified. Exam Vital Signs (past 8 hours): - 08/15/23 04:21 08/15/23 07:49 Temperature 96.1 F L 96.2 F L Pulse Rate 63 54 L Respiratory Rate 18 16 Blood Pressure 135/64 125/63 Pulse Oximetry 95 99 Oxygen Flow Rate 2 2 Fraction of Inspired Oxygen 32 SaO2/FiO2 Ratio 290 Oxygen Delivery Method Nasal Cannula Oxygen Flow Rate 2 Objective Labs 08/14/23 05:25 08/15/23 05:25 Labs: Laboratory Results - last 24 hr 08/15/23 05:25 Sodium 131 L Potassium 4.5 Chloride 99 Carbon Dioxide 27 BUN 30 H Creatinine 0.92 Estimated GFR > 60 BUN/Creatinine Ratio 32.6 H Glucose 151 H Calcium 9.0 PFSH Medical History Anxiety Arrhythmia Atypical chest pain Cancer of right breast GERD (gastroesophageal reflux disease) Graves disease History of COVID-19 (12/16/22) Hx of intestinal obstruction Hyperlipidemia Hypertension Hyperthyroidism Neuropathy Surgical History H/O cardiac radiofrequency ablation (02/2022) H/O hysterectomy for benign disease History of ankle surgery (~1995) History of cholecystectomy (~1994) History of hysterectomy (1988) History of surgery (~1978) Hx of right mastectomy (02/03/23) Social History household members: family and children Smoking Status: Never smoker alcohol intake: never Assessment & Plan Assessment & Plan narrative: 1. Atypical pneumonia-patient shows evidence clinically of some improvement with decreasing oxygen requirement. Patient reports persistent cough but loosening up somewhat. I think I would continue with current antibiotic therapy. She is at day 7 today I think I would plan to give her this for least 10 days total depending on her clinical course so another 3 days. I would also continue another 24 hours with the IV corticosteroids and see if we get evidence of some more dramatic improvement. If not then I would probably abandon that (the corticosteroids). If she begins to decline clinically with increasing oxygen requirement etcetera than I would consider perhaps treatment with the trimethoprim sulfamethoxazole as outlined yesterday for possible PCP. She may benefit from Pulmonary consultation as well and or bronchoscopy to help identify organisms if she declines clinically. 2. Hyponatremia-plan to recheck tomorrow 3. Diarrhea, likely secondary to antibiotic therapy. Not an active issue at this time 4. Congestive heart failure/volume overload-I think patient could benefit from daily furosemide at this point. Plan to give her 20 mg IV daily least for the next couple of days and re-evaluate. Plan for labs tomorrow to follow-up on her electrolytes 5. Sepsis-resolved. 6. Hypoxia-seemingly somewhat improved over where was at its worst. Probably a combination of her atypical pneumonia and maybe some volume overload. Continue with diuretic therapy and antibiotic therapy as above 7. Breast cancer-stable at this time. Patient's previous expressed wishes to discontinue further treatment. This is more of an outpatient decision and not affecting her inpatient care at this time 8. Weakness-should be improve given her sodium is much better. Need to treat underlying conditions as above. Perhaps the steroids will make a difference with her overall sense of well-being and her strength and energy as well 9. Disposition-clearly will need to go to senior living when ready for discharge from the hospital which is still probably 1-3 days away. Quality VTE Deep Vein Thrombosis/Pulmonary Embolism Present on Admission: No
[2023-08-15] MEDS: ENOXAPARIN 40 MG/0.4 ML SYRINGE SUBCUT (08:19)
[2023-08-15] MEDS: PANTOPRAZOLE DR 40 MG TABLET PO ×2 (08:20→15:32)
[2023-08-15] MEDS: GABAPENTIN 100 MG CAPSULE PO ×2 (08:20→20:19)
[2023-08-15] MEDS: IBUPROFEN 400 MG TABLET PO ×2 (08:20→20:19)
[2023-08-15] MEDS: SODIUM CHLORIDE 0.9% FLUSH 10 ML IV ×3 (08:21→23:06)
[2023-08-15] MEDS: FUROSEMIDE 20 MG/2 ML VIAL IV (08:21)
[2023-08-15] MEDS: VANCOMYCIN 1,500 MG/300 ML PIGGYBACK 200 MG IV (08:21)
[2023-08-15] MEDS: ACETAMINOPHEN 325 MG TABLET 650 MG PO ×2 (08:23→20:20)
[2023-08-15] MEDS: BENZONATATE 100 MG CAPSULE PO ×2 (08:41→20:19)
[2023-08-15] MEDS: methylPREDNISolone 125 MG/2 ML VIAL 30 MG IV ×2 (11:02→22:45)
--- NOTE | 2023-08-15 11:02 | PT.IPTN ---
Current Diagnoses Hypo-osmolality and hyponatremia (08/07/23) Presence of other vascular implants and grafts (08/07/23) Surgery Performed Operation Date: 08/10/23 15:30 Actual Procedures p Port-A-Cath Removal(Left) - Norman Magana MD Physical Therapy Treatment Note M2 PT-IP Current Condition Start: 08/10/23 13:37 Freq: NEEDED Status: Active Protocol: Document 08/10/23 13:38 AB (Rec: 08/10/23 13:59 AB [id number]) Physical Therapy Current Condition Current Condition Evaluation Date 08/10/23 Treatment Diagnosis generalized weakness Onset Date 08/07/23 M3 PT-IP Subjective Start: 08/10/23 13:37 Freq: NEEDED Status: Active Protocol: Document 08/15/23 10:38 KS (Rec: 08/15/23 12:37 KS [id number]) Subjective Physical Therapy Visit Type Type Treatment Note Visit Start Time 10:38 Visit Stop Time 11:02 Total Visit Minutes 24 Number of AUTOMATIC PACKER OPERATOR Visits 2 Physical Therapy Visit Comments Patient Comments Pt agreeable to working w/ PT. M4 PT-IP Mobility and Gait Start: 08/10/23 13:37 Freq: NEEDED Status: Active Protocol: Document 08/15/23 10:38 KS (Rec: 08/15/23 12:37 KS [id number]) PT-Bed Mobility Assessment Supine to Sit Supine to Sit Minimal Assistance,1 Person Assistance,Head of Bed Elevated Scooting Scooting to Edge of Bed Contact Guard Assistance PT-Transfer Assessment Sit to and From Stand Sit to and from Stand Contact Guard Assistance, Minimal Assistance,1 Person Assistance,Use of Upper Extremities Equipment Transfer Assistive Device Gait Belt,Front Wheeled Walker Orthotic/Prosthetic Devices or Brace: No Transfers Transfer Destination Chair Transfer Technique ambulated Transfer Ability Level of Assist Minimal Assistance,1 Person Assistance,Use of Upper Extremities Comments Mobility Comments Pt in bed upon arrival, agreeable to ambulate to chair . Min A for sup<>sit. Pt reports some lightheadedness upon sitting, BP: 115/58. CGA for sit<>Stand from bed w/ FWW and ambulation to chair. Pt then performed 5x sit<>Stands w/ FWW CGA to Min A primarily for slow descent when sitting. Pt able to march in place during standing but fatigues quickly. O2 high 80s to mid 90s on 2L o2 throughout treatment, needs occasional cues for PLB. Pt able to complete ankle pumps, quad sets, and glute sets. Left in chair w/ all needs in reach. Gait Assessment Gait Gait Assistance Required: Contact Guard Assist,1 Person Assist Distance (Feet) 10 Able to Maintain Weight Bearing Status Yes During Gait Assistive Devices Assistive Device Gait Belt,Front Wheeled Walker Orthotic/Prosthetic Devices or Brace: No Gait Deviations General Gait Pattern Decreased Stride Length, Decreased Feet Clearance,Step- to Gait Factors Limiting Gait Function Factors Limiting Gait Function Decreased Activity Tolerance, Decreased Strength,Poor Balance,Poor Safety Awareness, Respiratory Distress Comments Gait Comments See mobility comments. Stair Climbing Assessment Comments Stair Climbing Comments Did not attempt this session due to weakness and fatigue. PT-Balance Assessment Sitting Balance and Reactions Static Sitting Balance Ability Good Dynamic Sitting Balance Ability Good Standing Balance and Reactions Static Standing Balance Ability Fair Dynamic Standing Balance Ability Fair Device Used FWW M5 PT-IP Objective Assessments Start: 08/10/23 13:37 Freq: NEEDED Status: Active Protocol: Document 08/10/23 13:38 AB (Rec: 08/10/23 13:59 AB [id number]) Orientation Orientation/Cognition Level of Alertness Alert Orientation Name,Age,Birthday,Month,Date, Year,Day of Week,Place, Situation Language Function Ability No Deficits Noted Safety Awareness Understands Safety Issues Memory Description No Deficits Noted Gross Range of Motion Upper Extremity ROM Assessment Within Functional Limits Lower Extremity ROM Assessment Within Functional Limits Strength Upper Extremity Strength Assessment Within Functional Limits Lower Extremity Strength Assessment Within Functional Limits M6 PT-IP Treatment Start: 08/10/23 13:37 Freq: NEEDED Status: Active Protocol: Document 08/15/23 10:38 KS (Rec: 08/15/23 12:37 KS [id number]) Physical Therapy Treatment Exercises Exercises Ankle Pumps,Gluteal Sets,Quad Sets Education Education Provided Safety M7 PT-IP Assessment and Plan Start: 08/10/23 13:37 Freq: NEEDED Status: Active Protocol: Document 08/15/23 10:38 KS (Rec: 08/15/23 12:37 KS [id number]) PT Summary Assessment and Plan Potential Rehabilitation Potential Fair Summary Impairments Strength,Balance,Coordination, Cognition,Bed Mobility, Transfers,Gait,Activity Tolerance Progress Towards Goals Slow Progress due to Medical Issues,Slow Progress due to Activity Tolerance Assessment Summary Pt continues to make slow progress with PT. Min A for bed mobility and transfers to chair using FWW. Able to tolerate 5x sit>stands w/ FWW and marching in place ~30 seconds each stance. Needs occasional cues for PLB to maintain O2. PT continues to recommend SNF rehab to progress activity tolerance and functional mobility. Goals Bed Mobility Goal Independent Transfer Goal Independent,Front Wheeled Walker,Four Wheeled Walker Gait Goal Standby Assistance,Front Wheel Walker,Four Wheel Walker Gait Distance 50 Other Goals up/down 2 steps without rails/ ASPHALT HEATER TENDER CGA Days to Meet Goals 10 Frequency of Treatment Frequency Of Treatment Once a Day Treatment Plan Physical Therapy Treatment Plan Bed Mobility Training,Transfer Training,Gait Training, Therapeutic Exercise,Balance Retraining,Discharge Planning, Hot or Cold Pack,Neuromuscular Re-ed,Coordination Retraining Other Recommendations and Next Treatment Progress gait, continue stair Focus training. Precautions Other Precautions O2 sat; falls Recommendations To Nursing Amount of Assist Needed 1 Person Assist Discharge Recommendations PT Discharge Recommendations SNF Rehab Transportation Needs at Discharge Wheelchair/Cabulance
[2023-08-15] MEDS: CEFEPIME 2 GM in SODIUM CHLORIDE 0.9% 100 ML IV ×2 (11:04→22:49)
--- NOTE | 2023-08-15 12:30 | CM.DPC ---
Addendum entered by EDWARD Arriaga 08/15/23 13:58: Merari called and LVM re: [place] [facility]. Auth number [id number]. LADLE PATCHER spoke with Cinthya at [facility]. Tentatively plan for 11am discharge to [facility] tomorrow. LADLE PATCHER entered room and spoke with patient. Updated on tentative 11am d/c time. Patient excited to d/c. LADLE PATCHER spoke with RN Frannie and updated her on d/c plan. Confirms will report time line to future nursing staff in report. Plan: d/c to [facility] tomorrow at 11am pending medical stabiliy. CM team will continue to follow closely. SABI Original Note: DCP Continued: LADLE PATCHER reviewed EMR. From previous note, pending [place] auth for SNF. LADLE PATCHER spoke with Brett Gage manager membership ([phone]). Merari confirms patient has priority and will review today and let this LADLE PATCHER know if we get auth for SNF sometime today. From RN, patient doing well and eager to d/c out of here. LADLE PATCHER spoke with Cinthya at [facility]. Can accept tomorrow. Has availability all day ([phone]) to accept but also pending other new intakes they have from other facilities. LADLE PATCHER entered room and reintroduced self and role. Patient working with PT at the time. LADLE PATCHER updated patient on waiting for auth, if auth approved hopefully d/c tomorrow to [facility]. Patient appreciative of information. Plan: 1) if [place] approves auth for SNF, d/c to [facility] Wednesday. CM team will arrange time with Cinthya tomorrow morning. Plan 2) if no auth for SNF, likely home with family support and [facility]. EDWARD Arriaga
--- NOTE | 2023-08-15 16:44 | PC.NURSE ---
Assumed patient care, family member at bedside during pass off from prev. nurse. Patient states she is feeling just fine, and needs nothing at this time. Patient sitting up in bed, watching her cellphone. Call light with in reach, bed in low pos. alarm on.
[2023-08-15] MEDS: ATORVASTATIN 20 MG TABLET 10 MG PO (20:20)
[2023-08-15] MEDS: ALPRAZolam 0.25 MG TABLET PO (22:45)
[2023-08-16 04:25] VITALS: BP 139/64; PULSE 60; RESP 18; TEMP 36; O2SAT 94
[2023-08-16] MEDS: ONDANSETRON 4 MG ODT PO (05:52)
[2023-08-16] MEDS: LEVOTHYROXINE 125 MCG TABLET PO (05:52)
[2023-08-16 06:22] VITALS: O2SAT 94
[2023-08-16 06:29] LABS: Add Manual Diff / Slide Review NO; Basophils Absolute Auto 100 /uL (0-100); Basophils Percent Auto 0.9 % (0-2); Eosinophils Absolute Auto 0 /uL (0-450); Eosinophils Percent Auto 0.1 % (2-4); Hematocrit 28.7 % (36-46); Hemoglobin 9.8 g/dL (12.0-16.0); Lymphocytes Absolute Auto 700 /uL (1100-4500); Lymphocytes Percent Auto 9.5 % (25-40); Mean Corpuscular HGB Conc 34.1 % (30-36); Mean Corpuscular Hemoglobin 30.9 PG (26-34); Mean Corpuscular Volume 90.7 fL (80-100); Monocytes Absolute Auto 500 /uL (0-900); Monocytes Percent Auto 6.5 % (3-14); Neutrophils Absolute Auto 6300 /uL (1500-7000); Platelet Count 189 X10^3/uL (150-400); Red Blood Cell Count 3.16 X10^6/uL (4.0-5.2); Red Cell Distribution Width 20.3 % (11.6-14.8); White Blood Cell Count 7.6 X10^3/uL (4.5-11.0)
[2023-08-16 06:39] LABS: BUN Creatinine Ratio 47.7 (6-22); Blood Urea Nitrogen 42 mg/dL (7-17); Calcium 9.3 mg/dL (8.4-10.2); Carbon Dioxide 29 mmol/L (22-32); Chloride 100 mmol/L (98-107); Estimated Glomerular Filt Rate > 60 mL/min (>60); Glucose 161 mg/dL (80-110); HEMOLYSIS < 15 (0-50); Magnesium 2.1 mg/dL (1.6-2.3); Potassium 4.7 mmol/L (3.4-5.1); Sodium 130 mmol/L (137-145)
[2023-08-16 06:58] LABS: Anisocytosis 2+
[2023-08-16 07:00] VITALS: O2SAT 95
[2023-08-16 08:27] VITALS: BP 132/61; PULSE 67; RESP 16; TEMP 35.9; O2SAT 96
[2023-08-16] MEDS: PANTOPRAZOLE DR 40 MG TABLET PO (08:29)
[2023-08-16] MEDS: ENOXAPARIN 40 MG/0.4 ML SYRINGE SUBCUT (08:29)
[2023-08-16] MEDS: SODIUM CHLORIDE 0.9% FLUSH 10 ML IV (08:30)
[2023-08-16] MEDS: GABAPENTIN 100 MG CAPSULE PO (08:30)
--- NOTE | 2023-08-16 08:46 | DI.RAD.S_ITS ---
PROCEDURE: XR CHEST 2V INDICATIONS: hypoxemia TECHNIQUE: 2 views of the chest were acquired. COMPARISON: [facility], CR, XR CHEST 1V, 08/11/2023, 8:55. [facility], CR, XR CHEST 2V, 08/09/2023, 8:57. FINDINGS: Surgical changes and devices: Right axillary clips. Cholecystectomy clips. Lungs and pleura: Bilateral airspace opacity is slightly improved. Trace bilateral pleural effusions. No pneumothorax. Mediastinum: Mediastinal contours are unchanged. Heart size is within normal limits. Bones and chest wall: No suspicious bony abnormalities. Soft tissues appear unremarkable. IMPRESSION: Bilateral airspace opacity is slightly improved. Trace pleural effusions. Dictated by: Chilo Sandhu M.D. on 08/16/2023 at 10:05 Approved by: Chilo Sandhu M.D. on 08/16/2023 at 10:08
[2023-08-16] MEDS: BENZONATATE 100 MG CAPSULE PO (08:47)
[2023-08-16] MEDS: IBUPROFEN 400 MG TABLET PO (08:52)
[2023-08-16] MEDS: ACETAMINOPHEN 325 MG TABLET 650 MG PO (08:53)
--- NOTE | 2023-08-16 08:59 | PM.DS.1 ---
History of Present Illness History of Present Illness Date Patient Seen: 08/16/23 Time Patient Seen: 08:59 Chief complaint: Chemo fatigue? Narrative: Reviewed notes over the weekend. Patient was continued on IV antibiotics and today is day 8. Patient was started on Solu-Medrol 30 mg q.12 hours on Wednesday. Patient has decreased oxygen needs and is now on 1 L nasal cannula. With talking she goes down to 88 on room air but quickly recovers to 95%. Patient states that yesterday she did well and coughed all night however. She feels strongly that she wants to leave today and go to skilled care facility and that she will not get better if she is just lying in bed. She is anxious to move on to the next step. She does not want anymore Lasix Discharge Providers Provider Date of admission: 08/07/23 21:33 Discharge Date: 08/16/23 Primary care physician: Harriett Flood MD Consults: 08/10/23 08:46 Consult to Physical Therapy Evaluate & Treat Comment: Physician Instructions: Evaluate and Treat 08/13/23 12:52 Consult to Occupational Therapy Evaluate & Treat Comment: Physician Instructions: Evaluate and treat Discharge provider: Harriett Flood MD Summary Hospital Course Discharge Diagnosis: 1. Sepsis resolved 2. Severe hyponatremia, improved suspect multifactorial related to respiratory illness and chemotherapy 3. Atypical pneumonia with acute respiratory failure still requiring 1 L nasal cannula oxygen. Patient has completed 8 days of vancomycin and cefepime. Antibiotics discontinued today. Will continue on empiric prednisone for another 5 days at 40 mg daily. 4. Anemia suspect multifactorial stable over hospitalization and guaiac-negative 5. Metastatic breast cancer stopping chemotherapy due to side effects 6. GERD 7. Fluid overload/CHF improved. Patient with continued rising BUN creatinine and stable GFR I suspect that she is euvolemic now we will stop Lasix Hospital Course: Patient admitted to the hospital with diagnosis of severe hyponatremia thought to be related to chemotherapy. Patient developed febrile illness and sepsis and subsequently acute respiratory failure requiring 4 L nasal cannula and atypical pneumonia was diagnosed. Patient had been started on Rocephin and after 48 hours with worsening condition was switched to cefepime and vancomycin at recommendation of Oncology. Patient was never neutropenic. Patient had port removed as it was nonfunctional and thought to be possible source of infection. Culture was negative. Blood cultures x4 and port culture and urine culture all negative but chest x-ray did show atypical pneumonia and CT scan showed ground-glass appearance. Patient was diuresed. Echo did not show suppression of ejection fraction and improved from previous echo proximally 3 months ago. Patient continued to be improving from respiratory standpoint although very slow and overall energy and weakness continue to improve though slowly. Patient was discharged to skilled care facility with nasal cannula oxygen on hospital day 10. She is off antibiotics and off of Lasix and will receive 5 days of prednisone at 40 mg daily. She will see PT and OT at skilled care facility with hopes to return home. 40 minutes was spent in discharge Status at Discharge Cognitive/behavioral status at discharge: oriented Functional status at discharge: wheelchair bound Overall status at discharge: patient is progressing back to baseline Exam Vital Signs (past 8 hours): - 08/16/23 04:25 08/16/23 06:22 08/16/23 08:27 Temperature 96.8 F L 96.7 F L Pulse Rate 60 67 Respiratory Rate 18 16 Blood Pressure 139/64 132/61 Pulse Oximetry 94 94 96 Oxygen Flow Rate 2 1 1 Fraction of Inspired Oxygen 32 SaO2/FiO2 Ratio 290 Oxygen Delivery Method Nasal Cannula Oxygen Flow Rate 1 Narrative Exam Narrative: Afebrile vital signs are stable Patient still appears pale but alert and oriented no apparent distress Neck: Supple Chest: Patient with left lower lobe and inspiratory crackles consistent with interstitial lung disease overall improved. Scattered expiratory wheeze on right and minimal bibasilar crackles overall improved from exam on Wednesday Cor: Regular rate and rhythm without a murmur Abdomen: Positive bowel sounds, soft, nontender Extremities: No edema pulses intact Objective Labs 08/16/23 05:45 08/16/23 05:45 Labs: Laboratory Results - last 24 hr 08/16/23 08/16/23 05:45 05:45 WBC 7.6 RBC 3.16 L Hgb 9.8 L Hct 28.7 L MCV 90.7 MCH 30.9 MCHC 34.1 RDW 20.3 H Plt Count 189 Neut % (Auto) 83.0 H Lymph % (Auto) 9.[address] % (Auto) 6.5 Eos % (Auto) 0.1 L Baso % (Auto) 0.9 Neut # (Auto) 6300 Lymph # (Auto) [address] [place] # (Auto) 500 Eos # (Auto) 0 Baso # (Auto) 100 RBC Morphology See below Anisocytosis 2+ H Sodium 130 L Potassium 4.7 Chloride 100 Carbon Dioxide 29 BUN 42 H Creatinine 0.88 Estimated GFR > 60 BUN/Creatinine Ratio 47.7 H Glucose 161 H Calcium 9.3 Magnesium 2.1 PFSH Medical History Anxiety Arrhythmia Atypical chest pain Cancer of right breast GERD (gastroesophageal reflux disease) Graves disease History of COVID-19 (12/16/22) Hx of intestinal obstruction Hyperlipidemia Hypertension Hyperthyroidism Neuropathy Surgical History H/O cardiac radiofrequency ablation (02/2022) H/O hysterectomy for benign disease History of ankle surgery (~1995) History of cholecystectomy (~1994) History of hysterectomy (1988) History of surgery (~1978) Hx of right mastectomy (02/03/23) Social History household members: family and children Smoking Status: Never smoker alcohol intake: never Discharge Assessment & Plan Assessment and Plan Assessment: 1. Sepsis resolved 2. Severe hyponatremia, improved suspect multifactorial related to respiratory illness and chemotherapy 3. Atypical pneumonia with acute respiratory failure still requiring 1 L nasal cannula oxygen. Patient has completed 8 days of vancomycin and cefepime. Antibiotics discontinued today. Will continue on empiric prednisone for another 5 days at 40 mg daily. 4. Anemia suspect multifactorial stable over hospitalization and guaiac-negative 5. Metastatic breast cancer stopping chemotherapy due to side effects 6. GERD 7. Fluid overload/CHF improved. Patient with continued rising BUN creatinine and stable GFR I suspect that she is euvolemic now we will stop Lasix Plan of Treatment: Patient admitted to the hospital with diagnosis of severe hyponatremia thought to be related to chemotherapy. Patient developed febrile illness and sepsis and subsequently acute respiratory failure requiring 4 L nasal cannula and atypical pneumonia was diagnosed. Patient had been started on Rocephin and after 48 hours with worsening condition was switched to cefepime and vancomycin at recommendation of Oncology. Patient was never neutropenic. Patient had port removed as it was nonfunctional and thought to be possible source of infection. Culture was negative. Blood cultures x4 and port culture and urine culture all negative but chest x-ray did show atypical pneumonia and CT scan showed ground-glass appearance. Patient was diuresed. Echo did not show suppression of ejection fraction and improved from previous echo proximally 3 months ago. Patient continued to be improving from respiratory standpoint although very slow and overall energy and weakness continue to improve though slowly. Patient was discharged to skilled care facility with nasal cannula oxygen on hospital day 10. She is off antibiotics and off of Lasix and will receive 5 days of prednisone at 40 mg daily. She will see PT and OT at skilled care facility with hopes to return home. 40 minutes was spent in discharge Discharge Plan Discharge Plan Patient Disposition: SNF Transfer to: [facility] Consult as needed: Dental, Hearing, Mental health, Podiatry and Vision Discharge orders & Medications Prescriptions: New prednisone 20 mg Tablet 40 mg PO DAILY Qty: 10 0RF Continued CMP Estriol Vaginal 0.1% cream See Rx Instructions .ROUTE .COMPLEX Qty: 30 3RF Rx Instructions: Insert 1 gram vaginally once a week for maintenance.; alendronate 70 mg tablet 70 mg PO QWEEK Rx Instructions: Take one tablet every Wednesday metronidazole [Metrogel] 1 % gel 1 applic topical DAILY docusate sodium [Colace] 100 mg capsule 100 mg PO PRN PRN (Reason: Constipation) ondansetron 4 mg Tablet,Disintegrating 4 mg PO Q6H Qty: 30 1RF prochlorperazine maleate [Compazine] 5 mg Tablet 5 mg PO QID PRN (Reason: Nausea) Qty: 30 1RF Patient Comments: Patient takes when runs out of zofran lidocaine-prilocaine 2.5-2.5 % Cream 1 applic topical PRN PRN (Reason: port pain) Qty: 30 1RF Rx Instructions: Apply to the skin over the port at least 2 hours before planned use of the port. Cover the cream with a small piece of plastic wrap and leave in place until the port is accessed. atorvastatin 10 mg Tablet 10 mg PO BEDTIME cholecalciferol (vitamin D3) [Vitamin D3] 25 mcg (1,000 unit) Capsule 50 mcg PO DAILY Rx Instructions: Take two capsules by mouth daily acetaminophen [Tylenol] 325 mg capsule 650 mg PO QID PRN (Reason: pain) Qty: 60 0RF pantoprazole 40 mg Tablet,Delayed Release (Dr/Ec) 40 mg PO BID benzonatate 100 mg capsule 100 mg PO TID PRN (Reason: Cough) Rx Instructions: Take one capsule by mouth 3 times a day as needed for cough levothyroxine [Synthroid] 125 mcg Tablet 125 mcg PO QAM Follow up/Referrals: Harriett Flood MD [Primary Care Provider] - Discharge Health Status Precautions: Pax Diet/Activity/Treatments Diet: Diet as Tolerated Liquid consistency: Normal/Thin Food texture: Regular Special Rehabilitation Services Rehab type: Physical therapy and Occupational therapy Visit Report/Discharge Packet Stand Alone Forms: Patient Portal/API Discharge Data Primary Care Provider: Harriett Flood Quality VTE Deep Vein Thrombosis/Pulmonary Embolism Present on Admission: No
[2023-08-16 09:52] VITALS: O2SAT 95
--- NOTE | 2023-08-16 10:17 | CM.DPC ---
DCP Discharge SNF Per MD, pt is medically stable to d/c to SNF today and pt completed her IV-Abx course and still on 1LO2 as pt could not yet be weaned to room air. [facility] confirms they can still accept pt today and provide transport around 1130. GAGE Ladan kindly faxed [facility], signed med list, no scripts, MD orders and d/c summ to [facility] to review. SW updated RN/ZINC ETCHER/blasting cap assembler and provided report and also called pt's son and updated and he remains agreeable and will be bedside prior to transport to [facility]. Plan: Patient to d/c to [facility] today via facility van at 1130 prior to safe return home with son and DIL. EDWARD Rainey
[2023-08-16] MEDS: predniSONE 20 MG TABLET 40 MG PO (10:23)
--- NOTE | 2023-08-16 12:11 | PC.NURSE ---
Patient is A&OX3-4, this a.m. She denies pain. She has a productive cough, and SOB with activity. VSS, afebrile on 1LNC. She tolerates breakfast well and MD at bedside clears patient for discharge to [facility] this a.m. She is able to complete 2 view Chest xray.Son at bedside supportive. RN called Christian at [facility] to give report, and transport escorted patient with belongings via w/ch with packet and belongings at 1140 a.m.
== END 2023-08-16 11:40 | DRG 871 ==
LOC: ED 21:30 → AC 21:34
PROVIDERS: Emergency Medicine; Internal Medicine; Surgery; Admitting Provider Family Medicine; Emergency Provider Emergency Medicine; Family Provider Internal Medicine; PCP Family Medicine; Referring Provider Emergency Medicine; Visit Provider Family Medicine
PROC: 0JPV0WZ Removal of Totally Implantable Vascular Access Device from Upper Extremity Subcutaneous Tissue and Fascia, Open Approach (ICD-10-PCS; CPT 36590; principal; 2023-08-10 15:30)
DX: A41.9 Sepsis, unspecified organism (principal); J18.9 Pneumonia, unspecified organism; J96.01 Acute respiratory failure with hypoxia; E87.1 Hypo-osmolality and hyponatremia; I47.10 Supraventricular tachycardia, unspecified; E86.0 Dehydration; C50.911 Malignant neoplasm of unspecified site of right female breast; E03.9 Hypothyroidism, unspecified; D64.81 Anemia due to antineoplastic chemotherapy; T45.1X5A Adverse effect of antineoplastic and immunosuppressive drugs, initial encounter; K21.9 Gastro-esophageal reflux disease without esophagitis; I50.9 Heart failure, unspecified; E78.5 Hyperlipidemia, unspecified; I11.0 Hypertensive heart disease with heart failure; Z66 Do not resuscitate; Z17.0 Estrogen receptor positive status [ER+]
CPT/HCPCS: 36415; 70450; 71045; 71046; 71275; 80048; 80053; 80202; 81001; 82550; 82570; 83605; 83690; 83735; 83880; 84145; 84300; 84484; 85007; 85025; 85610; 85730; 87040; 87070; 87075; 87086; 87205; 87493; 87633; 87797; 93005; 93306; 94760; 97110; 97116; 97162; 97166; 97530; 97535; 99233; 99285; J0692; J0696; J1650; J1940; J2704; J2930

== ENCOUNTER → 2023-08-31 10:51 | Outpatient (CLI) | payer OTHER, SELFPAY ==
[2023-08-08 03:59] VITALS: BMI 28.1
--- NOTE | 2023-08-31 10:55 | DI.RAD.S_ITS ---
PROCEDURE: XR CHEST 2V INDICATIONS: Pneumonia, unspecified organism TECHNIQUE: 2 views of the chest were acquired. COMPARISON: [facility], CR, XR CHEST 2V, 08/16/2023, 9:31. FINDINGS: Surgical changes and devices: None. Lungs and pleura: Increased bronchovascular markings in bilateral hilar region are seen. Ill-defined airspace opacities are again noted in bilateral perihilar region and right infrahilar region suggestive of bilateral patchy infiltrates. Overall appearance is slightly improved compared to prior study. Blunting of left costophrenic angle is noted suggestive of trace left pleural effusion. No pneumothorax. Mediastinum: Mediastinal contours are normal. Heart size is normal. Bones and chest wall: No suspicious bony abnormalities. Soft tissues appear unremarkable. IMPRESSION: Persistent bilateral perihilar and infrahilar infiltrates slightly improved compared to previous study. Trace left pleural effusion. No pneumothorax. Dictated by: Ghanshyam Stanford M.D. on 08/31/2023 at 12:25 Approved by: Ghanshyam Stanford M.D. on 08/31/2023 at 12:26
== END ==
PROVIDERS: Family Provider Internal Medicine; PCP Family Medicine; Referring Provider Family Medicine; Visit Provider Family Medicine
DX: J18.9 Pneumonia, unspecified organism (principal); R06.02 Shortness of breath; R05.1 Acute cough; J90 Pleural effusion, not elsewhere classified
CPT/HCPCS: 71046

== ENCOUNTER → 2023-10-05 11:37 | Outpatient (CLI) | payer OTHER, SELFPAY ==
[2023-08-08 03:59] VITALS: BMI 28.1
--- NOTE | 2023-10-05 | DI.RAD.S_ITS ---
PROCEDURE: XR CHEST 2V INDICATIONS: pneumonia of both lungs due to infectious organism TECHNIQUE: 2 views of the chest were acquired. COMPARISON: [facility], CR, XR CHEST 2V, 08/31/2023, 10:55. [facility], CR, XR CHEST 2V, 08/16/2023, 9:31. FINDINGS: Surgical changes and devices: Right surgical clips again seen. Lungs and pleura: Trace perihilar and lower lung opacities. Findings are decreased compared to August. No drainable pleural effusion. Mediastinum: Normal heart size. Bones and chest wall: Degenerative changes. IMPRESSION: Trace opacities persist in the lower lungs and perihilar regions. Overall radiographic findings however have slightly improved compared to August 2023. Consider surveillance imaging at clinical discretion. Dictated by: Khari Howard M.D. on 10/05/2023 at 13:39 Approved by: Khari Howard M.D. on 10/05/2023 at 13:40
== END ==
PROVIDERS: Family Provider Internal Medicine; PCP Family Medicine; Referring Provider Family Medicine; Visit Provider Family Medicine
DX: J18.9 Pneumonia, unspecified organism (principal)
CPT/HCPCS: 71046

== ENCOUNTER → 2024-02-08 14:07 | Outpatient (CLI) | payer OTHER, SELFPAY ==
[2023-08-08 03:59] VITALS: BMI 28.1
--- NOTE | 2024-02-08 14:09 | DI.RAD.S_ITS ---
Bone Density Report Name: YOLANDA MCBRIDE Age: 79 Sex: Female Ethnicity: White Date of : 1945 Indication: postmenopausal; screening for osteoporosis; Referring Provider: MONIQUE DEL ROSARIO Study: Bone densitometry was performed. Exam Date: February 08, 2024 Accession number: [id number] Bone Density: Region BMD T-score Z-score Classification AP Spine(L1-L4) 1.025 -0.2 2.5 Normal Femoral Neck (Left) 0.722 -1.1 1.2 Osteopenia Total Hip (Left) 0.880 -0.5 1.6 Normal Total Forearm (Left) 0.496 -1.5 1.6 Osteopenia 1/3 Forearm (Left) 0.590 -1.7 1.5 Osteopenia UD Forearm (Left) 0.364 -1.4 0.9 Osteopenia World Health Organization criteria for BMD impression classify patients as: Normal (T-score at or above -1.0), Osteopenia (T-score between -1.0 and -2.5), or Osteoporosis (T-score at or below -2.5). 10-year Fracture Risk(1): Major Osteoporotic Fracture 12% Hip Fracture 2.5% Reported Risk Factors: [place] (), Neck BMD=0.722, BMI=26.5 (1) FRAX(R) Version 3.08. Fracture probability calculated for an untreated patient. Fracture probability may be lower if the patient has received treatment. Previous Exams: -- Region Exam Age BMD T-score BMD Change BMD Change Date g/cm2 vs Baseline vs Previous -- AP Spine (L1-L4) 02/08/2024 79 1.025 -0.2 0.050 (5.1%)# 0.050 (5.1%)# 09/26/2021 76 0.975 -0.7 Total Hip(Left) 02/08/2024 79 0.880 -0.5 0.040 (4.8%)# 0.040 (4.8%)# 09/26/2021 76 0.840 -0.8 -- *Denotes significance at 95% confidence level, LSC for AP Spine = 0.022 g/cm2, LSC for Total Hip = 0.027 g/cm2 # Denotes dissimilar scan types or analysis methods Impression: The patient has low bone mass, based on the Left Femoral Neck T-score. The patient has an estimated ten-year risk of hip fracture of 2.5% and an estimated ten-year risk of major fracture of 12%, based on the WHO FRAX algorithm. No significant bone loss was observed. Discussion: BONE DENSITY IS LOW AT ONE OR MORE SKELETAL SITES. This patient's lowest T-score is low at one or more skeletal sites. It meets the World Health Organization's (WHO) criteria for low bone mass (T-score between -1.0 and -2.5). The patient's 10-year risk of fracture as calculated by FRAX is less than the threshold where pharmacological therapy is recommended by the National Osteoporosis Foundation (NOF). However, all treatment decisions require clinical judgment and consideration of individual patient factors, including patient preferences, comorbidities, previous drug use, risk factors not captured in the FRAX model (e.g., frailty, falls, vitamin D deficiency, increased bone turnover, interval significant decline in bone density) and possible under or overestimation of fracture risk by FRAX. The patient should follow a healthful lifestyle (good nutrition with adequate calcium and vitamin D, and appropriate weight-bearing exercise). Follow-Up: Consider repeating this study in 2 to 3 years to reassess this patient's status, or sooner if there is some new clinical indication. Reported by: VERONICA SORENSEN MD on 02/08/2024 3:20:00 PM.
== END ==
PROVIDERS: Family Provider Internal Medicine; PCP Family Medicine; Referring Provider Family Medicine; Visit Provider Family Medicine
DX: M85.89 Other specified disorders of bone density and structure, multiple sites (principal); C50.911 Malignant neoplasm of unspecified site of right female breast
CPT/HCPCS: 77080

== ENCOUNTER → 2024-06-27 11:43 | Outpatient (CLI) | payer OTHER, SELFPAY ==
[2023-08-08 03:59] VITALS: BMI 28.1
--- NOTE | 2024-06-27 | DI.RAD.S_ITS ---
PROCEDURE: XR LUMBAR SPINE 2-3V INDICATIONS: acute bilateral low back pain without sciatica, right hip pa TECHNIQUE: 3 views of the lumbar spine were acquired. COMPARISON: None. FINDINGS: Bones: Mild dextroscoliosis of the lumbar spine. Mild retrolisthesis of L3 on L4. Grade 1 anterolisthesis of L4 on L5 and L5 on S1. Vertebral body heights are well-maintained. Multilevel, mild degenerative disease of the lumbar spine. Mild lower lumbar facet arthropathy. Soft tissues: Moderate calcification of the abdominal aorta. IMPRESSION: No acute bony abnormality. Dictated by: Lori Turner M.D. on 06/27/2024 at 18:45 Approved by: Lori Turner M.D. on 06/27/2024 at 18:47
== END ==
PROVIDERS: Family Provider Internal Medicine; PCP Family Medicine; Referring Provider Family Medicine; Visit Provider Family Medicine
DX: M41.9 Scoliosis, unspecified (principal); M43.16 Spondylolisthesis, lumbar region; M51.36 Other intervertebral disc degeneration, lumbar region; M47.816 Spondylosis without myelopathy or radiculopathy, lumbar region; I70.0 Atherosclerosis of aorta; M54.50 Low back pain, unspecified; M25.551 Pain in right hip
CPT/HCPCS: 72100

== ENCOUNTER → 2024-07-14 12:26 | Outpatient (CLI) | payer OTHER, SELFPAY ==
[2023-08-08 03:59] VITALS: BMI 28.1
--- NOTE | 2024-07-14 12:28 | DI.MG.S_ITS ---
UNILATERAL LEFT DIGITAL SCREENING MAMMOGRAM 3D/2D WITH CAD: 07/14/2024 CLINICAL: Routine screening. Personal history of left breast cancer. Comparison is made to exams dated: 01/20/2022 mammogram, 12/27/2020 mammogram, and 12/20/2019 mammogram - [facility]. The left breast is heterogeneously dense, which may obscure small masses (category c / 51-75% glandular tissue). Current study was also evaluated with a Computer Aided Detection (CAD) system. There are benign calcifications in the left breast. No significant masses, calcifications, or other findings are seen in the breast. There has been no significant interval change. IMPRESSION: BENIGN There is no mammographic evidence of malignancy. A 1 year screening mammogram is recommended. This exam was interpreted at Station ID: [id number]. NOTE: For mammograms, a report in lay terms will be sent to the patient. Approximately 15% of breast malignancies will not be visualized mammographically. In the management of a palpable breast mass, a negative mammogram must not discourage biopsy of a clinically suspicious lesion. Electronically Signed By: Angeline goss/david:07/14/2024 13:50:42 letter sent: Normal Exam ACR BI-RADS Category 2: Benign Finding(s) 3342F
== END ==
PROVIDERS: Family Provider Internal Medicine; PCP Family Medicine; Referring Provider Surgery; Visit Provider Surgery
DX: Z12.31 Encounter for screening mammogram for malignant neoplasm of breast; Z85.3 Personal history of malignant neoplasm of breast
CPT/HCPCS: 77063; 77067

== ENCOUNTER → 2025-08-26 13:37 | Outpatient (CLI) | payer OTHER, SELFPAY ==
[2023-08-08 03:59] VITALS: BMI 28.1
[2025-08-26 14:35] LABS: COVID-19 CEPHEID 4-PLEX PCR Negative (Negative); Influenza A - CEPHEID Flu A NEGATIVE (NEGATIVE); Influenza B - CEPHEID Flu B NEGATIVE (NEGATIVE)
== END ==
PROVIDERS: Family Provider Internal Medicine; PCP Family Medicine; Visit Provider Registered Nurse
DX: R05.1 Acute cough (principal); J02.9 Acute pharyngitis, unspecified
CPT/HCPCS: 87070; 87637

== ENCOUNTER → 2025-08-28 09:50 | Outpatient (CLI) | payer OTHER, SELFPAY ==
[2023-08-08 03:59] VITALS: BMI 28.1
--- NOTE | 2025-08-28 09:51 | DI.RAD.S_ITS ---
PROCEDURE: XR CHEST 2V INDICATIONS: COUGH TECHNIQUE: 2 views of the chest were acquired. COMPARISON: [facility], CR, XR CHEST 2V, 10/05/2023, 11:42. FINDINGS: Heart, mediastinum and pulmonary vascular: Heart is normal in size and configuration. Moderate hiatal hernia noted- mediastinum is otherwise unremarkable. Pulmonary vascular is normal. Lungs: Clear Pleural spaces: Normal-no effusions or pneumothorax IMPRESSION: Moderate hiatal hernia-no acute disease Dictated by: Gigi Padron M.D. on 08/29/2025 at 12:57 Approved by: Gigi Padron M.D. on 08/29/2025 at 12:57
== END ==
PROVIDERS: Family Provider Internal Medicine; PCP Family Medicine; Referring Provider Family Medicine; Visit Provider Family Medicine
DX: R05.1 Acute cough (principal); K44.9 Diaphragmatic hernia without obstruction or gangrene
CPT/HCPCS: 71046

== ENCOUNTER → 2025-09-19 10:32 | Outpatient (CLI) | payer OTHER, SELFPAY ==
[2023-08-08 03:59] VITALS: BMI 28.1
--- NOTE | 2025-09-19 10:33 | DI.CT.S_ITS ---
PROCEDURE: CT CHEST WO CON
== END ==
LOC: CT 10:32
PROVIDERS: Family Provider Internal Medicine; PCP Family Medicine; Referring Provider Family Medicine; Visit Provider Family Medicine
DX: C80.1 Malignant (primary) neoplasm, unspecified (principal); C79.51 Secondary malignant neoplasm of bone; R05.1 Acute cough; R06.02 Shortness of breath; I51.7 Cardiomegaly; I25.10 Atherosclerotic heart disease of native coronary artery without angina pectoris; K44.9 Diaphragmatic hernia without obstruction or gangrene; M43.8X4 Other specified deforming dorsopathies, thoracic region
CPT/HCPCS: 71250

== ENCOUNTER → 2025-11-14 11:11 | Outpatient (CLI) | payer OTHER, SELFPAY ==
[2025-10-24 10:15] VITALS: BMI 28.1
--- NOTE | 2025-11-14 11:12 | DI.RAD.S_ITS ---
PROCEDURE: XR CHEST 2V INDICATIONS: COUGH TECHNIQUE: 2 views of the chest were acquired. COMPARISON: [facility], , XR CHEST 2V, 08/28/2025, 9:09. FINDINGS: Surgical changes and devices: Small surgical clips project over the right mid chest and in the right upper abdomen Lungs and pleura: Lungs are clear. No pleural effusions or pneumothorax. Mediastinum: Mediastinal contours are normal. Heart size is normal. Moderate- sized hiatal hernia with an air-fluid level. Bones and chest wall: No suspicious bony abnormalities. Soft tissues appear unremarkable. IMPRESSION: No acute cardiopulmonary abnormality is seen. Moderate-sized hiatal hernia, stable. Dictated by: Angeline Cervantes M.D. on 11/14/2025 at 16:02 Approved by: Angeline Cervantes M.D. on 11/14/2025 at 16:04
== END ==
PROVIDERS: Family Provider Internal Medicine; PCP Family Medicine; Referring Provider Family Medicine; Visit Provider Family Medicine
DX: R05.1 Acute cough (principal); K44.9 Diaphragmatic hernia without obstruction or gangrene
CPT/HCPCS: 71046

== ENCOUNTER → 2025-11-14 12:21 | Outpatient (ROUT) | payer OTHER, SELFPAY ==
[2025-10-24 10:15] VITALS: BMI 28.1
[2025-11-14 13:39] LABS: Influenza A - CEPHEID Flu A POSITIVE (NEGATIVE); Influenza B - CEPHEID Flu B NEGATIVE (NEGATIVE)
[2025-11-14 13:41] LABS: COVID-19 CEPHEID 4-PLEX PCR Negative (Negative)
== END ==
PROVIDERS: Family Provider Internal Medicine; PCP Family Medicine; Visit Provider Family Medicine
DX: R05.1 Acute cough (principal); R06.02 Shortness of breath
CPT/HCPCS: 87637